=== PATIENT | female | born 1935 | race Caucasian/White ===

== ENCOUNTER 2019-07-20 22:31 | Inpatient (IN) | payer MEDICARE, OTHER, SELFPAY ==
--- NOTE | ~2019-07-20 | CT_ITS ---
EXAMINATION: CTA brain carotid EXAM DATE: 07/21/2019 06:12 INDICATION: Stroke. Unwitnessed fall. TECHNIQUE: Spiral CTA of the carotid arteries was performed with intravenous injection 100 cc of Om nipaque 350. Axial, coronal, sagittal reformatted images reviewed. Additional reformatted images cre ated on dedicated 3-D workstation. NASCET comparable standard used to assess the degree of arterial stenosis. Spiral CT angiogram cerebral arteries performed with the same intravenous injection of con trast. Source images of the brain CTA transferred to dedicated workstation for 3-D rotational image c reation. Coronal, sagittal maximum intensity pixel images also reviewed. The dose-length product (D LP) for this examination was 962.22 mGy-cm. The exposure was tailored according to patient size, an d iterative reconstruction (ASIR) was used as additional dose reduction technique. Correlation is mad e to noncontrast head CT earlier same date. FINDINGS: Imaged portion of the ascending aorta measures at least 4.3 cm in diameter, mildly aneurysm al. Mild scattered bilateral carotid bulb arterial sclerosis with 0% carotid bulb stenosis bilaterall y. The vertebral arteries are codominant. Moderate amount of relatively smooth bilateral carotid siph on arterial sclerosis with distal right carotid siphon stenosis of 40% and left carotid siphon stenos is of 25%. There is no carotid or vertebral basilar arterial dissection or fibromuscular dysplasia. There are no cerebral artery aneurysms. There is symmetric cerebral artery arborization. The sagittal , transverse and sigmoid sinuses enhance normally, no venous sinus thrombosis. Internal cerebral vein s also enhance normally. There are no areas of abnormal enhancement on the post contrast images. Gra y-white differentiation appears preserved. There is no brain mass. Cardiomegaly and sternotomy wires. IMPRESSION: 1. No cervical arterial dissection or cerebral artery aneurysm. 2. Right carotid siphon 40% stenosis. 3. Left carotid siphon 25% stenosis. 4. Ascending aortic aneurysm. Reviewed, dictated and finalized at location A.
--- NOTE | ~2019-07-20 | CT_ITS ---
EXAMINATION: CT brain wo con EXAM DATE: 07/21/2019 04:20 INDICATION: Unwitnessed fall. Stroke. TECHNIQUE: Spiral CT of the head was performed without contrast. Axial, coronal and sagittal images were reviewed. The dose-length product (DLP) for this examination was 605.33 mGy-cm. The exposure w as tailored according to patient size, and iterative reconstruction (ASIR) was used as additional dos e reduction technique. Comparison is made to prior examination from 06/18/2012. FINDINGS: There is no acute intraparenchymal hemorrhage. No evidence of intraparenchymal brain mass lesion. No evidence of acute infarction. Please note that initial head CT has limited sensitivity f or small or acute infarctions. There are punctate old bilateral internal capsular and right basal ga nglia lacunar infarctions, most new compared to prior study in 2012. There is moderate periventricul ar and subcortical hypodensity, nonspecific but probably related to small vessel ischemic disease. There is mild prominence of the sulci and ventricles related to cerebral atrophy. There is intracra nial carotid arteriosclerosis. There are no extra-axial collections. There is no mass effect or mid line shift. Patient has had ocular lens surgery. Soft tissue is unremarkable. The visualized sinus es and mastoid air cells are well aerated. Interval progression in the age-related findings compare d to prior study. IMPRESSION: 1. No acute intracranial findings. 2. Chronic age related findings. 3. Old lacunar infarctions. Reviewed, dictated and finalized at location A.
[2019-07-20 22:38] VITALS: BP 249/74; PULSE 72; RESP 18; TEMP 36.8; O2SAT 98
--- NOTE | 2019-07-20 22:38 | ED.GIBLEED ---
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 per daughter who she lives with is bed side and states that the pt fell tonight and was having rectal bleeding on Warfarin for mechanical aortic valve replacement daughter just noticed today no pain, SOB, N/V, ABD pain, weakness, roxana, DM, HTN, nonsmoker Related Data Home Medications Medication Instructions Recorded Confirmed ascorbic acid (vitamin C) 250 mg 250 mg PO DAILY 05/29/19 05/29/19 tablet aspirin 81 mg tablet,delayed 81 mg PO DAILY 05/29/19 05/29/19 release atorvastatin 40 mg tablet 40 mg PO DAILY 05/29/19 05/29/19 calcium carb 300 mg-D3 800 1 tablet PO DAILY 05/29/19 05/29/19 unit-mag ox 25 mg-photocopying equipment mechanic 0.5 mg-abel-Zn tablet cholecalciferol (vitamin D3) 125 125 mcg PO DAILY 05/29/19 05/29/19 mcg (5,000 unit) capsule cinnamon bark 500 mg capsule 500 mg PO DAILY 05/29/19 05/29/19 glucosamine-chondroitin 250 mg-200 2 tablet PO TID 05/29/19 05/29/19 mg tablet omega-3 fatty acids 500 mg capsule 500 mg PO DAILY 05/29/19 05/29/19 pyridoxine (vitamin B6) 100 mg 100 mg PO DAILY 05/29/19 05/29/19 tablet vitamin B complex 1 tablet PO DAILY 05/29/19 05/29/19 warfarin 2 mg tablet 2 mg PO QMWF 05/29/19 05/29/19 warfarin 4 mg tablet 4 mg PO QMWF 05/29/19 05/29/19 zinc 50 mg tablet 50 mg PO DAILY 05/29/19 05/29/19 Allergies Allergy/AdvReac Type Severity Reaction Status Date / Time milk Allergy Mild Unverified 07/29/16 13:14 lactose Allergy Unknown NASAL Verified 07/29/16 13:14 CONGESTION Penicillins Allergy Unknown Verified 03/01/17 15:29 pravastatin Allergy Unknown Verified 03/01/17 15:32 Sulfa (Sulfonamide Allergy Unknown Verified 03/25/17 13:14 Antibiotics) PMFSH Social History Social History Smoking status: Never smoker Second hand tobacco smoke exposure: No Alcohol intake: never Substance use: never Substance use type: does not use Gender identity (if verbalized by the patient): Female Discharge Plan Discharge Prescriptions: No Action atorvastatin 40 mg tablet 40 mg PO DAILY RF: 0 warfarin 4 mg tablet 4 mg PO QMWF RF: 0 warfarin 2 mg tablet 2 mg PO QMWF RF: 0 aspirin [Aspir-81] 81 mg tablet,delayed release (DR/EC) 81 mg PO DAILY RF: 0 glucosamine-chondroitin [Osteo Bi-Flex] 250-200 mg tablet 2 tablet PO TID RF: 0 pyridoxine (vitamin B6) 100 mg tablet 100 mg PO DAILY RF: 0 Caltrate + D3 Plus Minerals 300 mg-800 unit -25 mg-0.5 mg tablet 1 tablet PO DAILY RF: 0 cholecalciferol (vitamin D3) 125 mcg (5,000 unit) capsule 125 mcg PO DAILY RF: 0 zinc [Chelated Zinc] 50 mg tablet 50 mg PO DAILY RF: 0 ascorbic acid (vitamin C) 250 mg tablet 250 mg PO DAILY RF: 0 omega-3 fatty acids 500 mg capsule 500 mg PO DAILY RF: 0 vitamin B complex [B Complex-Vitamin B12] Tablet 1 tablet PO DAILY RF: 0 cinnamon bark 500 mg capsule 500 mg PO DAILY RF: 0 celecoxib 200 mg capsule 200 mg PO DAILY Qty: 90 RF: 1 digoxin 250 mcg (0.25 mg) tablet 250 mcg PO DAILY Qty: 90 RF: 1 galantamine 8 mg capsule,ext rel. pellets 24 hr 8 mg PO QAM Qty: 90 RF: 1 lisinopril 20 mg tablet 20 mg PO DAILY Qty: 90 RF: 1 metoprolol tartrate 50 mg tablet 25 mg PO BID Qty: 90 RF: 1 glyburide-metformin 2.5-500 mg tablet 1 tablet PO BID Qty: 180 RF: 1 memantine 28 mg capsule,sprinkle,ER 24hr 28 mg PO DAILY Qty: 90 RF: 1
--- NOTE | 2019-07-20 22:44 | ED.FALL ---
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 Per daughter states that the pt never falls but that tonight she heard the pt fall and when she went in the room to check on the pt the pt was on her side. She reports that the pt is chronically on Warfarin for a mechanical valve and tonight she also noticed bright red blood in toilet after the pt had a BM. The pt denies any CP, back pain, neck pain, SOB, N/V, ABD pain, weakness, or numbness. MD complaint: fall Onset (ago): minute(s) Fall witnessed: no Place fall occurred: home Prolonged down time: no Associated symptoms (after fall): other (rectal bleeding) Related Data Home Medications Medication Instructions Recorded Confirmed ascorbic acid (vitamin C) 250 mg 250 mg PO DAILY 05/29/19 05/29/19 tablet aspirin 81 mg tablet,delayed 81 mg PO DAILY 05/29/19 05/29/19 release atorvastatin 40 mg tablet 40 mg PO DAILY 05/29/19 05/29/19 calcium carb 300 mg-D3 800 1 tablet PO DAILY 05/29/19 05/29/19 unit-mag ox 25 mg-copy clerk 0.5 mg-abel-Zn tablet cholecalciferol (vitamin D3) 125 125 mcg PO DAILY 05/29/19 05/29/19 mcg (5,000 unit) capsule cinnamon bark 500 mg capsule 500 mg PO DAILY 05/29/19 05/29/19 glucosamine-chondroitin 250 mg-200 2 tablet PO TID 05/29/19 05/29/19 mg tablet omega-3 fatty acids 500 mg capsule 500 mg PO DAILY 05/29/19 05/29/19 pyridoxine (vitamin B6) 100 mg 100 mg PO DAILY 05/29/19 05/29/19 tablet vitamin B complex 1 tablet PO DAILY 05/29/19 05/29/19 warfarin 2 mg tablet 10 mg PO QMWF 05/29/19 05/29/19 warfarin 4 mg tablet 8 mg PO QTUTH 05/29/19 05/29/19 zinc 50 mg tablet 50 mg PO DAILY 05/29/19 05/29/19 Allergies Allergy/AdvReac Type Severity Reaction Status Date / Time milk Allergy Mild Unknown Verified 07/20/19 22:46 lactose Allergy Unknown NASAL Verified 07/20/19 22:46 CONGESTION Penicillins Allergy Unknown Unknown Verified 07/20/19 22:46 pravastatin Allergy Unknown Unknown Verified 07/20/19 22:46 Sulfa (Sulfonamide Allergy Unknown Unknown Verified 07/20/19 22:46 Antibiotics) Review of Systems Review of Systems: All systems reviewed & are unremarkable except as noted in HPI and below Cardiovascular: Cardiovascular: Denies chest pain Respiratory: Respiratory: Denies dyspnea Gastrointestinal: Gastrointestinal: Denies abdominal pain, Reports hematochezia, Denies nausea and Denies vomiting Musculoskeletal: Musculoskeletal: Denies back pain and Denies neck pain Neurologic: Denies numbness and Denies weakness PMFSH Past Medical History Medical History CKD (chronic kidney disease) stage 3, GFR 30-59 ml/min Dementia 02/12/2013 Dementia, unspecified, without behavioral disturbance Diarrhea in adult patient 06/25/2018 Dyslipidemia Edema of both lower legs due to peripheral venous insufficiency 07/21/2018 Elevated lipids Essential (primary) hypertension Low back pain without sciatica Tinea cruris Type 2 diabetes mellitus without complication, without long-term current use of insulin Vitamin D deficiency Surgical History Surgical History Aortic valve replaced 07/17/1995 History of cholecystectomy 06/17/2002 History of right coronary artery stent placement 02/16/2006 Family History Family History Father Acute myocardial infarction Social History Social History Smoking status: Never smoker Second hand tobacco smoke exposure: No Alcohol intake: never Substance use: never Substance use type: does not use Gender identity
[2019-07-20 23:00] VITALS: BP 205/64; PULSE 65; RESP 17; TEMP 36.6; O2SAT 97
[2019-07-20 23:06] LABS: Basophils Percent Auto 0.3 % (0.2-1.2); Eosinophils Absolute Auto 0.3 K/mm3 (0-0.3); Eosinophils Percent Auto 4.3 % (0-4.4); Hematocrit 30.5 % (37.0-47.0); Hemoglobin 9.8 g/dL (12.0-15.0); Immature Granulocyte Absolute 0.04 K/mm3 (0.00-0.031); Immature Granulocyte Percent A 0.6 % (0-0.5); Lymphocytes Absolute Auto 0.77 K/mm3 (0.9-3.2); Lymphocytes Percent Auto 11.3 % (18.3-44.2); Mean Corpuscular HGB Conc 32.1 g/dl (32-36); Mean Corpuscular Hemoglobin 30.1 pg (26-34); Mean Corpuscular Volume 93.6 fl (80-100); Mean Platelet Volume 11.3 fl (7.4-10.4); Monocytes Absolute Auto 0.7 K/mm3 (0.1-0.6); Monocytes Percent Auto 10.4 % (2.6-8.5); Neutrophils Percent Auto 73.1 % (45.5-73.1); Platelet Count Result 161 k/mm3 (150-375); Red Blood Count 3.26 M/mm3 (4.2-5.4); Red Cell Distribution Width 13.7 % (11.5-14.5); White Blood Count 6.8 K/mm3 (4.5-10.0)
--- NOTE | 2019-07-20 23:08 | ECG_ITS ---
Measurements Intervals [place] Rate: 66 P: 69 [place]: 201 QRS: -30 QRSD: 110 T: 49 QT: 378 QTc: 397 Interpretive Statements SINUS RHYTHM BORDERLINE AV CONDUCTION DELAY LEFT ATRIAL ENLARGEMENT INTRAVENTRICULAR CONDUCTION DELAY LEFT VENTRICULAR HYPERTROPHY AND ST-T CHANGE POOR R WAVE PROGRESSION, ANTERIOR LEADS BORDERLINE ST-T WAVE ABNORMALITY- INF/LAT LEADS BASELINE ARTIFACT- V4-V5 ABNORMAL ECG Electronically Signed On 07-21-2019 7:06:03 CDT by Delbert Nair D.O.
--- NOTE | 2019-07-20 23:09 | PC.NURSE ---
assumed care of pt at this time. report from TOR Torres
[2019-07-20 23:16] LABS: INR 2.3; Prothrombin Time 25.2 Seconds (11.1-14.7)
[2019-07-20 23:17] LABS: Partial Thromboplastin Time 36.3 SECONDS (22.3-36.8)
[2019-07-20 23:18] LABS: Alanine Aminotransferase 40 U/L (4-35); Albumin Level 3.8 g/dL (3.5-5.1); Alkaline Phosphatase 57 U/L (38-126); Aspartate Amino Transferase 42 U/L (14-36); Bilirubin,Total 0.9 mg/dL (0.2-1.3); Blood Urea Nitrogen 24 mg/dL (7-17); Calcium 9.2 mg/dL (8.4-10.2); Carbon Dioxide 31 mmol/L (22-30); Chloride 100 mmol/L (98-107); Estimated CRCL calculation 31 ml/min; Estimated Glomerular Filt Rate 53; Glucose 182 mg/dL (65-105); Potassium 4.6 mmol/L (3.4-5.0); Sodium 139 mmol/L (137-145)
[2019-07-20 23:48] VITALS: BP 253/71; PULSE 68
[2019-07-20 23:49] VITALS: BP 207/79; BP 248/84; PULSE 67; PULSE 74
[2019-07-20 23:58] VITALS: BP 207/79; PULSE 67; RESP 16; TEMP 36.3; O2SAT 97
[2019-07-21] VITALS (11 sets, daily range): BP systolic 156–253; BP diastolic 62–83; PULSE 67–99; RESP 16–18; TEMP 36.7–37.1; O2SAT 95–99; BMI 22.6
--- NOTE | 2019-07-21 00:54 | PC.NURSE ---
This patient, Sadie Winston, was admitted to 2 Medical Room 251-01. Patient/family oriented to hospital policies and general routines including ID bracelet, bed and alarms, visiting hours, pain management, procedures, bathroom and other care routines, personal items, smoking policy, room service/diet, and visiting hours. Valuables list has been completed. Information on how to activate the Rapid Response Team has been discussed. Patient/Family are encouraged to report perceived risks to care and to ask questions if they do not understand what they are told or what they should do.
[2019-07-21] MEDS: hydrALAZINE HCL 20 MG/ML VIAL 10 MG IV PUSH ×3 (01:51→14:37)
--- NOTE | 2019-07-21 03:31 | PM.IMHP ---
H&P: HPI History of Present Illness Chief complaint: GI Bleeding Narrative: This is an 83 year old Diabetic demented female who is known to chronically be anticoagulated on coumadin secondary to a mechanical heart valve who presented to the hospital tonight with her daughter secondary to suffering a fall at home. The patient's daughter had reported to nursing staff that the patient was in the bathroom and simply fell off of the toilet and was found on the ground. It's unknown whether or not the patient passed out. The patient's daughter noticed that there was blood in the toilet and brought her to the hospital for evaluation. Rectal exam in the ER was positive tonight. The patient does report feeling dizzy tonight but denies any chest pain, shortness of breath, cough, nausea, vomiting, abdominal pain, or focal neurological symptoms. On my encounter with the patient her daughter has already left and history is limited by the patient's severe dementia. Review of Systems Review of Systems: All systems reviewed & are unremarkable except as noted in HPI and below PMFSH Past Medical History Medical History CKD (chronic kidney disease) stage 3, GFR 30-59 ml/min Dementia 02/12/2013 Dementia, unspecified, without behavioral disturbance Diarrhea in adult patient 06/25/2018 Dyslipidemia Edema of both lower legs due to peripheral venous insufficiency 07/21/2018 Elevated lipids Essential (primary) hypertension Low back pain without sciatica Tinea cruris Type 2 diabetes mellitus without complication, without long-term current use of insulin Vitamin D deficiency Surgical History Surgical History Aortic valve replaced 07/17/1995 History of cholecystectomy 06/17/2002 History of right coronary artery stent placement 02/16/2006 Family History Family History Father Acute myocardial infarction Social History Social History Smoking status: Never smoker Second hand tobacco smoke exposure: No Alcohol intake: never Substance use: never Substance use type: does not use Gender identity (if verbalized by the patient): Female Agree to blood products: Yes Meds Home Medications and Allergies Home Medications Medication Instructions Recorded Confirmed Type celecoxib 200 mg capsule 200 mg PO DAILY #90 cap 03/24/19 07/21/19 Rx digoxin 250 mcg (0.25 mg) tablet 250 mcg PO DAILY #90 tablet 03/25/19 07/21/19 Rx galantamine 8 mg 24 hr 8 mg PO QAM #90 cap 04/01/19 07/21/19 Rx capsule,extended release ascorbic acid (vitamin C) 250 mg 250 mg PO DAILY 05/29/19 07/21/19 History tablet aspirin 81 mg tablet,delayed 81 mg PO QPM 05/29/19 07/21/19 History release atorvastatin 40 mg tablet 80 mg PO QPM 05/29/19 07/21/19 History calcium carb 300 mg-D3 800 1 tablet PO DAILY 05/29/19 07/21/19 History unit-mag ox 25 mg-multi mission helicopter aircrewman 0.5 mg-abel-Zn tablet cholecalciferol (vitamin D3) 125 125 mcg PO DAILY 05/29/19 07/21/19 History mcg (5,000 unit) capsule cinnamon bark 500 mg capsule 500 mg PO QPM 05/29/19 07/21/19 History glucosamine-chondroitin 250 mg-200 1 tablet PO DAILY 05/29/19 07/21/19 History mg tablet omega-3 fatty acids 500 mg capsule 500 mg PO DAILY 05/29/19 07/21/19 History pyridoxine (vitamin B6) 100 mg 100 mg PO QPM 05/29/19 07/21/19 History tablet vitamin B complex 1 tablet PO QPM 05/29/19 07/21/19 History warfarin 2 mg tablet 10 mg PO DIRECTED 05/29/19 07/21/19 History warfarin 4 mg tablet 8 mg PO DIRECTED 05/29/19 07/21/19 History zinc 50 mg tablet 50 mg PO DAILY 05/29/19 07/21/19 History metoprolol tartrate 50 mg tablet 25 mg PO BID #90 tablet 06/02/19 07/21/19 Rx glyburide 2.5 mg-metformin 500 mg 1 tablet PO BID #180 tablet 06/24/19 07/21/19 Rx tablet lisinopril 20 mg PO QPM 07/21/19 07/21/19
[2019-07-21] MEDS: LABETALOL HCL INJ 100 MG/20 ML VIAL 20 MG IV PUSH (03:43)
[2019-07-21 05:28] LABS: Basophils Percent Auto 0.2 % (0.2-1.2); Eosinophils Absolute Auto 0.1 K/mm3 (0-0.3); Eosinophils Percent Auto 1.5 % (0-4.4); Hemoglobin 10.5 g/dL (12.0-15.0); Immature Granulocyte Absolute 0.03 K/mm3 (0.00-0.031); Immature Granulocyte Percent A 0.3 % (0-0.5); Lymphocytes Absolute Auto 0.88 K/mm3 (0.9-3.2); Lymphocytes Percent Auto 9.5 % (18.3-44.2); Mean Corpuscular HGB Conc 32.8 g/dl (32-36); Mean Corpuscular Volume 91.4 fl (80-100); Mean Platelet Volume 11.6 fl (7.4-10.4); Monocytes Absolute Auto 0.8 K/mm3 (0.1-0.6); Monocytes Percent Auto 8.6 % (2.6-8.5); Neutrophils Absolute Auto 7.4 K/mm3 (1.3-6.7); Neutrophils Percent Auto 79.9 % (45.5-73.1); Platelet Count Result 173 k/mm3 (150-375); Red Cell Distribution Width 13.8 % (11.5-14.5); White Blood Count 9.3 K/mm3 (4.5-10.0)
[2019-07-21 05:34] LABS: Alanine Aminotransferase 40 U/L (4-35); Albumin Level 3.9 g/dL (3.5-5.1); Alkaline Phosphatase 59 U/L (38-126); Aspartate Amino Transferase 43 U/L (14-36); Blood Urea Nitrogen 20 mg/dL (7-17); Calcium 9.4 mg/dL (8.4-10.2); Carbon Dioxide 31 mmol/L (22-30); Chloride 101 mmol/L (98-107); Estimated CRCL calculation 36 ml/min; Estimated Glomerular Filt Rate 60; Glucose 193 mg/dL (65-105); Potassium 3.8 mmol/L (3.4-5.0); Sodium 137 mmol/L (137-145)
[2019-07-21 05:43] LABS: Troponin I < 0.012 ng/mL (0.000-0.034)
[2019-07-21 05:59] LABS: Erythrocyte Sedimentation Rate 98 mm/hr (0-20)
[2019-07-21 06:53] LABS: Glucose Point of Care 188 (65-105)
--- NOTE | 2019-07-21 07:56 | WPDGICN ---
Assessment and Plan Assessment and plan (1) GI bleeding: Qualifiers: GI bleed type/associated pathology: unspecified gastrointestinal hemorrhage type Qualified Code(s): K92.2 - Gastrointestinal hemorrhage, unspecified Code(s): K92.2 - Gastrointestinal hemorrhage, unspecified Status: Acute Assessment and Plan: Patient has been noted to have bright red blood per rectum. Identified in the toilet bowl. Undoubtedly aggravated by warfarin anticoagulated status. Hemoglobin is mildly anemic but not to the degree that it requires transfusion. Plan is to briefly hold anticoagulation. Colonoscopy and if necessary an EGD will be performed after preparation today. Continue to monitor hemoglobin closely. 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 (current) use of anticoagulants Status: Chronic (3) H/O aortic valve replacement: Code(s): Z95.2 - Presence of prosthetic heart valve Status: Chronic (4) Fall: Qualifiers: Encounter type: initial encounter Qualified Code(s): W19.XXXA - Unspecified fall, initial encounter Code(s): W19.XXXA - Unspecified fall, initial encounter Status: Acute (5) Dementia, unspecified, without behavioral disturbance: Qualifiers: Dementia type: unspecified type Qualified Code(s): F03.90 - Unspecified dementia without behavioral disturbance Code(s): F03.90 - Unspecified dementia without behavioral disturbance Status: Acute GI Consult Note Consult date/time: 07/21/19 07:56 HPI: Sadie Winston is a 83 year old female Seen in evaluation at the request of the hospitalist service. Patient has a history of dementia. Lives at home. Was found on the floor after a fall. It is uncertain whether she had syncopal episode. Blood was noted in the toilet. And for this reason she was taken to the emergency room. She is unable to give any additional history. Currently she denies abdominal pain. She is somewhat uncertain of the specifics of her illness. Past medical history is significant for aortic valve replacement. She has warfarin anticoagulation chronically. Review of Systems Review of Systems: ROS unobtainable: unobtainable due to mental status PMFSH Past Medical History Medical History CKD (chronic kidney disease) stage 3, GFR 30-59 ml/min Dementia 02/12/2013 Dementia, unspecified, without behavioral disturbance Diarrhea in adult patient 06/25/2018 Dyslipidemia Edema of both lower legs due to peripheral venous insufficiency 07/21/2018 Elevated lipids Essential (primary) hypertension Low back pain without sciatica Tinea cruris Type 2 diabetes mellitus without complication, without long-term current use of insulin Vitamin D deficiency Surgical History Surgical History Aortic valve replaced 07/17/1995 History of cholecystectomy 06/17/2002 History of right coronary artery stent placement 02/16/2006 Family History Family History Father Acute myocardial infarction Social History Social History Smoking status: Never smoker Second hand tobacco smoke exposure: No Alcohol intake: never Substance use: never Substance use type: does not use Gender identity (if verbalized by the patient): Female Agree to blood products: Yes Meds Home Medications and Allergies Home Medications Medication Instructions Recorded Confirmed Type celecoxib 200 mg capsule 200 mg PO DAILY #90 cap 03/24/19 07/21/19 Rx digoxin 250 mcg (0.25 mg) tablet 250 mcg PO DAILY #90 tablet 03/25/19 07/21/19 Rx galantamine 8 mg 24 hr 8 mg PO QAM #90 cap 04/01/19 07/21/19 Rx capsule,extended release ascorbic acid (vitamin C) 250 mg 250 mg PO DAILY 05/29/19 07/21/19 History tabl
[2019-07-21] MEDS: PEG (High)/E-LYTE SOLN 4,000 ML BTL 4000 ML PO (10:19)
--- NOTE | 2019-07-21 11:18 | ECG_ITS ---
Measurements Intervals [place] Rate: 88 P: 79 [place]: 242 QRS: -27 QRSD: 91 T: 135 QT: 355 QTc: 430 Interpretive Statements SINUS RHYTHM WITH FIRST DEGREE AV BLOCK LEFT ATRIAL ENLARGEMENT LEFT VENTRICULAR HYPERTROPHY AND ST-T CHANGE BORDERLINE R WAVE PROGRESSION, ANTERIOR LEADS ST-T WAVE ABNORMALITY IN LATERAL LEADS- CONSIDER ISCHEMIA ABNORMAL ECG Electronically Signed On 07-21-2019 11:32:12 CDT by Delbert Nair D.O.
[2019-07-21 11:35] LABS: Hematocrit 33.9 % (37.0-47.0); Hemoglobin 10.8 g/dL (12.0-15.0)
[2019-07-21 12:08] LABS: Glucose Point of Care 239 (65-105)
[2019-07-21] MEDS: INSULIN ASPART (*BKC) 100 UNITS/ML SUB-Q (12:24)
--- NOTE | 2019-07-21 12:53 | PM.IMPN ---
Progress Note: A&P Assessment and Plan (1) GI bleeding: Qualifiers: GI bleed type/associated pathology: unspecified gastrointestinal hemorrhage type Qualified Code(s): K92.2 - Gastrointestinal hemorrhage, unspecified Code(s): K92.2 - Gastrointestinal hemorrhage, unspecified Status: Acute Assessment and Plan: Likely secondary to coumadin thearpy. Admit to Med-surg, NPO, Monitor H/H, transfuse prn. GI Consult. 07/21/19 12:53 Patient is 83-year-old female with a history aortic mechanical valve on Coumadin patient was brought to the emergency department after patient had fell while on the toilet and struck her head, patient has severe dementia unable to provide any review of symptoms, unable to provide if she had any symptoms prior to fall such as chest pain dizziness or palpitation, was unwitnessed fall, patient had a CT scan of the head theree is no acute injury or bleeding, patient is INR is 2.3 today, there was a concern the patient had a rectal red bright blood and exam in the ER showed the patient is positive for bleeding, patient is seen by Dr. Higuera recommending colonoscopy to further evaluate, her INR today is 2.3, will hold her Coumadin and place the patient on heparin patient will stop 6 hrs prior to the colonoscopy, upon arrival to emergency depart patient blood pressure was also elevated patient was given hydralazine and labetalol, a blood pressure this morning is trending down, we have resumed patient's home medication and will monitor, patient is clinically stable will have a PT OT evaluate the patient (2) Fall: Qualifiers: Encounter type: initial encounter Qualified Code(s): W19.XXXA - Unspecified fall, initial encounter Code(s): W19.XXXA - Unspecified fall, initial encounter Status: Acute Assessment and Plan: Its unknown if the patient syncopized today when she fell. We also do not know if she suffered any head trauma. We will check a STAT CT brain as the patient is severely demented and suffered an unwitnessed fall. Will have a PT OT evaluate the patient (3) Hypertensive urgency: Code(s): I16.0 - Hypertensive urgency Status: Acute Assessment and Plan: We will treat with bolus IV antihypertensives. Goal of 25% reduction of SBP overnight. If the patient's blood pressure does not improve we will consider transfer to ICU and starting a Cardene IV drip for blood pressure control. Will monitor (4) Transaminitis: Code(s): R74.0 - Nonspecific elevation of levels of transaminase and lactic acid dehydrogenase [LDH] Status: Acute Assessment and Plan: acute vs. chronic? Monitor liver function. (5) H/O aortic valve replacement: Code(s): Z95.2 - Presence of prosthetic heart valve Status: Chronic Assessment and Plan: resume coumadin when appropriate. Plan is above (6) Dementia: Qualifiers: Dementia type: unspecified type Dementia behavioral disturbance: without behavioral disturbance Qualified Code(s): F03.90 - Unspecified dementia without behavioral disturbance Code(s): F03.90 - Unspecified dementia without behavioral disturbance Status: Chronic Assessment and Plan: Continue home memantine when possible. (7) CKD (chronic kidney disease) stage 3, GFR 30-59 ml/min: Code(s): N18.3 - Chronic kidney disease, stage 3 (moderate) Status: Chronic Assessment and Plan: stable. Monitor renal function. Avoid nephrotoxic agents. (8) Dyslipidemia: Code(s): E78.5 - Hyperlipidemia, unspecified Status: Chronic Assessment and Plan: resume atorvastatin when possible. (9) Type 2 diabetes mellitus without complication, without long-term current use of insulin: Code(s): E11.9 - Type 2 diabetes mellitus without complications Status: Chronic Assessment and Plan: Accuchecks, SSI coverage, Hypoglycemic protocol.l (10) Chronic anticoagulat
[2019-07-21 14:18] LABS: INR 2.2; Prothrombin Time 24.2 Seconds (11.1-14.7)
[2019-07-21 14:19] LABS: Partial Thromboplastin Time 34.3 SECONDS (22.3-36.8)
[2019-07-21] MEDS: HEPARIN SOD/D5W 100 UNITS/ML 25,000 UNITS/250 ML BAG 10 UNITS IV CONT (14:30)
[2019-07-21 16:43] LABS: Glucose Point of Care 152 (65-105)
[2019-07-21] MEDS: PYRIDOXINE HCL 50 MG TABLET 100 MG PO (17:02)
[2019-07-21] MEDS: MEMANTINE HCL XR 28 MG CAP PO (17:03)
[2019-07-21] MEDS: ASPIRIN 81 MG ENTERIC TABLET PO (17:03)
[2019-07-21] MEDS: lisinopriL 20 MG TABLET PO (17:03)
[2019-07-21] MEDS: ATORVASTATIN 40 MG TABLET 80 MG PO (17:03)
[2019-07-21] MEDS: glyBURIDE 2.5 MG TABLET PO (17:04)
[2019-07-21] MEDS: VITAMIN B COMPLEX CAPSULE 1 CAP PO (17:04)
[2019-07-21] MEDS: metFORMIN HCL 500 MG TABLET PO (17:04)
[2019-07-21 17:06] LABS: Hematocrit 30.1 % (37.0-47.0); Hemoglobin 9.8 g/dL (12.0-15.0)
[2019-07-21] MEDS: ONDANSETRON INJ 4 MG/2 ML VIAL IV PUSH (17:52)
[2019-07-21 20:38] LABS: Partial Thromboplastin Time 159.9 SECONDS (22.3-36.8)
[2019-07-21] MEDS: METOPROLOL TARTRATE 25 MG TABLET PO (21:13)
[2019-07-21 21:18] LABS: Glucose Point of Care 256 (65-105)
--- NOTE | 2019-07-21 22:38 | PC.NURSE ---
HEPARIN DRIP HELD FROM 2134 TO 2234 WITH RATE DECREASED FROM 10CC TO 8CC PER PROTOCOL
[2019-07-22] VITALS (11 sets, daily range): BP systolic 97–196; BP diastolic 31–73; PULSE 88–113; RESP 16–24; TEMP 36.2–37; O2SAT 90–96
[2019-07-22 00:14] LABS: Glucose Point of Care 135 (65-105)
[2019-07-22 05:38] LABS: Hematocrit 29.8 % (37.0-47.0); Hemoglobin 9.7 g/dL (12.0-15.0); Mean Corpuscular HGB Conc 32.6 g/dl (32-36); Mean Corpuscular Hemoglobin 29.5 pg (26-34); Mean Corpuscular Volume 90.6 fl (80-100); Mean Platelet Volume 11.3 fl (7.4-10.4); Platelet Count Result 157 k/mm3 (150-375); Red Blood Count 3.29 M/mm3 (4.2-5.4); White Blood Count 11.6 K/mm3 (4.5-10.0)
[2019-07-22 05:58] LABS: Blood Urea Nitrogen 14 mg/dL (7-17); Calcium 8.7 mg/dL (8.4-10.2); Carbon Dioxide 33 mmol/L (22-30); Chloride 102 mmol/L (98-107); Estimated CRCL calculation 36 ml/min; Estimated Glomerular Filt Rate 60; Glucose 161 mg/dL (65-105); Potassium 3.5 mmol/L (3.4-5.0); Sodium 138 mmol/L (137-145)
[2019-07-22 06:00] LABS: INR 1.7; Prothrombin Time 19.9 Seconds (11.1-14.7)
[2019-07-22 06:01] LABS: Partial Thromboplastin Time 33.7 SECONDS (22.3-36.8)
[2019-07-22 06:50] LABS: Glucose Point of Care 160 (65-105)
[2019-07-22] MEDS: hydrALAZINE HCL 20 MG/ML VIAL 10 MG IV PUSH (07:15)
[2019-07-22] MEDS: METOPROLOL TARTRATE 25 MG TABLET PO ×2 (07:59→20:35)
[2019-07-22] MEDS: DIGOXIN 250 MCG TABLET PO (08:00)
--- NOTE | 2019-07-22 08:20 | PC.NURSE ---
0849- to GI lab per cristy
[2019-07-22] MEDS: LACTATED RINGERS 1,000 ML 150 ML IV CONT (08:48)
--- NOTE | 2019-07-22 09:21 | WPDANESEPPF ---
Anes - Initial Pre Proc Eval Procedure: Operation Date: 07/22/19 09:30 Proposed Procedures p Colonoscopy - Carlos Manuel Ram MD Date/Time: 07/22/19 09:21 Surgeon: Darin Gregorio MD Pre Op Diagnosis: GI Bleeding Patient Data Age: 83 Gender: F Height: 5 ft 3 in Weight: 57.8 kg Last Vital Signs Temp 36.2 C L 07/22/19 08:45 Pulse 92 07/22/19 08:45 Resp 24 H 07/22/19 08:45 BP 165/73 H 07/22/19 08:45 Pulse Ox 92 07/22/19 08:45 Allergies Allergy/AdvReac Type Severity Reaction Status Date / Time milk Allergy Mild Unknown Verified 07/22/19 08:42 lactose Allergy Unknown NASAL Verified 07/22/19 08:42 CONGESTION Penicillins Allergy Unknown Unknown Verified 07/22/19 08:42 pravastatin Allergy Unknown Unknown Verified 07/22/19 08:42 Sulfa (Sulfonamide Allergy Unknown Unknown Verified 07/22/19 08:42 Antibiotics) Home Medications Medication Instructions Recorded Confirmed Type celecoxib 200 mg capsule 200 mg PO DAILY #90 cap 03/24/19 07/21/19 Rx digoxin 250 mcg (0.25 mg) tablet 250 mcg PO DAILY #90 tablet 03/25/19 07/21/19 Rx galantamine 8 mg 24 hr 8 mg PO QAM #90 cap 04/01/19 07/21/19 Rx capsule,extended release ascorbic acid (vitamin C) 250 mg 250 mg PO DAILY 05/29/19 07/21/19 History tablet aspirin 81 mg tablet,delayed 81 mg PO QPM 05/29/19 07/21/19 History release atorvastatin 40 mg tablet 80 mg PO QPM 05/29/19 07/21/19 History calcium carb 300 mg-D3 800 1 tablet PO DAILY 05/29/19 07/21/19 History unit-mag ox 25 mg-undercover cop 0.5 mg-abel-Zn tablet cholecalciferol (vitamin D3) 125 125 mcg PO DAILY 05/29/19 07/21/19 History mcg (5,000 unit) capsule cinnamon bark 500 mg capsule 500 mg PO QPM 05/29/19 07/21/19 History glucosamine-chondroitin 250 mg-200 1 tablet PO DAILY 05/29/19 07/21/19 History mg tablet omega-3 fatty acids 500 mg capsule 500 mg PO DAILY 05/29/19 07/21/19 History pyridoxine (vitamin B6) 100 mg 100 mg PO QPM 05/29/19 07/21/19 History tablet vitamin B complex 1 tablet PO QPM 05/29/19 07/21/19 History warfarin 2 mg tablet 10 mg PO DIRECTED 05/29/19 07/21/19 History warfarin 4 mg tablet 8 mg PO DIRECTED 05/29/19 07/21/19 History zinc 50 mg tablet 50 mg PO DAILY 05/29/19 07/21/19 History metoprolol tartrate 50 mg tablet 25 mg PO BID #90 tablet 06/02/19 07/21/19 Rx glyburide 2.5 mg-metformin 500 mg 1 tablet PO BID #180 tablet 06/24/19 07/21/19 Rx tablet lisinopril 20 mg PO QPM 07/21/19 07/21/19 History memantine 28 mg PO QPM 07/21/19 07/21/19 History Laboratory Tests 07/21/19 07/21/19 07/21/19 11:12 12:01 14:01 WBC RBC Hgb 10.8 g/dL L g/dL (12.0-15.0) Hct 33.9 % L % (37.0-47.0) MCV MCH MCHC RDW Plt Count MPV PT 24.2 Seconds H Seconds (11.1-14.7) INR 2.2 APTT 34.3 SECONDS SECONDS (22.3-36.8) Sodium Potassium Chloride Carbon Dioxide BUN Creatinine Estim Creat Clear Calc Estimated GFR Glucose POC Capillary Glucose 239 mg/dl H mg/dl (65-105) Calcium 07/21/19 07/21/19 07/21/19 16:20 16:57 20:00 WBC RBC Hgb 9.8 g/dL L g/dL (12.0-15.0) Hct 30.1 % L % (37.0-47.0) MCV MCH MCHC RDW Plt Count MPV PT INR APTT Sodium Potassium Chloride Carbon Dioxide BUN Creatinine Estim Creat Clear Calc Estimated GFR Glucose POC Capillary Glucose 152 mg/dl H mg/dl 256 mg/dl H mg/dl (65-105) (65-105) Calcium 07/21/19 07/22/19 07/22/19 20:20 00:05 05:16 WBC R
[2019-07-22] MEDS: SIMETHICONE ORAL SUSPENSION 20 MG/0.3 ML 30 ML BOTTLE PO (09:44)
--- NOTE | 2019-07-22 10:38 | PM.IMPN ---
Progress Note: A&P Assessment and Plan (1) GI bleeding: Qualifiers: GI bleed type/associated pathology: unspecified gastrointestinal hemorrhage type Qualified Code(s): K92.2 - Gastrointestinal hemorrhage, unspecified Code(s): K92.2 - Gastrointestinal hemorrhage, unspecified Status: Acute Assessment and Plan: GI bleed noted just prior to admission by family with BRBPR with blood in toilet. Patient on coumadin therapy. Hgb 9.8 on admission and has remained stable. EGD showing nonbleeding gastric ulcers and colo noting diverticulosis and IH. Gastric ulcer most likely source of GI blood loss. Okay to resume Coumadin. (2) Fall: Qualifiers: Encounter type: initial encounter Qualified Code(s): W19.XXXA - Unspecified fall, initial encounter Code(s): W19.XXXA - Unspecified fall, initial encounter Status: Acute Assessment and Plan: Patient severely demented and suffered an unwitnessed fall. Its unknown if the patient had a syncopal episode causing the fall. We also do not know if she suffered any head trauma. CT brain and Head/Neck CTA showing no acute findings. Continue PT/OT. (3) Hypertensive urgency: Code(s): I16.0 - Hypertensive urgency Status: Acute Assessment and Plan: BP 249/74 on admission on 07/19. Was treated appropriatel. BP slowly improved yesterday morning and now low at times with 97/31 this morning. Patient resumed on her Metoprolol and Lisinopril. Noncompliance with meds? Continue to monitor. (4) Transaminitis: Code(s): R74.0 - Nonspecific elevation of levels of transaminase and lactic acid dehydrogenase [LDH] Status: Acute Assessment and Plan: Mild elevation of AST/ALT. Levels not checked today. Lipitor has been continued. Contineu to monitor liver function. (5) H/O aortic valve replacement: Code(s): Z95.2 - Presence of prosthetic heart valve Status: Chronic Assessment and Plan: Currently on Heparin gtt covering until INR therapeutic again. Resume Coumadin today with bridging from Heparin. (6) Dementia: Qualifiers: Dementia behavioral disturbance: without behavioral disturbance Dementia type: unspecified type Qualified Code(s): F03.90 - Unspecified dementia without behavioral disturbance Code(s): F03.90 - Unspecified dementia without behavioral disturbance Status: Chronic Assessment and Plan: Stable. Continue home memantine and Razadyne. (7) CKD (chronic kidney disease) stage 3, GFR 30-59 ml/min: Code(s): N18.3 - Chronic kidney disease, stage 3 (moderate) Status: Chronic Assessment and Plan: Presumably patietn with CKD. eGFR 60. with normal Cr. Continue to monitor renal function. Avoid nephrotoxic agents. (8) Dyslipidemia: Code(s): E78.5 - Hyperlipidemia, unspecified Status: Chronic Assessment and Plan: Stable. LFTs noted. COntinue atorvastatin. (9) Type 2 diabetes mellitus without complication, without long-term current use of insulin: Code(s): E11.9 - Type 2 diabetes mellitus without complications Status: Chronic Assessment and Plan: Glucose reviewed on 07/22/19. Glucose elevated at times. Continue Accuchecks with SSI coverage. Continue Hypoglycemic protocol. (10) Chronic anticoagulation: Code(s): Z79.01 - shelter (current) use of anticoagulants Status: Chronic Assessment and Plan: The patient is chronically anticoagulated on coumadin for mechanical valve. Coumadin on has been on hold as the patient has an active GI bleed. INR 1.7 today. Continue to monitor PT/INR. Coumadin to be resumed tonight Subjective Date/time seen: 07/22/19 10:38 Interval history: 83yo female with dementia and mechanical heart valve here for GI bleed and fall. Assuming care. Chart reviewed. Patient back from procedure. No CP or abd pain. No n/v.
[2019-07-22] MEDS: glyBURIDE 2.5 MG TABLET PO ×2 (11:40→17:39)
[2019-07-22] MEDS: ZINC SULFATE 220 MG CAPSULE 50 MG PO (11:40)
[2019-07-22] MEDS: metFORMIN HCL 500 MG TABLET PO ×2 (11:40→17:39)
[2019-07-22] MEDS: CELECOXIB 200 MG CAPSULE PO (11:41)
[2019-07-22] MEDS: CHOLECALCIFEROL 1,000 UNIT TABLET 5000 UNITS PO (11:41)
[2019-07-22] MEDS: ASCORBIC ACID 250 MG TABLET PO (11:41)
[2019-07-22] MEDS: HEPARIN SOD/D5W 100 UNITS/ML 25,000 UNITS/250 ML BAG 8 UNITS IV CONT (12:26)
[2019-07-22 12:54] LABS: Glucose Point of Care 189 (65-105)
[2019-07-22] MEDS: ASPIRIN 81 MG ENTERIC TABLET PO (17:39)
[2019-07-22] MEDS: ATORVASTATIN 40 MG TABLET 80 MG PO (17:41)
[2019-07-22] MEDS: lisinopriL 20 MG TABLET PO (17:42)
[2019-07-22] MEDS: MEMANTINE HCL XR 28 MG CAP PO (17:42)
[2019-07-22] MEDS: PYRIDOXINE HCL 50 MG TABLET 100 MG PO (17:42)
[2019-07-22] MEDS: VITAMIN B COMPLEX CAPSULE 1 CAP PO (17:42)
[2019-07-22] MEDS: WARFARIN (*PBKC) 4 MG TABLET 8 MG PO (17:46)
[2019-07-22 18:24] LABS: Glucose Point of Care 70 (65-105)
[2019-07-22 18:31] LABS: Partial Thromboplastin Time 80.7 SECONDS (22.3-36.8)
[2019-07-22 20:08] LABS: Glucose Point of Care 107 (65-105)
[2019-07-23 01:13] LABS: Partial Thromboplastin Time 76.9 SECONDS (22.3-36.8)
[2019-07-23 05:16] LABS: Hematocrit 29.1 % (37.0-47.0); Hemoglobin 9.3 g/dL (12.0-15.0); Immature Platelet Fraction Pct 4.1 % (0.9-11.2); Mean Corpuscular Hemoglobin 29.5 pg (26-34); Mean Corpuscular Volume 92.4 fl (80-100); Mean Platelet Volume 11.4 fl (7.4-10.4); Platelet Count Result 128 k/mm3 (150-375); Red Blood Count 3.15 M/mm3 (4.2-5.4); Red Cell Distribution Width 14.2 % (11.5-14.5); White Blood Count 7.5 K/mm3 (4.5-10.0)
[2019-07-23 05:26] LABS: Alanine Aminotransferase 33 U/L (4-35); Albumin Level 3.2 g/dL (3.5-5.1); Alkaline Phosphatase 50 U/L (38-126); Aspartate Amino Transferase 37 U/L (14-36); Bilirubin,Total 1.9 mg/dL (0.2-1.3); Blood Urea Nitrogen 18 mg/dL (7-17); Calcium 8.8 mg/dL (8.4-10.2); Carbon Dioxide 35 mmol/L (22-30); Chloride 101 mmol/L (98-107); Estimated CRCL calculation 27 ml/min; Estimated Glomerular Filt Rate 43; Glucose 78 mg/dL (65-105); Potassium 3.4 mmol/L (3.4-5.0); Sodium 136 mmol/L (137-145)
[2019-07-23 05:29] LABS: INR 1.5; Prothrombin Time 17.3 Seconds (11.1-14.7)
[2019-07-23 05:34] LABS: Partial Thromboplastin Time 53.8 SECONDS (22.3-36.8)
[2019-07-23] MEDS: HEPARIN SODIUM 5,000 UNITS/ML VIAL 4500 UNITS IV PUSH (05:50)
[2019-07-23 06:00] VITALS: BP 153/66; PULSE 80; RESP 18; TEMP 36.6; O2SAT 96
--- NOTE | 2019-07-23 07:24 | WPDCDIQUERY2 ---
CDI Query Clarification Request - H&H 9.8/30.5 on admission - GI bleed documented - EGD finding gastric ulcers consistent with recent bleeding - H&H 9.3/29.1 on 07/22 Please clarify if there is a corresponding diagnosis for above findings. <Kalina Martinez RN - Last Filed: 07/23/19 07:28>
--- NOTE | 2019-07-23 08:03 | WPDANESPN ---
Anes - Prog Note Post-Op Date/Time: 07/23/19 08:03 Cardiovascular status: normal Respiratory status: normal Airway patency: baseline Mental status: baseline Post-Op hydration status: normal Vital Signs: Last Vital Signs Temp 36.6 C 07/23/19 06:00 Pulse 80 07/23/19 06:00 Resp 18 07/23/19 06:00 BP 153/66 H 07/23/19 06:00 Pulse Ox 96 07/23/19 06:00 I/O: Intake & Output 07/22/19 07/23/19 07/23/19 23:59 07:59 15:59 Intake Total 320 482 Output Total 400 600 Balance -80 -118 Laboratory Tests 07/23/19 04:54 07/23/19 04:54 07/22/19 07/22/19 07/22/19 11:51 17:49 18:14 WBC RBC Hgb Hct MCV MCH MCHC RDW Plt Count MPV % Immature Plt Fraction PT INR APTT 80.7 H Sodium Potassium Chloride Carbon Dioxide BUN Creatinine Estim Creat Clear Calc Estimated GFR Glucose POC Capillary Glucose 189 H 70 Calcium Total Bilirubin Direct Bilirubin AST ALT Alkaline Phosphatase Total Protein Albumin 07/22/19 07/23/19 07/23/19 19:52 00:34 04:54 WBC 7.5 RBC 3.15 L Hgb 9.3 L Hct 29.1 L MCV 92.4 MCH 29.5 MCHC 32.0 RDW 14.2 Plt Count 128 L MPV 11.4 H % Immature Plt Fraction 4.1 PT INR APTT 76.9 H Sodium Potassium Chloride Carbon Dioxide BUN Creatinine Estim Creat Clear Calc Estimated GFR Glucose POC Capillary Glucose 107 Calcium Total Bilirubin Direct Bilirubin AST ALT Alkaline Phosphatase Total Protein Albumin 07/23/19 07/23/19 04:54 04:54 WBC RBC Hgb Hct MCV MCH MCHC RDW Plt Count MPV % Immature Plt Fraction PT 17.3 H INR 1.5 APTT 53.8 H Sodium 136 L Potassium 3.4 Chloride 101 Carbon Dioxide 35 H BUN 18 H Creatinine 1.20 H Estim Creat Clear Calc 27 Estimated GFR 43 L Glucose 78 POC Capillary Glucose Calcium 8.8 Total Bilirubin 1.9 H Direct Bilirubin 0.0 AST 37 H ALT 33 Alkaline Phosphatase 50 Total Protein 6.0 L Albumin 3.2 L Post-procedural complaints: none Patient Feedback: Patient satisfied with anesthetic care.
[2019-07-23 09:06] VITALS: PULSE 98
[2019-07-23] MEDS: DIGOXIN 250 MCG TABLET PO (09:06)
[2019-07-23] MEDS: CHOLECALCIFEROL 1,000 UNIT TABLET 5000 UNITS PO (09:06)
[2019-07-23 09:07] VITALS: PULSE 98
[2019-07-23] MEDS: METOPROLOL TARTRATE 25 MG TABLET PO ×2 (09:07→20:02)
[2019-07-23] MEDS: CELECOXIB 200 MG CAPSULE PO (09:07)
[2019-07-23] MEDS: metFORMIN HCL 500 MG TABLET PO ×2 (09:07→17:15)
[2019-07-23] MEDS: ASCORBIC ACID 250 MG TABLET PO (09:07)
[2019-07-23] MEDS: glyBURIDE 2.5 MG TABLET PO ×2 (09:07→17:16)
[2019-07-23] MEDS: ZINC SULFATE 220 MG CAPSULE PO (09:18)
[2019-07-23 09:41] LABS: Glucose Point of Care 90 (65-105)
--- NOTE | 2019-07-23 10:12 | WPDGIPROGNO ---
Progress Note: A&P Additional Plan Patient alert this morning. Peers comfortable. Unable to give any useful history. No pain reported. Tolerating diet. Physical exam reveals her to be alert. Vital signs stable. Abdomen is soft and nontender with no organomegaly. Laboratory reveals hemoglobin 9.3, hematocrit 29.1, stable and improved after transfusion. Impression 1. Gastric ulcers. This appears to have been source of recent GI blood loss. No longer bleeding. Plan to advance diet. Continue proton pump inhibitor after discharge. Restart anticoagulation for her valvular heart disease. Continue to monitor hemoglobin intermittently after discharge. Patient should avoid nonsteroidal anti-inflammatory agents. No evidence of H pylori on biopsies to date. Subjective Date/time seen: 07/23/19 10:12 Objective Data Vital Signs Vital Signs: Vital Signs - 24 hr 07/22/19 10:18 07/22/19 10:28 07/22/19 10:57 Temperature 36.4 C Pulse Rate 88 90 96 Respiratory Rate 20 20 20 Blood Pressure 110/34 L 126/46 L 144/61 H Pulse Oximetry 96 93 93 07/22/19 13:40 07/22/19 20:35 07/22/19 22:00 Temperature 36.7 C 37.0 C Pulse Rate 96 88 91 Respiratory Rate 16 18 Blood Pressure 127/54 L 155/63 H Pulse Oximetry 95 96 07/23/19 06:00 07/23/19 09:06 07/23/19 09:07 Temperature 36.6 C Pulse Rate 80 98 98 Respiratory Rate 18 Blood Pressure 153/66 H Pulse Oximetry 96 Intake/Output Intake/Output: Intake & Output 07/20/19 07/21/19 07/22/19 07/23/19 23:59 23:59 23:59 23:59 Intake Total 1040 924 482 Output Total 1075 400 600 Balance -35 524 -118 Meds/Results Medications: Active Medications Generic Name Dose Route Start Last Admin Trade Name Freq PRN Reason Stop Dose Admin Ascorbic Acid 250 mg 07/22/19 09:00 07/23/19 09:07 Vitamin C PO 250 mg DAILY FREDIS Administration Aspirin 81 mg 07/21/19 18:00 07/22/19 17:39 Aspirin Ec PO 81 mg QPM FREDIS Administration Atorvastatin Calcium 80 mg 07/21/19 18:00 07/22/19 17:41 Lipitor PO 80 mg QPM FREDIS Administration Celecoxib 200 mg 07/22/19 09:00 07/23/19 09:07 Celebrex PO 200 mg DAILY FREDIS Administration Dextrose 12.5 gm 07/21/19 03:46 Dextrose 50% Syringe IV PUSH PRN PRN Hypoglycemia Protocol Digoxin 250 mcg 07/22/19 09:00 07/23/19 09:06 Lanoxin Tab PO 250 mcg DAILY FREDIS Administration Galantamine Hydrobromide 8 mg 07/22/19 08:00 07/23/19 09:05 Razadyne Er PO 8 mg DAILY@0800 FREDIS Administration Glyburide 2.5 mg 07/21/19 17:00 07/23/19 09:07 Micronase PO 2.5 mg BIDWM FREDIS Administration Heparin Sodium (Porcine) 4,500 units 07/21/19 12:54 07/23/19 05:50 Heparin Sodium IV PUSH 4,500 units PRN PRN Administration aPTT less than 55 seconds Heparin Sodium (Porcine) 2,500 units 07/21/19 12:54 Heparin Sodium IV PUSH PRN PRN aPTT 55 - 70 seconds Hydralazine HCl 10 mg 07/21/19 14:25 07/22/19 07:15 Apresoline Hcl Inj IV PUSH 10 mg Q6H PRN Administration Blood Pressure - High Dextrose 1,000 mls @ 100 mls/hr 07/21/19 03:46 Dextrose 5% 1,000 Ml IVPB PRN PRN Hypoglycemia Protocol Heparin Sodium/Dextrose 25,000 units in 250 mls @ 10 mls/hr 07/22/19 11:45 07/23/19 05:55 Heparin Sodium/D5w 100 Units/Ml IV CONT 1,000 units/hr .Q24H FREDIS 10 mls/hr Titration Protocol 1,000 UNITS/HR Insulin Aspart 2 - 5 units 07/23/19 08:00 07/23/19 09:04 Novolog SUB-Q Not Given TIDWM FREDIS Protocol Lisinopril 20 mg 07/21/19 18:00 07/22/19 17:42 Prinivil PO 20 mg QPM FREDIS Administration Memantine 28 mg 07/21/19 18:00 07/22/19 17:42 Namenda Xr PO 28 mg QPM FREDIS Administration Metformin HCl 500 mg 07/21/19 17:00 07/23/19 09:07 Glucophage PO 500 mg BIDWM FREDIS Administration Metoprolol Tartrate 25 mg 07/21/19 21:00 07/23/19 09:07 Lopressor PO 2
[2019-07-23 12:09] LABS: Partial Thromboplastin Time 144.5 SECONDS (22.3-36.8)
[2019-07-23] MEDS: INSULIN ASPART (*BKC) 100 UNITS/ML SUB-Q (12:15)
[2019-07-23 12:53] LABS: Glucose Point of Care 220 (65-105)
--- NOTE | 2019-07-23 13:00 | PM.IMPN ---
Progress Note: A&P Assessment and Plan (1) GI bleeding: Qualifiers: GI bleed type/associated pathology: unspecified gastrointestinal hemorrhage type Qualified Code(s): K92.2 - Gastrointestinal hemorrhage, unspecified Code(s): K92.2 - Gastrointestinal hemorrhage, unspecified Status: Acute Assessment and Plan: GI bleed noted just prior to admission by family with BRBPR with blood in toilet. Patient on Coumadin therapy. Hgb 9.8 on admission and has remained stable with Hgb 9.3 today. EGD showing nonbleeding gastric ulcers and colo noting diverticulosis and IH. The etiology of the GI bleed is probably the gastric ulcers. Coumadin resumed. Monitor HH closely. (2) Thrombocytopenia: Code(s): D69.6 - Thrombocytopenia, unspecified Status: Acute Assessment and Plan: Plt count down to 128K today. Could be transient but patient is on Heparin. Monitor closely. (3) Fall: Qualifiers: Encounter type: initial encounter Qualified Code(s): W19.XXXA - Unspecified fall, initial encounter Code(s): W19.XXXA - Unspecified fall, initial encounter Status: Acute Assessment and Plan: Patient demented and suffered an unwitnessed fall. Its unknown if the patient had a syncopal episode causing the fall. We also do not know if she suffered any head trauma. CT brain and Head/Neck CTA showing no acute findings. Continue PT/OT. (4) Hypertensive urgency: Code(s): I16.0 - Hypertensive urgency Status: Acute Assessment and Plan: BP 249/74 on admission on 07/19. Was treated appropriately. BP slowly improved on 07/20 and low at times on 07/21. BP mildly elevated at times but overall better. Continue the patient's home Metoprolol and Lisinopril. Continue to monitor. (5) Transaminitis: Code(s): R74.0 - Nonspecific elevation of levels of transaminase and lactic acid dehydrogenase [LDH] Status: Acute Assessment and Plan: Mild elevation of AST/ALT. Levels better today. Continue to monitor liver function periodically. (6) H/O aortic valve replacement: Code(s): Z95.2 - Presence of prosthetic heart valve Status: Chronic Assessment and Plan: Currently on Heparin gtt covering until INR therapeutic again. Coumadin resumed last night. Continue to monitor INR. (7) Dementia: Qualifiers: Dementia behavioral disturbance: without behavioral disturbance Dementia type: unspecified type Qualified Code(s): F03.90 - Unspecified dementia without behavioral disturbance Code(s): F03.90 - Unspecified dementia without behavioral disturbance Status: Chronic Assessment and Plan: Stable. Continue home memantine and Razadyne. (8) CKD (chronic kidney disease) stage 3, GFR 30-59 ml/min: Code(s): N18.3 - Chronic kidney disease, stage 3 (moderate) Status: Chronic Assessment and Plan: Patient with CKD with baseline Cr 1-1.2 in 2017. Cr 1.2 with eGFR 43 today - related to the lisinopril or from the brief HoTN yesterday possibly. Continue to monitor renal function. Avoid nephrotoxic agents. (9) Dyslipidemia: Code(s): E78.5 - Hyperlipidemia, unspecified Status: Chronic Assessment and Plan: Stable. LFTs noted. Continue atorvastatin. (10) Type 2 diabetes mellitus without complication, without long-term current use of insulin: Code(s): E11.9 - Type 2 diabetes mellitus without complications Status: Chronic Assessment and Plan: Glucose reviewed on 07/23/19. Glucose elevated at times but overall well controlled. Continue Accuchecks with SSI coverage. Continue Hypoglycemic protocol. (11) Chronic anticoagulation: Code(s): Z79.01 - intermediate (current) use of anticoagulants Status: Chronic Assessment and Plan: The patient is chronically anticoagulated on coumadin for mechanical valve. Coumadin was placed o
[2019-07-23] MEDS: HEPARIN SOD/D5W 100 UNITS/ML 25,000 UNITS/250 ML BAG 8 UNITS IV CONT (13:13)
[2019-07-23 14:00] VITALS: BP 171/57; PULSE 88; RESP 16; TEMP 36.7; O2SAT 96
[2019-07-23] MEDS: ASPIRIN 81 MG ENTERIC TABLET PO (17:15)
[2019-07-23] MEDS: VITAMIN B COMPLEX CAPSULE 1 CAP PO (17:15)
[2019-07-23] MEDS: PYRIDOXINE HCL 50 MG TABLET 100 MG PO (17:15)
[2019-07-23] MEDS: lisinopriL 20 MG TABLET PO (17:15)
[2019-07-23] MEDS: MEMANTINE HCL XR 28 MG CAP PO (17:15)
[2019-07-23] MEDS: ATORVASTATIN 40 MG TABLET 80 MG PO (17:16)
[2019-07-23] MEDS: WARFARIN (*PBKC) 4 MG TABLET 8 MG PO (17:21)
[2019-07-23 17:55] LABS: Glucose Point of Care 123 (65-105)
--- NOTE | 2019-07-23 18:54 | PC.NURSE ---
Received PTT value at 1850. PTT 98 at this time. Per protocol no rate change at this time. Charting and pump verified with Macy Valderrama RN.
[2019-07-23 20:02] VITALS: BP 220/90; PULSE 91; RESP 18; TEMP 36.2; O2SAT 95
[2019-07-23] MEDS: hydrALAZINE HCL 20 MG/ML VIAL 10 MG IV PUSH (20:03)
[2019-07-23 20:57] LABS: Glucose Point of Care 157 (65-105)
[2019-07-23 22:00] VITALS: BP 176/61; PULSE 91; RESP 18; TEMP 36.2; O2SAT 95
[2019-07-24 00:59] LABS: INR 1.4; Prothrombin Time 16.7 Seconds (11.1-14.7)
[2019-07-24] MEDS: hydrALAZINE HCL 20 MG/ML VIAL 10 MG IV PUSH ×2 (04:21→20:24)
[2019-07-24 05:54] VITALS: BP 211/73; PULSE 88; RESP 18; TEMP 36.6; O2SAT 92
[2019-07-24 05:59] LABS: Blood Urea Nitrogen 18 mg/dL (7-17); Calcium 8.6 mg/dL (8.4-10.2); Carbon Dioxide 32 mmol/L (22-30); Chloride 101 mmol/L (98-107); Estimated CRCL calculation 32 ml/min; Estimated Glomerular Filt Rate 53; Glucose 144 mg/dL (65-105); Hematocrit 28.8 % (37.0-47.0); Hemoglobin 9.3 g/dL (12.0-15.0); Mean Corpuscular HGB Conc 32.3 g/dl (32-36); Mean Corpuscular Hemoglobin 29.7 pg (26-34); Platelet Count Result 136 k/mm3 (150-375); Potassium 3.4 mmol/L (3.4-5.0); Red Blood Count 3.13 M/mm3 (4.2-5.4); Sodium 134 mmol/L (137-145); White Blood Count 8.3 K/mm3 (4.5-10.0)
[2019-07-24 06:07] LABS: INR 1.6; Prothrombin Time 18.4 Seconds (11.1-14.7)
[2019-07-24 06:09] LABS: Partial Thromboplastin Time 106.1 SECONDS (22.3-36.8)
[2019-07-24 06:37] VITALS: BP 168/60
--- NOTE | 2019-07-24 07:23 | WPDGIPROGNO ---
Progress Note: A&P Additional Plan Patient unable to give history. At her baseline dementia. No active bleeding identified. Physical exam abdomen is soft and nontender. No organomegaly. No tenderness. Labs reveal hemoglobin 9.3, hematocrit 28.8, this appears stable. Protime 18.4, INR 1.6. PTT 106. Impression 1. Gastric ulceration. Appears to been source of recent GI bleeding. Plan to avoid nonsteroidal anti-inflammatory agents. Continue proton pump inhibitor after discharge. 2. Aortic valve replacement. Patient now restarting warfarin anticoagulation. Would suggest monitoring hemoglobin relatively closely at intervals after discharge. 3. Dementia. This is chronic Plan to continue proton pump inhibitor after discharge. Anticoagulation to resume because of valvular heart disease. Suggest monitoring hemoglobin and coagulation profile closely after discharge. Subjective Date/time seen: 07/24/19 07:23 Objective Data Vital Signs Vital Signs: Vital Signs - 24 hr 07/23/19 09:06 07/23/19 09:07 07/23/19 14:00 Temperature 36.7 C Pulse Rate 98 98 88 Respiratory Rate 16 Blood Pressure 171/57 H Pulse Oximetry 96 07/23/19 20:02 07/23/19 22:00 07/24/19 05:54 Temperature 36.2 C L 36.2 C L 36.6 C Pulse Rate 91 91 88 Respiratory Rate 18 18 18 Blood Pressure 220/90 H 176/61 H 211/73 H Pulse Oximetry 95 95 92 07/24/19 06:37 Temperature Pulse Rate Respiratory Rate Blood Pressure 168/60 H Pulse Oximetry Intake/Output Intake/Output: Intake & Output 07/21/19 07/22/19 07/23/19 07/24/19 23:59 23:59 23:59 23:59 Intake Total 2954 338 4487.7 106 Output Total 1075 400 600 Balance -35 524 779.7 106 Meds/Results Medications: Active Medications Generic Name Dose Route Start Last Admin Trade Name Freq PRN Reason Stop Dose Admin Ascorbic Acid 250 mg 07/22/19 09:00 07/23/19 09:07 Vitamin C PO 250 mg DAILY FREDIS Administration Aspirin 81 mg 07/21/19 18:00 07/23/19 17:15 Aspirin Ec PO 81 mg QPM FREDIS Administration Atorvastatin Calcium 80 mg 07/21/19 18:00 07/23/19 17:16 Lipitor PO 80 mg QPM FREDIS Administration Celecoxib 200 mg 07/22/19 09:00 07/23/19 09:07 Celebrex PO 200 mg DAILY FREDIS Administration Dextrose 12.5 gm 07/21/19 03:46 Dextrose 50% Syringe IV PUSH PRN PRN Hypoglycemia Protocol Digoxin 250 mcg 07/22/19 09:00 07/23/19 09:06 Lanoxin Tab PO 250 mcg DAILY FREDIS Administration Galantamine Hydrobromide 8 mg 07/22/19 08:00 07/23/19 09:05 Razadyne Er PO 8 mg DAILY@0800 FREDIS Administration Glyburide 2.5 mg 07/21/19 17:00 07/23/19 17:16 Micronase PO 2.5 mg BIDWM FREDIS Administration Heparin Sodium (Porcine) 4,500 units 07/21/19 12:54 07/23/19 05:50 Heparin Sodium IV PUSH 4,500 units PRN PRN Administration aPTT less than 55 seconds Heparin Sodium (Porcine) 2,500 units 07/21/19 12:54 Heparin Sodium IV PUSH PRN PRN aPTT 55 - 70 seconds Hydralazine HCl 10 mg 07/21/19 14:25 07/24/19 04:21 Apresoline Hcl Inj IV PUSH 10 mg Q6H PRN Administration Blood Pressure - High Dextrose 1,000 mls @ 100 mls/hr 07/21/19 03:46 Dextrose 5% 1,000 Ml IVPB PRN PRN Hypoglycemia Protocol Heparin Sodium/Dextrose 25,000 units in 250 mls @ 8 mls/hr 07/22/19 11:45 07/24/19 00:45 Heparin Sodium/D5w 100 Units/Ml IV CONT 800 units/hr .Q24H FREDIS 8 mls/hr Titration Protocol 800 UNITS/HR Insulin Aspart 2 - 5 units 07/23/19 08:00 07/23/19 17:27 Novolog SUB-Q Not Given TIDWM FREDIS Protocol Lisinopril 20 mg 07/21/19 18:00 07/23/19 17:15 Prinivil PO 20 mg QPM FREDIS Administration Memantine 28 mg 07/21/19 18:00 07/23/19 17:15 Namenda Xr PO 28 mg QPM FREDIS Administration Metformin HCl 500 mg 07/21/19 17:00 07/23/19 17:15 Glucophage PO 500 mg BIDWM FREDIS Administration Metoprolol Tartrate 25 mg
[2019-07-24 09:00] VITALS: BP 174/62; PULSE 108
[2019-07-24] MEDS: ZINC SULFATE 220 MG CAPSULE PO (09:05)
[2019-07-24] MEDS: ASCORBIC ACID 250 MG TABLET PO (09:05)
[2019-07-24] MEDS: glyBURIDE 2.5 MG TABLET PO ×2 (09:05→17:56)
[2019-07-24] MEDS: DIGOXIN 250 MCG TABLET PO (09:05)
[2019-07-24] MEDS: metFORMIN HCL 500 MG TABLET PO ×2 (09:05→17:55)
[2019-07-24] MEDS: METOPROLOL TARTRATE 25 MG TABLET PO ×2 (09:05→20:24)
[2019-07-24] MEDS: CELECOXIB 200 MG CAPSULE PO (09:06)
[2019-07-24] MEDS: CHOLECALCIFEROL 1,000 UNIT TABLET 5000 UNITS PO (09:06)
--- NOTE | 2019-07-24 11:14 | PM.IMPN ---
Progress Note: A&P Assessment and Plan (1) GI bleeding: Qualifiers: GI bleed type/associated pathology: unspecified gastrointestinal hemorrhage type Qualified Code(s): K92.2 - Gastrointestinal hemorrhage, unspecified Code(s): K92.2 - Gastrointestinal hemorrhage, unspecified Status: Acute Assessment and Plan: GI bleed noted just prior to admission by family with BRBPR with blood in toilet. Patient on Coumadin therapy. Hgb 9.8 on admission and has remained stable with Hgb 9.3 again today. EGD showing nonbleeding gastric ulcers and colo noting diverticulosis and IH. The etiology of the GI bleed is probably the gastric ulcers. Coumadin resumed. Monitor HH closely. (2) Thrombocytopenia: Code(s): D69.6 - Thrombocytopenia, unspecified Status: Acute Assessment and Plan: Plt count better at 136K today. Could be transient but patient is on Heparin. Monitor closely. (3) Fall: Qualifiers: Encounter type: initial encounter Qualified Code(s): W19.XXXA - Unspecified fall, initial encounter Code(s): W19.XXXA - Unspecified fall, initial encounter Status: Acute Assessment and Plan: Patient demented and suffered an unwitnessed fall. Its unknown if the patient had a syncopal episode causing the fall. CT brain and Head/Neck CTA showing no acute findings. Continue PT/OT. (4) Hypertensive urgency: Code(s): I16.0 - Hypertensive urgency Status: Acute Assessment and Plan: BP 249/74 on admission on 07/19. Was treated appropriately. BP slowly improved on 07/20 and low at times on 07/21. BP much higher now. Will add Norvasc. Continue the patient's home Metoprolol and Lisinopril. Continue to monitor. (5) Transaminitis: Code(s): R74.0 - Nonspecific elevation of levels of transaminase and lactic acid dehydrogenase [LDH] Status: Acute Assessment and Plan: Mild elevation of AST/ALT. Levels better yesterday. Continue to monitor liver function periodically. (6) H/O aortic valve replacement: Code(s): Z95.2 - Presence of prosthetic heart valve Status: Chronic Assessment and Plan: Currently on Heparin gtt covering until INR therapeutic again. Coumadin resumed but INR still subtherapeutic. Continue to monitor INR. Also on Digoxin for unclear reasons. Check level. (7) Dementia: Qualifiers: Dementia behavioral disturbance: without behavioral disturbance Dementia type: unspecified type Qualified Code(s): F03.90 - Unspecified dementia without behavioral disturbance Code(s): F03.90 - Unspecified dementia without behavioral disturbance Status: Chronic Assessment and Plan: Stable. Continue home memantine and Razadyne. (8) CKD (chronic kidney disease) stage 3, GFR 30-59 ml/min: Code(s): N18.3 - Chronic kidney disease, stage 3 (moderate) Status: Chronic Assessment and Plan: Patient with CKD with baseline Cr 1-1.2 in 2017. Cr 1.0 with eGFR 53 today. Continue to monitor renal function. Avoid nephrotoxic agents. (9) Dyslipidemia: Code(s): E78.5 - Hyperlipidemia, unspecified Status: Chronic Assessment and Plan: Stable. LFTs noted. Continue atorvastatin. (10) Type 2 diabetes mellitus without complication, without long-term current use of insulin: Code(s): E11.9 - Type 2 diabetes mellitus without complications Status: Chronic Assessment and Plan: Glucose reviewed on 07/24/19. Glucose elevated at times but overall well controlled. Continue Accuchecks with SSI coverage. Continue Hypoglycemic protocol. (11) Chronic anticoagulation: Code(s): Z79.01 - group home (current) use of anticoagulants Status: Chronic Assessment and Plan: The patient is chronically anticoagulated on coumadin for mechanical valve. Coumadin was on hold as the patient has an active GI bleed but now resumed.
[2019-07-24] MEDS: AMLODIPINE BESYLATE 2.5 MG TABLET PO (12:35)
[2019-07-24 12:40] LABS: Glucose Point of Care 187 (65-105)
[2019-07-24 14:00] VITALS: BP 158/62; PULSE 80; RESP 16; TEMP 36.5; O2SAT 99
[2019-07-24 14:17] LABS: Partial Thromboplastin Time 62.1 SECONDS (22.3-36.8)
[2019-07-24] MEDS: HEPARIN SODIUM 5,000 UNITS/ML VIAL 2500 UNITS IV PUSH (14:53)
[2019-07-24 17:19] LABS: Glucose Point of Care 152 (65-105)
[2019-07-24] MEDS: WARFARIN (*PBKC) 4 MG TABLET 8 MG PO (17:55)
[2019-07-24] MEDS: lisinopriL 20 MG TABLET PO (17:56)
[2019-07-24] MEDS: ATORVASTATIN 40 MG TABLET 80 MG PO (17:56)
[2019-07-24] MEDS: ASPIRIN 81 MG ENTERIC TABLET PO (17:56)
[2019-07-24] MEDS: PYRIDOXINE HCL 50 MG TABLET 100 MG PO (17:57)
[2019-07-24] MEDS: VITAMIN B COMPLEX CAPSULE 1 CAP PO (17:57)
[2019-07-24] MEDS: MEMANTINE HCL XR 28 MG CAP PO (17:57)
[2019-07-24] MEDS: WARFARIN (*PBKC) 2 MG TABLET PO (18:53)
[2019-07-24 20:00] VITALS: BP 198/71; PULSE 80; PULSE 88; RESP 16; RESP 18; TEMP 33.7; O2SAT 99
[2019-07-24 21:03] LABS: Glucose Point of Care 155 (65-105)
[2019-07-24 21:26] LABS: Partial Thromboplastin Time 109.6 SECONDS (22.3-36.8)
[2019-07-24 21:34] VITALS: BP 168/59
[2019-07-24] MEDS: HEPARIN SOD/D5W 100 UNITS/ML 25,000 UNITS/250 ML BAG 7 UNITS IV CONT (23:22)
[2019-07-25 02:00] VITALS: BP 163/63
[2019-07-25 03:27] LABS: Hematocrit 28.6 % (37.0-47.0); Hemoglobin 9.4 g/dL (12.0-15.0); Mean Corpuscular HGB Conc 32.9 g/dl (32-36); Mean Corpuscular Hemoglobin 30.2 pg (26-34); Platelet Count Result 149 k/mm3 (150-375); Red Blood Count 3.11 M/mm3 (4.2-5.4); Red Cell Distribution Width 13.9 % (11.5-14.5)
[2019-07-25 03:35] LABS: INR 1.4; Prothrombin Time 16.4 Seconds (11.1-14.7)
[2019-07-25 03:38] LABS: Partial Thromboplastin Time 109.7 SECONDS (22.3-36.8)
[2019-07-25 03:42] LABS: Chloride 100 mmol/L (98-107)
[2019-07-25 03:57] LABS: Blood Urea Nitrogen 21 mg/dL (7-17); Calcium 8.6 mg/dL (8.4-10.2); Carbon Dioxide 32 mmol/L (22-30); Estimated CRCL calculation 29 ml/min; Estimated Glomerular Filt Rate 48; Glucose 132 mg/dL (65-105); Potassium 3.7 mmol/L (3.4-5.0); Sodium 135 mmol/L (137-145)
[2019-07-25 04:15] VITALS: BP 200/69; PULSE 85; RESP 20; TEMP 36.2; O2SAT 94
[2019-07-25] MEDS: hydrALAZINE HCL 20 MG/ML VIAL 10 MG IV PUSH ×2 (04:26→20:51)
[2019-07-25 04:32] LABS: Digoxin 1.6 ng/mL (0.8-2.0)
[2019-07-25] MEDS: ZINC SULFATE 220 MG CAPSULE PO (08:37)
[2019-07-25] MEDS: CHOLECALCIFEROL 1,000 UNIT TABLET 5000 UNITS PO (08:37)
[2019-07-25] MEDS: AMLODIPINE BESYLATE 2.5 MG TABLET PO (08:37)
[2019-07-25] MEDS: DIGOXIN 250 MCG TABLET PO (08:38)
[2019-07-25] MEDS: ASCORBIC ACID 250 MG TABLET PO (08:38)
[2019-07-25] MEDS: METOPROLOL TARTRATE 25 MG TABLET PO ×2 (08:38→20:51)
[2019-07-25] MEDS: CELECOXIB 200 MG CAPSULE PO (08:38)
[2019-07-25 09:00] VITALS: BP 175/68; PULSE 95
[2019-07-25 09:37] LABS: Partial Thromboplastin Time 83.4 SECONDS (22.3-36.8)
--- NOTE | 2019-07-25 09:38 | WPDGIPROGNO ---
Progress Note: A&P Additional Plan Patient remains at baseline confusion. No additional GI bleeding evident. Physical exam lungs are clear. Heart with prosthetic heart sounds. Abdomen is soft and nontender. Labs reveal hemoglobin 9.4, hematocrit 28.6, MCV 92. This appears stable. Impression 1. Gastric ulcer. Appears to been source of recent GI bleeding. Patient now on proton pump inhibitor. Suggest avoiding nonsteroidal anti-inflammatory agents. 2. Dementia. 3. Aortic valve replacement. At present appears safe to resume Coumadin. Hemoglobin will need to be monitored closely after discharge. Plan for discharge when considered adequate by primary care service. Subjective Date/time seen: 07/25/19 09:38 Objective Data Vital Signs Vital Signs: Vital Signs - 24 hr 07/24/19 14:00 07/24/19 20:00 07/24/19 21:34 Temperature 36.5 C 33.7 C L Pulse Rate 80 88 Respiratory Rate 16 18 Blood Pressure 158/62 H 198/71 H 168/59 H Pulse Oximetry 99 99 07/25/19 02:00 07/25/19 04:15 Temperature 36.2 C L Pulse Rate 85 Respiratory Rate 20 Blood Pressure 163/63 H 200/69 H Pulse Oximetry 94 Intake/Output Intake/Output: Intake & Output 07/22/19 07/23/19 07/24/19 07/25/19 23:59 23:59 23:59 23:59 Intake Total 924 1379.7 1225.3 90 Output Total 400 600 Balance 524 779.7 1225.3 90 Meds/Results Medications: Active Medications Generic Name Dose Route Start Last Admin Trade Name Freq PRN Reason Stop Dose Admin Amlodipine Besylate 2.5 mg 07/24/19 11:30 07/25/19 08:37 Norvasc PO 2.5 mg QAM FREDIS Administration Ascorbic Acid 250 mg 07/22/19 09:00 07/25/19 08:38 Vitamin C PO 250 mg DAILY FREDIS Administration Aspirin 81 mg 07/21/19 18:00 07/24/19 17:56 Aspirin Ec PO 81 mg QPM FREDIS Administration Atorvastatin Calcium 80 mg 07/21/19 18:00 07/24/19 17:56 Lipitor PO 80 mg QPM FREDIS Administration Celecoxib 200 mg 07/22/19 09:00 07/25/19 08:38 Celebrex PO 200 mg DAILY FREDIS Administration Dextrose 12.5 gm 07/21/19 03:46 Dextrose 50% Syringe IV PUSH PRN PRN Hypoglycemia Protocol Digoxin 250 mcg 07/22/19 09:00 07/25/19 08:38 Lanoxin Tab PO 250 mcg DAILY FREDIS Administration Galantamine Hydrobromide 8 mg 07/22/19 08:00 07/25/19 08:38 Razadyne Er PO 8 mg DAILY@0800 FREDIS Administration Glyburide 2.5 mg 07/21/19 17:00 07/24/19 17:56 Micronase PO 2.5 mg BIDWM FREDIS Administration Heparin Sodium (Porcine) 4,500 units 07/21/19 12:54 07/23/19 05:50 Heparin Sodium IV PUSH 4,500 units PRN PRN Administration aPTT less than 55 seconds Heparin Sodium (Porcine) 2,500 units 07/21/19 12:54 07/24/19 14:53 Heparin Sodium IV PUSH 2,500 units PRN PRN Administration aPTT 55 - 70 seconds Hydralazine HCl 10 mg 07/21/19 14:25 07/25/19 04:26 Apresoline Hcl Inj IV PUSH 10 mg Q6H PRN Administration Blood Pressure - High Dextrose 1,000 mls @ 100 mls/hr 07/21/19 03:46 Dextrose 5% 1,000 Ml IVPB PRN PRN Hypoglycemia Protocol Heparin Sodium/Dextrose 25,000 units in 250 mls @ 6 mls/hr 07/22/19 11:45 07/25/19 04:05 Heparin Sodium/D5w 100 Units/Ml IV CONT 600 units/hr .Q24H FREDIS 6 mls/hr Titration Protocol 600 UNITS/HR Insulin Aspart 2 - 5 units 07/23/19 08:00 07/24/19 17:56 Novolog SUB-Q Not Given TIDWM FREDIS Protocol Lisinopril 20 mg 07/21/19 18:00 07/24/19 17:56 Prinivil PO 20 mg QPM FREDIS Administration Memantine 28 mg 07/21/19 18:00 07/24/19 17:57 Namenda Xr PO 28 mg QPM FREDIS Administration Metformin HCl 500 mg 07/21/19 17:00 07/24/19 17:55 Glucophage PO 500 mg BIDWM FREDIS Administration Metoprolol Tartrate 25 mg 07/21/19 21:00 07/25/19 08:38 Lopressor PO 25 mg Q12HR FREDIS Administration Non-Formulary Medication 500 mg 07/21/19 18:00 Cinnamon Bark PO 08/20/19 18:01
[2019-07-25] MEDS: glyBURIDE 2.5 MG TABLET PO ×2 (09:43→17:46)
[2019-07-25] MEDS: metFORMIN HCL 500 MG TABLET PO ×2 (09:43→17:45)
[2019-07-25 11:30] VITALS: BP 123/60; PULSE 70; RESP 20; TEMP 36.2; O2SAT 96
[2019-07-25 11:40] LABS: Glucose Point of Care 137 (65-105)
[2019-07-25 13:29] LABS: Partial Thromboplastin Time 74.5 SECONDS (22.3-36.8)
[2019-07-25 14:00] VITALS: BP 160/51; PULSE 82; RESP 16; TEMP 36.6; O2SAT 99
[2019-07-25 14:26] LABS: Glucose Point of Care 149 (65-105)
--- NOTE | 2019-07-25 17:16 | PM.IMPN ---
Progress Note: A&P Assessment and Plan (1) GI bleeding: Qualifiers: GI bleed type/associated pathology: unspecified gastrointestinal hemorrhage type Qualified Code(s): K92.2 - Gastrointestinal hemorrhage, unspecified Code(s): K92.2 - Gastrointestinal hemorrhage, unspecified Status: Acute Assessment and Plan: GI bleed noted just prior to admission by family with BRBPR with blood in toilet. Patient on Coumadin therapy. Hgb 9.8 on admission and has remained stable with Hgb 9.3 again today. EGD showing nonbleeding gastric ulcers and colo noting diverticulosis and IH. The etiology of the GI bleed is probably the gastric ulcers. Coumadin resumed. Monitor HH closely. (2) Thrombocytopenia: Code(s): D69.6 - Thrombocytopenia, unspecified Status: Acute Assessment and Plan: Plt count better at 136K yesterday. Could be transient but patient is on Heparin. Monitor periodically. (3) Fall: Qualifiers: Encounter type: initial encounter Qualified Code(s): W19.XXXA - Unspecified fall, initial encounter Code(s): W19.XXXA - Unspecified fall, initial encounter Status: Acute Assessment and Plan: Patient demented and suffered an unwitnessed fall. Its unknown if the patient had a syncopal episode causing the fall. CT brain and Head/Neck CTA showing no acute findings. Continue PT/OT. (4) Hypertensive urgency: Code(s): I16.0 - Hypertensive urgency Status: Acute Assessment and Plan: BP 249/74 on admission on 07/19. Was treated appropriately. BP slowly improved but still elevated so Norvasc added. We have continued the patient's home Metoprolol and Lisinopril. Will advance Norvasc. Continue to monitor. (5) Transaminitis: Code(s): R74.0 - Nonspecific elevation of levels of transaminase and lactic acid dehydrogenase [LDH] Status: Acute Assessment and Plan: Mild elevation of AST/ALT. Levels improved. Continue to monitor liver function periodically. (6) H/O aortic valve replacement: Code(s): Z95.2 - Presence of prosthetic heart valve Status: Chronic Assessment and Plan: Currently on Heparin gtt covering until INR therapeutic again. Coumadin resumed but INR still subtherapeutic. Continue to monitor INR. Digoxin level okay. (7) Dementia: Qualifiers: Dementia type: unspecified type Dementia behavioral disturbance: without behavioral disturbance Qualified Code(s): F03.90 - Unspecified dementia without behavioral disturbance Code(s): F03.90 - Unspecified dementia without behavioral disturbance Status: Chronic Assessment and Plan: Stable. Continue home memantine and Razadyne. (8) CKD (chronic kidney disease) stage 3, GFR 30-59 ml/min: Code(s): N18.3 - Chronic kidney disease, stage 3 (moderate) Status: Chronic Assessment and Plan: Patient with CKD with baseline Cr 1-1.2 in 2017. Cr 1.1 today. Continue to monitor renal function. Avoid nephrotoxic agents. (9) Dyslipidemia: Code(s): E78.5 - Hyperlipidemia, unspecified Status: Chronic Assessment and Plan: Stable. LFTs noted. Continue atorvastatin. (10) Type 2 diabetes mellitus without complication, without long-term current use of insulin: Code(s): E11.9 - Type 2 diabetes mellitus without complications Status: Chronic Assessment and Plan: Glucose reviewed on 07/25/19. Glucose elevated at times but overall well controlled. Continue Accuchecks with SSI coverage. Continue Hypoglycemic protocol. (11) Chronic anticoagulation: Code(s): Z79.01 - [facility] (current) use of anticoagulants Status: Chronic Assessment and Plan: The patient is chronically anticoagulated on coumadin for mechanical valve. Coumadin was on hold as the patient has an active GI bleed but now resumed. INR 1.4 today. Continue to monitor PT/INR.
[2019-07-25] MEDS: VITAMIN B COMPLEX CAPSULE 1 CAP PO (17:45)
[2019-07-25] MEDS: ATORVASTATIN 40 MG TABLET 80 MG PO (17:45)
[2019-07-25] MEDS: ASPIRIN 81 MG ENTERIC TABLET PO (17:46)
[2019-07-25] MEDS: WARFARIN (*PBKC) 10 MG TABLET PO (17:46)
[2019-07-25] MEDS: PYRIDOXINE HCL 50 MG TABLET 100 MG PO (17:46)
[2019-07-25] MEDS: lisinopriL 20 MG TABLET PO (17:47)
[2019-07-25] MEDS: MEMANTINE HCL XR 28 MG CAP PO (17:47)
[2019-07-25] MEDS: WARFARIN (*PBKC) 4 MG TABLET PO (17:54)
[2019-07-25 18:40] LABS: Glucose Point of Care 99 (65-105)
[2019-07-25 20:00] VITALS: BP 185/58; PULSE 98; RESP 18; TEMP 36.7; O2SAT 91
[2019-07-26 02:00] VITALS: BP 163/61; PULSE 88; RESP 17; TEMP 36.8; O2SAT 96
[2019-07-26 05:15] VITALS: BP 206/71; PULSE 93; RESP 17; TEMP 36.6; O2SAT 97
[2019-07-26] MEDS: hydrALAZINE HCL 20 MG/ML VIAL 10 MG IV PUSH (05:16)
[2019-07-26 05:52] LABS: Hematocrit 28.5 % (37.0-47.0); Hemoglobin 9.2 g/dL (12.0-15.0); Mean Corpuscular HGB Conc 32.3 g/dl (32-36); Mean Corpuscular Volume 92.8 fl (80-100); Mean Platelet Volume 11.8 fl (7.4-10.4); Platelet Count Result 167 k/mm3 (150-375); Red Blood Count 3.07 M/mm3 (4.2-5.4); Red Cell Distribution Width 14.1 % (11.5-14.5)
[2019-07-26 06:09] LABS: Prothrombin Time 21.8 Seconds (11.1-14.7)
[2019-07-26 06:12] LABS: Blood Urea Nitrogen 20 mg/dL (7-17); Calcium 8.5 mg/dL (8.4-10.2); Carbon Dioxide 32 mmol/L (22-30); Chloride 100 mmol/L (98-107); Estimated CRCL calculation 29 ml/min; Estimated Glomerular Filt Rate 48; Glucose 111 mg/dL (65-105); Potassium 3.8 mmol/L (3.4-5.0); Sodium 136 mmol/L (137-145)
[2019-07-26 06:59] LABS: Glucose Point of Care 261 (65-105)
[2019-07-26 07:45] VITALS: BP 151/60; PULSE 97
[2019-07-26 08:36] VITALS: PULSE 93
[2019-07-26] MEDS: DIGOXIN 250 MCG TABLET PO (08:36)
[2019-07-26] MEDS: metFORMIN HCL 500 MG TABLET PO (08:36)
[2019-07-26] MEDS: CHOLECALCIFEROL 1,000 UNIT TABLET 5000 UNITS PO (08:36)
[2019-07-26] MEDS: ZINC SULFATE 220 MG CAPSULE PO (08:37)
[2019-07-26] MEDS: AMLODIPINE BESYLATE 5 MG TABLET PO (08:37)
[2019-07-26] MEDS: CELECOXIB 200 MG CAPSULE PO (08:38)
[2019-07-26] MEDS: ASCORBIC ACID 250 MG TABLET PO (08:38)
[2019-07-26] MEDS: glyBURIDE 2.5 MG TABLET PO (08:38)
[2019-07-26 08:49] VITALS: PULSE 93
[2019-07-26] MEDS: METOPROLOL TARTRATE 50 MG TAB PO (08:49)
[2019-07-26 10:24] LABS: Glucose Point of Care 143 (65-105)
[2019-07-26] MEDS: HEPARIN SOD/D5W 100 UNITS/ML 25,000 UNITS/250 ML BAG 6 UNITS IV CONT (13:00)
[2019-07-26 13:28] LABS: Glucose Point of Care 149 (65-105)
[2019-07-26 14:00] VITALS: BP 164/58; PULSE 72; RESP 18; TEMP 37.3; O2SAT 96
[2019-07-26 14:23] LABS: Glucose Point of Care 134 (65-105)
--- NOTE | 2019-07-26 14:52 | PM.DS ---
DS: Diagnosis Admitting Diagnosis Admitting Diagnosis: Gastrointestinal hemorrhage, unspecified Discharge Diagnosis (1) GI bleeding: Qualifiers: GI bleed type/associated pathology: unspecified gastrointestinal hemorrhage type Qualified Code(s): K92.2 - Gastrointestinal hemorrhage, unspecified Code(s): K92.2 - Gastrointestinal hemorrhage, unspecified Status: Acute Assessment and Plan: GI bleed noted just prior to admission by family with BRBPR with blood in toilet. Patient on Coumadin therapy. Hgb 9.8 on admission and has remained stable with Hgb 9.2 today. EGD showing nonbleeding gastric ulcers and colonoscopy noting diverticulosis and IH. The etiology of the GI bleed is probably the gastric ulcers. Coumadin resumed and INR therapeutic. (2) Thrombocytopenia: Code(s): D69.6 - Thrombocytopenia, unspecified Status: Acute Assessment and Plan: Plt count dropped to 128K but then normalized. Could be transient from the blood loss. (3) Fall: Qualifiers: Encounter type: initial encounter Qualified Code(s): W19.XXXA - Unspecified fall, initial encounter Code(s): W19.XXXA - Unspecified fall, initial encounter Status: Acute Assessment and Plan: Patient demented and suffered an unwitnessed fall. It is unknown if the patient had a syncopal episode causing the fall. CT brain and Head/Neck CTA showing no acute findings. Patient worked with PT/OT. (4) Hypertensive urgency: Code(s): I16.0 - Hypertensive urgency Status: Acute Assessment and Plan: BP 249/74 on admission on 07/19. Was treated appropriately. BP slowly improved but still elevated so Norvasc added. We have continued the patient's home Metoprolol and Lisinopril. We did advance the Metoprolol as well. BP was low at one point so had to proceed slowly. (5) Transaminitis: Code(s): R74.0 - Nonspecific elevation of levels of transaminase and lactic acid dehydrogenase [LDH] Status: Acute Assessment and Plan: Mild elevation of AST 42 and ALT 40. ALT normalized and AST trended down. (6) H/O aortic valve replacement: Code(s): Z95.2 - Presence of prosthetic heart valve Status: Chronic Assessment and Plan: Review of old cardiology note showing patient has a [employer] AVR in 2001 requiring an INR of 2.0-3.0. Patient placed on Heparin drip covering until INR therapeutic again. Coumadin resumed. Digoxin level okay. INR therapeutic now so okay to stop Heparin drip. Discussed with daughter who states she checks the INR at home and INR has remained stable for many years at the patient's current Coumadin dose. (7) Dementia: Qualifiers: Dementia behavioral disturbance: without behavioral disturbance Dementia type: unspecified type Qualified Code(s): F03.90 - Unspecified dementia without behavioral disturbance Code(s): F03.90 - Unspecified dementia without behavioral disturbance Status: Chronic Assessment and Plan: Stable. Continue home memantine and Razadyne. (8) CKD (chronic kidney disease) stage 3, GFR 30-59 ml/min: Code(s): N18.3 - Chronic kidney disease, stage 3 (moderate) Status: Chronic Assessment and Plan: Patient with CKD with baseline Cr 1-1.2 in 2017. Cr 1.1 today. Continue to monitor renal function. Avoid nephrotoxic agents. (9) Dyslipidemia: Code(s): E78.5 - Hyperlipidemia, unspecified Status: Chronic Assessment and Plan: Stable. LFTs noted. She was continued on atorvastatin. (10) Type 2 diabetes mellitus without complication, without long-term current use of insulin: Code(s): E11.9 - Type 2 diabetes mellitus without complications Status: Chronic Assessment and Plan: Glucose monitored closely. Glucose elevated at times but overall well controlled. She was continued on Accuchecks with SSI coverage. We con
--- NOTE | 2019-07-26 15:05 | PC.NURSE ---
1450-Per Dr. Gregorio, stop heparin drip, patient to be discharged.
== END 2019-07-26 16:15 | disposition home or self-care (01) | DRG 379 ==
LOC: ANHED 07-21 00:15 → ANH2MED 07-21 00:16
PROVIDERS: Family Medicine; Internal Medicine Gastroenterology; Admitting Provider Family Medicine; Emergency Provider Emergency Medicine; PCP Family Medicine; Visit Provider Internal Medicine
PROC: 0DJ08ZZ Inspection of Upper Intestinal Tract, Via Natural or Artificial Opening Endoscopic (ICD-10-PCS; CPT 43235; principal; 2019-07-22 09:30)
DX: K25.0 Acute gastric ulcer with hemorrhage (principal); F03.90 Unspecified dementia, unspecified severity, without behavioral disturbance, psychotic disturbance, mood disturbance, and anxiety; Z79.01 Long term (current) use of anticoagulants; Z95.2 Presence of prosthetic heart valve; W18.11XA Fall from or off toilet without subsequent striking against object, initial encounter; N18.3 Chronic kidney disease, stage 3 (moderate); E78.5 Hyperlipidemia, unspecified; I87.2 Venous insufficiency (chronic) (peripheral); I12.9 Hypertensive chronic kidney disease with stage 1 through stage 4 chronic kidney disease, or unspecified chronic kidney disease; T45.515A Adverse effect of anticoagulants, initial encounter; I16.0 Hypertensive urgency; Z90.49 Acquired absence of other specified parts of digestive tract; E11.22 Type 2 diabetes mellitus with diabetic chronic kidney disease; E55.9 Vitamin D deficiency, unspecified; Z95.5 Presence of coronary angioplasty implant and graft; K57.30 Diverticulosis of large intestine without perforation or abscess without bleeding; K64.8 Other hemorrhoids
CPT/HCPCS: 36415; 70450; 70496; 70498; 80048; 80053; 80076; 80162; 84484; 85014; 85018; 85025; 85027; 85055; 85610; 85652; 85730; 86850; 86900; 86901; 88305; 93005; 96365; 96375; 96376; 97116; 97161; 97165; 97530; 97535; 99285; A9270; G0378; J0360; J1644; J1815; J2405; J2704; J3370; J7120; Q9967

== ENCOUNTER 2019-07-28 12:52 | Emergency (ER) | payer MEDICARE, OTHER, SELFPAY ==
[2019-07-28] VITALS (26 sets, daily range): BP systolic 151–205; BP diastolic 64–88; PULSE 60–83; RESP 8–19; TEMP 36.9; O2SAT 97–100
--- NOTE | ~2019-07-28 | XR_ITS ---
XR chest 2V 07/28/2019 13:58 Indication: Chest pain Procedure: 2 view chest Comparison: 05/17/2016 Findings: Status post median sternotomy for CABG. Cardiomegaly. There is a prosthetic heart valve. Th ere are linear opacities in the lung bases. No edema or pneumothorax. Small effusions. Impression: 1: Linear bibasilar opacities most likely represent atelectasis or scarring. Developing pneumonia les s favored. 2: Small pleural effusions. 3: Cardiomegaly. Reviewed, dictated and finalized at location A. Impression: 1: Linear bibasilar opacities most likely represent atelectasis or scarring. De veloping pneumonia less favored. 2: Small pleural effusions. 3: Cardiomegaly.
--- NOTE | 2019-07-28 13:00 | ECG_ITS ---
Measurements Intervals [place] Rate: 68 P: 73 [place]: 220 QRS: -27 QRSD: 95 T: 190 QT: 338 QTc: 362 Interpretive Statements SINUS RHYTHM WITH FIRST DEGREE AV BLOCK LEFT ATRIAL ENLARGEMENT DELAYED PRECORDIAL R/S TRANSITION LEFT VENTRICULAR HYPERTROPHY AND ST-T CHANGE ST-T WAVE ABNORMALITY IN LATERAL LEADS- CONSIDER ISCHEMIA BASELINE ARTIFACT Electronically Signed On 07-28-2019 13:25:52 CDT by Delbert Nair D.O.
[2019-07-28 13:17] LABS: Basophils Percent Auto 0.3 % (0.2-1.2); Eosinophils Absolute Auto 0.2 K/mm3 (0-0.3); Eosinophils Percent Auto 2.8 % (0-4.4); Hematocrit 28.6 % (37.0-47.0); Immature Granulocyte Absolute 0.03 K/mm3 (0.00-0.031); Immature Granulocyte Percent A 0.4 % (0-0.5); Lymphocytes Absolute Auto 0.78 K/mm3 (0.9-3.2); Mean Corpuscular HGB Conc 31.5 g/dl (32-36); Mean Corpuscular Hemoglobin 29.2 pg (26-34); Mean Corpuscular Volume 92.9 fl (80-100); Monocytes Absolute Auto 0.8 K/mm3 (0.1-0.6); Monocytes Percent Auto 10.5 % (2.6-8.5); Neutrophils Absolute Auto 5.9 K/mm3 (1.3-6.7); Platelet Count Result 207 k/mm3 (150-375); Red Blood Count 3.08 M/mm3 (4.2-5.4); Red Cell Distribution Width 13.7 % (11.5-14.5); White Blood Count 7.8 K/mm3 (4.5-10.0)
--- NOTE | 2019-07-28 13:21 | ED.CHESTPAIN ---
HPI - Chest Pain General Chief Complaint: Chest Pain Stated Complaint: CP Time Seen by Provider: 07/28/19 13:10 Source: patient and family Mode of arrival: EMS Limitations: dementia History of Present Illness HPI narrative: Pt is an 83 y/o female who presents to the ED, via EMS, with c/o lt stabbing chest pain that started this morning. Per family at bedside, pt was c/o lt sided CP and pain while breathing. Pt is not complaining of any pain in the ED bed. Per family, pt was in the ED for a fall and was admitted to the hospital. She was D/C from the hospital 2 days ago. Pt has a H/o an aortic valve replacement. A complete HPI is limited d/t pt's H/O dementia. MD complaint: chest pain Pertinent past history: other (aortic valve replacement) Onset (ago): hour(s) (this morning) Pain location: left chest Quality: other (stabbing) Context: other (fall a week ago) Associated symptoms: dyspnea Related Data Home Medications Medication Instructions Recorded Confirmed ascorbic acid (vitamin C) 250 mg 250 mg PO DAILY 05/29/19 07/21/19 tablet aspirin 81 mg tablet,delayed 81 mg PO QPM 05/29/19 07/21/19 release atorvastatin 40 mg tablet 80 mg PO QPM 05/29/19 07/21/19 calcium carb 300 mg-D3 800 1 tablet PO DAILY 05/29/19 07/21/19 unit-mag ox 25 mg-epic kaleidoscope analyst 0.5 mg-abel-Zn tablet cholecalciferol (vitamin D3) 125 125 mcg PO DAILY 05/29/19 07/21/19 mcg (5,000 unit) capsule cinnamon bark 500 mg capsule 500 mg PO QPM 05/29/19 07/21/19 glucosamine-chondroitin 250 mg-200 1 tablet PO DAILY 05/29/19 07/21/19 mg tablet omega-3 fatty acids 500 mg capsule 500 mg PO DAILY 05/29/19 07/21/19 pyridoxine (vitamin B6) 100 mg 100 mg PO QPM 05/29/19 07/21/19 tablet vitamin B complex 1 tablet PO QPM 05/29/19 07/21/19 warfarin 2 mg tablet 10 mg PO DIRECTED 05/29/19 07/21/19 zinc 50 mg tablet 50 mg PO DAILY 05/29/19 07/21/19 lisinopril 20 mg PO QPM 07/21/19 07/21/19 memantine 28 mg PO QPM 07/21/19 07/21/19 Allergies Allergy/AdvReac Type Severity Reaction Status Date / Time milk Allergy Mild Unknown Verified 07/28/19 13:02 lactose Allergy Unknown NASAL Verified 07/28/19 13:02 CONGESTION Penicillins Allergy Unknown Unknown Verified 07/28/19 13:02 pravastatin Allergy Unknown Unknown Verified 07/28/19 13:02 Sulfa (Sulfonamide Allergy Unknown Unknown Verified 07/28/19 13:02 Antibiotics) Review of Systems Review of Systems: Narrative: A complete ROS is limited d/t pt's H/O dementia. Cardiovascular: Cardiovascular: Reports chest pain Respiratory: Respiratory: Reports dyspnea PMFSH Past Medical History Medical History CKD (chronic kidney disease) stage 3, GFR 30-59 ml/min Dementia 02/12/2013 Dementia, unspecified, without behavioral disturbance Diarrhea in adult patient 06/25/2018 Dyslipidemia Edema of both lower legs due to peripheral venous insufficiency 07/21/2018 Elevated lipids Essential (primary) hypertension Low back pain without sciatica Tinea cruris Type 2 diabetes mellitus without complication, without long-term current use of insulin Vitamin D deficiency Surgical History Surgical History Aortic valve replaced 07/17/1995 History of cholecystectomy 06/17/2002 History of right coronary artery stent placement 02/16/2006 Family History Family History Father Acute myocardial infarction Social History Social History Smoking status: Never smoker Second hand tobacco smoke exposure: No Alcohol intake: never Substance use: never Substance use type: does not use Gender identity (if verbalized by the patient): Female Agree to blood products: Yes Exam Const: General: no acute distress, well developed and other (elderly, frail) Orientation/consciousness: Other orientation findings (Alert and or
[2019-07-28 13:30] LABS: INR 2.8
[2019-07-28 13:31] LABS: Partial Thromboplastin Time 52.6 SECONDS (22.3-36.8)
[2019-07-28 13:33] LABS: Blood Urea Nitrogen 26 mg/dL (7-17); Calcium 9.1 mg/dL (8.4-10.2); Carbon Dioxide 31 mmol/L (22-30); Chloride 101 mmol/L (98-107); Estimated CRCL calculation 27 ml/min; Estimated Glomerular Filt Rate 43; Glucose 142 mg/dL (65-105); Potassium 4.3 mmol/L (3.4-5.0); Sodium 138 mmol/L (137-145)
[2019-07-28 13:47] LABS: Troponin I 0.012 ng/mL (0.000-0.034)
--- NOTE | 2019-07-28 16:22 | PC.NURSE ---
Resting in stretcher with call light in reach. daughter at bedside. Troponin collected and sent down. No needs at this time
[2019-07-28 16:48] LABS: Troponin I 0.016 ng/mL (0.000-0.034)
[2019-07-28] MEDS: METOPROLOL TARTRATE INJ 5 MG/5 ML VIAL IV PUSH (18:12)
== END 2019-07-28 19:21 | disposition home or self-care (01) ==
PROVIDERS: Emergency Provider Emergency Medicine; PCP Family Medicine
DX: R07.89 Other chest pain (principal); F03.90 Unspecified dementia, unspecified severity, without behavioral disturbance, psychotic disturbance, mood disturbance, and anxiety; E11.22 Type 2 diabetes mellitus with diabetic chronic kidney disease; I12.9 Hypertensive chronic kidney disease with stage 1 through stage 4 chronic kidney disease, or unspecified chronic kidney disease; N18.3 Chronic kidney disease, stage 3 (moderate); Z95.2 Presence of prosthetic heart valve; E78.5 Hyperlipidemia, unspecified; Z95.5 Presence of coronary angioplasty implant and graft; Z79.82 Long term (current) use of aspirin; Z79.01 Long term (current) use of anticoagulants; I44.0 Atrioventricular block, first degree; R94.31 Abnormal electrocardiogram [ECG] [EKG]; I51.7 Cardiomegaly
CPT/HCPCS: 36415; 71046; 80048; 84484; 85025; 85610; 85730; 93005; 96374; 99284

== ENCOUNTER 2019-10-25 07:32 | Inpatient (IN) | payer MEDICARE, OTHER, SELFPAY ==
[2019-10-25] VITALS (50 sets, daily range): BP systolic 120–246; BP diastolic 15–118; PULSE 53–82; RESP 9–22; TEMP 35.9–36.4; O2SAT 97–100; BMI 19.6
--- NOTE | ~2019-10-25 | US_ITS ---
EXAMINATION: US carotid duplex BI DATE: 10/26/2019 10:27 INDICATION: Neurological disorder. Encephalopathy. Status post fall. TECHNIQUE: Grayscale, color Doppler, and pulsed Doppler images of the cervical carotid arteries were obtained. The degree of vessel stenosis is placed in one of the following categories: normal, <50%, 5 0-69%, >=70% but less than near-occlusion, near-occlusion, or total occlusion. Note that percent sten osis relative to normal distal artery lumen diameter is indirectly measured from velocity measurement s as described by [place], et al. Radiology 2003; 229:340-346. Notes: Normal: Peak systolic velocity <125 centimeters/sec and no plaque <50%. Peak systolic velocity <125 ( EDV <40; ICA/CCA PSV ratio <2.0; used these factors only a tandem lesions or low cardiac output or co ntralateral disease) 50-69 %: PSV 125-230 (EDV 40-100; ratio 2-4) >= 70% but less than near occlusion: PSV greater than 230 (EDV > 100; ratio> 4.0) Near Occlusion: PSV that is variable; markedly narrowed lumen Occlusion: Absent flow on color/spectral Doppler and no lumen on galaviz scale. COMPARISON: None. FINDINGS: RIGHT: The right common carotid artery (CCA) peak systolic velocity (PSV) is 109 cm/s. The right internal ca rotid artery (ICA) PSV is 84 cm/s. The right ICA end-diastolic velocity (EDV) is 12 cm/s. The right I CA/CCA PSV ratio is 0.8. The external carotid artery (ECA) PSV is 145 cm/s. There is antegrade flow i n the right vertebral artery. LEFT: The left CCA PSV is 130 cm/s. The left ICA PSV is 146 cm/s. The left ICA EDV is 8 cm/s. The left ICA/ CCA PSV ratio is 1.1. The ECA PSV is 172 cm/s. There is antegrade flow in the left vertebral artery. IMPRESSION: 1. Less than 50% stenosis in the right internal carotid artery by sonographic criteria. 2. 50-69% stenosis in the left internal carotid artery by sonographic criteria. Reviewed, dictated and finalized at location A. IMPRESSION: 1. Less than 50% stenosis in the right internal carotid artery by sonographic c riteria. 2. 50-69% stenosis in the left internal carotid artery by sonographic criteria.
--- NOTE | ~2019-10-25 | MR_ITS ---
EXAMINATION: MR brain/brain stem wo/w con DATE: 10/26/2019 10:57 INDICATION: Dizziness. Increased confusion. TECHNIQUE: Magnetic resonance imaging (MRI) of the brain and brainstem was performed without and with 10 mL Multihance intravenous contrast. Sequences included sagittal and axial T1-weighted SE, axial d iffusion-weighted FS SE, axial T2*-weighted GRE, axial T2-weighted FLAIR, and axial T2-weighted FSE. Postcontrast axial and coronal T1-weighted SE was obtained. Apparent diffusion coefficient (ADC) maps were created. COMPARISON: Head CT dated 10/25/2019 FINDINGS: Small region of increased signal in the paramedian posterior right jonathan on both diffusion and T2-weig hted images but also with increased signal on ADC map which could be seen with subacute infarct. Smal l old lacunar infarcts at the head of the right caudate nucleus and in the white matter of the left f rontal lobe and right frontoparietal hebert radiata. There are no areas of restricted diffusion to fuchs ggest acute infarction. No intracranial hemorrhage or abnormal intracranial mass lesion. There are sc attered areas of nonspecific increased T2-weighted signal intensity in the cerebral white matter, pre dominantly involving the deep and periventricular white matter. There are no intraparenchymal signal abnormalities seen on the other pulse sequences. Symmetric prominence of the sulci consistent with mi ld age-appropriate diffuse cerebral volume loss. The ventricles are symmetric and normal in size. The re are no abnormal extra-axial fluid collections. Flow voids are seen in the cerebral arteries on the T2-weighted sequences consistent with their expected patency. Mild mucosal thickening the bilateral ethmoid sinuses. Changes of bilateral intraocular lens replacement. Visualized orbits and soft tissu es are otherwise unremarkable. There are no areas of abnormal enhancement on the post contrast images . IMPRESSION: 1. Small likely subacute infarct in the posterior right jonathan. Correlate for neurologic symptoms occur ring 1-3 weeks prior. 2. Additional small chronic lacunar infarcts right caudate nucleus and left frontal and right frontop arietal hebert radiata. 3. Age-related changes including mild diffuse volume loss and moderate scattered periventricular pred ominant nonspecific white matter T2 hyperintensity consistent with chronic small vessel ischemic dise ase. Reviewed, dictated and finalized at location A. IMPRESSION: 1. Small likely subacute infarct in the posterior right jonathan. Correlate for gamal rologic symptoms occurring 1-3 weeks prior. 2. Additional small chronic lacunar infarcts right caudate nucleus and left fro ntal and right frontoparietal hebert radiata. 3. Age-related changes including mild diffuse volume loss and moderate scattere d periventricular predominant nonspecific white matter T2 hyperintensity consis tent with chronic small vessel ischemic disease.
--- NOTE | ~2019-10-25 | CT_ITS ---
EXAMINATION: CT brain wo con DATE: 10/25/2019 10:37 INDICATION: Dizziness. TECHNIQUE: Computed tomography (CT) of the head was performed without intravenous contrast. The dose- length product was 605.33 mGy-cm. The mA was adjusted according to patient size. Iterative reconstruc tion technique was employed. COMPARISON: CT dated 07/21/2015 FINDINGS: Generalized atrophy. There are scattered moderate periventricular and subcortical white mat ter changes, most likely related to small vessel ischemic disease (microangiopathy). There are chroni c bilateral lacunar infarctions. No acute infarction, mass or mass effect. No ventriculomegaly or mid line shift. There is intracranial atherosclerosis. Paranasal sinuses and mastoids are pneumatized. No depressed skull fractures. IMPRESSION: 1. No acute intracranial abnormality. 2: Chronic age-related findings. 3: Chronic lacunar infarctions. Reviewed, dictated and finalized at location A.
--- NOTE | 2019-10-25 08:18 | ED.GENADULT ---
HPI - General Adult General Chief complaint: Dizziness Stated complaint: not feeling right Time Seen by Provider: 10/25/19 07:36 History of Present Illness HPI narrative: Patient is an 84-year-old female who presents the ER with not feeling right. She has history of dementia and is oriented to self and place. Daughter present and helping to give a history. Feels like her mother was a little unsteady today with walking but had no focal weakness/slurred speech/facial droop. Patient has history of aortic valve replacement and is on Coumadin. Her INR was 1.8 earlier in the week and they increased her Coumadin. She has not had any falls. Patient has had no known fevers or chills or sweats, no change in urinary frequency or odor of the urine, patient is had no reports of chest pain or shortness of breath. Patient's blood pressure is elevated upon arrival here but she has not had her hypertension medication. Chart review shows patient does have history of significantly elevated blood pressures. Related Data Home Medications Medication Instructions Recorded Confirmed ascorbic acid (vitamin C) 250 mg 250 mg PO DAILY 05/29/19 10/25/19 tablet aspirin 81 mg tablet,delayed 81 mg PO QPM 05/29/19 10/25/19 release atorvastatin 40 mg tablet 80 mg PO QPM 05/29/19 10/25/19 calcium carb 300 mg-D3 800 1 tablet PO DAILY 05/29/19 10/25/19 unit-mag ox 25 mg-copy reader 0.5 mg-abel-Zn tablet cholecalciferol (vitamin D3) 125 125 mcg PO DAILY 05/29/19 10/25/19 mcg (5,000 unit) capsule cinnamon bark 500 mg capsule 500 mg PO QPM 05/29/19 10/25/19 glucosamine-chondroitin 250 mg-200 1 tablet PO DAILY 05/29/19 10/25/19 mg tablet omega-3 fatty acids 500 mg capsule 500 mg PO DAILY 05/29/19 10/25/19 pyridoxine (vitamin B6) 100 mg 100 mg PO QPM 05/29/19 10/25/19 tablet vitamin B complex 1 tablet PO QPM 05/29/19 10/25/19 warfarin 2 mg tablet 8 mg PO DIRECTED 05/29/19 10/25/19 zinc 50 mg tablet 50 mg PO DAILY 05/29/19 10/25/19 lisinopril 20 mg PO QPM 07/21/19 10/25/19 memantine 28 mg PO QPM 07/21/19 10/25/19 celecoxib 200 mg PO DAILY 10/25/19 10/25/19 warfarin 6 mg PO DIRECTED 10/25/19 10/25/19 Allergies Allergy/AdvReac Type Severity Reaction Status Date / Time milk Allergy Mild Unknown Verified 10/25/19 07:45 lactose Allergy Unknown NASAL Verified 10/25/19 07:45 CONGESTION Penicillins Allergy Unknown Unknown Verified 10/25/19 07:45 pravastatin Allergy Unknown Unknown Verified 10/25/19 07:45 Sulfa (Sulfonamide Allergy Unknown Unknown Verified 10/25/19 07:45 Antibiotics) Review of Systems Review of Systems: All systems reviewed & are unremarkable except as noted in HPI and below Constitutional: Constitutional: Denies chills, Denies fever(s) and Denies weakness ENT: Denies nasal congestion and Denies sore throat Cardiovascular: Cardiovascular: Denies chest pain and Denies radiating jaw, neck or arm pain Respiratory: Respiratory: Denies cough, Denies dyspnea and Denies wheezing Gastrointestinal: Gastrointestinal: Denies abdominal pain, Denies nausea and Denies vomiting Genitourinary: Genitourinary: Denies nocturia and Denies dysuria Neurologic: Denies syncope, Denies focal weakness and Denies numbness Comments: Unsteady gait PMFSH Past Medical History Medical History (Updated 10/25/19 @ 18:42 by Jon Laughlin MD) CKD (chronic kidney disease) stage 3, GFR 30-59 ml/min Dementia 02/12/2013 Dementia, unspecified, without behavioral disturbance Diarrhea in adult patient 06/25/2018 Dyslipidemia Edema of both lower legs due to peripheral venous insufficiency 07/21/2018 Elevated lipids Essential (primary) hypertension History of gastric ulcer Low back pain without sciatica Tinea cruris Type 2 diabetes mellitus without complication, without long-term current use of insulin Vitamin D deficiency Surgical History Surgical History Aortic valve replaced 07/16
[2019-10-25] MEDS: METOPROLOL TARTRATE 50 MG TAB PO ×2 (08:24→20:29)
[2019-10-25] MEDS: AMLODIPINE BESYLATE 5 MG TABLET PO (08:26)
[2019-10-25 09:03] LABS: Basophils Percent Auto 0.3 % (0.2-1.2); Eosinophils Absolute Auto 0.1 K/mm3 (0-0.3); Hematocrit 31.5 % (37.0-47.0); Hemoglobin 10.4 g/dL (12.0-15.0); Immature Granulocyte Absolute 0.03 K/mm3 (0.00-0.031); Immature Granulocyte Percent A 0.5 % (0-0.5); Lymphocytes Absolute Auto 0.57 K/mm3 (0.9-3.2); Lymphocytes Percent Auto 9.6 % (18.3-44.2); Mean Corpuscular Hemoglobin 29.8 pg (26-34); Mean Corpuscular Volume 90.3 fl (80-100); Mean Platelet Volume 11.3 fl (7.4-10.4); Monocytes Absolute Auto 0.5 K/mm3 (0.1-0.6); Monocytes Percent Auto 8.9 % (2.6-8.5); Neutrophils Absolute Auto 4.7 K/mm3 (1.3-6.7); Neutrophils Percent Auto 78.7 % (45.5-73.1); Platelet Count Result 141 k/mm3 (150-375); Red Blood Count 3.49 M/mm3 (4.2-5.4); Red Cell Distribution Width 13.5 % (11.5-14.5)
[2019-10-25 09:08] LABS: Add Urine Microscopic? YES; Appearance Urine Clear (Clear); Bilirubin Urine Negative (Negative); Blood Urine Negative (Negative); Color Urine Straw (Yellow); Glucose Urine UA 1+ mg/dL (Negative); Ketones Urine Negative (Negative); Leukocyte Esterase Ur Negative LEU/UL (Negative); Nitrate Urine Negative (Negative); Protein Urine 2+ mg/dL (Negative); RBC Urine 0-2 /hpf (0-2); Specific Grav Ur 1.013 (1.001-1.035); Squamous Epithelial Cell Urine Rare /hpf (Few); Urobilinogen Urine Negative mg/dL (<2.0); WBC Urine 0-3 /hpf
[2019-10-25 09:13] LABS: INR 1.8; Prothrombin Time 20.8 Seconds (11.1-14.7)
[2019-10-25 09:17] LABS: Blood Urea Nitrogen 27 mg/dL (7-17); Calcium 9.3 mg/dL (8.4-10.2); Carbon Dioxide 30 mmol/L (22-30); Chloride 99 mmol/L (98-107); Estimated CRCL calculation 34 ml/min; Estimated Glomerular Filt Rate 53; Glucose 171 mg/dL (65-105); Potassium 4.5 mmol/L (3.4-5.0); Sodium 135 mmol/L (137-145)
[2019-10-25] MEDS: PROMETHAZINE HCL 25 MG/ML AMPUL 12.5 MG IV PUSH (11:05)
[2019-10-25] MEDS: HEPARIN SOD/D5W 100 UNITS/ML 25,000 UNITS/250 ML BAG 10 UNITS IV CONT (11:08)
--- NOTE | 2019-10-25 13:12 | ADMGEN ---
This patient, Sadie Winston, was admitted to IMU Room 203-01 AT 1215 ON 10/25/19. Patient/family oriented to hospital policies and general routines including ID bracelet, bed and alarms, visiting hours, pain management, procedures, bathroom and other care routines, personal items, smoking policy, room service/diet, and visiting hours. Valuables list has been completed. Information on how to activate the Rapid Response Team has been discussed. Patient/Family are encouraged to report perceived risks to care and to ask questions if they do not understand what they are told or what they should do.
--- NOTE | 2019-10-25 13:46 | ECG_ITS ---
Measurements Intervals [place] Rate: 66 P: 74 [place]: 191 QRS: -31 QRSD: 96 T: 170 QT: 362 QTc: 381 Interpretive Statements SINUS RHYTHM LEFT ATRIAL ENLARGEMENT LEFT AXIS DEVIATION DELAYED PRECORDIAL R/S TRANSITION LEFT VENTRICULAR HYPERTROPHY AND ST-T CHANGE ST-T WAVE ABNORMALITY IN LATERAL LEADS- CONSIDER ISCHEMIA ABNORMAL ECG Electronically Signed On 10-25-2019 17:29:54 CDT by Delbert Nair D.O.
--- NOTE | 2019-10-25 14:49 | PM.IMHP ---
H&P: HPI History of Present Illness Chief complaint: subtherapeutic inr,uncontrolled htn,ambultory dysf Narrative: Sadie Winston is a 84 year old female who lives with her daughter. The patient is on long-term anticoagulation Coumadin for a history of aortic valve replacement. The patient had been here in July was found to have peptic ulcer disease with a GI bleed. However since then the patient has been placed back on Coumadin. She does have a history of dementia and is orientated to herself and place her daughter was here earlier and was giving history. She noticed that her mother was feeling unsteady today while walking but had no focal weakness or slurred speech or any facial droop. The patient's INR was 1.8 earlier this week and they increased her Coumadin. The patient has been unsteady but has not had any falls. No fever no chills no diarrhea no difficulty urinating no shortness of breath no chest pain. Blood pressure was elevated when she came to the emergency room and her INR again was 1.8. Patient was started on a heparin drip. She was answering some questions for me but was slightly unsteady when I got her up to the bedside commode. She is not dizzy while laying in bed. 10.4 and 31.5 which is up from her previous H&H back in July of 9.0 in 28.6. Her glucose is 171. Urine was negative for UTI. And Norvasc most likely for her blood pressure. She was also given Phenergan in the emergency room. Date of service 10/25/2019 Review of Systems Review of Systems: All systems reviewed & are unremarkable except as noted in HPI and below Constitutional: Constitutional: Reports as per HPI and Reports no additional constitutional complaints Eyes: Eyes: Reports as per HPI and Reports no additional eye complaints ENT: Reports system reviewed and no additional complaints, except as documented and Reports Normal hearing present Cardiovascular: Cardiovascular: Reports no additional cardiovascular complaints Respiratory: Respiratory: Reports no additional respiratory complaints and Reports no additional respiratory complaints Gastrointestinal: Gastrointestinal: Reports as per HPI and Reports no additional gastrointestinal complaints Musculoskeletal: Musculoskeletal: Reports no additional musculoskeletal complaints Integumentary/Breasts: Skin/Breast: Reports system reviewed and no additional complaints, except as docu and Reports as per HPI Neurologic: Reports system reviewed and no additional complaints, except as documented, Reports as per HPI and Reports Normal hearing present Psychiatric: Psychiatric: Reports no additional psychiatric complaints and Reports as per HPI Endocrine: Endocrine: Reports no additional endocrine complaints Hematologic/Lymphatic: Hematologic/Lymphatic: Reports no additional hematologic/lymphatic complaints Allergic/Immunologic: Allergic/Immunologic: Reports no additional allergic/immunologic complaints [facility] Past Medical History Medical History (Updated 10/25/19 @ 15:04 by Dasha Estrada NP) CKD (chronic kidney disease) stage 3, GFR 30-59 ml/min Dementia 02/12/2013 Dementia, unspecified, without behavioral disturbance Diarrhea in adult patient 06/25/2018 Dyslipidemia Edema of both lower legs due to peripheral venous insufficiency 07/21/2018 Elevated lipids Essential (primary) hypertension History of gastric ulcer Low back pain without sciatica Tinea cruris Type 2 diabetes mellitus without complication, without long-term current use of insulin Vitamin D deficiency Surgical History Surgical History Aortic valve replaced 07/17/1995 History of cholecystectomy 06/17/2002 History of right coronary artery stent placement 02/16/2006 Family History Family History Father Acute myocardial infarction Mother Diabetes mellitus Social History Social History (Updated 10/25/19
[2019-10-25 17:00] LABS: Glucose Point of Care 158 (65-105)
[2019-10-25 17:20] LABS: INR 1.7; Prothrombin Time 19.8 Seconds (11.1-14.7)
[2019-10-25 18:54] LABS: Partial Thromboplastin Time > 200.0 SECONDS (22.3-36.8)
[2019-10-25 20:24] LABS: Glucose Point of Care 117 (65-105)
[2019-10-25] MEDS: MEMANTINE HCL XR 28 MG CAP PO (20:29)
[2019-10-25] MEDS: ATORVASTATIN 40 MG TABLET 80 MG PO (20:29)
[2019-10-25] MEDS: lisinopriL 20 MG TABLET PO (20:29)
[2019-10-25] MEDS: PYRIDOXINE HCL 50 MG TABLET 100 MG PO (20:30)
[2019-10-25] MEDS: VITAMIN B COMPLEX CAPSULE 1 CAP PO (20:30)
[2019-10-26] VITALS (15 sets, daily range): BP systolic 146–189; BP diastolic 58–67; PULSE 57–80; RESP 12–20; TEMP 36.1–37; O2SAT 96–100
[2019-10-26 02:27] LABS: Basophils Percent Auto 0.6 % (0.2-1.2); Eosinophils Absolute Auto 0.2 K/mm3 (0-0.3); Eosinophils Percent Auto 3.4 % (0-4.4); Hematocrit 29.9 % (37.0-47.0); Hemoglobin 9.8 g/dL (12.0-15.0); Immature Granulocyte Absolute 0.02 K/mm3 (0.00-0.031); Immature Granulocyte Percent A 0.3 % (0-0.5); Lymphocytes Absolute Auto 1.21 K/mm3 (0.9-3.2); Lymphocytes Percent Auto 19.3 % (18.3-44.2); Mean Corpuscular HGB Conc 32.8 g/dl (32-36); Mean Corpuscular Hemoglobin 29.6 pg (26-34); Mean Corpuscular Volume 90.3 fl (80-100); Mean Platelet Volume 11.7 fl (7.4-10.4); Monocytes Absolute Auto 0.7 K/mm3 (0.1-0.6); Monocytes Percent Auto 11.5 % (2.6-8.5); Neutrophils Absolute Auto 4.1 K/mm3 (1.3-6.7); Neutrophils Percent Auto 64.9 % (45.5-73.1); Platelet Count Result 154 k/mm3 (150-375); Red Blood Count 3.31 M/mm3 (4.2-5.4); Red Cell Distribution Width 13.9 % (11.5-14.5); White Blood Count 6.3 K/mm3 (4.5-10.0)
[2019-10-26 02:41] LABS: Alanine Aminotransferase 39 U/L (4-35); Albumin Level 3.5 g/dL (3.5-5.1); Alkaline Phosphatase 58 U/L (38-126); Aspartate Amino Transferase 42 U/L (14-36); Bilirubin,Total 1.2 mg/dL (0.2-1.3); Blood Urea Nitrogen 28 mg/dL (7-17); Calcium 8.9 mg/dL (8.4-10.2); Carbon Dioxide 33 mmol/L (22-30); Chloride 102 mmol/L (98-107); Estimated CRCL calculation 31 ml/min; Estimated Glomerular Filt Rate 48; Glucose 102 mg/dL (65-105); Magnesium 1.7 mg/dL (1.6-2.3); Potassium 4.2 mmol/L (3.4-5.0); Sodium 136 mmol/L (137-145)
[2019-10-26 02:56] LABS: Partial Thromboplastin Time 180.1 SECONDS (22.3-36.8)
[2019-10-26 03:04] LABS: Hemoglobin A1C 7.1 % (<5.7)
[2019-10-26 08:15] LABS: Glucose Point of Care 115 (65-105)
[2019-10-26] MEDS: CHOLECALCIFEROL 1,000 UNIT TABLET 5000 UNITS PO (08:47)
[2019-10-26] MEDS: DIGOXIN 250 MCG TABLET PO (08:48)
[2019-10-26] MEDS: METOPROLOL TARTRATE 50 MG TAB PO ×2 (08:48→20:50)
[2019-10-26] MEDS: AMLODIPINE BESYLATE 5 MG TABLET PO (08:48)
[2019-10-26] MEDS: ASCORBIC ACID 250 MG TABLET PO (08:49)
[2019-10-26 10:17] LABS: INR 1.6; Prothrombin Time 18.8 Seconds (11.1-14.7)
[2019-10-26 10:19] LABS: Partial Thromboplastin Time 86.7 SECONDS (22.3-36.8)
[2019-10-26] MEDS: HEPARIN SOD/D5W 100 UNITS/ML 25,000 UNITS/250 ML BAG 6 UNITS IV CONT (10:36)
[2019-10-26 11:58] LABS: Glucose Point of Care 201 (65-105)
[2019-10-26] MEDS: INSULIN ASPART (*BKC) 100 UNITS/ML SUB-Q (12:40)
[2019-10-26 16:41] LABS: Partial Thromboplastin Time 84.9 SECONDS (22.3-36.8)
--- NOTE | 2019-10-26 16:43 | PM.IMPN ---
Progress Note: A&P Assessment and Plan (1) Subtherapeutic international normalized ratio (INR): Code(s): R79.1 - Abnormal coagulation profile Status: Acute Assessment and Plan: Patient's INR is 1.6 now. Daughter relates that she has been taking 8 mg daily with 6 on Sunday so will increase to 10 mg and follow closely while on heparin. (2) Hypertensive urgency: Code(s): I16.0 - Hypertensive urgency Status: Acute Assessment and Plan: Continue the amlodipine and ROSIO-inhibitor and somewhat permissive hypertension given her acute CVA (3) H/O aortic valve replacement: Code(s): Z95.2 - Presence of prosthetic heart valve Status: Chronic Assessment and Plan: Patient is being bridged from heparin drip to her Coumadin. She is subtherapeutic at 1.6. Daily PT INR. (4) Dementia: Qualifiers: Dementia type: unspecified type Dementia behavioral disturbance: without behavioral disturbance Qualified Code(s): F03.90 - Unspecified dementia without behavioral disturbance Code(s): F03.90 - Unspecified dementia without behavioral disturbance Status: Chronic Assessment and Plan: Patient is slightly forgetful and she is cooperative. continue galantamine and memantine (5) CKD (chronic kidney disease) stage 3, GFR 30-59 ml/min: Code(s): N18.3 - Chronic kidney disease, stage 3 (moderate) Status: Chronic Assessment and Plan: Estimated glomerular all filtration rate is 53. secondary to age related decrease in GFR with creatinine 1,1 (6) Dyslipidemia: Code(s): E78.5 - Hyperlipidemia, unspecified Status: Chronic Assessment and Plan: Continue with home medications. (7) Type 2 diabetes mellitus without complication, without long-term current use of insulin: Code(s): E11.9 - Type 2 diabetes mellitus without complications Status: Chronic Assessment and Plan: Sliding scale insulin. hold oral hypoglycemics. A1c 7.1 (8) CVA (cerebral vascular accident): Code(s): I63.9 - Cerebral infarction, unspecified Status: Acute Assessment and Plan: subacute R jonathan infarc which corelates with her symptoms. some carotid disease on Left. echo pending. EKG SR and important to get inr therapuetic. continue asa 81 mg too. PT/OT Subjective Date/time seen: 10/26/19 16:43 Interval history: Date of visit 10-25. 84-year-old hypertensive type 2 diabetic with mechanical aortic valve replacement on chronic warfarin therapy presented to the hospital's problems with balance. She was subtherapeutic on her warfarin therapy, placed on heparin and admitted. Today she has no specific complaints shortness of breath or otherwise. Exam Narrative: Exam Narrative: Blood pressure 180/82 pulse is 76 regular afebrile Pupils equal reactive to light sclera anicteric Neck is supple air no carotid bruits Lungs clear CV regular faint systolic murmur Abdomen soft nontender Extremities without edema good distal pulses Neuro alert pleasant cooperative no focal deficit but gait not tested Objective Data Vital Signs Vital Signs: Vital Signs - 24 hr 10/25/19 18:00 10/25/19 19:37 10/25/19 19:38 Temperature 36.4 C Pulse Rate 55 L 60 Respiratory Rate 20 Blood Pressure 158/52 H 152/52 H Pulse Oximetry 97 10/25/19 19:39 10/25/19 19:44 10/25/19 20:00 Temperature Pulse Rate 60 Respiratory Rate 20 Blood Pressure 147/52 H 120/57 L Pulse Oximetry 97 10/25/19 20:29 10/25/19 21:34 10/25/19 23:25 Temperature 36.4 C L Pulse Rate 60 60 57 L Respiratory Rate 20 Blood Pressure 144/59 H Pulse Oximetry 98 10/26/19 00:00 10/26/19 02:00 10/26/19 04:00 Temperature Pulse Rate 58 L 57 L 57 L Respiratory Rate 20 20 Blood Pressure Pulse Oximetry 98 97 10/26/19 04:05 10/26/19 08:00 10/26/19 08:48 Temperature 36.4 C L 36.9 C Pulse Rate 60 60 62 Respiratory Rate 20 16 Blood Pressure 177/67 H
[2019-10-26] MEDS: hydrALAZINE HCL 20 MG/ML VIAL 10 MG IV PUSH (16:50)
[2019-10-26] MEDS: WARFARIN (*PBKC) 10 MG TABLET PO (16:59)
[2019-10-26 17:17] LABS: Glucose Point of Care 102 (65-105)
--- NOTE | 2019-10-26 19:26 | PC.NURSE ---
This patient, Sadie Winston, was transferred to [facility] on 10/26[facility]19 at 1926 via bed. Personal belongings sent with patient. Belongings list checked and signed with receiving RN. Report given to TOR Brantley. Appropriate documentation sent with patient.
--- NOTE | 2019-10-26 20:34 | PC.NURSE ---
This patient, Sadie Winston, was admitted to Medical Room 245-. Patient/family oriented to hospital policies and general routines including ID bracelet, bed and alarms, visiting hours, pain management, procedures, bathroom and other care routines, personal items, smoking policy, room service/diet, and visiting hours. Valuables list has been completed. Information on how to activate the Rapid Response Team has been discussed. Patient/Family are encouraged to report perceived risks to care and to ask questions if they do not understand what they are told or what they should do.
--- NOTE | 2019-10-26 20:46 | PC.NURSE ---
pt. unable to complete admission assessment questions, history recalled from previous admission.
[2019-10-26] MEDS: lisinopriL 20 MG TABLET PO (20:49)
[2019-10-26] MEDS: ATORVASTATIN 40 MG TABLET 80 MG PO (20:49)
[2019-10-26] MEDS: MEMANTINE HCL XR 28 MG CAP PO (20:50)
[2019-10-26] MEDS: VITAMIN B COMPLEX CAPSULE 1 CAP PO (20:51)
[2019-10-26] MEDS: PYRIDOXINE HCL 50 MG TABLET 100 MG PO (20:51)
[2019-10-26 23:10] LABS: Partial Thromboplastin Time 88.1 SECONDS (22.3-36.8)
[2019-10-27] VITALS (18 sets, daily range): BP systolic 115–179; BP diastolic 51–69; PULSE 62–87; RESP 12–20; TEMP 36.5–37.9; O2SAT 97–99
--- NOTE | 2019-10-27 | ECHO_ITS ---
Patient Info Name: Sadie Winston Age: 84 years : 1935 Gender: Female Ht: 66 in Wt: 121 lbs BSA: 1.59 m2 BP: 163 / 64 mmHg Technical Quality: Good Exam Date: 10/27/2019 9:58 AM Exam Location: [facility] Patient Status: Inpatient Admit Date: 10/26/2019 Staff Ordering Physician: Dasha Estrada NP Elevated Work Platform Operator: Demetri Roa RDCS, RT Attending Provider: Young Perez MD Referring Physician: Sean SPANGLER; Exam Type: CA echo doppler color flow Study Info Indications R42 - Dizziness and giddiness Complete two-dimensional, color flow and Doppler transthoracic echocardiogram is performed. Summary 1. Left ventricular systolic function is normal, estimated at 65-70%. 2. There is moderately increased left ventricular wall thickness. 3. The left ventricular diastolic function is grade I diastolic dysfunction. 4. Right ventricular chamber dimension is mildly enlarged. 5. Right ventricular systolic function is reduced. 6. There is moderate aortic valve calcification. 7. There is mild to moderate aortic valve stenosis with a peak velocity of 233 cm/s, mean gradient of 12 mmHg, and aortic valve area of 1.3 cm2. 8. There is moderate mitral valve stenosis. Mean gradient 8 mmHg. 9. There is moderate mitral valve calcification. 10. There is moderate tricuspid valve regurgitation. 11. No pulmonary hypertension, estimated pulmonary arterial systolic pressure is 34 mmHg. Recommendations * There is evidence for intracavitary obstruction with peak gradient 9 mmHg. Left Ventricle Left ventricular chamber dimension is normal. Left ventricular systolic function is normal, estimated at 65-70%. There is moderately increased left ventricular wall thickness. Left ventricular septal wall motion is normal. The left ventricular diastolic function is grade I diastolic dysfunction. Right Ventricle Right ventricular chamber dimension is mildly enlarged. Right ventricular systolic function is reduced. Left Atria Left atrial chamber dimension is normal. Right Atria Right atrial chamber dimension is normal. Aortic Valve The aortic valve is not well visualized. There is no aortic valve sclerosis. There is mild to moderate aortic valve stenosis with a peak velocity of 233 cm/s, mean gradient of 12 mmHg, and aortic valve area of 1.3 cm2. There is no aortic valve regurgitation. There is moderate aortic valve calcification. Pulmonic Valve The pulmonic valve is normal. There is no pulmonic valve stenosis. There is no pulmonic regurgitation. Mitral Valve The mitral valve has normal leaflets. There is moderate mitral valve stenosis. Mean gradient 8 mmHg. There is no mitral valve regurgitation. There is moderate mitral valve calcification. Tricuspid Valve The tricuspid valve leaflets are normal. There is no significant tricuspid valve stenosis. There is moderate tricuspid valve regurgitation. No pulmonary hypertension, estimated pulmonary arterial systolic pressure is 34 mmHg. Pericardium/Pleural The pericardium appears normal. There is no pericardial effusion. Inferior Vena Cava Normal inferior vena cava with >50% collapse upon inspiration consistent with normal right atrial pressure, 5 mmHg. Aorta The aortic root size at the sinus of Valsalva is normal. The prox ascending aorta size is normal. Left Ventricular Outflow Tract Name Value
[2019-10-27 01:43] LABS: Glucose Point of Care 186 (65-105)
[2019-10-27 05:20] LABS: Basophils Percent Auto 0.5 % (0.2-1.2); Eosinophils Absolute Auto 0.2 K/mm3 (0-0.3); Eosinophils Percent Auto 3.1 % (0-4.4); Hematocrit 31.9 % (37.0-47.0); Hemoglobin 10.4 g/dL (12.0-15.0); Immature Granulocyte Absolute 0.02 K/mm3 (0.00-0.031); Immature Granulocyte Percent A 0.3 % (0-0.5); Immature Reticulocyte Fraction 5.4 % (3.0-15.9); Lymphocytes Absolute Auto 0.96 K/mm3 (0.9-3.2); Lymphocytes Percent Auto 13.1 % (18.3-44.2); Mean Corpuscular HGB Conc 32.6 g/dl (32-36); Mean Corpuscular Hemoglobin 29.4 pg (26-34); Mean Corpuscular Volume 90.1 fl (80-100); Mean Platelet Volume 11.8 fl (7.4-10.4); Monocytes Percent Auto 13.5 % (2.6-8.5); Neutrophils Absolute Auto 5.1 K/mm3 (1.3-6.7); Neutrophils Percent Auto 69.5 % (45.5-73.1); Platelet Count Result 154 k/mm3 (150-375); Red Blood Count 3.54 M/mm3 (4.2-5.4); Red Cell Distribution Width 13.8 % (11.5-14.5); Reticulocyte Hemoglobin Conten 34.8 pg (28.2-35.7); Reticulocyte Percent 1.44 % (0.7-4.3); Reticulocytes Absolute 0.05 B/L (32.2-175.7); White Blood Count 7.3 K/mm3 (4.5-10.0)
[2019-10-27 05:29] LABS: INR 1.7; Prothrombin Time 19.6 Seconds (11.1-14.7)
[2019-10-27 06:22] LABS: Vitamin B12 > 1000.0 pg/mL (239-931)
[2019-10-27 08:23] LABS: Glucose Point of Care 151 (65-105)
[2019-10-27 08:33] LABS: Iron 60 ug/dL (37-170)
[2019-10-27 08:43] LABS: Percent Iron Saturation 16 % (20-50)
[2019-10-27] MEDS: AMLODIPINE BESYLATE 5 MG TABLET PO (08:58)
[2019-10-27] MEDS: DIGOXIN 250 MCG TABLET PO (08:59)
[2019-10-27] MEDS: CHOLECALCIFEROL 1,000 UNIT TABLET 5000 UNITS PO (08:59)
[2019-10-27] MEDS: ASCORBIC ACID 250 MG TABLET PO (08:59)
[2019-10-27] MEDS: METOPROLOL TARTRATE 50 MG TAB PO ×2 (09:00→20:44)
[2019-10-27 09:10] LABS: Partial Thromboplastin Time 93.9 SECONDS (22.3-36.8)
[2019-10-27 11:16] LABS: Glucose Point of Care 272 (65-105)
[2019-10-27] MEDS: INSULIN ASPART (*BKC) 100 UNITS/ML SUB-Q (11:18)
--- NOTE | 2019-10-27 13:23 | PM.IMPN ---
Progress Note: A&P Assessment and Plan (1) Subtherapeutic international normalized ratio (INR): Code(s): R79.1 - Abnormal coagulation profile Status: Acute Assessment and Plan: Patient's INR is 1.8 now. Daughter relates that she has been taking 8 mg daily with 6 on Sunday so increased to 10 mg and follow closely while on heparin. (2) Hypertensive urgency: Code(s): I16.0 - Hypertensive urgency Status: Acute Assessment and Plan: Continue the amlodipine and ROSIO-inhibitor and somewhat permissive hypertension given her acute CVA slightl orthostatic changes noted today (3) H/O aortic valve replacement: Code(s): Z95.2 - Presence of prosthetic heart valve Status: Chronic Assessment and Plan: Patient is being bridged from heparin drip to her Coumadin. She is subtherapeutic at 1.8. Daily PT INR. (4) Dementia: Qualifiers: Dementia behavioral disturbance: without behavioral disturbance Dementia type: unspecified type Qualified Code(s): F03.90 - Unspecified dementia without behavioral disturbance Code(s): F03.90 - Unspecified dementia without behavioral disturbance Status: Chronic Assessment and Plan: Patient is slightly forgetful and she is cooperative. continue galantamine and memantine (5) CKD (chronic kidney disease) stage 3, GFR 30-59 ml/min: Code(s): N18.3 - Chronic kidney disease, stage 3 (moderate) Status: Chronic Assessment and Plan: Estimated glomerular all filtration rate is 53. secondary to age related decrease in GFR with creatinine 1,1 (6) Dyslipidemia: Code(s): E78.5 - Hyperlipidemia, unspecified Status: Chronic Assessment and Plan: Continue with home medications. (7) Type 2 diabetes mellitus without complication, without long-term current use of insulin: Code(s): E11.9 - Type 2 diabetes mellitus without complications Status: Chronic Assessment and Plan: Sliding scale insulin. hold oral hypoglycemics. A1c 7.1 (8) CVA (cerebral vascular accident): Code(s): I63.9 - Cerebral infarction, unspecified Status: Acute Assessment and Plan: subacute R jonathan infarc which corelates with her symptoms. some carotid disease on Left. echo moderate and MS with normal EF . EKG SR and important to get inr therapuetic. continue asa 81 mg too. PT/OT discussed with daughter 10/25 and she wishes to have patient return home and not rehab facility (9) Anemia: Code(s): D64.9 - Anemia, unspecified Status: Acute Assessment and Plan: probable Fe def by lab work, with iron, 60 TIBC 364 ferritin 24. Hemoglobin has not changed significantly though over the last 3 years checking her records. With chronic warfarin therapy she probably has some chronic GI blood loss and will check stool for occult blood Could angiodysplasia often associated with aortic stenosis Subjective Date/time seen: 10/27/19 13:23 Interval history: Date of visit -. 84-year-old hypertensive type 2 diabetic with mechanical aortic valve replacement on chronic warfarin therapy presented to the hospital's problems with balance. She was subtherapeutic on her warfarin therapy, placed on heparin and admitted. Today she has no specific complaints shortness of breath or otherwise. MRI 10/25 R jonathan infarc Exam Narrative: Exam Narrative: Blood pressure 132/52 pulse is 64 regular afebrile Pupils equal reactive to light sclera anicteric Neck is supple , carotid bruits vs radiation of cardiac murmer Lungs clear CV regular systolic murmur LLSB and toward carotids Abdomen soft nontender Extremities without edema good distal pulses Neuro alert pleasant cooperative no focal deficit but gait not tested F to N and heal to egan intact Objective Data Vital Signs Vital Signs: Vital Signs - 24 hr 10/26/19 16:00 10/26/19 20:00 10/26/19 20:50 Temperature 36.1 C L Pulse Rate 67 74 80 Respirat
[2019-10-27 16:18] LABS: Glucose Point of Care 140 (65-105)
[2019-10-27] MEDS: WARFARIN (*PBKC) 10 MG TABLET PO (16:20)
[2019-10-27] MEDS: HEPARIN SOD/D5W 100 UNITS/ML 25,000 UNITS/250 ML BAG 6 UNITS IV CONT (16:22)
[2019-10-27 17:31] LABS: Blood Urea Nitrogen 23 mg/dL (7-17); Calcium 8.8 mg/dL (8.4-10.2); Carbon Dioxide 30 mmol/L (22-30); Chloride 98 mmol/L (98-107); Estimated CRCL calculation 28 ml/min; Estimated Glomerular Filt Rate 43; Glucose 252 mg/dL (65-105); Potassium 3.7 mmol/L (3.4-5.0); Sodium 137 mmol/L (137-145)
[2019-10-27] MEDS: VITAMIN B COMPLEX CAPSULE 1 CAP PO (20:43)
[2019-10-27] MEDS: PYRIDOXINE HCL 50 MG TABLET 100 MG PO (20:44)
[2019-10-27] MEDS: lisinopriL 20 MG TABLET PO (20:44)
[2019-10-27] MEDS: ATORVASTATIN 40 MG TABLET 80 MG PO (20:45)
[2019-10-27] MEDS: MEMANTINE HCL XR 28 MG CAP PO (20:46)
[2019-10-27] MEDS: hydrALAZINE HCL 20 MG/ML VIAL 10 MG IV PUSH (22:35)
[2019-10-27 22:40] LABS: Glucose Point of Care 214 (65-105)
[2019-10-28] VITALS (12 sets, daily range): BP systolic 112–183; BP diastolic 42–66; PULSE 69–105; RESP 17–20; TEMP 36.5–37.1; O2SAT 97–99
[2019-10-28 07:34] LABS: Blood Urea Nitrogen 20 mg/dL (7-17); Calcium 8.7 mg/dL (8.4-10.2); Carbon Dioxide 32 mmol/L (22-30); Chloride 101 mmol/L (98-107); Estimated CRCL calculation 31 ml/min; Estimated Glomerular Filt Rate 48; Glucose 175 mg/dL (65-105); Potassium 3.6 mmol/L (3.4-5.0); Sodium 135 mmol/L (137-145)
[2019-10-28 07:40] LABS: INR 2.3; Prothrombin Time 24.5 Seconds (11.1-14.7)
[2019-10-28 08:10] LABS: Glucose Point of Care 213 (65-105)
[2019-10-28] MEDS: INSULIN ASPART (*BKC) 100 UNITS/ML SUB-Q ×2 (08:43→11:49)
[2019-10-28] MEDS: DIGOXIN 250 MCG TABLET PO (08:45)
[2019-10-28] MEDS: CHOLECALCIFEROL 1,000 UNIT TABLET 5000 UNITS PO (08:46)
[2019-10-28] MEDS: ASCORBIC ACID 250 MG TABLET PO (08:46)
[2019-10-28] MEDS: AMLODIPINE BESYLATE 5 MG TABLET PO (08:47)
[2019-10-28] MEDS: METOPROLOL TARTRATE 50 MG TAB PO (08:47)
[2019-10-28] MEDS: ACETAMINOPHEN 325 MG TABLET 650 MG PO (08:53)
[2019-10-28 11:29] LABS: Glucose Point of Care 279 (65-105)
--- NOTE | 2019-10-28 12:56 | PM.DS ---
DS: Admitting Diagnosis Admitting Diagnosis Admitting Diagnosis: Abnormal coagulation profile DS: Discharge Diagnosis Discharge Diagnosis (1) CVA (cerebral vascular accident): Code(s): I63.9 - Cerebral infarction, unspecified Status: Acute Assessment and Plan: Patient presented with unsteady gait. Brain CT showing no acute findings but brain MRI showed a subacute R jonathan infarct which correlates with her symptoms. Carotid ultrasound showing 50-69% stenosis in the left internal carotid artery. Echo showing EF 65% and grade 1 diastolic dysfunction with moderate and MS. EKG NSR. Aspirin was continued. She was started on heparin drip and bridged until her INR became therapeutic. PT and OT work with patient. Skilled therapy discussed with daughter but she wishes to have patient return home and not rehab facility. Home health was arranged. (2) Subtherapeutic international normalized ratio (INR): Code(s): R79.1 - Abnormal coagulation profile Status: Acute Assessment and Plan: Patient with aortic valve replacement. Family contest INR at home and adjust Coumadin at home. INR 1.8 on admission so heparin drip started. Daughter relates that she has been taking 8 mg daily with 6 on Sunday so increased to 10 mg daily. INR 2.3 today. Family to continue monitoring INR making appropriate adjustments to ensure an INR 2.0-3.0. (3) Hypertensive urgency: Code(s): I16.0 - Hypertensive urgency Status: Acute Assessment and Plan: Blood pressure markedly elevated at times to as high as 246/112. Home medications were resumed. Blood pressure improved with episodes of 'normal' blood pressure. Patient was resumed on home medications without adjustment. We will out for permissive hypertension given her acute CVA. Continue to monitor blood pressure at home periodically. (4) H/O aortic valve replacement: Code(s): Z95.2 - Presence of prosthetic heart valve Status: Chronic Assessment and Plan: INR was subtherapeutic on admission. Heparin was started and patient was bridged to therapeutic INR. (5) Dementia: Qualifiers: Dementia behavioral disturbance: without behavioral disturbance Dementia type: unspecified type Qualified Code(s): F03.90 - Unspecified dementia without behavioral disturbance Code(s): F03.90 - Unspecified dementia without behavioral disturbance Status: Chronic Assessment and Plan: Stable. We continued her galantamine and memantine. (6) CKD (chronic kidney disease) stage 3, GFR 30-59 ml/min: Code(s): N18.3 - Chronic kidney disease, stage 3 (moderate) Status: Chronic Assessment and Plan: Estimated GFR is in 40-50 range. Cr remained stable during her hospital course. (7) Dyslipidemia: Code(s): E78.5 - Hyperlipidemia, unspecified Status: Chronic Assessment and Plan: Stable. AST and ALT was slightly elevated but appear to be at baseline. Her Lipitor was continued. (8) Type 2 diabetes mellitus without complication, without long-term current use of insulin: Code(s): E11.9 - Type 2 diabetes mellitus without complications Status: Chronic Assessment and Plan: A1c 7.1. Glucose checked serially and a remained well controlled. (9) Anemia: Code(s): D64.9 - Anemia, unspecified Status: Acute Assessment and Plan: Chronic and stable in the 9-10 range. Probable Fe deficiency by lab work, with iron 60, TIBC 364 ferritin 24 with low saturation. With chronic warfarin therapy she probably has some chronic GI blood loss. She had a recent by EGD in July. Add iron DS: Summary Hospital Course Reason for hospitalization: 84yo female with aortic valve replacement here for ataxia and found to have small CVA. Please see H&P for details. Hospital Course: As above. Time Spent with Patient Time attestation: Total time spent provangelo
[2019-10-28 13:45] LABS: Partial Thromboplastin Time 108.5 SECONDS (22.3-36.8)
[2019-10-28] MEDS: WARFARIN (*PBKC) 10 MG TABLET PO (17:43)
== END 2019-10-28 17:58 | disposition home health service (06) | DRG 66 ==
LOC: ANHED 09:01 → ANHIMU 11:06 → ANH2MED 10-26 19:26
PROVIDERS: Family Medicine; Internal Medicine; Nurse Practitioner; Admitting Provider Family Medicine; Emergency Provider Emergency Medicine; PCP Family Medicine; Visit Provider Internal Medicine
DX: I63.89 Other cerebral infarction (principal); I16.0 Hypertensive urgency; F03.90 Unspecified dementia, unspecified severity, without behavioral disturbance, psychotic disturbance, mood disturbance, and anxiety; I12.9 Hypertensive chronic kidney disease with stage 1 through stage 4 chronic kidney disease, or unspecified chronic kidney disease; N18.3 Chronic kidney disease, stage 3 (moderate); E78.5 Hyperlipidemia, unspecified; E11.21 Type 2 diabetes mellitus with diabetic nephropathy; D64.9 Anemia, unspecified; Z95.2 Presence of prosthetic heart valve; R79.1 Abnormal coagulation profile
CPT/HCPCS: 36415; 70450; 70553; 80048; 80053; 81001; 82607; 82728; 83036; 83540; 83550; 83735; 84443; 85025; 85046; 85610; 85730; 93005; 93306; 93880; 96365; 96366; 96375; 97110; 97116; 97161; 97165; 97530; 97535; 99285; A9270; A9577; G0378; J0360; J1644; J1815; J2550

== ENCOUNTER 2019-11-03 08:25 | Emergency (ER) | payer MEDICARE, OTHER, SELFPAY ==
[2019-11-03 08:28] VITALS: BP 193/69; PULSE 72; RESP 18; TEMP 37.1; O2SAT 100
[2019-11-03 09:14] VITALS: PULSE 69
[2019-11-03] MEDS: AMLODIPINE BESYLATE 5 MG TABLET PO (09:14)
[2019-11-03] MEDS: METOPROLOL TARTRATE 50 MG TAB PO (09:14)
[2019-11-03] MEDS: OXYMETAZOLINE HCL 0.05% NAS 15 ML BTL (*BKC) 1 SPRAY NASAL (09:14)
--- NOTE | 2019-11-03 09:17 | ED.EPISTAXIS ---
HPI - Epistaxis General Chief complaint: Epistaxis Stated complaint: bloody nose Time Seen by Provider: 11/03/19 08:45 Source: family Mode of arrival: ambulatory Limitations: dementia History of Present Illness HPI Narrative: This patient is an 84 year old female with history of mechanical valve, TIA on coumadin and Aspirin who presents for evaluation of epistaxis. Her family is at bedside providing history. She states this morning patient developed bleeding from her left nostril. She has been applying pressure to her nose but she states the bleeding has not completely stopped. Patient has spit out some clots per family. Patient does not appear to have bleeding now. Her family checked her INR at home and it was 4.8. She states Dr. Landeros manages her coumadin. She denies any other bleeding. MD complaint: epistaxis Location: left nostril Onset (ago): hour(s) Duration: intermittent Context: aspirin use and warfarin use Treatment prior to arrival: nasal clamp Related Data Home Medications Medication Instructions Recorded Confirmed ascorbic acid (vitamin C) 250 mg 250 mg PO DAILY 05/29/19 10/25/19 tablet aspirin 81 mg tablet,delayed 81 mg PO QPM 05/29/19 10/25/19 release atorvastatin 40 mg tablet 80 mg PO QPM 05/29/19 10/25/19 calcium carb 300 mg-D3 800 1 tablet PO DAILY 05/29/19 10/25/19 unit-mag ox 25 mg-copyright manager 0.5 mg-abel-Zn tablet cholecalciferol (vitamin D3) 125 125 mcg PO DAILY 05/29/19 10/25/19 mcg (5,000 unit) capsule cinnamon bark 500 mg capsule 500 mg PO QPM 05/29/19 10/25/19 glucosamine-chondroitin 250 mg-200 1 tablet PO DAILY 05/29/19 10/25/19 mg tablet omega-3 fatty acids 500 mg capsule 500 mg PO DAILY 05/29/19 10/25/19 pyridoxine (vitamin B6) 100 mg 100 mg PO QPM 05/29/19 10/25/19 tablet vitamin B complex 1 tablet PO QPM 05/29/19 10/25/19 warfarin 2 mg tablet 8 mg PO DIRECTED 05/29/19 10/25/19 zinc 50 mg tablet 50 mg PO DAILY 05/29/19 10/25/19 lisinopril 20 mg PO QPM 07/21/19 10/25/19 memantine 28 mg PO QPM 07/21/19 10/25/19 celecoxib 200 mg PO DAILY 10/25/19 10/25/19 Allergies Allergy/AdvReac Type Severity Reaction Status Date / Time milk Allergy Mild Unknown Verified 11/03/19 08:32 lactose Allergy Unknown NASAL Verified 11/03/19 08:32 CONGESTION Penicillins Allergy Unknown Unknown Verified 11/03/19 08:32 pravastatin Allergy Unknown Unknown Verified 11/03/19 08:32 Sulfa (Sulfonamide Allergy Unknown Unknown Verified 11/03/19 08:32 Antibiotics) Review of Systems Review of Systems: All systems reviewed & are unremarkable except as noted in HPI and below PMFSH Past Medical History Medical History (Updated 11/03/19 @ 11:16 by Jessica Elizalde MD) CKD (chronic kidney disease) stage 3, GFR 30-59 ml/min Dementia 02/12/2013 Dementia, unspecified, without behavioral disturbance Diarrhea in adult patient 06/25/2018 Dyslipidemia Edema of both lower legs due to peripheral venous insufficiency 07/21/2018 Elevated lipids Essential (primary) hypertension History of gastric ulcer Low back pain without sciatica Tinea cruris Type 2 diabetes mellitus without complication, without long-term current use of insulin Vitamin D deficiency Social History Social History (Updated 10/25/19 @ 15:00 by Dasha Estrada NP) Social History: The patient tells me that she lives with her daughter and that she is . 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 She tells me she has 2 children she tells me that the daughter that is the power title attorney is a when she lives with. She tells me she is a DNR. She tells me that she did smoke in the past was long time ago. No alcohol marijuana or illicit drugs Smoking status: Unknown if ever smoked Second hand tobacco smoke exposure: No Alcohol intake: unknown Substance use: unknown Substance use type: unknown Gender identity (if verbalized by the patient): Female Spiritual c
[2019-11-03 09:34] LABS: Basophils Percent Auto 0.3 % (0.2-1.2); Eosinophils Absolute Auto 0.2 K/mm3 (0-0.3); Eosinophils Percent Auto 2.8 % (0-4.4); Hematocrit 32.3 % (37.0-47.0); Hemoglobin 10.4 g/dL (12.0-15.0); Immature Granulocyte Absolute 0.02 K/mm3 (0.00-0.031); Immature Granulocyte Percent A 0.3 % (0-0.5); Lymphocytes Absolute Auto 0.71 K/mm3 (0.9-3.2); Lymphocytes Percent Auto 11.7 % (18.3-44.2); Mean Corpuscular HGB Conc 32.2 g/dl (32-36); Mean Corpuscular Hemoglobin 29.2 pg (26-34); Mean Corpuscular Volume 90.7 fl (80-100); Mean Platelet Volume 9.9 fl (7.4-10.4); Monocytes Absolute Auto 0.6 K/mm3 (0.1-0.6); Neutrophils Absolute Auto 4.6 K/mm3 (1.3-6.7); Neutrophils Percent Auto 75.9 % (45.5-73.1); Platelet Count Result 218 k/mm3 (150-375); Red Blood Count 3.56 M/mm3 (4.2-5.4); Red Cell Distribution Width 13.6 % (11.5-14.5); White Blood Count 6.1 K/mm3 (4.5-10.0)
[2019-11-03 09:50] LABS: INR 4.3; Prothrombin Time 40.3 Seconds (11.1-14.7)
[2019-11-03 10:44] VITALS: BP 199/76; PULSE 67; RESP 16; O2SAT 97
[2019-11-03 11:07] VITALS: BP 166/61; PULSE 65; RESP 18; O2SAT 97
== END 2019-11-03 11:43 | disposition home or self-care (01) ==
PROVIDERS: Emergency Provider General Practice; PCP Family Medicine
DX: R04.0 Epistaxis (principal); T45.515A Adverse effect of anticoagulants, initial encounter; Z86.73 Personal history of transient ischemic attack (TIA), and cerebral infarction without residual deficits; N18.3 Chronic kidney disease, stage 3 (moderate); F03.90 Unspecified dementia, unspecified severity, without behavioral disturbance, psychotic disturbance, mood disturbance, and anxiety; E78.5 Hyperlipidemia, unspecified; I87.2 Venous insufficiency (chronic) (peripheral); I12.9 Hypertensive chronic kidney disease with stage 1 through stage 4 chronic kidney disease, or unspecified chronic kidney disease; E11.22 Type 2 diabetes mellitus with diabetic chronic kidney disease; Z79.82 Long term (current) use of aspirin; Z66 Do not resuscitate
CPT/HCPCS: 36415; 85025; 85610; 85730; 99284; A9270

== ENCOUNTER 2019-12-03 15:49 | Outpatient (CLI) | payer MEDICARE, OTHER, SELFPAY ==
[2019-12-03 16:53] LABS: Basophils Percent Auto 0.3 % (0.2-1.2); Eosinophils Absolute Auto 0.2 K/mm3 (0-0.3); Eosinophils Percent Auto 2.5 % (0-4.4); Hemoglobin 9.8 g/dL (12.0-15.0); Immature Granulocyte Absolute 0.02 K/mm3 (0.00-0.031); Immature Granulocyte Percent A 0.3 % (0-0.5); Lymphocytes Absolute Auto 0.76 K/mm3 (0.9-3.2); Mean Corpuscular HGB Conc 32.7 g/dl (32-36); Mean Corpuscular Hemoglobin 30.1 pg (26-34); Mean Platelet Volume 11.9 fl (7.4-10.4); Monocytes Absolute Auto 0.7 K/mm3 (0.1-0.6); Monocytes Percent Auto 9.4 % (2.6-8.5); Neutrophils Absolute Auto 5.3 K/mm3 (1.3-6.7); Neutrophils Percent Auto 76.5 % (45.5-73.1); Platelet Count Result 155 k/mm3 (150-375); Red Blood Count 3.26 M/mm3 (4.2-5.4); Red Cell Distribution Width 15.1 % (11.5-14.5); White Blood Count 6.9 K/mm3 (4.5-10.0)
[2019-12-03 17:07] LABS: Alanine Aminotransferase 41 U/L (4-35); Albumin Level 3.8 g/dL (3.5-5.1); Alkaline Phosphatase 67 U/L (38-126); Anion Gap 10.7 mmol/L (7-16); Aspartate Amino Transferase 51 U/L (14-36); Bilirubin,Total 0.9 mg/dL (0.2-1.3); Blood Urea Nitrogen 29 mg/dL (7-17); Calcium 10.2 mg/dL (8.4-10.2); Carbon Dioxide 31 mmol/L (22-30); Chloride 99 mmol/L (98-107); Estimated Glomerular Filt Rate 43; Glucose 105 mg/dL (65-105); Potassium 4.7 mmol/L (3.4-5.0); Sodium 136 mmol/L (137-145)
[2019-12-03 17:22] LABS: Digoxin 3.6 ng/mL (0.8-2.0)
== END 2019-12-03 15:50 | disposition home or self-care (01) ==
PROVIDERS: PCP Family Medicine; Visit Provider Internal Medicine Cardiovascular Disease
DX: R00.1 Bradycardia, unspecified (principal); Z79.01 Long term (current) use of anticoagulants; I44.1 Atrioventricular block, second degree
CPT/HCPCS: 36415; 80053; 80162; 85025

== ENCOUNTER 2019-12-03 18:04 | Inpatient (IN) | payer MEDICARE, OTHER, SELFPAY ==
[2019-12-03] VITALS (7 sets, daily range): BP systolic 157–180; BP diastolic 35–76; PULSE 50–85; RESP 15–20; TEMP 36.6–36.8; O2SAT 97–99; BMI 20.3
[2019-12-03 18:18] LABS: Basophils Percent Auto 0.4 % (0.2-1.2); Eosinophils Absolute Auto 0.2 K/mm3 (0-0.3); Eosinophils Percent Auto 2.5 % (0-4.4); Hemoglobin 10.3 g/dL (12.0-15.0); Immature Granulocyte Absolute 0.03 K/mm3 (0.00-0.031); Immature Granulocyte Percent A 0.4 % (0-0.5); Lymphocytes Absolute Auto 0.75 K/mm3 (0.9-3.2); Lymphocytes Percent Auto 10.3 % (18.3-44.2); Mean Corpuscular HGB Conc 32.2 g/dl (32-36); Mean Corpuscular Hemoglobin 29.6 pg (26-34); Mean Platelet Volume 11.7 fl (7.4-10.4); Monocytes Absolute Auto 0.7 K/mm3 (0.1-0.6); Monocytes Percent Auto 10.2 % (2.6-8.5); Neutrophils Absolute Auto 5.6 K/mm3 (1.3-6.7); Neutrophils Percent Auto 76.2 % (45.5-73.1); Platelet Count Result 168 k/mm3 (150-375); Red Blood Count 3.48 M/mm3 (4.2-5.4); Red Cell Distribution Width 15.3 % (11.5-14.5); White Blood Count 7.3 K/mm3 (4.5-10.0)
[2019-12-03 18:30] LABS: Alanine Aminotransferase 41 U/L (4-35); Albumin Level 3.8 g/dL (3.5-5.1); Alkaline Phosphatase 68 U/L (38-126); Anion Gap 10.8 mmol/L (7-16); Aspartate Amino Transferase 49 U/L (14-36); Blood Urea Nitrogen 29 mg/dL (7-17); Calcium 10.2 mg/dL (8.4-10.2); Carbon Dioxide 32 mmol/L (22-30); Chloride 100 mmol/L (98-107); Estimated CRCL calculation 30 ml/min; Estimated Glomerular Filt Rate 43; Glucose 133 mg/dL (65-105); Potassium 4.8 mmol/L (3.4-5.0); Sodium 138 mmol/L (137-145)
[2019-12-03 19:04] LABS: Digoxin 3.4 ng/mL (0.8-2.0)
[2019-12-03 19:26] LABS: INR 2.2
--- NOTE | 2019-12-03 19:26 | ECG_ITS ---
Measurements Intervals [place] Rate: 50 P: ID: 0 QRS: -33 QRSD: 102 T: 222 QT: 373 QTc: 341 Interpretive Statements SINUS RHYTHM WITH 2ND DEGREE AV BLOCK, MOBITZ TYPE I LEFT AXIS DEVIATION POSSIBLE LEFT ATRIAL ENLARGEMENT LEFT VENTRICULAR HYPERTROPHY AND ST-T CHANGE POOR R WAVE PROGRESSION, ANTERIOR LEADS BASELINE WANDER- I, II, AVR ABNORMAL ECG Electronically Signed On 12-04-2019 7:19:51 CDT by Delbert Nair D.O.
[2019-12-03 19:27] LABS: Partial Thromboplastin Time 35.4 SECONDS (22.3-36.8)
--- NOTE | 2019-12-03 19:41 | ED.RECABL ---
HPI - Recheck/Abnormal Lab/Rx General Chief Complaint: Recheck/Abnormal Lab/Rx Stated Complaint: dig toxicity Time Seen by Provider: 12/03/19 19:02 Source: patient and family Mode of arrival: ambulatory Limitations: dementia History of Present Illness HPI narrative: This patient is an 84 year old female who presents for evaluation of elevated digoxin. Patient's daughter states her home health nurse found that patient's heart rate was 38 today so she was referred to her middle school music teacher, DR. Landeros. Patient was evaluated by her middle school music teacher and they flor labs. She was found to have an elevated digoxin level so she was sent to ER. Patient last took her digoxin 8 am this morning. Patient's daughter reports patient has had daily nausea and vomiting for the past few days. PAtient denies any complaints. Her daughter states she eats breakfast and dinner without issues. MD complaint: abnormal lab Related Data Home Medications Medication Instructions Recorded Confirmed ascorbic acid (vitamin C) 250 mg 250 mg PO DAILY 05/29/19 12/03/19 tablet aspirin 81 mg tablet,delayed 81 mg PO QPM 05/29/19 12/03/19 release atorvastatin 40 mg tablet 80 mg PO QPM 05/29/19 12/03/19 calcium carb 300 mg-D3 800 1 tablet PO DAILY 05/29/19 12/03/19 unit-mag ox 25 mg-copier operator 0.5 mg-abel-Zn tablet cholecalciferol (vitamin D3) 125 125 mcg PO DAILY 05/29/19 12/03/19 mcg (5,000 unit) capsule cinnamon bark 500 mg capsule 500 mg PO DAILY 05/29/19 12/03/19 glucosamine-chondroitin 250 mg-200 1 tablet PO DAILY 05/29/19 12/03/19 mg tablet omega-3 fatty acids 500 mg capsule 500 mg PO DAILY 05/29/19 12/03/19 pyridoxine (vitamin B6) 100 mg 100 mg PO QPM 05/29/19 12/03/19 tablet vitamin B complex 1 tablet PO QPM 05/29/19 12/03/19 warfarin 2 mg tablet 8 mg PO DIRECTED 05/29/19 12/03/19 zinc 50 mg tablet 50 mg PO DAILY 05/29/19 12/03/19 memantine 28 mg PO QPM 07/21/19 12/03/19 celecoxib [Celebrex] 200 mg PO DAILY 12/03/19 12/03/19 galantamine 8 mg PO DAILY 12/03/19 12/03/19 lisinopril 20 mg PO DAILY 12/03/19 12/03/19 zinc oxide-cod liver oil [Desitin] 1 applic TOPICAL QAM AND QHS 12/03/19 12/03/19 Allergies Allergy/AdvReac Type Severity Reaction Status Date / Time milk Allergy Mild Unknown Verified 12/03/19 19:37 lactose Allergy Unknown NASAL Verified 12/03/19 19:37 CONGESTION Penicillins Allergy Unknown Unknown Verified 12/03/19 19:37 pravastatin Allergy Unknown Unknown Verified 12/03/19 19:37 Sulfa (Sulfonamide Allergy Unknown Unknown Verified 12/03/19 19:37 Antibiotics) Review of Systems Review of Systems: All systems reviewed & are unremarkable except as noted in HPI and below Constitutional: Constitutional: Denies chills and Denies fever(s) Cardiovascular: Cardiovascular: Denies chest pain and Denies radiating jaw, neck or arm pain Respiratory: Respiratory: Denies cough and Denies dyspnea Gastrointestinal: Gastrointestinal: Denies abdominal pain, Reports nausea and Reports vomiting [facility] Past Medical History Medical History (Updated 12/04/19 @ 04:56 by Jessica Elizalde MD) CKD (chronic kidney disease) stage 3, GFR 30-59 ml/min Dementia 02/12/2013 Dementia, unspecified, without behavioral disturbance Diarrhea in adult patient 06/25/2018 Dyslipidemia Edema of both lower legs due to peripheral venous insufficiency 07/21/2018 Elevated lipids Essential (primary) hypertension Gastric ulcer History of gastric ulcer Low back pain without sciatica Tinea cruris Type 2 diabetes mellitus without complication, without long-term current use of insulin Vitamin D deficiency Surgical History Surgical History Aortic valve replaced 07/17/1995 History of cholecystectomy 06/17/2002 History of right coronary artery stent placement 02/16/2006 Social History Social History Social History: The patient tells m
--- NOTE | 2019-12-03 22:36 | ADMGEN ---
This patient, Sadie Winston, was admitted to IMU Room 200-01. Patient/family oriented to hospital policies and general routines including ID bracelet, bed and alarms, visiting hours, pain management, procedures, bathroom and other care routines, personal items, smoking policy, room service/diet, and visiting hours. Valuables list has been completed. Information on how to activate the Rapid Response Team has been discussed. Patient/Family are encouraged to report perceived risks to care and to ask questions if they do not understand what they are told or what they should do.
[2019-12-04] VITALS (14 sets, daily range): BP systolic 122–191; BP diastolic 57–85; PULSE 53–88; RESP 16–20; TEMP 36.3–37.3; O2SAT 97–99
[2019-12-04 05:13] LABS: Anion Gap 7.9 mmol/L (7-16); Blood Urea Nitrogen 26 mg/dL (7-17); Calcium 9.3 mg/dL (8.4-10.2); Carbon Dioxide 32 mmol/L (22-30); Chloride 100 mmol/L (98-107); Estimated CRCL calculation 34 ml/min; Estimated Glomerular Filt Rate 53; Glucose 89 mg/dL (65-105); Potassium 3.9 mmol/L (3.4-5.0); Sodium 136 mmol/L (137-145)
[2019-12-04 08:09] LABS: Glucose Point of Care 85 (65-105)
--- NOTE | 2019-12-04 08:48 | PM.CNCAR ---
Assessment and Plan Assessment and plan (1) Digoxin toxicity: Code(s): T46.0X1A - Poisoning by cardiac-stimulant glycosides and drugs of similar action, accidental (unintentional), initial encounter Status: Acute Assessment and Plan: Discontinue Digoxin indefinitely as risk outweighs benefit. Furthermore, the indication for Digoxin is not readily apparent per available records or by patient history. She did not require Digibind reversal at presentation. She is hemodynamically and neurologically stable without evidence of high-grade AV block or pathologic pauses. She remains in NSR with intermittent second-degree AV block Mobitz type 1. I expect this to improve/resolve as her Digoxin level declines. Hold metoprolol for now, but may consider resuming prior to discharge depending upon her rhythm and digoxin level. Check Digoxin level tomorrow morning and routinely while in house. closely monitor electrolytes particularly magnesium and potassium as significant electrolyte disturbances will potentiate toxicity risks. (2) CAD (coronary artery disease): Code(s): I25.10 - Atherosclerotic heart disease of [place] coronary artery without angina pectoris Status: Acute Assessment and Plan: Stable, asymptomatic. Continue home cardiovascular medical therapy. (3) Bradycardia: Code(s): R00.1 - Bradycardia, unspecified Status: Acute Assessment and Plan: As above. Resolved at this time. (4) Second degree AV block, Mobitz type I: Code(s): I44.1 - Atrioventricular block, second degree Status: Acute Assessment and Plan: Intermittent, asymptomatic. No evidence of high-grade AV block thus far. (5) History of CVA (cerebrovascular accident): Code(s): Z86.73 - Personal history of transient ischemic attack (TIA), and cerebral infarction without residual deficits Status: Acute Assessment and Plan: Recent stroke with subtherapeutic with INR 1.7 at presentation end of October. Monitor INR daily to keep between 2-3. INR 2.2 at presentation. As always, monitor for bleeding. PT OT. (6) H/O mechanical aortic valve replacement: Code(s): Z95.2 - Presence of prosthetic heart valve Status: Acute Assessment and Plan: Goal INR 2-3. Patient had a recent CVA with subtherapeutic INR 1.7. (7) Chronic anticoagulation: Code(s): Z79.01 - retirement (current) use of anticoagulants Status: Chronic Assessment and Plan: As above. (8) Hypertension, uncontrolled: Code(s): I10 - Essential (primary) hypertension Status: Acute Assessment and Plan: Resume home antihypertensives. History of Present Illness History of Present Illness Consult date/time: Date of service: 12/04/19 08:48 This is a cardiology consultation at the request of Dr. Elizalde of the [facility] for our opinion regarding Digoxin toxicity and bradycardia. Requesting physician: Jessica Elizalde MD Consult reason: Other (Digoxin toxicity, bradycardia) Reason For Visit: digoxin toxicity Narrative: patient is a very pleasant 84-year-old female well known to our service followed by Dr. Landeros as an outpatient with a past medical history significant for coronary artery disease status post Taxus stent to RCA in 2005, hypertension, diabetes mellitus, dyslipidemia, [employer] mechanical aortic valve replacement 2001, and history of dementia who presented to the office after home health nurse discovered her heart rate was 38. She presented for an EKG which revealed sinus rhythm with Mobitz second-degree AV block type 1. Labs were obtained revealing digoxin level toxicity and given patient's nausea complains was referred to the emergency department for further evaluation. Her digoxin level in the emergency department was 3.4 heart rate in the 50s in second-degree AV block Mobitz type 1. Patient was asymptomatic. Patient ilsa
[2019-12-04 09:17] LABS: Digoxin 2.7 ng/mL (0.8-2.0)
[2019-12-04] MEDS: amLODIPine BESYLATE 5 MG TABLET PO (10:44)
[2019-12-04] MEDS: glyBURIDE 2.5 MG TABLET PO ×2 (10:44→17:23)
[2019-12-04] MEDS: metFORMIN HCL 500 MG TABLET PO ×2 (10:44→17:23)
[2019-12-04] MEDS: FERROUS SULFATE 324 MG TABLET PO (10:44)
[2019-12-04] MEDS: ASCORBIC ACID 250 MG TABLET PO (10:45)
[2019-12-04] MEDS: FAMOTIDINE 20 MG TABLET PO ×2 (10:45→20:51)
[2019-12-04 13:05] LABS: Glucose Point of Care 230 (65-105)
[2019-12-04] MEDS: INSULIN ASPART (*BKC) 100 UNITS/ML SUB-Q (13:23)
[2019-12-04 13:31] LABS: Magnesium 1.5 mg/dL (1.6-2.3)
[2019-12-04 13:32] LABS: Anion Gap 10.2 mmol/L (7-16); Blood Urea Nitrogen 23 mg/dL (7-17); Calcium 9.4 mg/dL (8.4-10.2); Carbon Dioxide 30 mmol/L (22-30); Chloride 100 mmol/L (98-107); Estimated CRCL calculation 37 ml/min; Estimated Glomerular Filt Rate 60; Glucose 213 mg/dL (65-105); Potassium 4.2 mmol/L (3.4-5.0); Sodium 136 mmol/L (137-145)
--- NOTE | 2019-12-04 13:44 | PM.IMHP ---
H&P: HPI History of Present Illness Chief complaint: digoxin toxicity Narrative: Sadie Winston is a 84 year old female pts heart rate was running low at home seen by HH who sent her to cardiology. Pt was seen by Dr Landeros, EKG and digoxin level was ordered. Pts digoxin level is high. Pt had been having nausea and some loose stools in the office so was sent to ed. Pt denies any abdominal pains or dizziness, denies any chest pain or sob. appears comfortable today. Pt has a extensive history for which she is following cardiology here. history of hypertension, dyslipidemia, diabetes, stroke, CKD 3, aortic valve replacement, dementia, chronic back pain, vitamin-D deficiency. Pt currently takes coumadin INR today is 2.2. Pt is a poor historian has dementia, will discuss further with her daughter who she lives with. Protonix put INR up and caused her alot of diarrhea. Daughter isthe main carer. Daughter gives her the medication as prescribed at home does not miss doses and tests her INR at home. INR was been 2.3 yesterday. Review of Systems Review of Systems: All systems reviewed & are unremarkable except as noted in HPI and below Constitutional: Comments: more tired Cardiovascular: Cardiovascular: Denies chest pain and Denies dyspnea (no dizzines or rash ) Gastrointestinal: Gastrointestinal: Reports nausea PMFSH Past Medical History Medical History CKD (chronic kidney disease) stage 3, GFR 30-59 ml/min Dementia 02/12/2013 Dementia, unspecified, without behavioral disturbance Diarrhea in adult patient 06/25/2018 Dyslipidemia Edema of both lower legs due to peripheral venous insufficiency 07/21/2018 Elevated lipids Essential (primary) hypertension Gastric ulcer History of gastric ulcer Low back pain without sciatica Tinea cruris Type 2 diabetes mellitus without complication, without long-term current use of insulin Vitamin D deficiency Surgical History Surgical History Aortic valve replaced 07/17/1995 History of cholecystectomy 06/17/2002 History of right coronary artery stent placement 02/16/2006 Family History Family History Father Acute myocardial infarction Mother Diabetes mellitus Social History Social History Social History: The patient tells me that she lives with her daughter and that she is . 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 She tells me she has 2 children she tells me that the daughter that is the power commercial real estate attorney is a when she lives with. She tells me she is a DNR. She tells me that she did smoke in the past was long time ago. No alcohol marijuana or illicit drugs Smoking status: Never smoker Second hand tobacco smoke exposure: No Alcohol intake: never Substance use: never Substance use type: does not use Gender identity (if verbalized by the patient): Female Spiritual care concerns: No Agree to blood products: Yes Meds Home Medications and Allergies Home Medications Medication Instructions Recorded Confirmed Type digoxin 250 mcg (0.25 mg) tablet 250 mcg PO DAILY #90 tablet 03/25/19 12/03/19 Rx ascorbic acid (vitamin C) 250 mg 250 mg PO DAILY 05/29/19 12/03/19 History tablet aspirin 81 mg tablet,delayed 81 mg PO QPM 05/29/19 12/03/19 History release atorvastatin 40 mg tablet 80 mg PO QPM 05/29/19 12/03/19 History calcium carb 300 mg-D3 800 1 tablet PO DAILY 05/29/19 12/03/19 History unit-mag ox 25 mg-copyholder 0.5 mg-abel-Zn tablet cholecalciferol (vitamin D3) 125 125 mcg PO DAILY 05/29/19 12/03/19 History mcg (5,000 unit) capsule cinnamon bark 500 mg capsule 500 mg PO DAILY 05/29/19 12/03/19 History glucosamine-chondroitin 250 mg-200 1 tablet PO DAILY 05/29/1911/05
[2019-12-04 15:09] LABS: INR 1.5; Prothrombin Time 17.3 Seconds (11.1-14.7)
[2019-12-04 15:12] LABS: Anion Gap 10.9 mmol/L (7-16); Blood Urea Nitrogen 22 mg/dL (7-17); Calcium 9.4 mg/dL (8.4-10.2); Carbon Dioxide 30 mmol/L (22-30); Chloride 98 mmol/L (98-107); Estimated CRCL calculation 34 ml/min; Estimated Glomerular Filt Rate 53; Glucose 190 mg/dL (65-105); Potassium 3.9 mmol/L (3.4-5.0); Sodium 135 mmol/L (137-145)
[2019-12-04] MEDS: WARFARIN (*PBKC) 4 MG TABLET 8 MG PO (17:22)
[2019-12-04] MEDS: ASPIRIN 81 MG ENTERIC TABLET PO (17:23)
[2019-12-04 18:37] LABS: Glucose Point of Care 102 (65-105)
[2019-12-04 20:49] LABS: Glucose Point of Care 122 (65-105)
[2019-12-05] VITALS (11 sets, daily range): BP systolic 156–200; BP diastolic 57–68; PULSE 67–105; RESP 16–20; TEMP 36.6–37; O2SAT 97–99
[2019-12-05 08:07] LABS: Blood Urea Nitrogen 21 mg/dL (7-17); Calcium 9.2 mg/dL (8.4-10.2); Carbon Dioxide 31 mmol/L (22-30); Chloride 101 mmol/L (98-107); Estimated CRCL calculation 33 ml/min; Estimated Glomerular Filt Rate 53; Glucose 107 mg/dL (65-105); Sodium 135 mmol/L (137-145)
[2019-12-05 08:24] LABS: Glucose Point of Care 104 (65-105)
[2019-12-05] MEDS: FAMOTIDINE 20 MG TABLET PO (08:43)
[2019-12-05] MEDS: FERROUS SULFATE 324 MG TABLET PO (08:43)
[2019-12-05] MEDS: glyBURIDE 2.5 MG TABLET PO ×2 (08:43→18:02)
[2019-12-05] MEDS: ASCORBIC ACID 250 MG TABLET PO (08:43)
[2019-12-05] MEDS: amLODIPine BESYLATE 5 MG TABLET PO (08:43)
[2019-12-05] MEDS: metFORMIN HCL 500 MG TABLET PO ×2 (08:43→18:02)
[2019-12-05] MEDS: lisinopriL 20 MG TABLET PO (10:21)
[2019-12-05 10:50] LABS: Magnesium 1.4 mg/dL (1.6-2.3)
[2019-12-05 11:42] LABS: Digoxin 1.7 ng/mL (0.8-2.0)
--- NOTE | 2019-12-05 12:06 | ECG_ITS ---
Measurements Intervals [place] Rate: 72 P: LA: 0 QRS: -34 QRSD: 93 T: 168 QT: 354 QTc: 389 Interpretive Statements SINUS RHYTHM WITH 2ND DEGREE AV BLOCK, MOBITZ I AND II LEFT AXIS DEVIATION POSSIBLE LEFT VENTRICULAR HYPERTROPHY DELAYED PRECORDIAL R/S TRANSITION ST-T WAVE ABNORMALITY IN ANTEROLAT/HIGH LAT LEADS- CONSIDER ISCHEMIA BASELINE ARTIFACT- I, II, AVR, V3 ABNORMAL ECG Electronically Signed On 12-05-2019 16:31:26 CDT by Delbert Nair D.O.
[2019-12-05 12:40] LABS: INR 1.3; Prothrombin Time 16.1 Seconds (11.1-14.7)
[2019-12-05 12:53] LABS: Glucose Point of Care 174 (65-105)
[2019-12-05] MEDS: MAGNESIUM SULFATE 3GM/D5W100ML 3 GM/100 ML BAG IVPB (12:55)
--- NOTE | 2019-12-05 16:04 | PM.PNCARD ---
Progress Note: A&P Additional Plan Digoxin toxicity clinically resolved. Level will continue to decline I do not see any ongoing reason she needs to be hospitalized for this issue. Patient has the need for ongoing Coumadin treatment since she has a mechanical aortic valve. I would resume the dosage she was on admission which I believe was 8 mg daily as her INR was 2.2 on that dosage. The NOACS are not indicated for mechanical aortic valve patient okay with me for her to be discharged today as she is living with family at home. She seems to be safe for discharge under those circumstances. Follow-up with me in the office will be arranged. Her rhythm is stable at this time I would not resume her metoprolol Sergio Landeros MD [facility] Subjective Date/time seen: Date of service:12/05/19 16:04 Interval history: Follow-up visit in elderly lady with ischemic heart disease previous PCI as well as aortic valve disease remote history of mechanical aortic valve replacement in 1995. Patient was admitted with digoxin toxicity. Drug has been stopped patient was sleeping flat in bed when I entered the room to see her she is asymptomatic and states she feels well. Exam Narrative: Exam Narrative: General: Elderly female lying upright in bed, well developed, alert and oriented x3. No apparent distress, comfortable, pleasant, and cooperative. Head: atraumatic, normocephalic Eyes: EOM intact, sclerae anicteric, conjunctivae unremarkable Ears/Nose: external inspection of ears and nose were grossly normal Mouth/Throat: oral mucosa pink and moist Neck: supple, normal range of motion, no jugular venous distention or carotid bruits, thyroid nonpalpable, trachea midline. Cardiac: Regular rate and rhythm, normal S1-S2, grade 3/6 systolic murmur LUSB, loudest RUSB, no clicks or rubs. No S3/S4. Lungs: Clear to auscultation bilaterally, no rales, wheezes, or rhonchi. Abdomen: Soft, nontender, nondistended, positive bowel sounds throughout. No appreciable hepatosplenomegaly, no rebound guarding or rigidity noted. Abdominal aorta nonpalpable, no appreciable bruits. Extremities: No edema, clubbing, and or cyanosis. Extremities warm and well perfused. Skin: Warm and dry without ecchymoses, rashes, and/or petechiae. Musculoskeletal: Muscle strength and tone intact throughout without obvious deformities. healed median sternotomy scar Vascular: Carotid upstrokes 2+ bilaterally, radial pulses 2+ bilaterally, dorsalis pedis pulses 2+ bilaterally, posterior tibialis pulses palpable bilaterally. Neurologic: Cranial nerves 2-12 grossly intact, examination grossly nonfocal Pscyhiatric: Mood calm and appropriate. Const: General: confusion Orientation/consciousness: confusion Neuro: General: confusion Objective Data Vital Signs Vital Signs: Vital Signs - 24 hr 12/04/19 18:00 12/04/19 20:00 12/04/19 22:00 Temperature 37.3 C Pulse Rate 75 87 80 Respiratory Rate 18 Blood Pressure 122/85 Pulse Oximetry 99 12/05/19 00:00 12/05/19 02:00 12/05/19 04:00 Temperature 36.6 C 36.7 C Pulse Rate 79 73 74 Respiratory Rate 18 18 Blood Pressure 164/58 H 181/62 H Pulse Oximetry 98 98 12/05/19 06:00 12/05/19 08:00 12/05/19 08:30 Temperature 37.0 C Pulse Rate 68 72 Respiratory Rate 16 Blood Pressure 200/65 H 200/68 H Pulse Oximetry 97 12/05/19 10:00 12/05/19 12:00 12/05/19 14:00 Temperature 36.7 C Pulse Rate 78 78 67 Respiratory Rate 20 Blood Pressure 176/65 H Pulse Oximetry 99 Intake/Output Intake/Output: Intake & Output 12/02/19 12/03/19 12/04/19 12/05/19 23:59 23:59 23:59 23:59 Intake Total 1080 320 Output Total 200 Balance 1080 120 Meds/Results Medications: Active Medications Generic Name Dose Route Start Last Admin Trade Name Freq PRN Reason Stop Dose Admin Amlodipine Besylate 5 mg 12/04/19 09:00 12/05/19 08:43
--- NOTE | 2019-12-05 16:24 | PM.DS ---
DS: Admitting Diagnosis Admitting Diagnosis Admitting Diagnosis: Poisoning by cardiac-stimulant glycosides and drugs of similar action, accidental (unintentional), initial encounter DS: Discharge Diagnosis Discharge Diagnosis (1) H/O mechanical aortic valve replacement: Code(s): Z95.2 - Presence of prosthetic heart valve Status: Chronic Assessment and Plan: in 1995 (2) History of CVA (cerebrovascular accident): Code(s): Z86.73 - Personal history of transient ischemic attack (TIA), and cerebral infarction without residual deficits Status: Chronic Assessment and Plan: Continue coumadin with INR monitoring at home as before (3) Bradycardia: Code(s): R00.1 - Bradycardia, unspecified Status: Acute Assessment and Plan: Found on EKG (4) CAD (coronary artery disease): Code(s): I25.10 - Atherosclerotic heart disease of [place] coronary artery without angina pectoris Status: Chronic Assessment and Plan: Continue ASA hold statin for now REstart metoprolol (5) Digoxin toxicity: Code(s): T46.0X1A - Poisoning by cardiac-stimulant glycosides and drugs of similar action, accidental (unintentional), initial encounter Status: Resolved Assessment and Plan: REsolved (6) Gastric ulcer: Qualifiers: Gastric ulcer chronicity: unspecified ulcer chronicity Gastric ulcer complication status: without hemorrhage or perforation Qualified Code(s): K25.9 - Gastric ulcer, unspecified as acute or chronic, without hemorrhage or perforation Code(s): K25.9 - Gastric ulcer, unspecified as acute or chronic, without hemorrhage or perforation Status: Acute Assessment and Plan: Continue famotidine did not like protonix caused loose stools (7) CVA (cerebral vascular accident): Code(s): I63.9 - Cerebral infarction, unspecified Status: Chronic Assessment and Plan: Continue coumadin for aortic value replacement (8) Mobitz (type) I (Wenckebach's) atrioventricular block: Code(s): I44.1 - Atrioventricular block, second degree Status: Acute Assessment and Plan: On telemetry now DS: Summary Time Spent with Patient Time attestation: Total time spent providing and/or coordinating discharge services:40 minutes on day of dischrage Exam Const: General: other (elderly frail lady thin built ) Resp: Effort & Inspection: normal respiratory effort Auscultation: clear to auscultation bilaterally Cardio: Jugular venous distension: no JVD Rhythm: regular rhythm (slow rate 50-60s ) Heart sounds: S1 normal heart sound present and S2 normal heart sound present GI: Inspection: normal to inspection Auscultation: normal bowel sounds Back/Spine/Pelvis: Back: no CVA tenderness Skin: General skin exam: normal color and dry skin Neuro: Cranial nerves: Yes CN's II-XII intact bilaterally and Yes Equal, round and reactive pupils present Cognition (Neuro): normal cognition Speech: normal speech Motor exam (neuro): 5/5 motor strength present throughout Extrem: General: normal to inspection Psych: Appearance: grossly normal Mental Status: mental status grossly normal DS: Data Data Completed and Pending Labs on day of discharge: Labs from last 24 hours 12/05/19 12/05/19 12/05/19 12:23 12:19 10:31 PT 16.1 H INR 1.3 Sodium Potassium Chloride Carbon Dioxide Anion Gap BUN Creatinine Estim Creat Clear Calc Estimated GFR Glucose POC Capillary Glucose 174 H Calcium Magnesium 1.4 L Digoxin 12/05/19 12/05/19 12/05/19 10:30 08:09 07:44 PT INR Sodium 135 L Potassium 4.0 Chloride 101 Carbon Dioxide 31 H Anion Gap 7.0 BUN 21 H Creatinine 1.00 Estim Creat Clear Calc 33 Estimated GFR 53 L Glucose 107 H POC Capillary Glucose 104 Calcium 9.2 Magnesium Digoxin 1.7 12/04/19 12/04/19 2
[2019-12-05 17:17] LABS: Glucose Point of Care 180 (65-105)
[2019-12-05] MEDS: WARFARIN (*PBKC) 4 MG TABLET 8 MG PO (18:01)
[2019-12-05] MEDS: ASPIRIN 81 MG ENTERIC TABLET PO (18:02)
--- NOTE | 2019-12-05 21:28 | PC.NURSE ---
PT discharged to home via WC accompanied per SonNoah to personal vehicle. VSS and Pt denied pain upon discharge. All personal belongings and discharge instructions explained and given to Pt's sonNoah due to Pt's confusion/dementia Hx. No further questions per family/Pt at this time.
== END 2019-12-05 19:55 | disposition home health service (06) | DRG 918 ==
LOC: ANHED 21:09 → ANHIMU 21:29
PROVIDERS: Emergency Medicine; Nurse Practitioner Adult Health; Admitting Provider Internal Medicine; Emergency Provider General Practice; PCP Family Medicine; Visit Provider Family Medicine
DX: T46.0X1A Poisoning by cardiac-stimulant glycosides and drugs of similar action, accidental (unintentional), initial encounter (principal); I44.1 Atrioventricular block, second degree; R00.1 Bradycardia, unspecified; I25.10 Atherosclerotic heart disease of native coronary artery without angina pectoris; E11.22 Type 2 diabetes mellitus with diabetic chronic kidney disease; I12.9 Hypertensive chronic kidney disease with stage 1 through stage 4 chronic kidney disease, or unspecified chronic kidney disease; N18.3 Chronic kidney disease, stage 3 (moderate); F03.90 Unspecified dementia, unspecified severity, without behavioral disturbance, psychotic disturbance, mood disturbance, and anxiety; E78.5 Hyperlipidemia, unspecified; I87.2 Venous insufficiency (chronic) (peripheral); K25.9 Gastric ulcer, unspecified as acute or chronic, without hemorrhage or perforation; M54.5 Low back pain; E55.9 Vitamin D deficiency, unspecified; Z66 Do not resuscitate; Z79.01 Long term (current) use of anticoagulants; Z79.899 Other long term (current) drug therapy; Z86.73 Personal history of transient ischemic attack (TIA), and cerebral infarction without residual deficits; Z95.2 Presence of prosthetic heart valve; Z95.5 Presence of coronary angioplasty implant and graft
CPT/HCPCS: 36415; 80048; 80053; 80162; 83735; 84443; 85025; 85610; 85730; 93005; 97161; 97165; 99285; A9270; G0378; J1815; J3475

== ENCOUNTER 2019-12-17 11:22 | Emergency (ER) | payer MEDICARE, OTHER, SELFPAY ==
[2019-12-17] VITALS (42 sets, daily range): BP systolic 135–165; BP diastolic 66–81; PULSE 86–103; RESP 14–22; TEMP 36.8; O2SAT 97–100
--- NOTE | ~2019-12-17 | CT_ITS ---
EXAMINATION: CT brain wo con DATE: 12/17/2019 12:10 INDICATION: Altered mental status. TECHNIQUE: Computed tomography (CT) of the head was performed without intravenous contrast. The mA wa s adjusted according to patient size. Iterative reconstruction technique was employed. The dose-lengt h product was 605.33 mGy-cm. COMPARISON: Head CT 10/25/2019, brain MRI 10/26/2019 FINDINGS: There is an old infarct in right cerebellum. There are old infarcts in the right basal gang zeferino. There are scattered areas of low attenuation in the cerebral white matter. There is no intracran ial hemorrhage, acute infarction, or abnormal intracranial mass lesion. The ventricles are normal in size. There is mild mucosal thickening in the ethmoid sinuses. The mastoid air cells are normal. Ther e are likely changes of ocular lens replacement surgeries. IMPRESSION: 1. Old infarcts in the right cerebellum and right basal ganglia. 2. Extensive nonspecific cerebral white matter disease, which likely represents chronic small vessel ischemic disease. Reviewed, dictated and finalized at location B.
--- NOTE | ~2019-12-17 | XR_ITS ---
EXAMINATION: XR chest 1V DATE: 12/17/2019 12:13 INDICATION: Altered mental status. TECHNIQUE: A single frontal view of the chest was obtained. COMPARISON: Chest 2 views 07/28/2019, CT abdomen 10/24/2007 FINDINGS: There is mild atelectasis at left lung base. Calcified bilateral lung nodules are consisten t with old granulomatous disease. There is mild scarring at left lung apex. No pleural effusion or pn eumothorax. Cardiomegaly is noted. There are changes of heart valve replacement. IMPRESSION: 1. Mild atelectasis at left lung base and mild scarring at left lung apex. 2. Cardiomegaly. Reviewed, dictated and finalized at location B.
--- NOTE | 2019-12-17 11:38 | ED.AMS ---
HPI - Altered Mental Status General Chief Complaint: Altered Mental Status Stated Complaint: AMS - UTI? Source: RN notes reviewed History of Present Illness HPI narrative: Patient presents emergency department from home via EMS for altered mental status. The patient currently lives at home with her daughter and recently just finished antibiotics for urinary tract infection. Per the daughter the patient continues to remain confused. The patient kept attempting to get up and get back down today is more confused than normal. Patient currently denies any complaints but is unable to give any further history. Per daughter no history of fevers or chills at home patient denies any chest pain shortness of breath or abdominal pain Related Data Home Medications Medication Instructions Recorded Confirmed ascorbic acid (vitamin C) 250 mg 250 mg PO DAILY 05/29/19 12/03/19 tablet aspirin 81 mg tablet,delayed 81 mg PO QPM 05/29/19 12/03/19 release atorvastatin 40 mg tablet 80 mg PO QPM 05/29/19 12/03/19 calcium carb 300 mg-D3 800 1 tablet PO DAILY 05/29/19 12/03/19 unit-mag ox 25 mg-senior copywriter 0.5 mg-abel-Zn tablet cholecalciferol (vitamin D3) 125 125 mcg PO DAILY 05/29/19 12/03/19 mcg (5,000 unit) capsule cinnamon bark 500 mg capsule 500 mg PO DAILY 05/29/19 12/03/19 glucosamine-chondroitin 250 mg-200 1 tablet PO DAILY 05/29/19 12/03/19 mg tablet omega-3 fatty acids 500 mg capsule 500 mg PO DAILY 05/29/19 12/03/19 pyridoxine (vitamin B6) 100 mg 100 mg PO QPM 05/29/19 12/03/19 tablet vitamin B complex 1 tablet PO QPM 05/29/19 12/03/19 warfarin 2 mg tablet 8 mg PO DIRECTED 05/29/19 12/03/19 zinc 50 mg tablet 50 mg PO DAILY 05/29/19 12/03/19 memantine 28 mg PO QPM 07/21/19 12/03/19 Desitin 1 applic TOPICAL QAM AND QHS 12/03/19 12/03/19 celecoxib [Celebrex] 200 mg PO DAILY 12/03/19 12/03/19 galantamine 8 mg PO DAILY 12/03/19 12/03/19 lisinopril 20 mg PO DAILY 12/03/19 12/03/19 nystatin-triamcinolone 1 applic TOPICAL BID 12/17/19 Allergies Allergy/AdvReac Type Severity Reaction Status Date / Time milk Allergy Mild Unknown Verified 12/17/19 11:49 lactose Allergy Unknown NASAL Verified 12/17/19 11:49 CONGESTION Penicillins Allergy Unknown Unknown Verified 12/17/19 11:49 pravastatin Allergy Unknown Unknown Verified 12/17/19 11:49 Sulfa (Sulfonamide Allergy Unknown Unknown Verified 12/17/19 11:49 Antibiotics) pantoprazole [From Protonix] AdvReac Vomiting Verified 12/17/19 11:49 Review of Systems Review of Systems: Narrative: Gen.: Denies fevers or chills ENT: Denies congestion Respiratory: Denies shortness of breath CV: Denies chest pain GI: Denies abdominal pain nausea, emesis or diarrhea d see HPI Musculoskeletal: Denies back pain or muscle pain Neuro: See HPI Skin: Denies rash Except as documented, all other systems reviewed and negative PMFSH Past Medical History Medical History CKD (chronic kidney disease) stage 3, GFR 30-59 ml/min Dementia 02/12/2013 Dementia, unspecified, without behavioral disturbance Diarrhea in adult patient 06/25/2018 Dyslipidemia Edema of both lower legs due to peripheral venous insufficiency 07/21/2018 Elevated lipids Essential (primary) hypertension Gastric ulcer History of gastric ulcer Low back pain without sciatica Tinea cruris Type 2 diabetes mellitus without complication, without long-term current use of insulin Vitamin D deficiency Social History Social History Social History: The patient tells me that she lives with her daughter and that she is . 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 She tells me she has 2 children she tells me that the daughter that is the power research attorney is a when she lives with. She tells me she is a DNR. She tells me that she did smoke in the past was long time ago. No alc
[2019-12-17 11:57] LABS: Add Urine Microscopic? YES; Appearance Urine Clear (Clear); Bilirubin Urine Negative (Negative); Blood Urine Negative (Negative); Color Urine Yellow (Yellow); Glucose Urine UA Negative (Negative); Ketones Urine Negative (Negative); Leukocyte Esterase Ur Negative LEU/UL (Negative); Mucus Urine Rare /lpf; Nitrate Urine Negative (Negative); Protein Urine 1+ mg/dL (Negative); RBC Urine 0-2 /hpf (0-2); Specific Grav Ur 1.013 (1.001-1.035); Squamous Epithelial Cell Urine Rare /hpf (Few); Urobilinogen Urine Negative mg/dL (<2.0); WBC Urine 0-3 /hpf
--- NOTE | 2019-12-17 12:15 | PC.NURSE ---
pt returned from imaging via stretcher at this time.
[2019-12-17 12:48] LABS: Basophils Percent Auto 0.5 % (0.2-1.2); Eosinophils Absolute Auto 0.1 K/mm3 (0-0.3); Hematocrit 32.1 % (37.0-47.0); Hemoglobin 10.4 g/dL (12.0-15.0); Immature Granulocyte Absolute 0.02 K/mm3 (0.00-0.031); Immature Granulocyte Percent A 0.3 % (0-0.5); Lymphocytes Absolute Auto 0.68 K/mm3 (0.9-3.2); Lymphocytes Percent Auto 10.6 % (18.3-44.2); Mean Corpuscular HGB Conc 32.4 g/dl (32-36); Mean Corpuscular Hemoglobin 29.2 pg (26-34); Mean Corpuscular Volume 90.2 fl (80-100); Mean Platelet Volume 10.4 fl (7.4-10.4); Monocytes Absolute Auto 0.6 K/mm3 (0.1-0.6); Monocytes Percent Auto 9.3 % (2.6-8.5); Neutrophils Percent Auto 77.3 % (45.5-73.1); Platelet Count Result 264 k/mm3 (150-375); Red Blood Count 3.56 M/mm3 (4.2-5.4); Red Cell Distribution Width 14.6 % (11.5-14.5); White Blood Count 6.4 K/mm3 (4.5-10.0)
[2019-12-17] MEDS: SODIUM CHLORIDE 0.9% IV 1,000 ML 999 ML IV CONT (12:49)
[2019-12-17 12:57] LABS: Alanine Aminotransferase 41 U/L (4-35); Albumin Level 4.2 g/dL (3.5-5.1); Alkaline Phosphatase 70 U/L (38-126); Anion Gap 10 mmol/L (8-16); Aspartate Amino Transferase 51 U/L (14-36); Blood Urea Nitrogen 26 mg/dL (7-17); Calcium 10.6 mg/dL (8.4-10.2); Carbon Dioxide 30 mmol/L (22-30); Chloride 95 mmol/L (98-107); Estimated CRCL calculation 27 ml/min; Estimated Glomerular Filt Rate 43; Glucose 138 mg/dL (65-105); INR 2.1; Potassium 4.9 mmol/L (3.4-5.0); Prothrombin Time 23.2 Seconds (11.1-14.7); Sodium 135 mmol/L (137-145)
== END 2019-12-17 16:25 | disposition home or self-care (01) ==
PROVIDERS: Emergency Provider Emergency Medicine; PCP Family Medicine
DX: R33.9 Retention of urine, unspecified (principal); F03.90 Unspecified dementia, unspecified severity, without behavioral disturbance, psychotic disturbance, mood disturbance, and anxiety; I12.9 Hypertensive chronic kidney disease with stage 1 through stage 4 chronic kidney disease, or unspecified chronic kidney disease; E11.22 Type 2 diabetes mellitus with diabetic chronic kidney disease; N18.3 Chronic kidney disease, stage 3 (moderate); Z79.4 Long term (current) use of insulin; E78.5 Hyperlipidemia, unspecified
CPT/HCPCS: 36415; 51702; 70450; 71045; 80053; 81001; 83605; 85025; 85610; 85730; 87040; 96360; 96361; 99284; J7030

== ENCOUNTER 2019-12-27 10:04 | Emergency (ER) | payer MEDICARE, OTHER, SELFPAY ==
[2019-12-27 10:02] VITALS: BP 161/75; PULSE 102; RESP 16; TEMP 36.9; O2SAT 100
--- NOTE | 2019-12-27 10:23 | ECG_ITS ---
Measurements Intervals [place] Rate: 104 P: 77 SD: 182 QRS: -25 QRSD: 90 T: 80 QT: 324 QTc: 426 Interpretive Statements SINUS TACHYCARDIA LEFT ATRIAL ENLARGEMENT DELAYED PRECORDIAL R/S TRANSITION POSSIBLE LEFT VENTRICULAR HYPERTROPHY BORDERLINE ST-T WAVE ABNORMALITY- LAT/HIGH LAT LEADS BASELINE ARTIFACT- I, II, III, AVL, AVF, V1 BORDERLINE ECG Electronically Signed On 12-27-2019 12:39:54 CDT by Delbert Nair D.O.
[2019-12-27] MEDS: SODIUM CHLORIDE 0.9% IV 500 ML 999 ML IV CONT (10:35)
[2019-12-27 10:46] LABS: Basophils Percent Auto 0.3 % (0.2-1.2); Eosinophils Absolute Auto 0.1 K/mm3 (0-0.3); Eosinophils Percent Auto 0.5 % (0-4.4); Hematocrit 29.8 % (37.0-47.0); Hemoglobin 9.8 g/dL (12.0-15.0); Immature Granulocyte Absolute 0.06 K/mm3 (0.00-0.031); Immature Granulocyte Percent A 0.5 % (0-0.5); Lymphocytes Absolute Auto 0.38 K/mm3 (0.9-3.2); Lymphocytes Percent Auto 3.4 % (18.3-44.2); Mean Corpuscular HGB Conc 32.9 g/dl (32-36); Mean Corpuscular Hemoglobin 29.8 pg (26-34); Mean Corpuscular Volume 90.6 fl (80-100); Mean Platelet Volume 11.8 fl (7.4-10.4); Monocytes Absolute Auto 0.8 K/mm3 (0.1-0.6); Neutrophils Absolute Auto 9.8 K/mm3 (1.3-6.7); Neutrophils Percent Auto 88.3 % (45.5-73.1); Platelet Count Result 209 k/mm3 (150-375); Red Blood Count 3.29 M/mm3 (4.2-5.4); Red Cell Distribution Width 14.9 % (11.5-14.5); White Blood Count 11.1 K/mm3 (4.5-10.0)
[2019-12-27 10:50] LABS: Add Urine Microscopic? YES; Appearance Urine Clear (Clear); Bacteria Urine Trace /hpf; Bilirubin Urine Negative (Negative); Blood Urine 1+ (Negative); Color Urine Yellow (Yellow); Glucose Urine UA Negative (Negative); Ketones Urine Negative (Negative); Leukocyte Esterase Ur 1+ LEU/UL (Negative); Mucus Urine Rare /lpf; Nitrate Urine Negative (Negative); Protein Urine 2+ mg/dL (Negative); Squamous Epithelial Cell Urine Occasional /hpf (Few); Urobilinogen Urine Negative mg/dL (<2.0)
[2019-12-27 10:54] LABS: Platelet Estimate Adequate (Adequate)
[2019-12-27 10:56] LABS: Acanthocytes 1+ (NORMAL); Ovalocytes 1+ (NORMAL); Poikilocytosis 1+ (NORMAL)
[2019-12-27 10:57] LABS: Alanine Aminotransferase 35 U/L (4-35); Albumin Level 3.7 g/dL (3.5-5.1); Alkaline Phosphatase 62 U/L (38-126); Anion Gap 7 mmol/L (8-16); Aspartate Amino Transferase 44 U/L (14-36); Bilirubin,Total 0.7 mg/dL (0.2-1.3); Blood Urea Nitrogen 31 mg/dL (7-17); Calcium 10.7 mg/dL (8.4-10.2); Carbon Dioxide 29 mmol/L (22-30); Chloride 99 mmol/L (98-107); Estimated CRCL calculation 24 ml/min; Estimated Glomerular Filt Rate 39; Glucose 146 mg/dL (65-105); INR 3.8; Potassium 4.5 mmol/L (3.4-5.0); Prothrombin Time 36.6 Seconds (11.1-14.7); Sodium 135 mmol/L (137-145)
[2019-12-27 10:58] LABS: Partial Thromboplastin Time 50.3 SECONDS (22.3-36.8)
[2019-12-27 11:17] LABS: CRP 0.7 mg/dL (<1.0)
--- NOTE | 2019-12-27 11:46 | ED.GENADULT ---
HPI - General Adult General Chief complaint: Unspecified Stated complaint: low core temp Time Seen by Provider: 12/27/19 10:09 Source: patient Mode of arrival: ambulatory Limitations: no limitations History of Present Illness HPI narrative: Patient is an 84-year-old female who presents per EMS for evaluation of low blood sugar followed by low temperature today patient had glucose of 50 this morning family gave glucose the sugars came up this is been normal for the patient is not uncommon patient is currently on antibiotics for urinary tract infection and has indwelling catheter has been on the antibiotics since Sunday patient on arrival has no complaints is cold and shaking. Patient denies any pain injury or trauma or other complaints. Patient lives with family has been compliant with medication Related Data Home Medications Medication Instructions Recorded Confirmed ascorbic acid (vitamin C) 250 mg 250 mg PO DAILY 05/29/19 12/03/19 tablet aspirin 81 mg tablet,delayed 81 mg PO QPM 05/29/19 12/03/19 release atorvastatin 40 mg tablet 80 mg PO QPM 05/29/19 12/03/19 calcium carb 300 mg-D3 800 1 tablet PO DAILY 05/29/19 12/03/19 unit-mag ox 25 mg-copier and printer field technician 0.5 mg-abel-Zn tablet cholecalciferol (vitamin D3) 125 125 mcg PO DAILY 05/29/19 12/03/19 mcg (5,000 unit) capsule cinnamon bark 500 mg capsule 500 mg PO DAILY 05/29/19 12/03/19 glucosamine-chondroitin 250 mg-200 1 tablet PO DAILY 05/29/19 12/03/19 mg tablet omega-3 fatty acids 500 mg capsule 500 mg PO DAILY 05/29/19 12/03/19 pyridoxine (vitamin B6) 100 mg 100 mg PO QPM 05/29/19 12/03/19 tablet vitamin B complex 1 tablet PO QPM 05/29/19 12/03/19 warfarin 2 mg tablet 8 mg PO DIRECTED 05/29/19 12/03/19 zinc 50 mg tablet 50 mg PO DAILY 05/29/19 12/03/19 memantine 28 mg PO QPM 07/21/19 12/03/19 Desitin 1 applic TOPICAL QAM AND QHS 12/03/19 12/03/19 celecoxib [Celebrex] 200 mg PO DAILY 12/03/19 12/03/19 galantamine 8 mg PO DAILY 12/03/19 12/03/19 lisinopril 20 mg PO DAILY 12/03/19 12/03/19 cefdinir 300 mg PO Q12H 12/27/19 Allergies Allergy/AdvReac Type Severity Reaction Status Date / Time milk Allergy Mild Unknown Verified 12/27/19 10:07 lactose Allergy Unknown NASAL Verified 12/27/19 10:07 CONGESTION Penicillins Allergy Unknown Unknown Verified 12/27/19 10:07 pravastatin Allergy Unknown Unknown Verified 12/27/19 10:07 Sulfa (Sulfonamide Allergy Unknown Unknown Verified 12/27/19 10:07 Antibiotics) pantoprazole [From Protonix] AdvReac Vomiting Verified 12/27/19 10:07 Review of Systems Review of Systems: All systems reviewed & are unremarkable except as noted in HPI and below PMFSH Past Medical History Medical History CKD (chronic kidney disease) stage 3, GFR 30-59 ml/min Dementia 02/12/2013 Dementia, unspecified, without behavioral disturbance Diarrhea in adult patient 06/25/2018 Dyslipidemia Edema of both lower legs due to peripheral venous insufficiency 07/21/2018 Elevated lipids Essential (primary) hypertension Gastric ulcer History of gastric ulcer Low back pain without sciatica Tinea cruris Type 2 diabetes mellitus without complication, without long-term current use of insulin Vitamin D deficiency Surgical History Surgical History Aortic valve replaced 07/17/1995 History of cholecystectomy 06/17/2002 History of right coronary artery stent placement 02/16/2006 Social History Social History Social History: The patient tells me that she lives with her daughter and that she is . 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 She tells me she is a DNR. She tells me that she did smoke in the past was david
[2019-12-27 12:08] VITALS: TEMP 37
== END 2019-12-27 12:39 | disposition home or self-care (01) ==
PROVIDERS: Emergency Medicine Emergency Medical Services; Emergency Provider Emergency Medicine; PCP Family Medicine
DX: N39.0 Urinary tract infection, site not specified (principal); E11.649 Type 2 diabetes mellitus with hypoglycemia without coma; Z79.84 Long term (current) use of oral hypoglycemic drugs; Z79.82 Long term (current) use of aspirin; E11.22 Type 2 diabetes mellitus with diabetic chronic kidney disease; I12.9 Hypertensive chronic kidney disease with stage 1 through stage 4 chronic kidney disease, or unspecified chronic kidney disease; N18.3 Chronic kidney disease, stage 3 (moderate); E78.5 Hyperlipidemia, unspecified; F03.90 Unspecified dementia, unspecified severity, without behavioral disturbance, psychotic disturbance, mood disturbance, and anxiety; E55.9 Vitamin D deficiency, unspecified; Z95.2 Presence of prosthetic heart valve; Z95.5 Presence of coronary angioplasty implant and graft; Z66 Do not resuscitate
CPT/HCPCS: 36415; 80053; 81001; 83605; 85025; 85610; 85730; 86140; 87086; 93005; 96360; 99283; J7040

== ENCOUNTER 2020-01-04 19:05 | Emergency (ER) | payer MEDICARE, OTHER, SELFPAY ==
[2020-01-04] VITALS (9 sets, daily range): BP systolic 126–152; BP diastolic 63–70; PULSE 88–94; RESP 13–23; TEMP 36.8; O2SAT 97–100
--- NOTE | ~2020-01-04 | CT_ITS ---
EXAMINATION: CT brain wo con DATE: 01/04/2020 19:56 INDICATION: Status post fall. Trauma to the left hip. Headache. TECHNIQUE: Computed tomography (CT) of the head was performed without intravenous contrast. The dose- length product was 605.33 mGy-cm. COMPARISON: CT dated 12/17/2019 FINDINGS: Generalized atrophy. There is a left frontal scalp hematoma. There are scattered moderate-s evere periventricular and subcortical white matter changes, most likely related to small vessel ische stephanie disease (microangiopathy). Chronic right cerebellar infarction. No acute intracranial hemorrhage, infarction, mass or mass effect. There is intracranial atherosclerosis. Paranasal sinuses and mastoi ds are pneumatized. IMPRESSION: 1. No acute intracranial abnormality. 2: Chronic right cerebellar infarction. 3: Chronic age-related findings. Reviewed, dictated and finalized at location A.
--- NOTE | 2020-01-04 19:29 | PC.NURSE ---
ERP DR STOKES AT BEDSIDE FOR ASSESSMENT.
--- NOTE | 2020-01-04 19:48 | ED.FEMALEGU ---
HPI - Female Genitourinary General Chief complaint: Urogenital-Female Stated complaint: BLOOD IN SERRATO Time Seen by Provider: 01/04/20 19:22 Source: family Mode of arrival: wheelchair Limitations: dementia History of Present Illness HPI Narrative: This patient is an 84 year old female with history of afib on coumdin who presents for evaluation of blood in her urine. She has a serrato catheter in place for urinary retention, and she has been taking antibiotics for a UTI. Her daughter states earlier today her urine appeared dark , and then after dinner today her urine started getting red. She checked her INR this morning and it was 3.4, and she was given her daily coumadin tonight at dinner. Patient has left forehead bruising and her daughter states patient fell and hit her head. She did not have bruising until today. She reports patient has been at baseline. Patient denies abdominal pain, nausea, vomiting or back pain. Related Data Home Medications Medication Instructions Recorded Confirmed ascorbic acid (vitamin C) 250 mg 250 mg PO DAILY 05/29/19 12/03/19 tablet aspirin 81 mg tablet,delayed 81 mg PO QPM 05/29/19 12/29/19 release atorvastatin 40 mg tablet 80 mg PO QPM 05/29/19 12/29/19 calcium carb 300 mg-D3 800 1 tablet PO DAILY 05/29/19 12/03/19 unit-mag ox 25 mg-copper plate lithographer 0.5 mg-aebl-Zn tablet cholecalciferol (vitamin D3) 125 125 mcg PO DAILY 05/29/19 12/03/19 mcg (5,000 unit) capsule cinnamon bark 500 mg capsule 500 mg PO DAILY 05/29/19 12/03/19 glucosamine-chondroitin 250 mg-200 1 tablet PO DAILY 05/29/19 12/29/19 mg tablet omega-3 fatty acids 500 mg capsule 500 mg PO DAILY 05/29/19 12/29/19 pyridoxine (vitamin B6) 100 mg 100 mg PO QPM 05/29/19 12/29/19 tablet vitamin B complex 1 tablet PO QPM 05/29/19 12/29/19 warfarin 2 mg tablet 8 mg PO DIRECTED 05/29/19 12/29/19 zinc 50 mg tablet 50 mg PO DAILY 05/29/19 12/29/19 celecoxib [Celebrex] 200 mg PO DAILY 12/03/19 12/29/19 galantamine 8 mg PO DAILY 12/03/19 12/29/19 lisinopril 20 mg PO DAILY 12/03/19 12/29/19 cefdinir 300 mg PO Q12H 12/27/19 nystatin 100,000 unit/gram topical 1 applic TOPICAL DAILY 12/29/19 12/29/19 cream Allergies Allergy/AdvReac Type Severity Reaction Status Date / Time milk Allergy Mild Unknown Verified 01/04/20 19:19 lactose Allergy Unknown NASAL Verified 01/04/20 19:19 CONGESTION Penicillins Allergy Unknown Unknown Verified 01/04/20 19:19 pravastatin Allergy Unknown Unknown Verified 01/04/20 19:19 Sulfa (Sulfonamide Allergy Unknown Unknown Verified 01/04/20 19:19 Antibiotics) pantoprazole [From Protonix] AdvReac Vomiting Verified 01/04/20 19:19 Review of Systems Review of Systems: ROS unobtainable: Yes other (dementia) [facility] Social History Social History Social History: The patient tells me that she lives with her daughter and that she is . 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 She tells me she has 2 children she tells me that the daughter that is the power document review attorney is a when she lives with. She tells me she is a DNR. She tells me that she did smoke in the past was long time ago. No alcohol marijuana or illicit drugs Smoking status: Never smoker Second hand tobacco smoke exposure: No Alcohol intake: never Substance use: never Substance use type: does not use Gender identity (if verbalized by the patient): Female Spiritual care concerns: No Agree to blood products: Yes Exam Const: General: no acute distress and alert Nutritional Appearance: thin HENMT: Head: normocephalic and other (left forehead ecchymosis) Face and sinus: face symmetric Throat: posterior oropharynx normal and uvula midline Eyes: Pupils: Equal, round and reactive pupils present EOM: EOMs intact bilaterally Chest: Chest palpation & inspection: normal inspection of the chest Resp: Effort &
[2020-01-04 19:53] LABS: Basophils Percent Auto 0.3 % (0.2-1.2); Eosinophils Absolute Auto 0.2 K/mm3 (0-0.3); Eosinophils Percent Auto 3.5 % (0-4.4); Hematocrit 25.8 % (37.0-47.0); Hemoglobin 8.4 g/dL (12.0-15.0); Immature Granulocyte Absolute 0.05 K/mm3 (0.00-0.031); Immature Granulocyte Percent A 0.7 % (0-0.5); Lymphocytes Absolute Auto 0.65 K/mm3 (0.9-3.2); Lymphocytes Percent Auto 9.6 % (18.3-44.2); Mean Corpuscular HGB Conc 32.6 g/dl (32-36); Mean Corpuscular Hemoglobin 29.9 pg (26-34); Mean Corpuscular Volume 91.8 fl (80-100); Monocytes Absolute Auto 0.6 K/mm3 (0.1-0.6); Monocytes Percent Auto 9.3 % (2.6-8.5); Neutrophils Absolute Auto 5.2 K/mm3 (1.3-6.7); Neutrophils Percent Auto 76.6 % (45.5-73.1); Platelet Count Result 207 k/mm3 (150-375); Red Blood Count 2.81 M/mm3 (4.2-5.4); Red Cell Distribution Width 15.5 % (11.5-14.5); White Blood Count 6.8 K/mm3 (4.5-10.0)
[2020-01-04 20:04] LABS: INR 3.5; Partial Thromboplastin Time 47.3 SECONDS (22.3-36.8); Prothrombin Time 34.3 Seconds (11.1-14.7)
[2020-01-04 20:05] LABS: Alanine Aminotransferase 46 U/L (4-35); Albumin Level 3.4 g/dL (3.5-5.1); Alkaline Phosphatase 60 U/L (38-126); Anion Gap 6 mmol/L (8-16); Aspartate Amino Transferase 58 U/L (14-36); Bilirubin,Total 0.6 mg/dL (0.2-1.3); Blood Urea Nitrogen 27 mg/dL (7-17); Calcium 10.4 mg/dL (8.4-10.2); Carbon Dioxide 27 mmol/L (22-30); Chloride 103 mmol/L (98-107); Estimated Glomerular Filt Rate 43; Glucose 116 mg/dL (65-105); Potassium 4.5 mmol/L (3.4-5.0); Sodium 136 mmol/L (137-145)
--- NOTE | 2020-01-04 20:59 | PC.NURSE ---
rn at bedside to irrigate serrato . after 300ml it was cleared. obtained 2-3 small string like clots.
== END 2020-01-04 22:15 | disposition home or self-care (01) ==
PROVIDERS: Emergency Provider General Practice; PCP Family Medicine
DX: R31.9 Hematuria, unspecified (principal); S00.83XA Contusion of other part of head, initial encounter; Z79.01 Long term (current) use of anticoagulants; I48.91 Unspecified atrial fibrillation; E11.22 Type 2 diabetes mellitus with diabetic chronic kidney disease; I12.9 Hypertensive chronic kidney disease with stage 1 through stage 4 chronic kidney disease, or unspecified chronic kidney disease; N18.3 Chronic kidney disease, stage 3 (moderate); E55.9 Vitamin D deficiency, unspecified; E78.5 Hyperlipidemia, unspecified; Z95.2 Presence of prosthetic heart valve; Z95.5 Presence of coronary angioplasty implant and graft; Z66 Do not resuscitate; Z79.84 Long term (current) use of oral hypoglycemic drugs; Z79.82 Long term (current) use of aspirin; W19.XXXA Unspecified fall, initial encounter
CPT/HCPCS: 36415; 70450; 80053; 85025; 85610; 85730; 99284

== ENCOUNTER 2020-02-03 09:36 | Emergency (ER) | payer MEDICARE, OTHER, SELFPAY ==
[2020-02-03] VITALS (18 sets, daily range): BP systolic 118–175; BP diastolic 66–90; PULSE 80–95; RESP 14–21; TEMP 35.7; O2SAT 96–100
[2020-02-03 10:46] LABS: Basophils Percent Auto 0.3 % (0.2-1.2); Eosinophils Absolute Auto 0.2 K/mm3 (0-0.3); Eosinophils Percent Auto 2.1 % (0-4.4); Hematocrit 31.5 % (37.0-47.0); Hemoglobin 10.2 g/dL (12.0-15.0); Immature Granulocyte Absolute 0.04 K/mm3 (0.00-0.031); Immature Granulocyte Percent A 0.4 % (0-0.5); Lymphocytes Absolute Auto 0.86 K/mm3 (0.9-3.2); Lymphocytes Percent Auto 9.2 % (18.3-44.2); Mean Corpuscular HGB Conc 32.4 g/dl (32-36); Mean Corpuscular Hemoglobin 30.6 pg (26-34); Mean Corpuscular Volume 94.6 fl (80-100); Mean Platelet Volume 11.5 fl (7.4-10.4); Monocytes Absolute Auto 0.7 K/mm3 (0.1-0.6); Monocytes Percent Auto 7.2 % (2.6-8.5); Neutrophils Absolute Auto 7.6 K/mm3 (1.3-6.7); Neutrophils Percent Auto 80.8 % (45.5-73.1); Platelet Count Result 216 k/mm3 (150-375); Red Blood Count 3.33 M/mm3 (4.2-5.4); Red Cell Distribution Width 15.8 % (11.5-14.5); White Blood Count 9.4 K/mm3 (4.5-10.0)
[2020-02-03 10:53] LABS: Add Urine Microscopic? YES; Appearance Urine Cloudy (Clear); Bilirubin Urine Negative (Negative); Blood Urine 3+ (Negative); Color Urine Red (Yellow); Glucose Urine UA 2+ mg/dL (Negative); Ketones Urine Negative (Negative); Leukocyte Esterase Ur 3+ LEU/UL (Negative); Nitrate Urine Negative (Negative); Protein Urine 2+ mg/dL (Negative); RBC Urine >75 /hpf (0-2); Specific Grav Ur 1.017 (1.001-1.035); Transitional Epi Cells Urine Rare /hpf (None Seen); Urobilinogen Urine Negative mg/dL (<2.0); WBC Urine >75 /hpf
[2020-02-03 10:57] LABS: Alanine Aminotransferase 35 U/L (4-35); Albumin Level 4.2 g/dL (3.5-5.1); Alkaline Phosphatase 68 U/L (38-126); Anion Gap 6 mmol/L (8-16); Aspartate Amino Transferase 49 U/L (14-36); Bilirubin,Total 0.9 mg/dL (0.2-1.3); Blood Urea Nitrogen 24 mg/dL (7-17); Calcium 10.9 mg/dL (8.4-10.2); Carbon Dioxide 32 mmol/L (22-30); Chloride 100 mmol/L (98-107); Estimated CRCL calculation 27 ml/min; Estimated Glomerular Filt Rate 48; Glucose 189 mg/dL (65-105); Lipase 213 U/L (23-300); Potassium 4.8 mmol/L (3.4-5.0); Sodium 138 mmol/L (137-145)
[2020-02-03] MEDS: SODIUM CHLORIDE 0.9% IV 500 ML 999 ML IV CONT (11:02)
[2020-02-03 11:23] LABS: INR 3.5; Prothrombin Time 34.3 Seconds (11.1-14.7)
--- NOTE | 2020-02-03 11:49 | ED.ABDPAIN ---
HPI - Abdominal Pain General Chief Complaint: Urogenital-Female Stated Complaint: hematuria, abd pain Time Seen by Provider: 02/03/20 10:26 Source: patient, family and old records reviewed Mode of arrival: ambulatory Limitations: no limitations and clinical condition History of Present Illness HPI narrative: Patient is a 84-year-old female who presents to emergency department for evaluation of hematuria noticed by daughter yesterday patient is on warfarin for mechanical valve patient has been had normal mentation and baseline patient is followed by urology and was instructed by urology to come to the emergency department for evaluation daughter noted pink-tinged urine last night and today patient on arrival in the room in no distress Related Data Home Medications Medication Instructions Recorded Confirmed ascorbic acid (vitamin C) 250 mg 250 mg PO DAILY 05/29/19 12/03/19 tablet aspirin 81 mg tablet,delayed 81 mg PO QPM 05/29/19 12/29/19 release atorvastatin 40 mg tablet 80 mg PO QPM 05/29/19 12/29/19 calcium carb 300 mg-D3 800 1 tablet PO DAILY 05/29/19 12/03/19 unit-mag ox 25 mg-senior copywriter 0.5 mg-abel-Zn tablet cholecalciferol (vitamin D3) 125 125 mcg PO DAILY 05/29/19 12/03/19 mcg (5,000 unit) capsule cinnamon bark 500 mg capsule 500 mg PO DAILY 05/29/19 12/03/19 glucosamine-chondroitin 250 mg-200 1 tablet PO DAILY 05/29/19 12/29/19 mg tablet omega-3 fatty acids 500 mg capsule 500 mg PO DAILY 05/29/19 12/29/19 pyridoxine (vitamin B6) 100 mg 100 mg PO QPM 05/29/19 12/29/19 tablet vitamin B complex 1 tablet PO QPM 05/29/19 12/29/19 warfarin 2 mg tablet 8 mg PO DIRECTED 05/29/19 12/29/19 zinc 50 mg tablet 50 mg PO DAILY 05/29/19 12/29/19 celecoxib [Celebrex] 200 mg PO DAILY 12/03/19 12/29/19 galantamine 8 mg PO DAILY 12/03/19 12/29/19 lisinopril 20 mg PO DAILY 12/03/19 12/29/19 cefdinir 300 mg PO Q12H 12/27/19 nystatin 100,000 unit/gram topical 1 applic TOPICAL DAILY 12/29/19 12/29/19 cream Allergies Allergy/AdvReac Type Severity Reaction Status Date / Time milk Allergy Mild Unknown Verified 02/03/20 09:51 lactose Allergy Unknown NASAL Verified 02/03/20 09:51 CONGESTION Penicillins Allergy Unknown Unknown Verified 02/03/20 09:51 pravastatin Allergy Unknown Unknown Verified 02/03/20 09:51 Sulfa (Sulfonamide Allergy Unknown Unknown Verified 02/03/20 09:51 Antibiotics) pantoprazole [From Protonix] AdvReac Vomiting Verified 02/03/20 09:51 Review of Systems Review of Systems: ROS unobtainable: Yes unobtainable due to medical condition [facility] Past Medical History Medical History CKD (chronic kidney disease) stage 3, GFR 30-59 ml/min Dementia 02/12/2013 Dementia, unspecified, without behavioral disturbance Diarrhea in adult patient 06/25/2018 Dyslipidemia Edema of both lower legs due to peripheral venous insufficiency 07/21/2018 Elevated lipids Essential (primary) hypertension Gastric ulcer History of gastric ulcer Low back pain without sciatica Tinea cruris Type 2 diabetes mellitus without complication, without long-term current use of insulin Vitamin D deficiency Surgical History Surgical History Aortic valve replaced 07/17/1995 History of cholecystectomy 06/17/2002 History of right coronary artery stent placement 02/16/2006 Social History Social History Social History: The patient tells me that she lives with her daughter and that she is . 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 She tells me she has 2 children she tells me that the daughter that is the power ip technology transactions attorney is a when she lives with. She tells me she is a DNR. She tells me that she did smoke in the past was long time ago. No alcohol marijuana or illicit drugs Smoking status: Never smoker [place]
[2020-02-03] MEDS: PHENAZOPYRIDINE HCL 100 MG TABLET PO (11:58)
== END 2020-02-03 13:20 | disposition home or self-care (01) ==
PROVIDERS: Emergency Medicine Emergency Medical Services; Emergency Provider Emergency Medicine; PCP Family Medicine
DX: N39.0 Urinary tract infection, site not specified (principal); E11.22 Type 2 diabetes mellitus with diabetic chronic kidney disease; I12.9 Hypertensive chronic kidney disease with stage 1 through stage 4 chronic kidney disease, or unspecified chronic kidney disease; N18.3 Chronic kidney disease, stage 3 (moderate); Z79.82 Long term (current) use of aspirin; Z79.84 Long term (current) use of oral hypoglycemic drugs; F03.90 Unspecified dementia, unspecified severity, without behavioral disturbance, psychotic disturbance, mood disturbance, and anxiety; E78.5 Hyperlipidemia, unspecified; E11.51 Type 2 diabetes mellitus with diabetic peripheral angiopathy without gangrene; E55.9 Vitamin D deficiency, unspecified; Z95.2 Presence of prosthetic heart valve; Z95.5 Presence of coronary angioplasty implant and graft; Z66 Do not resuscitate; Z87.891 Personal history of nicotine dependence
CPT/HCPCS: 36415; 80053; 81001; 83690; 85025; 85610; 87086; 87088; 96365; 96367; 99284; A9270; J0131; J0696; J7040

== ENCOUNTER 2020-02-25 10:21 | Outpatient (CLI) | payer MEDICARE, OTHER, SELFPAY ==
[2020-02-25 11:17] LABS: Prothrombin Time 22.6 Seconds (11.1-14.7)
[2020-02-25 11:18] LABS: Partial Thromboplastin Time 33.1 SECONDS (22.3-36.8)
== END 2020-02-25 10:22 | disposition home or self-care (01) ==
LOC: ANHSURGERY 10:24
PROVIDERS: Anesthesiology; PCP Family Medicine; Visit Provider Urology
DX: R33.9 Retention of urine, unspecified (principal); Z79.01 Long term (current) use of anticoagulants; Z01.818 Encounter for other preprocedural examination
CPT/HCPCS: 36415; 85610; 85730; 87086

== ENCOUNTER 2020-02-26 09:01 | Emergency (ER) | payer MEDICARE, OTHER, SELFPAY ==
[2020-02-26] VITALS (18 sets, daily range): BP systolic 110–138; BP diastolic 52–76; PULSE 76–107; RESP 16–23; TEMP 36.8; O2SAT 96–99
--- NOTE | ~2020-02-26 | XR_ITS ---
XR shoulder LT min 2V 02/26/2020 10:19 INDICATION: Left shoulder pain PROCEDURE: 4 views left shoulder COMPARISON: No prior studies for comparison. FINDINGS: Fracture, dislocation or subluxation is not identified. Osteopenia. The soft tissues appear within normal limits. No foreign bodies are identified. IMPRESSION: 1: NO ACUTE BONE OR JOINT ABNORMALITY IDENTIFIED. Reviewed, dictated and finalized at location B.
--- NOTE | ~2020-02-26 | XR_ITS ---
EXAMINATION: XR chest 2V 02/26/2020 10:18 INDICATION: Chest pain PROCEDURE: 2 view chest COMPARISON: Comparison to multiple prior studies sequentially, with oldest reviewed study dated 12/16. FINDINGS: The lungs are clear. The lungs are hyperinflated which is consistent with, but not diagnost ic of chronic obstructive pulmonary disease. The cardiomediastinal silhouette is enlarged. Status pos t median sternotomy for CABG. There is a prosthetic heart valve. There are no pleural effusions. The re is no pneumothorax suspected. IMPRESSION: 1: NO ACUTE CARDIOPULMONARY DISEASE. Reviewed, dictated and finalized at location B.
--- NOTE | 2020-02-26 09:00 | PC.NURSE ---
BANKS CATH IN PLACE ON ARRIVAL TO THE ED.
--- NOTE | 2020-02-26 09:10 | ECG_ITS ---
Measurements Intervals [place] Rate: 103 P: 76 MN: 157 QRS: -28 QRSD: 93 T: 82 QT: 342 QTc: 448 Interpretive Statements SINUS TACHYCARDIA LEFT ATRIAL ENLARGEMENT DELAYED PRECORDIAL R/S TRANSITION BORDERLINE ST-T WAVE ABNORMALITY- HIGH LATERAL LEADS BORDERLINE ECG Electronically Signed On 02-26-2020 11:14:50 CDT by Delbert Nair D.O.
--- NOTE | 2020-02-26 09:38 | ED.CHESTPAIN ---
HPI - Chest Pain General Chief Complaint: Chest Pain Stated Complaint: CP Time Seen by Provider: 02/26/20 09:15 Source: patient Mode of arrival: EMS Limitations: dementia History of Present Illness HPI narrative: This is an 84 year old female that presents to the ER for left sided chest/left arm pain this morning. Reports she was eating breakfast and she started to feel nauseous and vomited. Reports she then developed left arm pain. Denies any current chest pain. Pain is worse with movement and relieved with rest. Also reports pain in her crotch . Denies fever, cough, shortness of breath, or hemturia. Related Data Home Medications Medication Instructions Recorded Confirmed ascorbic acid (vitamin C) 250 mg 250 mg PO DAILY 05/29/19 02/20/20 tablet aspirin 81 mg tablet,delayed 81 mg PO QPM 05/29/19 02/20/20 release atorvastatin 40 mg tablet 80 mg PO QPM 05/29/19 02/20/20 calcium carb 300 mg-D3 800 1 tablet PO DAILY 05/29/19 02/20/20 unit-mag ox 25 mg-copier field service technician 0.5 mg-abel-Zn tablet cholecalciferol (vitamin D3) 125 125 mcg PO DAILY 05/29/19 02/20/20 mcg (5,000 unit) capsule glucosamine-chondroitin 250 mg-200 1 tablet PO DAILY 05/29/19 02/20/20 mg tablet omega-3 fatty acids 500 mg capsule 500 mg PO DAILY 05/29/19 02/20/20 pyridoxine (vitamin B6) 100 mg 100 mg PO QPM 05/29/19 02/20/20 tablet warfarin 2 mg tablet 4 mg PO DIRECTED 05/29/19 02/20/20 zinc 50 mg tablet 50 mg PO DAILY 05/29/19 02/20/20 celecoxib [Celebrex] 200 mg PO DAILY 12/03/19 02/20/20 galantamine 8 mg PO DAILY 12/03/19 02/20/20 lisinopril 20 mg PO HS 12/03/19 02/20/20 nystatin 100,000 unit/gram topical 1 applic TOPICAL DAILY 12/29/19 02/20/20 cream cyanocobalamin (vitamin B-12) 2,000 mcg PO DAILY 02/20/20 02/20/20 nitrofurantoin monohyd/m-cryst 100 mg PO Q12H 02/20/20 02/20/20 [Macrobid] Allergies Allergy/AdvReac Type Severity Reaction Status Date / Time milk Allergy Mild NASAL Verified 02/26/20 12:00 CONGESTION lactose Allergy Unknown NASAL Verified 02/26/20 12:00 CONGESTION Penicillins Allergy Unknown Rash Verified 02/26/20 12:00 pravastatin Allergy Unknown Vomiting Verified 02/26/20 12:00 Sulfa (Sulfonamide Allergy Unknown Vomiting Verified 02/26/20 12:00 Antibiotics) pantoprazole [From Protonix] AdvReac Vomiting Verified 02/26/20 12:00 Review of Systems Review of Systems: Narrative: CONSTITUTIONAL: Denies fever CARDIOVASCULAR: Denies chest pain, or edema. RESPIRATORY: Denies cough or dyspnea. GASTROINTESTINAL: Reports abdominal pain, nausea, vomiting GENITOURINARY: Reports dysuria. Denies hematuria. All systems reviewed & are unremarkable except as noted in HPI and below PMFSH Past Medical History Medical History (Updated 02/26/20 @ 14:19 by Dalila Sinha PA-C) CKD (chronic kidney disease) stage 3, GFR 30-59 ml/min Dementia 02/12/2013 Dementia, unspecified, without behavioral disturbance Diarrhea in adult patient 06/25/2018 Dyslipidemia Edema of both lower legs due to peripheral venous insufficiency 07/21/2018 Elevated lipids Essential (primary) hypertension Gastric ulcer History of gastric ulcer Low back pain without sciatica Tinea cruris Type 2 diabetes mellitus without complication, without long-term current use of insulin Vitamin D deficiency Surgical History Surgical History Aortic valve replaced 07/17/1995 History of cholecystectomy 06/17/2002 History of right coronary artery stent placement 02/16/2006 Family History Family History Father Acute myocardial infarction Mother Diabetes mellitus Social History Social History Social History: The patient tells me that she lives with her daughter and that she is . 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 She tells me
[2020-02-26] MEDS: ONDANSETRON INJ 4 MG/2 ML VIAL IV PUSH (09:52)
[2020-02-26] MEDS: SODIUM CHLORIDE 0.9% IV 1,000 ML 999 ML IV CONT (09:52)
[2020-02-26] MEDS: FAMOTIDINE 20 MG/2 ML VIAL IV PUSH (09:52)
[2020-02-26 09:55] LABS: Basophils Percent Auto 0.3 % (0.2-1.2); Eosinophils Absolute Auto 0.2 K/mm3 (0-0.3); Eosinophils Percent Auto 2.3 % (0-4.4); Hematocrit 27.2 % (37.0-47.0); Hemoglobin 9.1 g/dL (12.0-15.0); Immature Granulocyte Absolute 0.04 K/mm3 (0.00-0.031); Immature Granulocyte Percent A 0.6 % (0-0.5); Lymphocytes Absolute Auto 0.54 K/mm3 (0.9-3.2); Lymphocytes Percent Auto 7.7 % (18.3-44.2); Mean Corpuscular HGB Conc 33.5 g/dl (32-36); Mean Corpuscular Hemoglobin 30.8 pg (26-34); Mean Corpuscular Volume 92.2 fl (80-100); Mean Platelet Volume 11.3 fl (7.4-10.4); Monocytes Absolute Auto 0.5 K/mm3 (0.1-0.6); Monocytes Percent Auto 7.6 % (2.6-8.5); Neutrophils Absolute Auto 5.7 K/mm3 (1.3-6.7); Neutrophils Percent Auto 81.5 % (45.5-73.1); Platelet Count Result 182 k/mm3 (150-375); Red Blood Count 2.95 M/mm3 (4.2-5.4); Red Cell Distribution Width 14.5 % (11.5-14.5)
[2020-02-26 10:06] LABS: INR 2.2; Prothrombin Time 23.8 Seconds (11.1-14.7)
[2020-02-26 10:07] LABS: Partial Thromboplastin Time 30.8 SECONDS (22.3-36.8)
[2020-02-26 10:09] LABS: Alanine Aminotransferase 26 U/L (4-35); Albumin Level 3.4 g/dL (3.5-5.1); Alkaline Phosphatase 50 U/L (38-126); Anion Gap 7 mmol/L (8-16); Aspartate Amino Transferase 43 U/L (14-36); Bilirubin,Total 0.8 mg/dL (0.2-1.3); Blood Urea Nitrogen 29 mg/dL (7-17); Calcium 9.7 mg/dL (8.4-10.2); Carbon Dioxide 28 mmol/L (22-30); Chloride 104 mmol/L (98-107); Estimated Glomerular Filt Rate 43; Glucose 134 mg/dL (65-105); Lipase 67 U/L (23-300); Potassium 4.4 mmol/L (3.4-5.0); Sodium 139 mmol/L (137-145)
[2020-02-26 12:00] LABS: Add Urine Microscopic? YES; Appearance Urine Clear (Clear); Bilirubin Urine Negative (Negative); Blood Urine 2+ (Negative); Color Urine Yellow (Yellow); Glucose Urine UA Negative (Negative); Ketones Urine Negative (Negative); Leukocyte Esterase Ur 1+ LEU/UL (Negative); Nitrate Urine Negative (Negative); Protein Urine 1+ mg/dL (Negative); RBC Urine 51-75 /hpf (0-2); Specific Grav Ur 1.017 (1.001-1.035); Urobilinogen Urine Negative mg/dL (<2.0)
== END 2020-02-26 14:50 | disposition home or self-care (01) ==
PROVIDERS: Physician Assistant; Emergency Provider Emergency Medicine; PCP Family Medicine
DX: R07.89 Other chest pain (principal); E11.22 Type 2 diabetes mellitus with diabetic chronic kidney disease; I12.9 Hypertensive chronic kidney disease with stage 1 through stage 4 chronic kidney disease, or unspecified chronic kidney disease; N18.30 Chronic kidney disease, stage 3 unspecified; F03.90 Unspecified dementia, unspecified severity, without behavioral disturbance, psychotic disturbance, mood disturbance, and anxiety; E78.5 Hyperlipidemia, unspecified; E55.9 Vitamin D deficiency, unspecified; Z95.2 Presence of prosthetic heart valve; Z95.5 Presence of coronary angioplasty implant and graft; Z87.891 Personal history of nicotine dependence; Z66 Do not resuscitate; R00.0 Tachycardia, unspecified; R94.31 Abnormal electrocardiogram [ECG] [EKG]; Z79.82 Long term (current) use of aspirin; Z79.01 Long term (current) use of anticoagulants
CPT/HCPCS: 36415; 71046; 73030; 80053; 81001; 83690; 84484; 85025; 85610; 85730; 87086; 93005; 96361; 96365; 96375; 99284; J0131; J2405; J7030

== ENCOUNTER 2020-02-27 03:29 | Outpatient (CLI) | payer MEDICARE, OTHER, SELFPAY ==
[2020-02-27 17:45] LABS: SARS-CoV-2 RNA PCR Negative
== END 2020-02-27 03:30 | disposition home or self-care (01) ==
LOC: ANHCOVIDDT 03:29
PROVIDERS: PCP Family Medicine; Visit Provider Urology
DX: Z01.812 Encounter for preprocedural laboratory examination (principal); Z20.828 Contact with and (suspected) exposure to other viral communicable diseases
CPT/HCPCS: 87635; C9803; U0003

== ENCOUNTER 2020-03-01 01:34 | Day surgery (SDC) | payer MEDICARE, OTHER, SELFPAY ==
[2020-02-20 08:53] VITALS: BMI 20.7
--- NOTE | 2020-02-29 16:22 | PM.IMHP ---
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 Review of Systems Review of Systems: All systems reviewed & are unremarkable except as noted in HPI and below PMFSH Past Medical History Medical History (Updated 02/27/20 @ 00:00 by Santana Rivers) CKD (chronic kidney disease) stage 3, GFR 30-59 ml/min Dementia 02/12/2013 Dementia, unspecified, without behavioral disturbance Diarrhea in adult patient 06/25/2018 Dyslipidemia Edema of both lower legs due to peripheral venous insufficiency 07/21/2018 Elevated lipids Essential (primary) hypertension Gastric ulcer History of gastric ulcer Low back pain without sciatica Tinea cruris Type 2 diabetes mellitus without complication, without long-term current use of insulin Vitamin D deficiency Surgical History Surgical History Aortic valve replaced 07/17/1995 History of cholecystectomy 06/17/2002 History of right coronary artery stent placement 02/16/2006 Family History Family History Father Acute myocardial infarction Mother Diabetes mellitus Social History Social History Social History: The patient tells me that she lives with her daughter and that she is . 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 She tells me she has 2 children she tells me that the daughter that is the power corporate associate attorney is a when she lives with. She tells me she is a DNR. She tells me that she did smoke in the past was long time ago. No alcohol marijuana or illicit drugs Smoking status: Never smoker Second hand tobacco smoke exposure: No Alcohol intake: never Substance use: never Substance use type: does not use Gender identity (if verbalized by the patient): Female Spiritual care concerns: No Agree to blood products: Yes Meds Home Medications and Allergies Home Medications Medication Instructions Recorded Confirmed Type ascorbic acid (vitamin C) 250 mg 250 mg PO DAILY 05/29/19 02/20/20 History tablet aspirin 81 mg tablet,delayed 81 mg PO QPM 05/29/19 02/20/20 History release atorvastatin 40 mg tablet 80 mg PO QPM 05/29/19 02/20/20 History calcium carb 300 mg-D3 800 1 tablet PO DAILY 05/29/19 02/20/20 History unit-mag ox 25 mg-photocopier technician 0.5 mg-abel-Zn tablet cholecalciferol (vitamin D3) 125 125 mcg PO DAILY 05/29/19 02/20/20 History mcg (5,000 unit) capsule glucosamine-chondroitin 250 mg-200 1 tablet PO DAILY 05/29/19 02/20/20 History mg tablet omega-3 fatty acids 500 mg capsule 500 mg PO DAILY 05/29/19 02/20/20 History pyridoxine (vitamin B6) 100 mg 100 mg PO QPM 05/29/19 02/20/20 History tablet warfarin 2 mg tablet 4 mg PO DIRECTED 05/29/19 02/20/20 History zinc 50 mg tablet 50 mg PO DAILY 05/29/19 02/20/20 History celecoxib [Celebrex] 200 mg PO DAILY 12/03/19 02/20/20 History galantamine 8 mg PO DAILY 12/03/19 02/20/20 History lisinopril 20 mg PO HS 12/03/19 02/20/20 History amlodipine 10 mg tablet 10 mg PO DAILY #90 tablet 12/29/19 02/20/20 Rx famotidine 20 mg tablet 20 mg PO BID #180 tablet 12/29/19 02/20/20 Rx nystatin 100,000 unit/gram topical 1 applic TOPICAL DAILY 12/29/19 02/20/20 History cream memantine 28 mg capsule 28 mg PO QPM #90 each 01/02/20 02/20/20 Rx sprinkle,extended release 24hr metformin 500 mg tablet,extended 1,000 mg PO QPM #180 tablet 01/07/20 02/20/20 Rx release 24 hr cyanocobalamin (vitamin B-12) 2,000 mcg PO DAILY 02/20/20 02/20/20 History nitrofurantoin monohyd/m-cryst 100 mg PO Q12H 02/20/20 02/20/20 History [Macrobid] ondansetron 4 mg PO Q8H PRN #10 tablet 02/26/20 Rx Allergies Allergy/AdvReac Type Severity Reaction Status Date
--- NOTE | 2020-03-01 07:30 | WPDHPUPDATE1 ---
History and Physical Update Update Date/Time: 03/01/20 07:30 History and Physical has been reviewed, including an updated exam of the patient. There are NO changes in the patient's condition. Risks, benefits, and alternatives have been discussed and questions answered. Patient agrees to proceed with procedure.
--- NOTE | 2020-03-01 08:34 | WPDANESEPPF ---
Anes - Initial Pre Proc Eval Procedure: Operation Date: 03/01/20 11:00 Proposed Procedures p Cystoscopy, Insertion Suprapubic Catheter - Александр Carrillo MD Date/Time: 03/01/20 08:34 Surgeon: Александр Carrillo MD Pre Op Diagnosis: atomic bladder Patient Data Age: 84 Gender: F Height: 1.57 m Weight: 51.3 kg Allergies Allergy/AdvReac Type Severity Reaction Status Date / Time milk Allergy Mild NASAL Verified 03/01/20 09:31 CONGESTION lactose Allergy Unknown NASAL Verified 03/01/20 09:31 CONGESTION Penicillins Allergy Unknown Rash Verified 03/01/20 09:31 pravastatin Allergy Unknown Vomiting Verified 03/01/20 09:31 Sulfa (Sulfonamide Allergy Unknown Vomiting Verified 03/01/20 09:31 Antibiotics) pantoprazole [From Protonix] AdvReac Vomiting Verified 03/01/20 09:31 Home Medications Medication Instructions Recorded Confirmed Type ascorbic acid (vitamin C) 250 mg 250 mg PO DAILY 05/29/19 03/01/20 History tablet aspirin 81 mg tablet,delayed 81 mg PO QPM 05/29/19 03/01/20 History release atorvastatin 40 mg tablet 80 mg PO QPM 05/29/19 03/01/20 History calcium carb 300 mg-D3 800 1 tablet PO DAILY 05/29/19 03/01/20 History unit-mag ox 25 mg-ad copy writer 0.5 mg-abel-Zn tablet cholecalciferol (vitamin D3) 125 125 mcg PO DAILY 05/29/19 03/01/20 History mcg (5,000 unit) capsule glucosamine-chondroitin 250 mg-200 1 tablet PO DAILY 05/29/19 03/01/20 History mg tablet omega-3 fatty acids 500 mg capsule 500 mg PO DAILY 05/29/19 03/01/20 History pyridoxine (vitamin B6) 100 mg 100 mg PO QPM 05/29/19 03/01/20 History tablet warfarin 2 mg tablet 4 mg PO DIRECTED 05/29/19 03/01/20 History zinc 50 mg tablet 50 mg PO DAILY 05/29/19 03/01/20 History celecoxib [Celebrex] 200 mg PO DAILY 12/03/19 03/01/20 History galantamine 8 mg PO DAILY 12/03/19 03/01/20 History lisinopril 20 mg PO HS 12/03/19 03/01/20 History amlodipine 10 mg tablet 10 mg PO DAILY #90 tablet 12/29/19 03/01/20 Rx famotidine 20 mg tablet 20 mg PO BID #180 tablet 12/29/19 03/01/20 Rx nystatin 100,000 unit/gram topical 1 applic TOPICAL DAILY 12/29/19 03/01/20 History cream memantine 28 mg capsule 28 mg PO QPM #90 each 01/02/20 03/01/20 Rx sprinkle,extended release 24hr metformin 500 mg tablet,extended 1,000 mg PO QPM #180 tablet 01/07/20 03/01/20 Rx release 24 hr cyanocobalamin (vitamin B-12) 2,000 mcg PO DAILY 02/20/20 03/01/20 History nitrofurantoin monohyd/m-cryst 100 mg PO Q12H 02/20/20 03/01/20 History [Macrobid] ondansetron 4 mg PO Q8H PRN #10 tablet 02/26/20 03/01/20 Rx tramadol 50 mg PO Q6H PRN #20 tablet 03/01/20 Rx ECG: Date of Service: 02/26/20 Procedure(s): CA 12 lead EKG Accession Number(s): [id number] cc: ~ Measurements Intervals [place] Rate: 103 P: 76 ME: 157 QRS: -28 QRSD: 93 T: 82 QT: 342 QTc: 448 Interpretive Statements SINUS TACHYCARDIA LEFT ATRIAL ENLARGEMENT DELAYED PRECORDIAL R/S TRANSITION BORDERLINE ST-T WAVE ABNORMALITY- HIGH LATERAL LEADS BORDERLINE ECG Electronically Signed On 02-26-2020 11:14:50 CDT by Delbert Nair D.O. Dictated By: Delbert Nair DO 02/26/20 0905 Patient hx anesthesia problems: none Family hx anesthesia problems: none [facility] Past Medical History Medical History (Updated 03/01/20 @ 08:37 by Alex Narayan MD) Atrial fibrillation CKD (chronic kidney disease) stage 3, GFR 30-59 ml/min CVA (cerebral vascular accident) 10/2019 - l sided weakness Dementia 02/12/2013 Dementia, unspecified, without behavioral disturbance Diabetes Diarrhea in adult patient 06/25/2018 Dyslipidemia Edema of both lower legs due to peripheral venous insufficiency 07/21/2018
[2020-03-01 09:58] LABS: Glucose Point of Care 117 (65-105)
[2020-03-01] MEDS: LACTATED RINGERS 1,000 ML 30 ML IV CONT (10:02)
[2020-03-01 10:03] VITALS: BP 118/55; PULSE 94; RESP 16; TEMP 36.9; O2SAT 100
[2020-03-01 10:11] LABS: INR 1.5; Prothrombin Time 18.1 Seconds (11.1-14.7)
[2020-03-01 10:12] LABS: Partial Thromboplastin Time 28.6 SECONDS (22.3-36.8)
[2020-03-01] MEDS: levoFLOXacin 500 MG/D5W 100 ML 500 MG/100 ML BAG 100 MG IVPB (10:55)
[2020-03-01] MEDS: LIDO 1%/EPINEPHRINE 1:100,000 20 ML VIAL 10 ML INFILTRATE (11:11)
--- NOTE | 2020-03-01 11:27 | PM.PROC ---
Procedure Note - Detailed Date of procedure: 03/01/20 Pre-op diagnosis: atomic bladder Procedure performed: Placement of suprapubic catheter, cystoscopy. Description of procedure: The patient understands the risks of bleeding, infection, damage to the urinary tract, damage to surrounding organs, urinary tract infection, leakage around the catheter, leakage per urethra, malignancy, and need for ancillary procedures. They agreed to proceed. The patient was correctly identified and informed consent was obtained. They are brought to the operating room. They are given anesthesia. They replaced the dorsal thigh position. Lower back and genitalia were prepped and draped in a sterile fashion. Cystoscopy was performed. There was no tumors. The bladder was filled. The patient was placed in Trendelenburg. I anesthetized the skin 2 fingerbreadths above the pubic bone. I used a finer needle to enter the bladder. I placed a guidewire through the needle. I made a skin arnie. I dilated the tract with the 8/10 dilator. I then placed the introducer sheath. The catheter was placed over the wire into the bladder through the introducer sheath. The introducer sheath was peeled away. The catheter balloon was blown up and seen to be within the bladder. There is no sign of any injury to surrounding organs. The suprapubic tube was secured to the skin. The patient was awakened and transferred to the PACU in stable condition. Surgeon: Александр Carrillo MD Drains: Yes (Suprapubic Catheter) Packing: No Pathology: none sent Complications: No immediate complications Condition: stable Disposition: PACU
[2020-03-01 11:31] VITALS: BP 80/47; PULSE 117; RESP 16; O2SAT 96
[2020-03-01 12:01] VITALS: BP 103/55; PULSE 100; RESP 16; O2SAT 97
[2020-03-01] MEDS: fentaNYL CITRATE INJ (*CRX) 100 MCG/2 ML VIAL 25 MCG IV PUSH ×2 (12:14→12:34)
[2020-03-01 12:31] VITALS: BP 124/57; PULSE 106; RESP 16
[2020-03-01 12:35] LABS: Glucose Point of Care 133 (65-105)
[2020-03-01 13:00] VITALS: BP 97/45; PULSE 86; RESP 16
[2020-03-01 13:25] VITALS: BP 103/51; PULSE 93; RESP 16
== END 2020-03-01 13:38 | disposition home or self-care (01) ==
PROVIDERS: Anesthesiology; PCP Family Medicine; Visit Provider Urology
PROC: 0T9B30Z Drainage of Bladder with Drainage Device, Percutaneous Approach (ICD-10-PCS; CPT 51102; principal; 2020-03-01 11:00)
DX: N31.2 Flaccid neuropathic bladder, not elsewhere classified (principal); R33.9 Retention of urine, unspecified; I12.9 Hypertensive chronic kidney disease with stage 1 through stage 4 chronic kidney disease, or unspecified chronic kidney disease; N18.30 Chronic kidney disease, stage 3 unspecified; I48.91 Unspecified atrial fibrillation; F03.90 Unspecified dementia, unspecified severity, without behavioral disturbance, psychotic disturbance, mood disturbance, and anxiety; E78.5 Hyperlipidemia, unspecified; E55.9 Vitamin D deficiency, unspecified; K27.9 Peptic ulcer, site unspecified, unspecified as acute or chronic, without hemorrhage or perforation; Z66 Do not resuscitate; Z79.82 Long term (current) use of aspirin; Z79.84 Long term (current) use of oral hypoglycemic drugs; Z79.01 Long term (current) use of anticoagulants; Z95.5 Presence of coronary angioplasty implant and graft; Z95.4 Presence of other heart-valve replacement
CPT/HCPCS: 51040; 36415; 85610; 85730; A9270; C2627; J1100; J1956; J2250; J2405; J2704; J3010; J7030; J7120

== ENCOUNTER 2020-07-16 08:37 | Inpatient (IN) | payer MEDICARE, OTHER, SELFPAY ==
--- NOTE | ~2020-07-16 | XR_ITS ---
EXAMINATION: XR hip RT 2V w AP pelvis EXAM DATE: 07/16/2020 09:43 INDICATION: Initial encounter following injury, with pain of the pelvis, right hip. TECHNIQUE: Right hip frontal, crosstable lateral projections for interpretation. Frontal projection p cristhian. There is no prior study for comparison. FINDINGS: Bones are osteopenic. Please note that osteopenia limits sensitivity for detecting fractur es by radiographs. There is acute closed posttraumatic right hip subcapital femoral neck fracture wit h some superior displacement, probably some impaction. The pelvic rim appears intact. There are arter ial calcifications, arteriosclerosis. IMPRESSION: Acute right subcapital femoral neck fracture. Reviewed, dictated and finalized at location D. ATE ADVISOR
--- NOTE | ~2020-07-16 | XR_ITS ---
EXAMINATION: XR chest 1V INDICATION: Chest pain after fall TECHNIQUE: AP view of the chest is obtained. COMPARISON: 02/26/2020 FINDINGS: The lungs are hyperinflated. Cardiomegaly is noted. There are changes of aortic valve surge ry. A small right pleural effusion is present. There are right basilar airspace opacities. Surgical c lips in the right upper quadrant are likely from prior cholecystectomy. No pneumothorax is identified . IMPRESSION: 1. Small right pleural effusion with associated right basilar airspace opacities, likely atelectasis. 2. Cardiomegaly. Reviewed, dictated and finalized at location A. PRODUCTS MACHINE OPERATOR IMPRESSION: 1. Small right pleural effusion with associated right basilar airspace opacitie s, likely atelectasis. 2. Cardiomegaly.
--- NOTE | ~2020-07-16 | XR_ITS ---
EXAMINATION: XR hip RT 1V w AP pelvis DATE: 07/18/2020 14:18 INDICATION: Right hip hemiarthroplasty. Postop. TECHNIQUE: An anteroposterior view of the pelvis and single view of right hip were obtained. COMPARISON: Pelvis and right hip radiographs 07/16/2020 FINDINGS: There is a bipolar right hip hemiarthroplasty in near-anatomic alignment. No fracture. Ther e is mild osteoarthritis of the hips. A surgical drain overlies the soft tissues lateral to right hip . There is lumbar levoscoliosis and severe spondylosis. IMPRESSION: 1. Bipolar right hip hemiarthroplasty in near-anatomic alignment. Reviewed, dictated and finalized at location A.
--- NOTE | ~2020-07-16 | XR_ITS ---
EXAMINATION: XR surgery orthopedic DATE: 07/18/2020 14:19 INDICATION: Right femoral neck fracture. TECHNIQUE: An intraoperative anteroposterior view of the pelvis on 2 radiographs was obtained. COMPARISON: Pelvis radiograph 07/16/2020 FINDINGS: The right femoral head and neck have been resected. There is a broach in proximal right fem ur. There are osteophytes of the right acetabulum. There is mild left hip osteoarthritis. IMPRESSION: 1. Right hip hemiarthroplasty in progress. Reviewed, dictated and finalized at location A.
--- NOTE | ~2020-07-16 | CT_ITS ---
EXAMINATION: CT brain wo [facility] EXAM DATE: 07/16/2020 09:33 INDICATION: Fall, on anticoagulation. Head injury. TECHNIQUE: Spiral CT of the head was performed without contrast. Axial, coronal and sagittal images were reviewed. The dose-length product (DLP) for this examination was 681.00 mGy-cm. The exposure w as tailored according to patient size, and iterative reconstruction (ASIR) was used as additional dos e reduction technique. Comparison is made to prior examination from 01/04/2020. FINDINGS: There is no acute intraparenchymal hemorrhage. No evidence of intraparenchymal brain mass lesion. No evidence of acute infarction. Please note that initial head CT has limited sensitivity f or small or acute infarctions. Old punctate right caudate head lacunar infarction. Small old right c erebellar infarction. There is periventricular and subcortical hypodensity, nonspecific but probably related to small vessel ischemic disease. There is prominence of the sulci and ventricles related to cerebral atrophy. There is intracranial carotid arteriosclerosis. There are no extra-axial prashant ections. There is no mass effect or midline shift. Patient has had bilateral ocular lens surgery. Soft tissue is unremarkable. The visualized sinuses and mastoid air cells are well aerated. IMPRESSION: 1. No acute intracranial findings. 2. Chronic age related findings. 3. Old punctate right caudate, right cerebellar infarctions. Reviewed, dictated and finalized at location D. RSE LOGISTICS ANALYST
[2020-07-16 08:40] VITALS: BP 199/83; PULSE 85; RESP 14; TEMP 36.8; O2SAT 98
[2020-07-16 08:52] VITALS: BP 199/83; PULSE 83; RESP 16; TEMP 36.8; O2SAT 97
--- NOTE | 2020-07-16 09:09 | ECG_ITS ---
Measurements Intervals [place] Rate: 80 P: 80 FL: 173 QRS: -34 QRSD: 90 T: 68 QT: 386 QTc: 448 Interpretive Statements SINUS RHYTHM LEFT ATRIAL ENLARGEMENT LEFT AXIS DEVIATION NONSPECIFIC T-WAVE ABNORMALITY- HIGH LATERAL LEADS BORDERLINE ECG Electronically Signed On 07-16-2020 12:56:12 CLINICAL RN LIAISON by Delbert Nair D.O.
--- NOTE | 2020-07-16 09:11 | ED.LOWEXIN ---
HPI - Extremity Injury (Lower) General Chief Complaint: Extremity Injury, Lower Stated Complaint: fall - right hip pain Time Seen by Provider: 07/16/20 08:52 Source: patient and family Mode of arrival: EMS Limitations: dementia History of Present Illness HPI Narrative: This is an 84 year old female with history of afib, aortic valve replacement, chronic anticoagulation who presents for evaluation right hip pain s/p fall. Patient states she was trying to get up and she fell. She unsure of why she fell. Her daughter states she found patient by her walker so she believes she fell trying to use her water. Patient is unsure if she hit head but she denies headache or dizziness. Her only complaint is right hip pain. She does not want to move her right hip due to severe pain. She takes coumadin and her INR today was 2.5 . Related Data Home Medications Medication Instructions Recorded Confirmed ascorbic acid (vitamin C) 250 mg 250 mg PO DAILY 05/29/19 07/16/20 tablet aspirin 81 mg tablet,delayed 81 mg PO QPM 05/29/19 07/16/20 release atorvastatin 40 mg tablet 80 mg PO QPM 05/29/19 07/16/20 calcium carb 300 mg-D3 800 1 tablet PO DAILY 05/29/19 07/16/20 unit-mag ox 25 mg-copper flotation operator 0.5 mg-abel-Zn tablet cholecalciferol (vitamin D3) 125 125 mcg PO DAILY 05/29/19 07/16/20 mcg (5,000 unit) capsule omega-3 fatty acids 500 mg capsule 500 mg PO DAILY 05/29/19 07/16/20 pyridoxine (vitamin B6) 100 mg 100 mg PO QPM 05/29/19 07/16/20 tablet zinc 50 mg tablet 50 mg PO DAILY 05/29/19 07/16/20 lisinopril 20 mg PO HS 12/03/19 07/16/20 cyanocobalamin (vitamin B-12) 2,000 mcg PO DAILY 02/20/20 07/16/20 gabapentin 100 mg PO HS 07/16/20 07/16/20 warfarin [Coumadin] 5 mg PO DAILY 07/16/20 07/16/20 warfarin [Coumadin] 7 mg PO 2XW 07/16/20 07/16/20 Allergies Allergy/AdvReac Type Severity Reaction Status Date / Time milk Allergy Mild NASAL Verified 07/16/20 13:16 CONGESTION lactose Allergy Unknown NASAL Verified 07/16/20 13:16 CONGESTION Penicillins Allergy Unknown Rash Verified 07/16/20 13:16 pravastatin Allergy Unknown Vomiting Verified 07/16/20 13:16 Sulfa (Sulfonamide Allergy Unknown Vomiting Verified 07/16/20 13:16 Antibiotics) pantoprazole [From Protonix] AdvReac Vomiting Verified 07/16/20 13:16 Review of Systems Review of Systems: All systems reviewed & are unremarkable except as noted in HPI and below Eyes: Eyes: Denies change in vision ENT: Denies dizziness Cardiovascular: Cardiovascular: Denies chest pain Respiratory: Respiratory: Denies dyspnea Gastrointestinal: Gastrointestinal: Denies abdominal pain, Denies nausea and Denies vomiting Musculoskeletal: Musculoskeletal: Denies back pain Neurologic: Denies headache(s) [facility] Past Medical History Medical History Atrial fibrillation CKD (chronic kidney disease) stage 3, GFR 30-59 ml/min CVA (cerebral vascular accident) 10/2019 - l sided weakness Dementia 02/12/2013 Dementia, unspecified, without behavioral disturbance Diarrhea in adult patient 06/25/2018 Dyslipidemia Edema of both lower legs due to peripheral venous insufficiency 07/21/2018 Elevated lipids Essential (primary) hypertension Gastric ulcer History of gastric ulcer Hypercholesterolemia Low back pain without sciatica Second degree AV block, Mobitz type I Suprapubic catheter Tinea cruris Type 2 diabetes mellitus without complication, without long-term current use of insulin Vitamin D deficiency Surgical History Surgical History Aortic valve replaced (~07/17/95) 07/17/1995 History of cholecystectomy (~06/17/02) 06/17/2002 History of coronary artery stent placement History of right coronary artery stent placement (~02/16/06) 02/16/2006 History of suprapubic catheter 02/2020 Family History Family History (Reviewed 04/07/20 @ 17:16 by Jm Gonzalez
[2020-07-16] MEDS: ONDANSETRON INJ 4 MG/2 ML VIAL IV PUSH (09:17)
[2020-07-16] MEDS: MORPHINE SULFATE (*CRX) 4 MG/ML INJ IV PUSH ×2 (09:18→21:04)
[2020-07-16 09:31] LABS: Basophils Percent Auto 0.3 % (0.2-1.2); Eosinophils Absolute Auto 0.1 K/mm3 (0-0.3); Eosinophils Percent Auto 2.4 % (0-4.4); Hematocrit 29.4 % (37.0-47.0); Hemoglobin 9.7 g/dL (12.0-15.0); Immature Granulocyte Absolute 0.03 K/mm3 (0.00-0.031); Immature Granulocyte Percent A 0.5 % (0-0.5); Lymphocytes Absolute Auto 0.47 K/mm3 (0.9-3.2); Lymphocytes Percent Auto 7.9 % (18.3-44.2); Mean Corpuscular Hemoglobin 31.1 pg (26-34); Mean Corpuscular Volume 94.2 fl (80-100); Mean Platelet Volume 11.2 fl (7.4-10.4); Monocytes Absolute Auto 0.3 K/mm3 (0.1-0.6); Monocytes Percent Auto 5.2 % (2.6-8.5); Neutrophils Percent Auto 83.7 % (45.5-73.1); Platelet Count Result 142 k/mm3 (150-375); Red Blood Count 3.12 M/mm3 (4.2-5.4); Red Cell Distribution Width 13.5 % (11.5-14.5); White Blood Count 5.9 K/mm3 (4.5-10.0)
[2020-07-16 09:42] LABS: Alanine Aminotransferase 31 U/L (4-35); Albumin Level 3.7 g/dL (3.5-5.1); Alkaline Phosphatase 71 U/L (38-126); Anion Gap 5 mmol/L (8-16); Aspartate Amino Transferase 48 U/L (14-36); Bilirubin,Total 0.7 mg/dL (0.2-1.3); Blood Urea Nitrogen 24 mg/dL (7-17); Calcium 9.3 mg/dL (8.4-10.2); Carbon Dioxide 30 mmol/L (22-30); Chloride 105 mmol/L (98-107); Estimated CRCL calculation 30 ml/min; Estimated Glomerular Filt Rate 53; Glucose 179 mg/dL (65-105); Potassium 4.1 mmol/L (3.4-5.0); Sodium 140 mmol/L (137-145)
[2020-07-16 09:43] LABS: INR 2.3; Prothrombin Time 26.2 Seconds (11.1-14.7)
[2020-07-16 09:44] LABS: Partial Thromboplastin Time 33.4 SECONDS (22.3-36.8)
[2020-07-16 12:26] VITALS: BP 182/80; PULSE 74; RESP 17; TEMP 36.6; O2SAT 96
[2020-07-16 13:05] VITALS: BMI 19.3
--- NOTE | 2020-07-16 13:05 | ADMGEN ---
This patient, Sadie Winston, was admitted to Medical Room 247-. Patient/family oriented to hospital policies and general routines including ID bracelet, bed and alarms, visiting hours, pain management, procedures, bathroom and other care routines, personal items, smoking policy, room service/diet, and visiting hours. Information on how to activate the Rapid Response Team has been discussed. Patient/Family are encouraged to report perceived risks to care and to ask questions if they do not understand what they are told or what they should do.
[2020-07-16 13:29] VITALS: BP 153/61; PULSE 75; RESP 16; TEMP 37.2; O2SAT 95
[2020-07-16 14:38] LABS: Add Urine Microscopic? YES; Appearance Urine Cloudy (Clear); Bacteria Urine Trace /hpf; Bilirubin Urine Negative (Negative); Blood Urine Negative (Negative); Color Urine Yellow (Yellow); Glucose Urine UA 1+ mg/dL (Negative); Ketones Urine Negative (Negative); Leukocyte Esterase Ur Trace LEU/UL (Negative); Mucus Urine Rare /lpf; Nitrate Urine Negative (Negative); Protein Urine 1+ mg/dL (Negative); Specific Grav Ur 1.013 (1.001-1.035); Squamous Epithelial Cell Urine Rare /hpf (Few); Urobilinogen Urine Negative mg/dL (<2.0)
--- NOTE | 2020-07-16 14:52 | PM.CNCAR ---
Assessment and Plan Additional Plan This is an 84-year-old woman who sustained a fall and a right hip fracture is brought to the hospital for surgical treatment. Orthopedic consultation is not yet been placed on the chart. In any event her cardiac status is stable she has a aortic valve mechanical prosthesis that was placed about 25 years ago for treating critical aortic stenosis. She also received a right coronary stent about 15 years ago. She has not had any recent cardiac problems other than as I said being noted to have second-degree AV block Mobitz type 1 for which she was taken off of anything that disrupts AV node dysfunction. She is relatively clear she did not sustain a syncopal episode and so I do not see at this point any reason for for concern regarding her rhythm in less telemetry shows problems during this hospitalization. Her Coumadin of course needs to be discontinued and when her INR decreases her hip surgery can occur with relatively favorable cardiac risk in my opinion her principal risk includes extreme frailty. Since the aortic valve prosthesis has been in place for a long time I do not feel strongly that this patient has to be bridged with heparin. She does not require heparin at this time because her INR is still therapeutic. Sergio Landeros MD [facility] History of Present Illness History of Present Illness Consult date/time: 07/16/20 14:52 Reason For Visit: fall - right hip pain Narrative: This is an 84-year-old woman who is well known to me for many years who has aortic valve and coronary artery disease. Unfortunately she sustained a fall in her home and has a inter trochanteric fracture of her right femur and is admitted for surgical treatment of this. The patient is comfortable lying in room 247 otherwise only reporting pain at site of her fracture if it is moved at all. She is not reporting any cardiac symptoms such as chest pain shortness of breath palpitations orthopnea PND or edema. She has a history of aortic valve disease that I was asked to see her for in 1995. She had critical aortic stenosis at that time and underwent mechanical aortic valve replacement and has done very well since then with respect to that. She has therefore of course been chronically anticoagulated with warfarin. The patient did present here about 10 years after her valve surgery with ischemic chest pain and underwent an angiogram and we found that she had developed a high-grade stenosis in right coronary artery. This was successfully treated with angioplasty and stenting in after that she once again did very well. She has been seen in the office regularly for follow-up. She had previously been taking when she was younger digoxin and a beta-tanvi for a prior history of some atrial fibrillation as well. These drugs were stopped because I notice that she had developed second-degree AV block Mobitz type 1. I last saw Mrs. cantor in the office in January of last year which time she had no cardiovascular complaints her principal health concern was as she is getting older who she is losing weight and has developed a very frail almost cachectic appearance. She states that she has no recollection of falling in her home but she does not believe that she had a syncopal episode. Her INR on arrival to the hospital is 2.3. ECG shows sinus rhythm with normal conduction and left ventricular hypertrophy. Review of Systems Constitutional: Constitutional: Reports lethargy and Reports weakness Eyes: Eyes: Reports no additional eye complaints ENT: Reports system reviewed and no additional complaints, except as documented Cardiovascular: Cardiovascular: Reports no additional cardiovascular complaints Respiratory: Respiratory: Reports no additional respiratory complaints Gastrointestinal: Gastrointestinal: Reports no additional gastrointestinal complaints Musculoskeletal: Musculoskeletal: Reports stiffness Integumentary/Breasts: Skin/Breast: Reports
[2020-07-16 17:12] LABS: Glucose Point of Care 220 (65-105)
[2020-07-16] MEDS: PHYTONADIONE 5 MG TABLET PO (17:40)
--- NOTE | 2020-07-16 19:25 | PM.IMHP ---
H&P: HPI History of Present Illness Date/Time: 07/16/20 19:25 this is a 84-year-old female who has a history of AFib, aortic valve replacement, chronic anticoagulation. The patient tells me that she fell last night. And has been falling often. Her daughter stated that she found the patient by her walker that she fell. The patient is unsure if she hit her head put she is not able to move her right hip due to severe pain. The patient's right leg is externally rotated and shortened. The patient has been on warfarin with an INR of 2.3. Cardiology has been consulted due to anticoagulation with the mechanical aortic valve replacement and atrial fibrillation. Is recommended that the Coumadin be discontinued and when her INR decreases then her hip can be repaired. It was recommended that the patient be placed on heparin drip postoperatively to be bridge back to the Coumadin. At this time the patient INR is therapeutic and does not require heparin drip. With associated right basilar airspace opacities likely atelectasis. Cardiomegaly. Hip and pelvis x-ray was read as acute right subcapital fracture neck fracture. Head CT was read as no acute intracranial findings. Chronic age-related findings. Old punctuate right caudate, right cerebellar infarctions. Morphine, Zofran, Tylenol, and vitamin K the patient is being admitted to inpatient status on 07/17/2019 Chief Complaint: Fall Review of Systems Review of Systems: All systems reviewed & are unremarkable except as noted in HPI and below Constitutional: Constitutional: Reports as per HPI and Reports no additional constitutional complaints Eyes: Eyes: Reports as per HPI and Reports no additional eye complaints ENT: Reports system reviewed and no additional complaints, except as documented and Reports Normal hearing present Cardiovascular: Cardiovascular: Reports no additional cardiovascular complaints Respiratory: Respiratory: Reports no additional respiratory complaints and Reports no additional respiratory complaints Gastrointestinal: Gastrointestinal: Reports as per HPI and Reports no additional gastrointestinal complaints Musculoskeletal: Musculoskeletal: Reports no additional musculoskeletal complaints Integumentary/Breasts: Skin/Breast: Reports system reviewed and no additional complaints, except as docu and Reports as per HPI Neurologic: Reports system reviewed and no additional complaints, except as documented, Reports as per HPI and Reports Normal hearing present Psychiatric: Psychiatric: Reports no additional psychiatric complaints and Reports as per HPI Endocrine: Endocrine: Reports no additional endocrine complaints Hematologic/Lymphatic: Hematologic/Lymphatic: Reports no additional hematologic/lymphatic complaints Allergic/Immunologic: Allergic/Immunologic: Reports no additional allergic/immunologic complaints PMFSH Past Medical History Medical History Atrial fibrillation CKD (chronic kidney disease) stage 3, GFR 30-59 ml/min CVA (cerebral vascular accident) 10/2019 - l sided weakness Dementia 02/12/2013 Dementia, unspecified, without behavioral disturbance Diarrhea in adult patient 06/25/2018 Dyslipidemia Edema of both lower legs due to peripheral venous insufficiency 07/21/2018 Elevated lipids Essential (primary) hypertension Gastric ulcer History of gastric ulcer Hypercholesterolemia Low back pain without sciatica Second degree AV block, Mobitz type I Suprapubic catheter Tinea cruris Type 2 diabetes mellitus without complication, without long-term current use of insulin Vitamin D deficiency Surgical History Surgical History Aortic valve replaced (~07/17/95) 07/17/1995 History of cholecystectomy (~06/17/02) 06/17/2002 History of coronary artery stent placement History of right coronary artery stent placement (~02/16/06) 02/16/2006 History of sup
[2020-07-16 20:00] VITALS: BP 186/92; PULSE 96; RESP 18; TEMP 37.3; O2SAT 96
[2020-07-16 20:31] LABS: INR 2.2; Prothrombin Time 25.4 Seconds (11.1-14.7)
[2020-07-16 20:32] LABS: Glucose Point of Care 158 (65-105)
--- NOTE | 2020-07-16 21:06 | PM.CNOR ---
Assessment and Plan Additional Plan Patient is an 84-year-old female was admitted this morning with a displaced right subcapital femoral neck fracture. She fell today in her home with her hands on her walker. She has been using a walker since January. She has a standard walker and she has a Rollator walker. She lives with her daughter Martha wears her power of attorney recruiter. Sometime she walks in the house without the walker. Her past medical history is significant for dementia aortic valve replacement coronary artery stent right coronary artery stage 3 kidney disease cerebrovascular accident history of ulcer diabetes atrial fibrillation for which she is on Coumadin chronically. She also has a suprapubic catheter. The urinalysis showed 10-15 white cells from the urine from the suprapubic catheter any urine culture is pending. Her laboratory studies show hemoglobin of 9.7 platelets [id number]. Her INR is 2.2. Her creatinine was 1 with creatinine clearance of 30. She has low body weight 51 kg for a BMI of 19.3. Her albumin is normal though at 3.7 protein 7.0. Liver functions showed mild elevation of AST to 48. On examination today she was alert and conversed very appropriately. She is very pleasant. She complained of pain in the anterior right groin and no where else. She had where he is aware that she has a fractured hip and I have discussed with her the operation of replacing the broken ball with a metal ball which is a partial hip replacement. She had a 2+ dorsalis pedis pulse wiggle her toes on command and denied any numbness or tingling in the foot she had no lower extremity edema on the right skin looked fine. I spoke with her daughter Martha was also power of attorney recruiter [phone]. I have discussed risks of surgery with her in detail which include surgical complications such as infection blood clots dislocation fracture loosening and medical complications such as heart attack stroke congestive heart failure. There is some increased in risk of mortality with her medical comorbidities. I have recommended cemented bipolar hemiarthroplasty. She may be confused postoperatively and a cemented stem will allow her to be weight-bearing as tolerated with lower risk of periprosthetic fracture subsidence and loosening. She received 5 mg of vitamin K earlier today we will check another INR at 5:30 a.m. this morning and if her INR is 1.5 or less we will plan to proceed tomorrow. If it is still too elevated we will have to wait until Sunday. Dr. Landeros saw this patient and feels that it is reasonable to not utilize bridging heparin in her case since her mechanical valve was placed 25 years ago. We will continue the baby aspirin to protect her coronary artery stent and give her some protection against cerebrovascular accident. History of Present Illness HPI Consult date: 07/16/20 Chief complaint: fall - right hip pain PMFSH Past Medical History Medical History Atrial fibrillation CKD (chronic kidney disease) stage 3, GFR 30-59 ml/min CVA (cerebral vascular accident) 10/2019 - l sided weakness Dementia 02/12/2013 Dementia, unspecified, without behavioral disturbance Diarrhea in adult patient 06/25/2018 Dyslipidemia Edema of both lower legs due to peripheral venous insufficiency 07/21/2018 Elevated lipids Essential (primary) hypertension Gastric ulcer History of gastric ulcer Hypercholesterolemia Low back pain without sciatica Second degree AV block, Mobitz type I Suprapubic catheter Tinea cruris Type 2 diabetes mellitus without complication, without long-term current use of insulin Vitamin D deficiency Surgical History Surgical History Aortic valve replaced (~07/17/95) 07/17/1995 History of cholecystectomy (~06/17/02) 06/17/2002 History of coronary artery stent placement History of right coronary artery stent placement (~02/16/06) 02/04
[2020-07-16] MEDS: ATORVASTATIN 40 MG TABLET 80 MG PO (21:07)
[2020-07-16] MEDS: FAMOTIDINE 20 MG TABLET PO (21:07)
[2020-07-16] MEDS: MEMANTINE HCL XR 28 MG CAP PO (21:07)
[2020-07-16] MEDS: GABAPENTIN 100 MG CAPSULE PO (21:08)
[2020-07-16] MEDS: lisinopriL 20 MG TABLET PO (21:08)
[2020-07-16 21:45] VITALS: O2SAT 97
[2020-07-17] MEDS: oxyCODONE HCL (*CRX) 2.5 MG TAB IR PO ×6 (00:14→20:56)
[2020-07-17 00:29] VITALS: BP 168/80
[2020-07-17 05:05] VITALS: BP 163/73; PULSE 80; RESP 16; TEMP 36.6; O2SAT 98
[2020-07-17 05:48] LABS: Basophils Percent Auto 0.5 % (0.2-1.2); Eosinophils Absolute Auto 0.1 K/mm3 (0-0.3); Eosinophils Percent Auto 2.2 % (0-4.4); Hematocrit 28.8 % (37.0-47.0); Hemoglobin 9.5 g/dL (12.0-15.0); Immature Granulocyte Absolute 0.02 K/mm3 (0.00-0.031); Immature Granulocyte Percent A 0.3 % (0-0.5); Lymphocytes Absolute Auto 0.62 K/mm3 (0.9-3.2); Lymphocytes Percent Auto 9.8 % (18.3-44.2); Mean Corpuscular Hemoglobin 30.5 pg (26-34); Mean Corpuscular Volume 92.6 fl (80-100); Mean Platelet Volume 11.4 fl (7.4-10.4); Monocytes Absolute Auto 0.5 K/mm3 (0.1-0.6); Monocytes Percent Auto 7.9 % (2.6-8.5); Neutrophils Percent Auto 79.3 % (45.5-73.1); Platelet Count Result 157 k/mm3 (150-375); Red Blood Count 3.11 M/mm3 (4.2-5.4); Red Cell Distribution Width 13.5 % (11.5-14.5); White Blood Count 6.3 K/mm3 (4.5-10.0)
[2020-07-17 05:57] LABS: Hemoglobin A1C 5.9 % (<5.7)
[2020-07-17 06:02] LABS: INR 2.1; Prothrombin Time 24.2 Seconds (11.1-14.7)
[2020-07-17 06:09] LABS: Alanine Aminotransferase 31 U/L (4-35); Albumin Level 3.5 g/dL (3.5-5.1); Alkaline Phosphatase 67 U/L (38-126); Anion Gap 3 mmol/L (8-16); Aspartate Amino Transferase 47 U/L (14-36); Bilirubin,Total 1.1 mg/dL (0.2-1.3); Blood Urea Nitrogen 20 mg/dL (7-17); Carbon Dioxide 32 mmol/L (22-30); Chloride 101 mmol/L (98-107); Estimated CRCL calculation 28 ml/min; Estimated Glomerular Filt Rate 48; Glucose 128 mg/dL (65-105); Potassium 4.9 mmol/L (3.4-5.0); Sodium 136 mmol/L (137-145)
[2020-07-17] MEDS: PHYTONADIONE 5 MG TABLET PO (09:09)
[2020-07-17] MEDS: CHOLECALCIFEROL 1,000 UNITS TABLET 5000 UNITS PO (09:10)
[2020-07-17] MEDS: amLODIPine BESYLATE 5 MG TABLET 10 MG BY MOUTH (09:10)
[2020-07-17] MEDS: FAMOTIDINE 20 MG TABLET PO ×2 (09:11→17:02)
[2020-07-17] MEDS: ASCORBIC ACID 250 MG TABLET PO (09:11)
[2020-07-17] MEDS: CYANOCOBALAMIN 1,000 MCG TABLET 2000 MCG PO (09:12)
[2020-07-17 09:41] VITALS: O2SAT 92
[2020-07-17 10:03] LABS: Glucose Point of Care 118 (65-105)
[2020-07-17] MEDS: ASPIRIN 81 MG ENTERIC TABLET PO (13:09)
[2020-07-17 13:17] LABS: Glucose Point of Care 174 (65-105)
--- NOTE | 2020-07-17 13:30 | PM.IMPN ---
Progress Note: A&P Assessment and Plan (1) Closed subcapital fracture of neck of right femur: Code(s): S72.011A - Unspecified intracapsular fracture of right femur, initial encounter for closed fracture Status: Acute Assessment and Plan: S/p fall at home. Dr. Fields has been consulted and appreciate recommendations. Patient was given vitamin K x 2 as her INR is still therapeutic Daily INR Further recommendations per Ortho. Plans for surgery once INR is more reasonable Pain control as needed (2) H/O mechanical aortic valve replacement: Code(s): Z95.2 - Presence of prosthetic heart valve Status: Chronic Assessment and Plan: Cardiology has been consulted and appreciate recommendations. On Warfarin. Still therapeutic INR today; was given another dose of PO vitamin K per Dr. Fields Daily INR as above Monitor (3) Abnormal urinalysis: Code(s): R82.90 - Unspecified abnormal findings in urine Status: Acute Assessment and Plan: UA suggestive of possible UTI. Son notes that his sister has noticed foul smelling urine. He also notes she has been unsteady on her feet lately as well, similar to previous UTIs. UCx pending. She is not septic appearing. Leukocytosis WNL Given foul smelling urine, will treat empirically with IV rocephin Await UCx; tailor antibiotics to culture Monitor (4) Type 2 diabetes mellitus without complication, without long-term current use of insulin: Code(s): E11.9 - Type 2 diabetes mellitus without complications Status: Chronic Assessment and Plan: A1c 5.9. Accuchecks ACHS, hypoglycemia protocol, correctional insulin, diabetic diet Metformin held Monitor (5) Essential (primary) hypertension: Code(s): I10 - Essential (primary) hypertension Status: Acute Assessment and Plan: BP 160s sys most recently Continue with lisinopril and amlodipine Monitor (6) Hypercholesterolemia: Code(s): E78.00 - Pure hypercholesterolemia, unspecified Status: Acute Assessment and Plan: Hold atorvastatin (7) Dementia: Code(s): F03.90 - Unspecified dementia without behavioral disturbance Status: Chronic Assessment and Plan: Appears to be at baseline Continue with Namenda Subjective Date/time seen: 07/17/20 13:30 Interval history: Patient is a 84 yo F with history of second degree AV block Mobitz type I, aortic valve replacement (on warfarin), CKD, history of suprapubic catheter, dementia, HTN among other comorbid conditions who is seen in follow up for right hip fracture s/p fall at home, and possible UTI. Patient feels okay today. No complaints for me at the moment. Son at bedside at time of visit. Notes patient has some baseline dementia. He also comments that he thinks his sister has noticed foul smelling urine at home the previous couple of days. Today she seems alert and oriented to at least herself and answering questions appropriately. Denies f/c/s, headaches, dizziness, lightheadedness, cp/palpitations, sob/cough, n/v/d/c, abd pain, issues with suprapubic catheter, calf pain/swelling. Review of Systems Review of Systems: All systems reviewed & are unremarkable except as noted in HPI and below Exam Narrative: Exam Narrative: General: Patient sitting up in bed in no acute distress. Son at bedside at time of visit. A&O to at least self, and answers questions appropriately HEENT: Normocephalic, EOMI, oral mucosa moist. Cardiovascular: Rate and rhythm are regular. Click/normal mechanical aortic valve closure sound noted Respiratory: Lungs clear to auscultation anterolateral lung jenkins. Non-labored breathing. Abdomen: Soft,
[2020-07-17 15:21] VITALS: BP 158/64; PULSE 92; RESP 14; TEMP 37.6; O2SAT 97
[2020-07-17 16:37] LABS: INR 1.4
[2020-07-17] MEDS: ATORVASTATIN 40 MG TABLET 80 MG PO (17:03)
[2020-07-17] MEDS: MEMANTINE HCL XR 28 MG CAP PO (17:03)
[2020-07-17 19:04] LABS: Glucose Point of Care 187 (65-105)
[2020-07-17] MEDS: lisinopriL 20 MG TABLET PO (20:56)
[2020-07-17] MEDS: GABAPENTIN 100 MG CAPSULE PO (20:56)
[2020-07-17 21:18] LABS: Glucose Point of Care 230 (65-105)
[2020-07-17 22:00] VITALS: BP 144/60; PULSE 94; RESP 18; TEMP 36.4; O2SAT 97
[2020-07-18] VITALS (13 sets, daily range): BP systolic 109–195; BP diastolic 57–89; PULSE 89–99; RESP 12–22; TEMP 36.6–37.2; O2SAT 93–100
[2020-07-18] MEDS: oxyCODONE HCL (*CRX) 2.5 MG TAB IR PO ×2 (01:33→05:56)
--- NOTE | 2020-07-18 03:37 | PC.NURSE ---
Daylight Savings Time For Daylight Savings Time Ending in the Fall - Clocks are moved back. For Daylight Savings Time Beginning in the Spring - Clocks are moved ahead. For [facility], the time of change occurs at 0200 hrs. Time is taken from the time study observer. This entry on the patient's chart recognizes the change in time reflected during documentation. Example: 2 entries for vital signs may be charted for 0200 hrs.
[2020-07-18 05:27] LABS: Basophils Percent Auto 0.2 % (0.2-1.2); Eosinophils Percent Auto 0.3 % (0-4.4); Hematocrit 30.3 % (37.0-47.0); Immature Granulocyte Absolute 0.06 K/mm3 (0.00-0.031); Immature Granulocyte Percent A 0.6 % (0-0.5); Lymphocytes Absolute Auto 0.51 K/mm3 (0.9-3.2); Lymphocytes Percent Auto 5.2 % (18.3-44.2); Mean Corpuscular Hemoglobin 30.4 pg (26-34); Mean Corpuscular Volume 92.1 fl (80-100); Mean Platelet Volume 11.2 fl (7.4-10.4); Monocytes Absolute Auto 0.9 K/mm3 (0.1-0.6); Neutrophils Absolute Auto 8.4 K/mm3 (1.3-6.7); Neutrophils Percent Auto 84.7 % (45.5-73.1); Platelet Count Result 153 k/mm3 (150-375); Red Blood Count 3.29 M/mm3 (4.2-5.4); Red Cell Distribution Width 13.6 % (11.5-14.5); White Blood Count 9.9 K/mm3 (4.5-10.0)
[2020-07-18 05:34] LABS: INR 1.2; Prothrombin Time 15.5 Seconds (11.1-14.7)
[2020-07-18 05:36] LABS: Anion Gap 4 mmol/L (8-16); Blood Urea Nitrogen 29 mg/dL (7-17); Calcium 9.1 mg/dL (8.4-10.2); Carbon Dioxide 30 mmol/L (22-30); Chloride 102 mmol/L (98-107); Estimated CRCL calculation 26 ml/min; Estimated Glomerular Filt Rate 43; Glucose 179 mg/dL (65-105); Magnesium 1.7 mg/dL (1.6-2.3); Potassium 4.5 mmol/L (3.4-5.0); Sodium 136 mmol/L (137-145)
[2020-07-18 08:05] LABS: Glucose Point of Care 168 (65-105)
--- NOTE | 2020-07-18 09:43 | PC.NURSE ---
To OR per bed, IV intact. Report given to TOR Cortes.
--- NOTE | 2020-07-18 10:10 | WPDANESEPPF ---
Anes - Initial Pre Proc Eval Procedure: Operation Date: 07/18/20 09:30 Proposed Procedures p RIGHT HIP CEMENTED BIPOLAR ARTHROPLASTY(Right) - Crow Fields MD Date/Time: 07/18/20 10:10 Surgeon: Sukh Land PA-C Pre Op Diagnosis: fall - right hip pain Patient Data Age: 84 Gender: F Height: 5 ft 4 in Weight: 51 kg Last Vital Signs Temp 36.6 C 07/18/20 06:00 Pulse 93 07/18/20 06:00 Resp 18 07/18/20 06:00 BP 152/57 H 07/18/20 06:00 Pulse Ox 96 07/18/20 06:00 Allergies Allergy/AdvReac Type Severity Reaction Status Date / Time milk Allergy Mild NASAL Verified 07/16/20 13:16 CONGESTION lactose Allergy Unknown NASAL Verified 07/16/20 13:16 CONGESTION Penicillins Allergy Unknown Rash Verified 07/16/20 13:16 pravastatin Allergy Unknown Vomiting Verified 07/16/20 13:16 Sulfa (Sulfonamide Allergy Unknown Vomiting Verified 07/16/20 13:16 Antibiotics) pantoprazole [From Protonix] AdvReac Vomiting Verified 07/16/20 13:16 Home Medications Medication Instructions Recorded Confirmed Type ascorbic acid (vitamin C) 250 mg 250 mg PO DAILY 05/29/19 07/16/20 History tablet aspirin 81 mg tablet,delayed 81 mg PO QPM 05/29/19 07/16/20 History release atorvastatin 40 mg tablet 80 mg PO QPM 05/29/19 07/16/20 History calcium carb 300 mg-D3 800 1 tablet PO DAILY 05/29/19 07/16/20 History unit-mag ox 25 mg-copy center associate 0.5 mg-abel-Zn tablet cholecalciferol (vitamin D3) 125 125 mcg PO DAILY 05/29/19 07/16/20 History mcg (5,000 unit) capsule omega-3 fatty acids 500 mg capsule 500 mg PO DAILY 05/29/19 07/16/20 History pyridoxine (vitamin B6) 100 mg 100 mg PO QPM 05/29/19 07/16/20 History tablet zinc 50 mg tablet 50 mg PO DAILY 05/29/19 07/16/20 History lisinopril 20 mg PO HS 12/03/19 07/16/20 History famotidine 20 mg tablet 20 mg PO BID #180 tablet 12/29/19 07/16/20 Rx cyanocobalamin (vitamin B-12) 2,000 mcg PO DAILY 02/20/20 07/16/20 History galantamine 8 mg 24 hr See Rx Instructions .ROUTE 04/05/20 07/16/20 Rx capsule,extended release .COMPLEX #90 capsule memantine 28 mg capsule 28 mg PO QPM #90 each 04/07/20 07/16/20 Rx sprinkle,extended release 24hr amlodipine 10 mg tablet See Rx Instructions .ROUTE 06/08/20 07/16/20 Rx .COMPLEX #90 tablet metformin 500 mg tablet,extended See Rx Instructions .ROUTE 06/10/20 07/16/20 Rx release 24 hr .COMPLEX #180 tablet celecoxib 200 mg capsule 200 mg PO DAILY #90 cap 07/14/20 07/16/20 Rx gabapentin 100 mg PO HS 07/16/20 07/16/20 History warfarin [Coumadin] 5 mg PO DAILY 07/16/20 07/16/20 History warfarin [Coumadin] 7 mg PO 2XW 07/16/20 07/16/20 History Laboratory Tests 07/17/20 07/17/20 07/17/20 09:07 12:44 16:21 WBC RBC Hgb Hct MCV MCH MCHC RDW Plt Count MPV Immature Gran % (Auto) Neut % (Auto) Lymph % (Auto) Haines % (Auto) Eos % (Auto) Baso % (Auto) Lymph # (Auto) Haines # (Auto) Eos # (Auto) Baso # (Auto) Abs Immat Gran (auto) Absolute Neuts (auto) Absolute Nucleated RBC Nucleated RBC % PT 18.0 Seconds H D Seconds (11.1-14.7) INR 1.4 Sodium Potassium Chloride Carbon Dioxide Anion Gap BUN Creatinine Estim Creat Clear Calc Estimated GFR Glucose POC Capillary Glucose 118 mg/dl H mg/dl 174 mg/dl H mg/dl (65-105) (65-105) Calcium Magnesium 07/17/20 07/17/20 07/18/20 19:01 20:59 05:09 WBC 9.9 K/mm3 K/mm3 (4.5-10.0) RBC 3.29 M/mm3 L M/mm3 (4.2-5.4) Hgb 10.0 g/dL L g/dL (12.0-15.0) Hct 30.3 % L % (37.0-47
--- NOTE | 2020-07-18 11:04 | WPDHPUPDATE1 ---
History and Physical Update Update Date/Time: 07/18/20 11:04 History and Physical has been reviewed, including an updated exam of the patient. There are NO changes in the patient's condition. Risks, benefits, and alternatives have been discussed and questions answered. Patient agrees to proceed with procedure. INR 1.2
[2020-07-18] MEDS: ceFAZolin 2 GM/D5W 50 ML 2 GM/50 ML BAG IVPB (11:23)
[2020-07-18] MEDS: ceFAZolin SODIUM 1 GM VIAL 3 GM IRRIGATION (12:21)
[2020-07-18] MEDS: EPINEPHrine INJ 1 MG/10 ML SYRINGE XX (12:25)
--- NOTE | 2020-07-18 13:57 | P.OP_ITS ---
Procedure Note - Detailed Date of procedure: 07/18/20 Pre-op diagnosis: fall - right hip pain Displaced right subcapital femoral neck fracture Post-op diagnosis: same Procedure performed: Cemented bipolar hemiarthroplasty right hip Description of procedure: Patient was brought to the operating room and general anesthesia was administered. She was placed in lateral decubitus position and the right hip prepped draped usual fashion. She received 2 g of Ancef weight based vancomycin preoperatively. A 6 in lateral incision was used and fascia orin incised in line with the incision and the anterior 50% of the gluteus medius and gluteus minimus were all elevated off the greater trochanter. Capsule was ends of sized superiorly and elevated off the anterior femoral neck. Provisional femoral neck osteotomy was made. Her bone was very thin around the femoral neck and calcar. The femoral head was removed without difficulty. It measured 44 Reva corner mm diameter in the 45 bipolar head fit nicely in the acetabulum. The femur was broached to a Lizette cement for. The neck cut was shortened a bit until the -4 head had the appropriate soft tissue tension. We obtained an intraoperative x-ray and it showed we were just a couple of mm longer than the other side. We countersunk the broach and calcar planed another couple of mm and found that the soft tissue tension was appropriate with excellent range of motion and stability in all positions. An 18.5 mm cement restrictor was inserted down the canal. We chose the 10 mm centralizer tip which was placed on the size 4 Lizette cemented femoral component with the 132 degree neck angle. This was the Acolade C stem. We matched a batch of cement consisting of 2 batches 1 containing gentamicin powder Biomet and the cement came out partially cured and doughy and this had to be discarded. We had not put any in the femur at this point. We mixed another batch of cement and this time the cement was of perfect. We had prepared the canal with epinephrine- soaked sponges pulsatile lavage and drying and cement was injected into the canal lightly pressurized and the size 4, 132 degree neck angle cemented stem was fully seated at the proper anteversion. After cement curing excess cement was sought for removed the wound thoroughly irrigated again with antibiotic solution and we trialed and the -4 head again was appropriate. We assembled a - 4 head to the trunnion after cleaning and drying the trunnion and it was securely lb on and the 8th 45 mm bipolar head snapped onto the smaller femoral head. The wound irrigated again with antibiotic solution hip reduced stability range of motion reconfirmed. Leg lengths appeared equal. The local anesthetic solution minus the Toradol was injected in the soft tissues. Estimated blood loss 100 cc. Third g of Ancef given at time of wound closure. Capsule was repaired with 2. Ethibond abductors with 5. Ethibond and 2. Ethibond . fascia orin with 2. Vicryl and 1. Unidirectional barbed strata fix suture drain in the subcutaneous layer subcutaneous 2 0 Vicryl in glue. She tolerated the procedure well as transferred postop recovery room in stable condition. Implants: Lizette cemented femoral component and bipolar head Anesthesia: JUN Surgeon: Crow Fields MD [employer] Worker: Casie Estimated blood loss (mL): 100 Drains: Yes Pathology: yes (Femoral head right hip) Condition: stable Disposition: PACU
[2020-07-18] MEDS: LACTATED RINGERS 1,000 ML 30 ML IV CONT ×2 (14:15)
--- NOTE | 2020-07-18 15:15 | PC.NURSE ---
Returned from OR per bed. Report received from TOR Cortes.
[2020-07-18] MEDS: amLODIPine BESYLATE 5 MG TABLET 10 MG BY MOUTH (15:46)
[2020-07-18] MEDS: CYANOCOBALAMIN 1,000 MCG TABLET 2000 MCG PO (15:47)
[2020-07-18] MEDS: CHOLECALCIFEROL 1,000 UNITS TABLET 5000 UNITS PO (15:47)
--- NOTE | 2020-07-18 15:49 | PM.IMPN ---
Progress Note: A&P Assessment and Plan (1) Closed subcapital fracture of neck of right femur: Code(s): S72.011A - Unspecified intracapsular fracture of right femur, initial encounter for closed fracture Status: Acute Assessment and Plan: S/p fall at home. Dr. Fields has been consulted and appreciate recommendations. Patient had right hip repair today; no immediate complications. Seemingly doing well thus far. Daily INR Post op care, pain management, PT/OT, DVT ppx per orthopedic surgery Monitor Likely SNF/Rehab at discharge. CC following (2) H/O mechanical aortic valve replacement: Code(s): Z95.2 - Presence of prosthetic heart valve Status: Chronic Assessment and Plan: Cardiology has been consulted and appreciate recommendations. INR 1.2 today. She received 2 doses vitamin K per Dr. Fields. Warfarin to be resumed tonight with decreased dose Lovenox per Ortho rec. S Daily INR as above Continue home warfarin Lovenox per ortho Monitor (3) Abnormal urinalysis: Code(s): R82.90 - Unspecified abnormal findings in urine Status: Acute Assessment and Plan: UA suggestive of possible UTI. UCx negative. Patient asymptomatic, although foul smelling urine noted by family. normal WBC count d/c Rocephin Monitor (4) Type 2 diabetes mellitus without complication, without long-term current use of insulin: Code(s): E11.9 - Type 2 diabetes mellitus without complications Status: Chronic Assessment and Plan: A1c 5.9. Accuchecks ACHS, hypoglycemia protocol, correctional insulin, diabetic diet Metformin held Monitor (5) Essential (primary) hypertension: Code(s): I10 - Essential (primary) hypertension Status: Acute Assessment and Plan: BP 160s sys most recently Continue with lisinopril and amlodipine Monitor (6) Hypercholesterolemia: Code(s): E78.00 - Pure hypercholesterolemia, unspecified Status: Acute Assessment and Plan: Hold atorvastatin (7) Dementia: Code(s): F03.90 - Unspecified dementia without behavioral disturbance Status: Chronic Assessment and Plan: Appears to be at baseline Continue with Namenda Subjective Date/time seen: 07/18/20 15:49 Interval history: Patient is a 84 yo F with history of second degree AV block Mobitz type I, aortic valve replacement (on warfarin), CKD, history of suprapubic catheter, dementia, HTN among other comorbid conditions who is seen in follow up for right hip fracture s/p fall at home, and possible UTI. Patient recently returned from her right hip repair. She has no complaints this afternoon; pain reasonably controlled although still has some sedation. Denies f/c/s, cp/palpitations, sob, n/v, abd pain, issues with suprapubic catheter Review of Systems Review of Systems: All systems reviewed & are unremarkable except as noted in HPI and below Exam Narrative: Exam Narrative: General: Patient lying supine in bed in no acute distress. Slightly sedated but answers questions appropriately HEENT: Normocephalic, EOMI, oral mucosa moist. Cardiovascular: Rate and rhythm are regular. Click/normal mechanical aortic valve closure sound noted Respiratory: Lungs clear to auscultation anterolateral lung jenkins. Non-labored breathing. On 2L O2 via NC Abdomen: Soft, non-tender, non-distended, bowel sounds present. Suprapubic catheter noted, yellow/clear urine appreciated in catheter bag Extremities: Peripheral pulses intact. No edema. NTTP left calf. NVI right LE distal to surgical site Neuro: No focal neurological deficits. Speech is clear. Objective Data Vital Signs Vital Signs: Last Vital Signs T
[2020-07-18] MEDS: ASCORBIC ACID 250 MG TABLET PO (15:50)
[2020-07-18] MEDS: KCL 20 MEQ/D5/0.45% SOD CHL 1,000 ML 80 ML IV CONT (15:52)
[2020-07-18 16:52] LABS: Glucose Point of Care 235 (65-105)
[2020-07-18] MEDS: ACETAMINOPHEN 500 MG TABLET 1000 MG PO ×2 (17:31→23:03)
[2020-07-18] MEDS: ASPIRIN 81 MG ENTERIC TABLET PO (17:31)
[2020-07-18] MEDS: WARFARIN (*PBKC) 4 MG TABLET PO (17:31)
[2020-07-18] MEDS: MEMANTINE HCL XR 28 MG CAP PO (17:31)
[2020-07-18] MEDS: ATORVASTATIN 40 MG TABLET 80 MG PO (17:31)
[2020-07-18] MEDS: WARFARIN (*PBKC) 3 MG TABLET PO (17:31)
[2020-07-18] MEDS: FAMOTIDINE 20 MG TABLET PO (20:16)
[2020-07-18 21:35] LABS: Glucose Point of Care 219 (65-105)
[2020-07-18] MEDS: ceFAZolin 500 MG in DEXTROSE 5% IN WATER 50 ML 100 MG IVPB (23:03)
[2020-07-19] VITALS (11 sets, daily range): BP systolic 114–138; BP diastolic 48–60; PULSE 71–100; RESP 12–24; TEMP 36.2–36.8; O2SAT 92–97
[2020-07-19] MEDS: MORPHINE SULFATE (*CRX) 2 MG/ML INJ IV PUSH (04:27)
[2020-07-19 04:54] LABS: Basophils Percent Auto 0.1 % (0.2-1.2); Eosinophils Percent Auto 0.3 % (0-4.4); Hematocrit 26.9 % (37.0-47.0); Hemoglobin 8.8 g/dL (12.0-15.0); Immature Granulocyte Absolute 0.06 K/mm3 (0.00-0.031); Immature Granulocyte Percent A 0.7 % (0-0.5); Immature Platelet Fraction Pct 4.9 % (0.9-11.2); Lymphocytes Absolute Auto 0.51 K/mm3 (0.9-3.2); Lymphocytes Percent Auto 5.8 % (18.3-44.2); Mean Corpuscular HGB Conc 32.7 g/dl (32-36); Mean Corpuscular Volume 91.8 fl (80-100); Mean Platelet Volume 11.7 fl (7.4-10.4); Monocytes Absolute Auto 0.8 K/mm3 (0.1-0.6); Monocytes Percent Auto 9.4 % (2.6-8.5); Neutrophils Absolute Auto 7.3 K/mm3 (1.3-6.7); Neutrophils Percent Auto 83.7 % (45.5-73.1); Platelet Count Result 128 k/mm3 (150-375); Red Blood Count 2.93 M/mm3 (4.2-5.4); Red Cell Distribution Width 13.6 % (11.5-14.5); White Blood Count 8.7 K/mm3 (4.5-10.0)
[2020-07-19 05:01] LABS: INR 1.1; Prothrombin Time 14.4 Seconds (11.1-14.7)
[2020-07-19 05:07] LABS: Anion Gap 3 mmol/L (8-16); Blood Urea Nitrogen 28 mg/dL (7-17); Calcium 8.7 mg/dL (8.4-10.2); Carbon Dioxide 30 mmol/L (22-30); Chloride 100 mmol/L (98-107); Estimated CRCL calculation 24 ml/min; Estimated Glomerular Filt Rate 39; Glucose 144 mg/dL (65-105); Magnesium 1.8 mg/dL (1.6-2.3); Potassium 4.6 mmol/L (3.4-5.0); Sodium 133 mmol/L (137-145)
[2020-07-19] MEDS: ACETAMINOPHEN 500 MG TABLET 1000 MG PO ×3 (06:41→18:25)
--- NOTE | 2020-07-19 07:25 | WPDANESPN ---
Anes - Prog Note Post-Op Date/Time: 07/19/20 07:25 Cardiovascular status: normal Respiratory status: normal Airway patency: baseline Mental status: baseline Post-Op hydration status: normal Vital Signs: Last Vital Signs Temp 36.8 C 07/19/20 05:14 Pulse 83 07/19/20 05:14 Resp 12 07/19/20 05:14 BP 138/57 L 07/19/20 05:14 Pulse Ox 97 07/19/20 05:14 Pain Score (VAS): 0 I/O: Intake & Output 07/18/20 07/18/20 07/19/20 15:59 23:59 07:59 Intake Total 300 390 100 Output Total 175 300 Balance 300 215 -200 Laboratory Tests 07/19/20 04:37 07/19/20 04:37 07/18/20 07/18/20 07/18/20 07:55 16:48 20:15 WBC RBC Hgb Hct MCV MCH MCHC RDW Plt Count MPV Immature Gran % (Auto) Neut % (Auto) Lymph % (Auto) [place] % (Auto) Eos % (Auto) Baso % (Auto) Lymph # (Auto) [place] # (Auto) Eos # (Auto) Baso # (Auto) Abs Immat Gran (auto) Absolute Neuts (auto) Absolute Nucleated RBC Nucleated RBC % % Immature Plt Fraction PT INR Sodium Potassium Chloride Carbon Dioxide Anion Gap BUN Creatinine Estim Creat Clear Calc Estimated GFR Glucose POC Capillary Glucose 168 H 235 H 219 H Calcium Magnesium SARS-CoV-2 RNA (RT-PCR) 07/19/20 07/19/20 07/19/20 04:23 04:37 04:37 WBC 8.7 RBC 2.93 L Hgb 8.8 L Hct 26.9 L MCV 91.8 MCH 30.0 MCHC 32.7 RDW 13.6 Plt Count 128 L MPV 11.7 H Immature Gran % (Auto) 0.7 H Neut % (Auto) 83.7 H Lymph % (Auto) 5.8 L [place] % (Auto) 9.4 H Eos % (Auto) 0.3 Baso % (Auto) 0.1 L Lymph # (Auto) 0.51 L [place] # (Auto) 0.8 H Eos # (Auto) 0.0 Baso # (Auto) 0.0 Abs Immat Gran (auto) 0.06 H Absolute Neuts (auto) 7.3 H Absolute Nucleated RBC 0.0 Nucleated RBC % 0.0 % Immature Plt Fraction 4.9 PT 14.4 INR 1.1 Sodium Potassium Chloride Carbon Dioxide Anion Gap BUN Creatinine Estim Creat Clear Calc Estimated GFR Glucose POC Capillary Glucose Calcium Magnesium SARS-CoV-2 RNA (RT-PCR) Pending 07/19/20 04:37 WBC RBC Hgb Hct MCV MCH MCHC RDW Plt Count MPV Immature Gran % (Auto) Neut % (Auto) Lymph % (Auto) [place] % (Auto) Eos % (Auto) Baso % (Auto) Lymph # (Auto) [place] # (Auto) Eos # (Auto) Baso # (Auto) Abs Immat Gran (auto) Absolute Neuts (auto) Absolute Nucleated RBC Nucleated RBC % % Immature Plt Fraction PT INR Sodium 133 L Potassium 4.6 Chloride 100 Carbon Dioxide 30 Anion Gap 3 L BUN 28 H Creatinine 1.30 H Estim Creat Clear Calc 24 Estimated GFR 39 L Glucose 144 H POC Capillary Glucose Calcium 8.7 Magnesium 1.8 SARS-CoV-2 RNA (RT-PCR) Post-procedural complaints: none Patient Feedback: Patient satisfied with anesthetic care.
[2020-07-19] MEDS: CHOLECALCIFEROL 1,000 UNITS TABLET 5000 UNITS PO (09:55)
[2020-07-19] MEDS: ASCORBIC ACID 250 MG TABLET PO (09:55)
[2020-07-19] MEDS: ENOXAPARIN 30 MG/0.3 ML SYRINGE SUB-Q (09:56)
[2020-07-19] MEDS: amLODIPine BESYLATE 5 MG TABLET 10 MG BY MOUTH (09:56)
[2020-07-19] MEDS: CYANOCOBALAMIN 1,000 MCG TABLET 2000 MCG PO (09:56)
[2020-07-19] MEDS: FAMOTIDINE 20 MG TABLET PO ×2 (09:58→21:42)
[2020-07-19] MEDS: ceFAZolin 500 MG in DEXTROSE 5% IN WATER 50 ML 100 MG IVPB (11:51)
[2020-07-19 12:43] LABS: Glucose Point of Care 336 (65-105)
[2020-07-19 12:43] LABS: Glucose Point of Care 148 (65-105)
--- NOTE | 2020-07-19 14:00 | PM.PNORT ---
Progress Note: A&P Additional Plan POD 1 avss wd-dry drain is out INR is 1.1 today, will cont with 7.5mg coumadin nightly, will cont lovenox till INR is therapeutic. Dr Fields would pt to remain here for couple of days to be monitored due to signif. cardiac hx, PT to cont working with pt Subjective Subjective Date/Time Seen: 07/19/20 14:00 Objective Data Vital Signs Vital Signs: Vital Signs - 24 hr 07/18/20 14:15 07/18/20 14:30 07/18/20 14:45 Temperature 36.7 C Pulse Rate 97 94 94 Respiratory Rate 20 21 H 22 H Blood Pressure 192/88 H 195/89 H 176/75 H Pulse Oximetry 100 100 99 07/18/20 15:00 07/18/20 15:20 07/18/20 15:35 Temperature 36.8 C 36.6 C Pulse Rate 99 92 91 Respiratory Rate 22 H 17 16 Blood Pressure 169/76 H 149/61 H 160/69 H Pulse Oximetry 99 99 100 07/18/20 16:00 07/18/20 16:05 07/18/20 17:05 Temperature 37.0 C 37.1 C Pulse Rate 89 97 95 Respiratory Rate 17 17 Blood Pressure 158/73 H 126/58 L Pulse Oximetry 99 94 07/18/20 19:50 07/18/20 20:00 07/18/20 20:43 Temperature 37.2 C Pulse Rate 91 91 97 Respiratory Rate 18 12 Blood Pressure 109/60 Pulse Oximetry 93 96 07/19/20 00:00 07/19/20 04:00 07/19/20 05:14 Temperature 36.8 C Pulse Rate 76 79 83 Respiratory Rate 12 Blood Pressure 138/57 L Pulse Oximetry 97 07/19/20 08:00 07/19/20 09:12 07/19/20 10:58 Temperature 36.2 C L Pulse Rate 71 79 78 Respiratory Rate 16 16 Blood Pressure 114/60 Pulse Oximetry 92 94 Intake/Output Intake/Output: Intake & Output 07/16/20 07/17/20 07/18/20 07/19/20 22:59 22:59 23:59 23:59 Intake Total 600 Output Total 300 Balance 300 Meds/Results Medications: Active Medications Generic Name Dose Route Start Last Admin Trade Name Freq PRN Reason Stop Dose Admin Acetaminophen 1,000 mg 07/18/20 18:00 07/19/20 11:51 Acetaminophen 500 Mg Tablet PO 1,000 mg Q6HR FREDIS Administration Al Hydrox/Mg Hydrox/Simethicone 30 ml 07/18/20 15:09 Mag Hydrox/Al Hydrox/Simeth 30 Ml Udc PO Q6H PRN Indigestion Amlodipine Besylate 10 mg 07/17/20 09:00 07/19/20 09:56 Amlodipine Besylate 5 Mg Tablet BY MOUTH 10 mg DAILY FREDIS Administration Ascorbic Acid 250 mg 07/17/20 09:00 07/19/20 09:55 Ascorbic Acid 250 Mg Tablet PO 250 mg DAILY FREDIS Administration Aspirin 81 mg 07/18/20 18:00 07/18/20 17:31 Aspirin 81 Mg Enteric Tablet PO 81 mg QPM FREDIS Administration Atorvastatin Calcium 80 mg 07/16/20 20:00 07/18/20 17:31 Atorvastatin 40 Mg Tablet PO 80 mg QPM FREDIS Administration Cephalexin HCl 250 mg 07/19/20 22:00 Cephalexin 250 Mg Capsule PO Q8HR [facility] Cyanocobalamin 2,000 mcg 07/17/20 09:00 07/19/20 09:56 Cyanocobalamin 1,000 Mcg Tablet PO 2,000 mcg DAILY FREDIS Administration Dextrose 12.5 gm 07/19/20 12:50 Dextrose 50% 25 Gm/50 Ml Syringe IV PUSH PRN PRN Hypoglycemia Protocol Enoxaparin Sodium 30 mg 07/19/20 09:00 07/19/20 09:56 Enoxaparin 30 Mg/0.3 Ml Syringe SUB-Q 30 mg DAILY FREDIS Administration Famotidine 20 mg 07/18/20 21:00 07/19/20 09:58 Famotidine 20 Mg Tablet PO 20 mg Q12HR FREDIS Administration Galantamine Hydrobromide 8 mg 07/17/20 09:00 07/19/20 09:58 Galantamine Er 8 Mg Cap BY MOUTH 8 mg DAILY FREDIS Administration Glucagon 1 mg 07/19/20 12:50 Glucagon For Inj 1 Mg Vial IM PRN PRN Hypoglycemia Protocol Glucose 15 gm 07/19/20 12:50 Glucose Oral Gel 15 Gm Of Glucse In 37.5 Gm Tube PO PRN PRN Hypoglycemia Protocol Hydroxyzine Pamoate 50 mg 07/18/20 15:09 Hydroxyzine Pamoate 25 Mg Capsule PO Q4H PRN Itching Dextrose 1,000 mls @ 100 mls/hr 07/19/20 12:50 Dextrose 5% 1,000 Ml IVPB PRN PRN Hypoglycemia Protocol Insulin Aspart 2 - 5 units 07/19/20 17:00 Insulin Aspart (*Bkc) 100 Units/Ml SUB-Q TIDWM FREDIS Protocol Magnesium Hydroxide
--- NOTE | 2020-07-19 14:05 | PC.NURSE ---
call to pharmacy to ask for dose of insulin to be ordered for lunch time correction
[2020-07-19] MEDS: INSULIN ASPART (*BKC) 100 UNITS/ML SUB-Q ×2 (14:19→18:26)
--- NOTE | 2020-07-19 16:13 | PM.IMPN ---
Progress Note: A&P Assessment and Plan (1) Closed subcapital fracture of neck of right femur: Code(s): S72.011A - Unspecified intracapsular fracture of right femur, initial encounter for closed fracture Status: Acute Assessment and Plan: S/p fall at home. Dr. Fields has been consulted and appreciate recommendations. POD1 right hip repair. Doing well thus far. CC working on placement. Post op care, pain management, PT/OT, DVT ppx per orthopedic surgery Home Warfarin management per Ortho Monitor Likely SNF/Rehab at discharge. CC following (2) H/O mechanical aortic valve replacement: Code(s): Z95.2 - Presence of prosthetic heart valve Status: Chronic Assessment and Plan: Cardiology has been consulted and appreciate recommendations. INR 1.1 today. Warfarin resumed with decreased dose Lovenox per Ortho rec. Daily INR Warfarin and Lovenox per Ortho rec Monitor (3) Abnormal urinalysis: Code(s): R82.90 - Unspecified abnormal findings in urine Status: Acute Assessment and Plan: UA suggestive of possible UTI, although UCx negative. Patient asymptomatic, although foul smelling urine noted by family. normal WBC count. Received one dose rocephin on 07/17; this has since been d/c given culture results Monitor (4) Type 2 diabetes mellitus without complication, without long-term current use of insulin: Code(s): E11.9 - Type 2 diabetes mellitus without complications Status: Chronic Assessment and Plan: A1c 5.9. Accuchecks ACHS, hypoglycemia protocol, correctional insulin, diabetic diet Metformin held Monitor (5) Essential (primary) hypertension: Code(s): I10 - Essential (primary) hypertension Status: Acute Assessment and Plan: BP 130s sys most recently Continue with lisinopril and amlodipine Monitor (6) Hypercholesterolemia: Code(s): E78.00 - Pure hypercholesterolemia, unspecified Status: Acute Assessment and Plan: Continue atorvastatin (7) Dementia: Code(s): F03.90 - Unspecified dementia without behavioral disturbance Status: Chronic Assessment and Plan: Appears to be at baseline Continue with Namenda Subjective Date/time seen: 07/19/20 16:13 Interval history: Patient is a 84 yo F with history of second degree AV block Mobitz type I, aortic valve replacement (on warfarin), CKD, history of suprapubic catheter, dementia, HTN among other comorbid conditions who is seen in follow up for right hip fracture s/p fall at home; POD 1 right hip repair per Dr. Fields. Patient just finishing with PT session. Right hip pain is there but she states is manageable. Made worse with activity, improves with rest. She has sensation in her right LE distal to surgical site. No other complaints. Denies f/c/s, cp/palpitations, sob, n/v, abd pain, issues with suprapubic catheter Review of Systems Review of Systems: All systems reviewed & are unremarkable except as noted in HPI and below Exam Narrative: Exam Narrative: General: Patient lying supine in bed in no acute distress. HEENT: Normocephalic, EOMI, oral mucosa moist. Cardiovascular: Rate and rhythm are regular. Click/normal mechanical aortic valve closure sound noted. Tele shows sinus rhythm without any alarms overnight. Respiratory: Lungs clear to auscultation anterolateral lung jenkins. Non-labored breathing. On RA at time of visit Abdomen: Soft, non-tender, non-distended, bowel sounds present. Suprapubic catheter noted, yellow/clear urine appreciated in catheter bag Extremities: Peripheral pulses intact. No edema. NTTP left calf. NVI right LE distal to surgical site Neuro: No focal neurolo
--- NOTE | 2020-07-19 16:18 | PM.PNCARD ---
Progress Note: A&P Additional Plan Cardiovascular status stable follow-up repair of hip fracture. Patient is back on her previous dose of warfarin with INR that is subtherapeutic but will certainly rise gradually to the therapeutic range. There are no additional cardiac issues, recommendations to make at this time. It appears that she has selected DNR status following her surgery. Monitoring telemetry is probably not necessary in this setting Sergio Landeros MD [facility] Subjective Date/time seen: Date of service: 07/19/20 16:18 Interval history: Follow-up visit in this 84-year-old woman with: Fall with right hip fracture status post hip replacement yesterday after her INR normalized with withholding Coumadin. Patient has a previous history of mechanical aortic replacement approximately 25 years ago and history of coronary stenting approximately 15 years ago. Exam Const: General: comfortable and no acute distress HENMT: Mouth: Yes dry mucous membranes Eyes: Sclera: sclerae normal Pupils: Equal, round and reactive pupils present Neck: Neck: supple and no JVD Resp: Effort & Inspection: normal respiratory effort Auscultation: clear to auscultation bilaterally Cardio: Other: Normal crisp aortic valve closure sound noted GI: GI Palp: Yes Soft to palpation Auscultation: normal bowel sounds Extrem: General: normal to inspection Objective Data Vital Signs Vital Signs: Vital Signs - 24 hr 07/18/20 17:05 07/18/20 19:50 07/18/20 20:00 Temperature 37.1 C Pulse Rate 95 91 91 Respiratory Rate 17 18 Blood Pressure 126/58 L Pulse Oximetry 94 93 07/18/20 20:43 07/19/20 00:00 07/19/20 04:00 Temperature 37.2 C Pulse Rate 97 76 79 Respiratory Rate 12 Blood Pressure 109/60 Pulse Oximetry 96 07/19/20 05:14 07/19/20 08:00 07/19/20 09:12 Temperature 36.8 C Pulse Rate 83 71 79 Respiratory Rate 12 16 Blood Pressure 138/57 L Pulse Oximetry 97 92 07/19/20 10:58 07/19/20 12:00 07/19/20 14:15 Temperature 36.2 C L 36.6 C Pulse Rate 78 94 80 Respiratory Rate 16 20 Blood Pressure 114/60 135/48 L Pulse Oximetry 94 96 Intake/Output Intake/Output: Intake & Output 03/04/2607/17/20 07/18/20 07/19/20 22:59 22:59 23:59 23:59 Intake Total 600 Output Total 300 Balance 300 Meds/Results Medications: Active Medications Generic Name Dose Route Start Last Admin Trade Name Freq PRN Reason Stop Dose Admin Acetaminophen 1,000 mg 07/18/20 18:00 07/19/20 11:51 Acetaminophen 500 Mg Tablet PO 1,000 mg Q6HR FREDIS Administration Al Hydrox/Mg Hydrox/Simethicone 30 ml 07/18/20 15:09 Mag Hydrox/Al Hydrox/Simeth 30 Ml Udc PO Q6H PRN Indigestion Amlodipine Besylate 10 mg 07/17/20 09:00 07/19/20 09:56 Amlodipine Besylate 5 Mg Tablet BY MOUTH 10 mg DAILY FREDIS Administration Ascorbic Acid 250 mg 07/17/20 09:00 07/19/20 09:55 Ascorbic Acid 250 Mg Tablet PO 250 mg DAILY FREDIS Administration Aspirin 81 mg 07/18/20 18:00 07/18/20 17:31 Aspirin 81 Mg Enteric Tablet PO 81 mg QPM FREDIS Administration Atorvastatin Calcium 80 mg 07/16/20 20:00 07/18/20 17:31 Atorvastatin 40 Mg Tablet PO 80 mg QPM FREDIS Administration Cephalexin HCl 250 mg 07/19/20 22:00 Cephalexin 250 Mg Capsule PO Q8HR [facility] Cyanocobalamin 2,000 mcg 07/17/20 09:00 07/19/20 09:56 Cyanocobalamin 1,000 Mcg Tablet PO 2,000 mcg DAILY FREDIS Administration Dextrose 12.5 gm 07/19/20 12:50 Dextrose 50% 25 Gm/50 Ml Syringe IV PUSH PRN PRN Hypoglycemia Protocol Enoxaparin Sodium 30 mg 07/19/20 09:00 07/19/20 09:56 Enoxaparin 30 Mg/0.3 Ml Syringe SUB-Q 30 mg DAILY FREDIS Administration Famotidine 20 mg 07/18/20 21:00 07/19/20 09:58 Famotidine 20 Mg Tablet PO 20 mg Q12HR FREDIS Administration Galantamine Hydrobromide 8 mg 07/17/20 09:00 07/19/20 09:58 Galantamine Er 8 Mg Cap BY MOUTH 8 mg DAILY [facility] A
[2020-07-19 17:27] LABS: Glucose Point of Care 206 (65-105)
[2020-07-19] MEDS: ASPIRIN 81 MG ENTERIC TABLET PO (18:25)
[2020-07-19] MEDS: ATORVASTATIN 40 MG TABLET 80 MG PO (18:25)
[2020-07-19] MEDS: MEMANTINE HCL XR 28 MG CAP PO (18:26)
[2020-07-19] MEDS: WARFARIN (*PBKC) 7.5 MG TABLET PO (18:29)
[2020-07-19 21:05] LABS: SARS-CoV-2 RNA PCR Negative
[2020-07-19] MEDS: CEPHALEXIN 250 MG CAPSULE PO (21:42)
[2020-07-19 23:08] LABS: Glucose Point of Care 163 (65-105)
[2020-07-20] VITALS (11 sets, daily range): BP systolic 122–163; BP diastolic 51–67; PULSE 70–96; RESP 16–20; TEMP 36–36.6; O2SAT 96–99
[2020-07-20] MEDS: ACETAMINOPHEN 500 MG TABLET 1000 MG PO ×5 (00:24→23:48)
[2020-07-20] MEDS: CEPHALEXIN 250 MG CAPSULE PO ×3 (05:31→21:01)
[2020-07-20 05:40] LABS: Basophils Percent Auto 0.3 % (0.2-1.2); Eosinophils Absolute Auto 0.2 K/mm3 (0-0.3); Eosinophils Percent Auto 2.5 % (0-4.4); Hematocrit 26.5 % (37.0-47.0); Hemoglobin 8.6 g/dL (12.0-15.0); Immature Granulocyte Absolute 0.02 K/mm3 (0.00-0.031); Immature Granulocyte Percent A 0.3 % (0-0.5); Lymphocytes Absolute Auto 0.53 K/mm3 (0.9-3.2); Lymphocytes Percent Auto 7.5 % (18.3-44.2); Mean Corpuscular HGB Conc 32.5 g/dl (32-36); Mean Corpuscular Hemoglobin 30.8 pg (26-34); Mean Platelet Volume 11.2 fl (7.4-10.4); Monocytes Absolute Auto 0.9 K/mm3 (0.1-0.6); Monocytes Percent Auto 12.3 % (2.6-8.5); Neutrophils Absolute Auto 5.5 K/mm3 (1.3-6.7); Neutrophils Percent Auto 77.1 % (45.5-73.1); Platelet Count Result 149 k/mm3 (150-375); Red Blood Count 2.79 M/mm3 (4.2-5.4); Red Cell Distribution Width 13.7 % (11.5-14.5); White Blood Count 7.1 K/mm3 (4.5-10.0)
[2020-07-20 05:45] LABS: INR 1.1; Prothrombin Time 14.7 Seconds (11.1-14.7)
[2020-07-20 05:47] LABS: Anion Gap 2 mmol/L (8-16); Blood Urea Nitrogen 34 mg/dL (7-17); Calcium 8.9 mg/dL (8.4-10.2); Carbon Dioxide 31 mmol/L (22-30); Chloride 100 mmol/L (98-107); Estimated CRCL calculation 26 ml/min; Estimated Glomerular Filt Rate 43; Glucose 152 mg/dL (65-105); Magnesium 1.8 mg/dL (1.6-2.3); Potassium 4.2 mmol/L (3.4-5.0); Sodium 133 mmol/L (137-145)
--- NOTE | 2020-07-20 06:42 | PM.PNORT ---
Progress Note: A&P Additional Plan POD 2 avss INR-1.1 wd-dry hgb-stable from yesterday-will check again in am, pain seems controlled, pt will need rehab facility , will cont with coumadin 7.5mg nightly till bump in INR, lovenox -will maintain till INR is 2.0 Subjective Subjective Date/Time Seen: 07/20/20 06:42 Objective Data Vital Signs Vital Signs: Vital Signs - 24 hr 07/19/20 08:00 07/19/20 09:12 07/19/20 10:58 Temperature 36.2 C L Pulse Rate 71 79 78 Respiratory Rate 16 16 Blood Pressure 114/60 Pulse Oximetry 92 94 07/19/20 12:00 07/19/20 14:15 07/19/20 16:00 Temperature 36.6 C Pulse Rate 94 80 78 Respiratory Rate 20 Blood Pressure 135/48 L Pulse Oximetry 96 07/19/20 17:05 07/19/20 20:00 07/20/20 00:00 Temperature 36.6 C 36.2 C L Pulse Rate 94 100 84 Respiratory Rate 24 H 16 Blood Pressure 130/59 L 126/55 L Pulse Oximetry 97 95 07/20/20 02:00 07/20/20 04:00 07/20/20 05:47 Temperature 36.1 C L 36.0 C L Pulse Rate 82 70 75 Respiratory Rate 16 16 Blood Pressure 131/54 L 153/62 H Pulse Oximetry 97 98 Intake/Output Intake/Output: Intake & Output 07/17/20 07/18/20 07/19/20 07/20/20 22:59 23:59 23:59 23:59 Intake Total 1050 200 Output Total 600 550 Balance 450 -350 Meds/Results Medications: Active Medications Generic Name Dose Route Start Last Admin Trade Name Freq PRN Reason Stop Dose Admin Acetaminophen 1,000 mg 07/18/20 18:00 07/20/20 05:30 Acetaminophen 500 Mg Tablet PO 1,000 mg Q6HR FREDIS Administration Al Hydrox/Mg Hydrox/Simethicone 30 ml 07/18/20 15:09 Mag Hydrox/Al Hydrox/Simeth 30 Ml Udc PO Q6H PRN Indigestion Amlodipine Besylate 10 mg 07/17/20 09:00 07/19/20 09:56 Amlodipine Besylate 5 Mg Tablet BY MOUTH 10 mg DAILY FREDIS Administration Ascorbic Acid 250 mg 07/17/20 09:00 07/19/20 09:55 Ascorbic Acid 250 Mg Tablet PO 250 mg DAILY FREDIS Administration Aspirin 81 mg 07/18/20 18:00 07/19/20 18:25 Aspirin 81 Mg Enteric Tablet PO 81 mg QPM FREDIS Administration Atorvastatin Calcium 80 mg 07/16/20 20:00 07/19/20 18:25 Atorvastatin 40 Mg Tablet PO 80 mg QPM FREDIS Administration Cephalexin HCl 250 mg 07/19/20 22:00 07/20/20 05:31 Cephalexin 250 Mg Capsule PO 250 mg Q8HR FREDIS Administration Cyanocobalamin 2,000 mcg 07/17/20 09:00 07/19/20 09:56 Cyanocobalamin 1,000 Mcg Tablet PO 2,000 mcg DAILY FREDIS Administration Dextrose 12.5 gm 07/19/20 12:50 Dextrose 50% 25 Gm/50 Ml Syringe IV PUSH PRN PRN Hypoglycemia Protocol Enoxaparin Sodium 30 mg 07/19/20 09:00 07/19/20 09:56 Enoxaparin 30 Mg/0.3 Ml Syringe SUB-Q 30 mg DAILY FREDIS Administration Famotidine 20 mg 07/18/20 21:00 07/19/20 21:42 Famotidine 20 Mg Tablet PO 20 mg Q12HR FREDIS Administration Galantamine Hydrobromide 8 mg 07/17/20 09:00 07/19/20 09:58 Galantamine Er 8 Mg Cap BY MOUTH 8 mg DAILY FREDIS Administration Glucagon 1 mg 07/19/20 12:50 Glucagon For Inj 1 Mg Vial IM PRN PRN Hypoglycemia Protocol Glucose 15 gm 07/19/20 12:50 Glucose Oral Gel 15 Gm Of Glucse In 37.5 Gm Tube PO PRN PRN Hypoglycemia Protocol Hydroxyzine Pamoate 50 mg 07/18/20 15:09 Hydroxyzine Pamoate 25 Mg Capsule PO Q4H PRN Itching Dextrose 1,000 mls @ 100 mls/hr 07/19/20 12:50 Dextrose 5% 1,000 Ml IVPB PRN PRN Hypoglycemia Protocol Insulin Aspart 2 - 5 units 07/19/20 17:00 07/19/20 18:26 Insulin Aspart (*Bkc) 100 Units/Ml SUB-Q 2 units TIDWM FREDIS Administration Protocol Magnesium Hydroxide 30 ml 07/18/20 15:09 Magnesium Hydroxide Susp 30 Ml Udc PO BID PRN Constipation Memantine 28 mg 07/16/20 20:05 07/19/20 18:26 Memantine Hcl Xr 28 Mg Cap PO 28 mg QPM FREDIS Administration Morphine Sulfate 2 mg 07/18/20 15:09 07/19/20 04:27 Morphine Sulfate (*Crx) 2 Mg/Ml Inj I
[2020-07-20 09:17] LABS: Glucose Point of Care 145 (65-105)
[2020-07-20] MEDS: FAMOTIDINE 20 MG TABLET PO ×2 (09:50→21:01)
[2020-07-20] MEDS: ASCORBIC ACID 250 MG TABLET PO (09:52)
[2020-07-20] MEDS: CHOLECALCIFEROL 1,000 UNITS TABLET 5000 UNITS PO (09:52)
[2020-07-20] MEDS: CYANOCOBALAMIN 1,000 MCG TABLET 2000 MCG PO (09:52)
[2020-07-20] MEDS: amLODIPine BESYLATE 5 MG TABLET 10 MG BY MOUTH (09:52)
[2020-07-20] MEDS: ENOXAPARIN 30 MG/0.3 ML SYRINGE SUB-Q (09:53)
--- NOTE | 2020-07-20 10:43 | P.CDI_ITS ---
CDI Query Clarification Request -3 H&H 9.7/29.4 3/16 H&H 8.6/26.5 -Fracture femur documented and EBL 100cc in OR Please clarify if there is a possible corresponding diagnosis for above findings. * Chronic Anemia * Acute blood loss anemia on chronic anemia * Not clinically significant * Other * Unable to determine
--- NOTE | 2020-07-20 10:43 | WPDCDIQUERY2 ---
CDI Query Clarification Request -3 H&H 9.7/29.4 3/16 H&H 8.6/26.5 -Fracture femur documented and EBL 100cc in OR Please clarify if there is a possible corresponding diagnosis for above findings. Chronic Anemia Acute blood loss anemia on chronic anemia Not clinically significant Other Unable to determine
[2020-07-20 12:13] LABS: Glucose Point of Care 188 (65-105)
--- NOTE | 2020-07-20 14:59 | PM.IMPN ---
Progress Note: A&P Assessment and Plan (1) Closed subcapital fracture of neck of right femur: Code(s): S72.011A - Unspecified intracapsular fracture of right femur, initial encounter for closed fracture Status: Acute Assessment and Plan: S/p fall at home. Dr. Fields has been consulted and appreciate recommendations. POD 2 right hip repair. CC working on placement. Post op care, pain management, PT/OT, DVT ppx per orthopedic surgery Home Warfarin management per Ortho Monitor Likely SNF/Rehab at discharge. CC following (2) H/O mechanical aortic valve replacement: Code(s): Z95.2 - Presence of prosthetic heart valve Status: Chronic Assessment and Plan: Cardiology has been consulted and appreciate recommendations. INR 1.1 today. Warfarin resumed with decreased dose Lovenox per Ortho rec. Daily INR Warfarin and Lovenox per Ortho rec Monitor (3) Abnormal urinalysis: Code(s): R82.90 - Unspecified abnormal findings in urine Status: Acute Assessment and Plan: UA suggestive of possible UTI, although UCx negative. Patient asymptomatic, although foul smelling urine noted by family. normal WBC count. Received one dose rocephin on 07/17; this has since been d/c given culture results Monitor (4) Type 2 diabetes mellitus without complication, without long-term current use of insulin: Code(s): E11.9 - Type 2 diabetes mellitus without complications Status: Chronic Assessment and Plan: A1c 5.9. Accuchecks ACHS, hypoglycemia protocol, correctional insulin, diabetic diet Metformin held Monitor (5) Essential (primary) hypertension: Code(s): I10 - Essential (primary) hypertension Status: Acute Assessment and Plan: BP 153/62 sys most recently, elevated Continue with lisinopril and amlodipine Monitor (6) Hypercholesterolemia: Code(s): E78.00 - Pure hypercholesterolemia, unspecified Status: Acute Assessment and Plan: Continue atorvastatin (7) Dementia: Code(s): F03.90 - Unspecified dementia without behavioral disturbance Status: Chronic Assessment and Plan: Appears to be at baseline Continue with Namenda (8) Anemia: Code(s): D64.9 - Anemia, unspecified Status: Acute Assessment and Plan: Stable, chronic anemia most likely due to underlying CKD. Hemoglobin ranges between 9 and 10 as per prior labs. Hemoglobin today 8.6, hematocrit 26%. Stable since after surgery No signs of acute bleeding at this time. Starting anticoagulation due to her history of mechanical valve and needs to be on Coumadin. We are bridging warfarin with Lovenox. Continue monitoring. No acute signs of bleeding at this time. 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 Fields. Date of service 07/20/2020: Patient reports being in 7/10 pain at this time. She just recently got back from walking to the bathroom with the nurse and her right hip is very painful. she is feeling constipated and has not had a bowel movement since arrival. She denies any chest pain, shortness of breath, cough, fever, chills, nausea, vomiting, abdominal pain, leg swelling, calf pain, or any other symptoms at this time. Review of Systems Review of Systems: All
--- NOTE | 2020-07-20 16:14 | WPDCN ---
Assessment and Plan Assessment and plan (1) Closed subcapital fracture of neck of right femur: Code(s): S72.011A - Unspecified intracapsular fracture of right femur, initial encounter for closed fracture Status: Acute Assessment and Plan: I spoke with son Noah and daughter Martha regarding ongoing therapy and discharge planning. Patient was able to follow directions and did participate with me during my exam. Unfortunately overall endurance is quite low. My recommendations are for patient to go to correction facility focusing on transfers limited gait ADLs. Daughter Martha overall goal is to eventually take her home if possible. However Martha we would be unable to perform any significant lifting. (2) Atrial fibrillation: Code(s): I48.91 - Unspecified atrial fibrillation Status: Acute (3) H/O aortic valve replacement: Code(s): Z95.2 - Presence of prosthetic heart valve Status: Chronic (4) Second degree AV block, Mobitz type I: Code(s): I44.1 - Atrioventricular block, second degree Status: Acute (5) Pressure ulcer of sacral region, stage 1: Code(s): L89.151 - Pressure ulcer of sacral region, stage 1 Status: Acute (6) Ambulatory dysfunction: Code(s): R26.2 - Difficulty in walking, not elsewhere classified Status: Acute (7) CKD (chronic kidney disease) stage 3, GFR 30-59 ml/min: Code(s): N18.3 - Chronic kidney disease, stage 3 (moderate) Status: Chronic (8) Essential (primary) hypertension: Code(s): I10 - Essential (primary) hypertension Status: Acute (9) Vitamin D deficiency: Code(s): E55.9 - Vitamin D deficiency, unspecified Status: Acute Additional Plan Overall recommendations are for correction facility with ongoing PT and OT. Family's 1st choice is [facility] and 2nd choice [facility]. Thank you for allowing me to participate in the care your patient HPI Data of Consult Date/Time: 07/20/20 16:14 Rehab consult Requesting Physician: Deborah Norton PA-C Primary Care Provider: Devaughn Witt MD Consult Narrative Narrative: Sadie Winston is a 84 year old female with aortic valve replacement, second-degree AV block Mobitz type. Chronic kidney disease, history of suprapubic catheter, dementia, hypertension who fell at home sustaining a right subcapital femoral neck fracture. Patient underwent cemented bipolar hip arthroplasty on 07/[address] Fields Hospital course is noted for dementia and decline in prior level of functioning. Review of Systems Review of Systems: ROS unobtainable: Yes unobtainable due to mental status PMFSH Past Medical History Medical History Atrial fibrillation CKD (chronic kidney disease) stage 3, GFR 30-59 ml/min CVA (cerebral vascular accident) 10/2019 - l sided weakness Dementia 02/12/2013 Dementia, unspecified, without behavioral disturbance Diarrhea in adult patient 06/25/2018 Dyslipidemia Edema of both lower legs due to peripheral venous insufficiency 07/21/2018 Elevated lipids Essential (primary) hypertension Gastric ulcer History of gastric ulcer Hypercholesterolemia Low back pain without sciatica Second degree AV block, Mobitz type I Suprapubic catheter Tinea cruris Type 2 diabetes mellitus without complication, without long-term current use of insulin Vitamin D deficiency Surgical History Surgical History Aortic valve replaced (~07/17/95) 07/17/1995 History of cholecystectomy (~06/17/02) 06/17/2002 History of coronary artery stent placement History of right coronary artery stent placement (~02/16/06) 02/16/2006 History of suprapubic catheter 02/2020 Family History Family History Father Acute myocardial infarction Diabetes mellitus Sibl
[2020-07-20] MEDS: oxyCODONE HCL (*CRX) 5 MG TAB IR PO (17:09)
[2020-07-20] MEDS: WARFARIN (*PBKC) 7.5 MG TABLET PO (17:10)
[2020-07-20] MEDS: MEMANTINE HCL XR 28 MG CAP PO (17:11)
[2020-07-20] MEDS: ATORVASTATIN 40 MG TABLET 80 MG PO (17:11)
[2020-07-20] MEDS: ASPIRIN 81 MG ENTERIC TABLET PO (17:12)
[2020-07-20] MEDS: INSULIN ASPART (*BKC) 100 UNITS/ML SUB-Q (17:21)
[2020-07-20 17:51] LABS: Glucose Point of Care 246 (65-105)
[2020-07-20] MEDS: DOCUSATE SODIUM 100 MG CAPSULE PO (21:01)
[2020-07-20 21:39] LABS: Glucose Point of Care 213 (65-105)
[2020-07-20] MEDS: oxyCODONE HCL (*CRX) 2.5 MG TAB IR PO (23:44)
[2020-07-21] VITALS: PULSE 90
[2020-07-21 04:00] VITALS: PULSE 75
[2020-07-21] MEDS: ACETAMINOPHEN 500 MG TABLET 1000 MG PO ×3 (05:12→17:20)
[2020-07-21] MEDS: CEPHALEXIN 250 MG CAPSULE PO ×2 (05:12→13:09)
[2020-07-21] MEDS: oxyCODONE HCL (*CRX) 2.5 MG TAB IR PO ×2 (05:17→08:57)
[2020-07-21 05:37] LABS: Basophils Percent Auto 0.3 % (0.2-1.2); Eosinophils Absolute Auto 0.2 K/mm3 (0-0.3); Eosinophils Percent Auto 2.6 % (0-4.4); Hematocrit 25.6 % (37.0-47.0); Hemoglobin 8.3 g/dL (12.0-15.0); Immature Granulocyte Absolute 0.02 K/mm3 (0.00-0.031); Immature Granulocyte Percent A 0.3 % (0-0.5); Lymphocytes Absolute Auto 0.52 K/mm3 (0.9-3.2); Lymphocytes Percent Auto 8.5 % (18.3-44.2); Mean Corpuscular HGB Conc 32.4 g/dl (32-36); Mean Corpuscular Hemoglobin 30.1 pg (26-34); Mean Corpuscular Volume 92.8 fl (80-100); Mean Platelet Volume 10.9 fl (7.4-10.4); Monocytes Absolute Auto 0.8 K/mm3 (0.1-0.6); Monocytes Percent Auto 12.2 % (2.6-8.5); Neutrophils Absolute Auto 4.7 K/mm3 (1.3-6.7); Neutrophils Percent Auto 76.1 % (45.5-73.1); Platelet Count Result 189 k/mm3 (150-375); Red Blood Count 2.76 M/mm3 (4.2-5.4); Red Cell Distribution Width 13.7 % (11.5-14.5); White Blood Count 6.1 K/mm3 (4.5-10.0)
[2020-07-21 05:40] LABS: INR 1.2; Prothrombin Time 16.2 Seconds (11.1-14.7)
[2020-07-21 05:49] LABS: Anion Gap 1 mmol/L (8-16); Blood Urea Nitrogen 38 mg/dL (7-17); Calcium 8.9 mg/dL (8.4-10.2); Carbon Dioxide 33 mmol/L (22-30); Chloride 103 mmol/L (98-107); Estimated CRCL calculation 26 ml/min; Estimated Glomerular Filt Rate 43; Glucose 150 mg/dL (65-105); Potassium 4.5 mmol/L (3.4-5.0); Sodium 137 mmol/L (137-145)
[2020-07-21 06:00] VITALS: BP 167/65; PULSE 81; RESP 16; TEMP 36.1; O2SAT 96
[2020-07-21 07:52] LABS: Glucose Point of Care 150 (65-105)
[2020-07-21 08:00] VITALS: PULSE 84
[2020-07-21] MEDS: ENOXAPARIN 30 MG/0.3 ML SYRINGE SUB-Q (08:55)
[2020-07-21] MEDS: DOCUSATE SODIUM 100 MG CAPSULE PO (08:55)
[2020-07-21] MEDS: CYANOCOBALAMIN 1,000 MCG TABLET 2000 MCG PO (08:56)
[2020-07-21] MEDS: CHOLECALCIFEROL 1,000 UNITS TABLET 5000 UNITS PO (08:56)
[2020-07-21] MEDS: ASCORBIC ACID 250 MG TABLET PO (08:56)
[2020-07-21] MEDS: FAMOTIDINE 20 MG TABLET PO (08:56)
[2020-07-21] MEDS: amLODIPine BESYLATE 5 MG TABLET 10 MG BY MOUTH (08:57)
[2020-07-21] MEDS: polyethylene glycoL 3350 17 GM POWD.PACK PO (08:58)
[2020-07-21 11:40] LABS: Glucose Point of Care 281 (65-105)
[2020-07-21] MEDS: INSULIN ASPART (*BKC) 100 UNITS/ML SUB-Q ×2 (11:57→17:19)
[2020-07-21] MEDS: oxyCODONE HCL (*CRX) 5 MG TAB IR PO (13:09)
[2020-07-21 14:35] VITALS: BP 117/48; PULSE 86; RESP 18; TEMP 36.4; O2SAT 96
--- NOTE | 2020-07-21 15:12 | PC.NURSE ---
On 07/21/20, the student, [Florinda Antunez ], provided care and completed [facility] documentation on this patient. I have reviewed the student's documentation and agree with the findings.
--- NOTE | 2020-07-21 15:24 | PM.DS ---
DS: Admitting Diagnosis Admitting Diagnosis Admitting Diagnosis: Fall, hip pain DS: Discharge Diagnosis Discharge Diagnosis (1) Closed subcapital fracture of neck of right femur: Code(s): S72.011A - Unspecified intracapsular fracture of right femur, initial encounter for closed fracture Status: Acute Assessment and Plan: S/p fall at home. Dr. Fields has been consulted and completed Cemented bipolar hemiarthroplasty on 07/18/20. POD #3. Care coordination found placement at local SNF where she will be discharged to continue with PT/OT. Will continue pain control. Patient is stable at this time (2) H/O mechanical aortic valve replacement: Code(s): Z95.2 - Presence of prosthetic heart valve Status: Chronic Assessment and Plan: Cardiology has been consulted and appreciate recommendations. INR 1.1 today. Warfarin resumed with decreased dose Lovenox per Ortho rec. Cardiology had been consulted due to her history mechanical valve and stated Since the aortic valve prosthesis has been in place for a long time I do not feel strongly that this patient has to be bridged with heparin. After her surgery her INR was subtherapeutic and she was restarted on her oral warfarin with Lovenox 30 mg subcu daily for DVT prophylaxis. Cardiology evaluated her again on 07/19/2020 after surgery and may no adjustments to her anticoagulation at that time with her subtherapeutic INR, history of mechanical valve. Discussed with ortho and they would like INRs checked daily until INR is within range for a mechanical valve which is 2.5-3.5. She will continue on her home warfarin with subcu Lovenox until INR is within therapeutic range. Instructed patient to follow-up with cardiology as an outpatient for further evaluation and monitoring postop Ortho also has the patient on PO Keflex post op and they will prescribe how much longer they would like her to remain on that antibiotic. (3) Abnormal urinalysis: Code(s): R82.90 - Unspecified abnormal findings in urine Status: Acute Assessment and Plan: UA suggestive of possible UTI, although UCx negative. Patient asymptomatic, although foul smelling urine noted by family. normal WBC count. Received one dose rocephin on 07/17; this has since been d/c given culture results (4) Type 2 diabetes mellitus without complication, without long-term current use of insulin: Code(s): E11.9 - Type 2 diabetes mellitus without complications Status: Chronic Assessment and Plan: A1c 5.9. Will continue Accu-Cheks upon discharge and continue her metformin. Hypoglycemic protocol will be continued at [facility]. (5) Essential (primary) hypertension: Code(s): I10 - Essential (primary) hypertension Status: Acute Assessment and Plan: BP 167/65, elevated. repeat this afternoon within normal range 117/48. Continue with amlodipine. Holding Lisinopril at this time. Told to check BP regularly and restart if BP elevated. (6) Hypercholesterolemia: Code(s): E78.00 - Pure hypercholesterolemia, unspecified Status: Acute Assessment and Plan: Continue atorvastatin (7) Dementia: Code(s): F03.90 - Unspecified dementia without behavioral disturbance Status: Chronic Assessment and Plan: Appears to be at baseline Continue with Namenda (8) Anemia: Code(s): D64.9 - Anemia, unspecified Status: Acute Assessment and Plan: Stable, chronic anemia most likely due to underlying CKD. Hemoglobin ranges between 9 and 10 as per prior labs. Hemoglobin today 8.3, hematocrit 25%. Stable since after surgery No signs of acute bleeding at this time. Starting anticoagula
--- NOTE | 2020-07-21 17:14 | PM.PNORT ---
Progress Note: A&P Additional Plan Patient is now postoperative day 3. Following cemented bipolar hemiarthroplasty of her right hip. Her right hip incision has been dry and intact. She is using the walker to move inside the room bed to chair weight-bearing as tolerated on the right. She states that is a little bit sore with weight-bearing. She has no swelling in the leg today. She is alert and conversant. I think she is fairly well oriented and her nurse tells me she has not been confused. She had another 7.5 mg of Coumadin yesterday her INR this morning remains 1.2. She is taking renal dose Lovenox 30 mg Q 24 hours for DVT prophylaxis while we wait for her Coumadin to take affect again. Zehra she is also on aspirin baby aspirin daily. She continues on the 7.5 mg Coumadin each night. Her creatinine clearance is 26 today her hemoglobin is 8.3 and platelets [id number]. Discharge planning is in affect and she is going to be transferred to the [facility] rehabilitation when she is ready to transfer from here. Subjective Subjective Date/Time Seen: 07/21/20 17:14 Objective Data Vital Signs Vital Signs: Vital Signs - 24 hr 07/20/20 20:00 07/20/20 22:00 07/21/20 00:00 Temperature 36.3 C L Pulse Rate 85 87 90 Respiratory Rate 16 Blood Pressure 140/57 L Pulse Oximetry 96 07/21/20 04:00 07/21/20 06:00 07/21/20 08:00 Temperature 36.1 C L Pulse Rate 75 81 84 Respiratory Rate 16 Blood Pressure 167/65 H Pulse Oximetry 96 07/21/20 14:35 Temperature 36.4 C Pulse Rate 86 Respiratory Rate 18 Blood Pressure 117/48 L Pulse Oximetry 96 Intake/Output Intake/Output: Intake & Output 07/18/20 07/19/20 07/20/20 07/21/20 23:59 23:59 23:59 23:59 Intake Total 1050 1140 560 Output Total 600 875 250 Balance 450 265 310 Meds/Results Medications: Active Medications Generic Name Dose Route Start Last Admin Trade Name Freq PRN Reason Stop Dose Admin Acetaminophen 1,000 mg 07/18/20 18:00 07/21/20 12:04 Acetaminophen 500 Mg Tablet PO 1,000 mg Q6HR FREDIS Administration Al Hydrox/Mg Hydrox/Simethicone 30 ml 07/18/20 15:09 Mag Hydrox/Al Hydrox/Simeth 30 Ml Udc PO Q6H PRN Indigestion Amlodipine Besylate 10 mg 07/17/20 09:00 07/21/20 08:57 Amlodipine Besylate 5 Mg Tablet BY MOUTH 10 mg DAILY FREDIS Administration Ascorbic Acid 250 mg 07/17/20 09:00 07/21/20 08:56 Ascorbic Acid 250 Mg Tablet PO 250 mg DAILY FREDIS Administration Aspirin 81 mg 07/18/20 18:00 07/20/20 17:12 Aspirin 81 Mg Enteric Tablet PO 81 mg QPM FREDIS Administration Atorvastatin Calcium 80 mg 07/16/20 20:00 07/20/20 17:11 Atorvastatin 40 Mg Tablet PO 80 mg QPM FREDIS Administration Cephalexin HCl 250 mg 07/19/20 22:00 07/21/20 13:09 Cephalexin 250 Mg Capsule PO 250 mg Q8HR FREDIS Administration Cyanocobalamin 2,000 mcg 07/17/20 09:00 07/21/20 08:56 Cyanocobalamin 1,000 Mcg Tablet PO 2,000 mcg DAILY FREDIS Administration Dextrose 12.5 gm 07/19/20 12:50 Dextrose 50% 25 Gm/50 Ml Syringe IV PUSH PRN PRN Hypoglycemia Protocol Docusate Sodium 100 mg 07/20/20 21:00 07/21/20 08:55 Docusate Sodium 100 Mg Capsule PO 100 mg Q12HR FREDIS Administration Enoxaparin Sodium 30 mg 07/19/20 09:00 07/21/20 08:55 Enoxaparin 30 Mg/0.3 Ml Syringe SUB-Q 30 mg DAILY FREDIS Administration Famotidine 20 mg 07/18/20 21:00 07/21/20 08:56 Famotidine 20 Mg Tablet PO 20 mg Q12HR FREDIS Administration Galantamine Hydrobromide 8 mg 07/17/20 09:00 07/21/20 08:55 Galantamine Er 8 Mg Cap BY MOUTH 8 mg DAILY FREDIS Administration Glucagon 1 mg 07/19/20 12:50 Glucagon For Inj 1 Mg Vial IM PRN PRN Hypoglycemia Protocol Glucose 15 gm 07/19/20 12:50 Glucose Oral Gel 15 Gm Of Glucse In 37.5 Gm Tube PO PRN PRN Hypoglycemia Protocol Hydroxyzine Pamoate 50 mg 07/18/20 15:09 Hydroxyzine Pamoate 25 Mg Capsu
[2020-07-21] MEDS: ATORVASTATIN 40 MG TABLET 80 MG PO (17:20)
[2020-07-21] MEDS: WARFARIN (*PBKC) 7.5 MG TABLET PO (17:20)
[2020-07-21] MEDS: ASPIRIN 81 MG ENTERIC TABLET PO (17:20)
[2020-07-21] MEDS: MEMANTINE HCL XR 28 MG CAP PO (17:21)
[2020-07-21 17:47] LABS: Glucose Point of Care 227 (65-105)
== END 2020-07-21 19:25 | DRG 522 ==
LOC: ANHED 08:59 → ANH2MED 11:57
PROVIDERS: Nurse Practitioner; Orthopaedic Surgery; Physician Assistant; Physician Assistant Surgical; Admitting Provider Family Medicine; Emergency Provider General Practice; PCP Family Medicine; Visit Provider Physician Assistant
PROC: 0SRR019 Replacement of Right Hip Joint, Femoral Surface with Metal Synthetic Substitute, Cemented, Open Approach (ICD-10-PCS; CPT 27125; principal; 2020-07-18 09:30)
DX: S72.011A Unspecified intracapsular fracture of right femur, initial encounter for closed fracture (principal); I69.354 Hemiplegia and hemiparesis following cerebral infarction affecting left non-dominant side; I48.20 Chronic atrial fibrillation, unspecified; Z20.822 Contact with and (suspected) exposure to COVID-19; E78.00 Pure hypercholesterolemia, unspecified; D63.1 Anemia in chronic kidney disease; F03.90 Unspecified dementia, unspecified severity, without behavioral disturbance, psychotic disturbance, mood disturbance, and anxiety; R82.90 Unspecified abnormal findings in urine; I12.9 Hypertensive chronic kidney disease with stage 1 through stage 4 chronic kidney disease, or unspecified chronic kidney disease; E11.22 Type 2 diabetes mellitus with diabetic chronic kidney disease; N18.30 Chronic kidney disease, stage 3 unspecified; I25.10 Atherosclerotic heart disease of native coronary artery without angina pectoris; E55.9 Vitamin D deficiency, unspecified; Z95.2 Presence of prosthetic heart valve; Z90.49 Acquired absence of other specified parts of digestive tract; Z95.5 Presence of coronary angioplasty implant and graft; Z79.01 Long term (current) use of anticoagulants; W19.XXXA Unspecified fall, initial encounter; Z66 Do not resuscitate; L89.151 Pressure ulcer of sacral region, stage 1
CPT/HCPCS: 36415; 70450; 71045; 73501; 73502; 80048; 80053; 81001; 82948; 83036; 83735; 85025; 85055; 85610; 85730; 86850; 86900; 86901; 87086; 87088; 88307; 88311; 93005; 94667; 94668; 96365; 96366; 96375; 97110; 97161; 97165; 97530; 97535; 99285; A9270; C1713; C1776; C9803; J0131; J0171; J0330; J0690; J0696; J1650; J1815; J1885; J2270; J2405; J2704; J2795; J3010; J3370; J3480; J7120; U0003; U0005

== ENCOUNTER 2020-08-11 09:04 | Outpatient (RCR) | payer OTHER, MEDICARE, SELFPAY ==
[2020-08-11 09:30] LABS: Hematocrit 27.7 % (37.0-47.0); Hemoglobin 8.7 g/dL (12.0-15.0)
[2020-08-11 11:07] VITALS: BP 139/69; PULSE 94; RESP 14; TEMP 37.1; O2SAT 96
[2020-08-11 11:22] VITALS: BP 137/63; PULSE 91; RESP 14; TEMP 36.9; O2SAT 97
[2020-08-11 12:22] VITALS: BP 140/76; PULSE 91; RESP 14; TEMP 37.1; O2SAT 98
[2020-08-11 13:22] VITALS: BP 169/79; PULSE 95; RESP 16; TEMP 37.2; O2SAT 98
[2020-08-11 14:22] VITALS: BP 170/80; PULSE 93; RESP 14; TEMP 37.3; O2SAT 98
[2020-08-11 14:45] VITALS: BP 166/71; PULSE 97; RESP 14; TEMP 37.4; O2SAT 96
== END 2020-11-09 23:59 | disposition home or self-care (01) ==
LOC: ANHCPCTRAN 09:04
PROVIDERS: PCP Family Medicine; Visit Provider Family Medicine
DX: K92.2 Gastrointestinal hemorrhage, unspecified (principal); D64.9 Anemia, unspecified; K21.9 Gastro-esophageal reflux disease without esophagitis
CPT/HCPCS: 36415; 36430; 85014; 85018; 86850; 86900; 86901; 86923; P9016

== ENCOUNTER 2020-10-19 11:54 | Outpatient (NON) | payer MEDICARE, OTHER, SELFPAY ==
[2020-10-19 12:40] LABS: Add Urine Microscopic? YES; Appearance Urine Turbid (Clear); Bacteria Urine 2+ /hpf; Bilirubin Urine Negative (Negative); Blood Urine 3+ (Negative); Color Urine Yellow (Yellow); Glucose Urine UA Negative (Negative); Ketones Urine Negative (Negative); Leukocyte Esterase Ur 2+ LEU/UL (Negative); Mucus Urine Rare /lpf; Nitrate Urine Negative (Negative); Protein Urine 2+ mg/dL (Negative); RBC Urine >75 /hpf (0-2); Specific Grav Ur 1.018 (1.001-1.035); Urobilinogen Urine Negative mg/dL (<2.0); WBC Clumps Urine Present /HPF; WBC Urine >75 /hpf
== END 2020-10-19 11:55 | disposition home or self-care (01) ==
PROVIDERS: PCP Family Medicine; Visit Provider Family Medicine
DX: R82.998 Other abnormal findings in urine (principal)
CPT/HCPCS: 81001; 87086; 87088

== ENCOUNTER 2020-11-17 07:24 | Outpatient (RCR) | payer MEDICARE, OTHER, SELFPAY ==
[2020-09-22 12:23] VITALS: BMI 19.2
== END 2020-12-21 23:59 | disposition home or self-care (01) ==
LOC: ANHWOC 07:24
PROVIDERS: PCP Family Medicine; Visit Provider Family Medicine
DX: L89.153 Pressure ulcer of sacral region, stage 3 (principal)
CPT/HCPCS: 99212; G0463

== ENCOUNTER 2020-12-09 08:29 | Inpatient (IN) | payer MEDICARE, OTHER, SELFPAY ==
[2020-12-09] VITALS (12 sets, daily range): BP systolic 125–202; BP diastolic 64–85; PULSE 76–135; RESP 12–30; TEMP 36.4–36.7; O2SAT 93–98; BMI 15.6
--- NOTE | 2020-12-09 | ECHO_ITS ---
Patient Info Name: Sadie Winston Age: 85 years : 1935 Gender: Female Ht: 63 in Wt: 88 lbs BSA: 1.32 m2 HR: 88 bpm BP: 126 / 65 mmHg Heart Rhythm: Sinus Rhythm Technical Quality: Good Exam Date: 12/09/2020 2:20 PM Exam Location: [facility] Patient Status: Outpatient Admit Date: 12/09/2020 Staff Ordering Physician: Sera Tillman DO Radio Engineering Teacher: CARMELO Attending Provider: Sera Tillman DO Referring Physician: Primo CALVERT; Exam Type: CA echo doppler color flow Study Info Indications I50.9 - Heart failure, unspecified R06.00 - Dyspnea, unspecified Complete two-dimensional, color flow and Doppler transthoracic echocardiogram is performed. Summary 1. Complete two-dimensional, color flow and Doppler transthoracic echocardiogram is performed. 2. There is moderate concentric increased left ventricular wall thickness. 3. Left ventricular systolic function is normal, estimated at 60-65%. 4. Left atrial chamber dimension is severely enlarged. 5. There is mild aortic valve sclerosis. 6. There is mild aortic valve stenosis with a peak velocity of 232 cm/s, mean gradient of 10 mmHg, and aortic valve area of 1.6 cm2. 7. The mitral valve leaflets are thickened and there is also thickening and sclerosis of the chordal support apparatus. 8. The mitral valve annulus is severely calcified. 9. There is trace mitral valve regurgitation. 10. There is moderate mitral valve stenosis. 11. Moderate pulmonary hypertension, estimated pulmonary arterial systolic pressure is 60 mmHg. 12. Compared to examination from 1 year ago there is no significant difference. Left Ventricle Left ventricular chamber dimension is normal. Left ventricular systolic function is normal, estimated at 60-65%. There is moderate concentric increased left ventricular wall thickness. The left ventricular diastolic function is grade I diastolic dysfunction. Right Ventricle Right ventricular chamber dimension is normal. Left Atria Left atrial chamber dimension is severely enlarged. Right Atria Right atrial chamber dimension is mildly enlarged. Aortic Valve The aortic valve is probable trileaflet. There is mild aortic valve sclerosis. There is mild aortic valve stenosis with a peak velocity of 232 cm/s, mean gradient of 10 mmHg, and aortic valve area of 1.6 cm2. There is no aortic valve regurgitation. Pulmonic Valve The pulmonic valve is not well visualized. Mitral Valve The mitral valve has thickened leaflets. There is moderate mitral valve stenosis. There is trace mitral valve regurgitation. The mitral valve annulus is severely calcified. The mitral valve leaflets are thickened and there is also thickening and sclerosis of the chordal support apparatus. Tricuspid Valve The tricuspid valve leaflets are normal. There is moderate tricuspid valve regurgitation. Moderate pulmonary hypertension, estimated pulmonary arterial systolic pressure is 60 mmHg. Pericardium/Pleural The pericardium appears normal. Aorta The aortic root size at the sinus of Valsalva is normal. Left Ventricular Outflow Tract Name Value Normal LVOT 2D LVOT Diameter 1.7 cm LVOT Doppler ---
--- NOTE | ~2020-12-09 | XR_ITS ---
EXAMINATION: XR chest 1V portable INDICATION: Cough and weakness TECHNIQUE: Portable AP chest at 0847 hours COMPARISON: 07/16/2020 FINDINGS: The lungs are hyperinflated. There is diffuse opacification of the right hemithorax. A mild interstitial pattern is present. More focal airspace opacity is seen in the right lung base. Cardiom egaly is noted. There is no pneumothorax. Median sternotomy wires are consistent with prior cardiac s urgery. IMPRESSION: 1. Diffuse opacification of the right hemithorax, likely layering pleural effusion. 2. Cardiomegaly with likely mild pulmonary edema. 3. Right basilar airspace opacity, consistent with atelectasis versus pneumonia. Reviewed, dictated and finalized at location A. IMPRESSION: 1. Diffuse opacification of the right hemithorax, likely layering pleural effus ion. 2. Cardiomegaly with likely mild pulmonary edema. 3. Right basilar airspace opacity, consistent with atelectasis versus pneumonia .
--- NOTE | 2020-12-09 08:34 | ECG_ITS ---
Measurements Intervals [place] Rate: 135 P: NM: 0 QRS: -26 QRSD: 93 T: 105 QT: 293 QTc: 440 Interpretive Statements SINUS OR ECTOPIC ATRIAL TACHYCARDIA BORDERLINE R WAVE PROGRESSION, ANTERIOR LEADS NONSPECIFIC ST & T-WAVE ABNORMALITY- HIGH LATERAL LEADS BASELINE WANDER- V4-V6 ABNORMAL ECG Electronically Signed On 12-09-2020 8:54:52 CDT by Delbert Nair D.O.
--- NOTE | 2020-12-09 08:49 | ED.GENADULT ---
HPI - General Adult General Chief complaint: Altered Mental Status Stated complaint: DIFFICULTY BREATHING Time Seen by Provider: 12/09/20 08:33 Source: RN notes reviewed History of Present Illness HPI narrative: Patient presents emergency department from home for shortness of breath. Patient was noted be short of breath this morning and EMS was called patient was noted to have an oxygen saturation in the 70s on room air the patient does not normally wear oxygen patient currently is awake and alert x2 in the room denies any complaints of chest pain patient does have a significant cardiac history as well as history of suprapubic tube. Patient's daughter states the patient does have a significant cardiac history and is followed by Dr. Landeros Related Data Home Medications Medication Instructions Recorded Confirmed aspirin 81 mg tablet,delayed 81 mg PO QPM 05/29/19 11/01/20 release calcium carb 300 mg-D3 800 1 tablet PO DAILY 05/29/19 11/01/20 unit-mag ox 25 mg-[employer] 0.5 mg-abel-Zn tablet cholecalciferol (vitamin D3) 125 125 mcg PO DAILY 05/29/19 11/01/20 mcg (5,000 unit) capsule pyridoxine (vitamin B6) 100 mg 100 mg PO QPM 05/29/19 11/01/20 tablet zinc 50 mg tablet 50 mg PO DAILY 05/29/19 11/01/20 warfarin 7 mg PO 2XW 07/16/20 11/01/20 collagenase clostridium histo. 250 1 applic TOPICAL DAILY 08/18/20 11/01/20 unit/gram topical ointment omega 2-ljm-chd-fish oil 60 mg-90 1 cap PO DAILY 08/18/20 11/01/20 mg-500 mg capsule nystatin 100,000 unit/gram topical 1 applic TOPICAL DAILY g 09/20/20 11/01/20 powder warfarin 5 mg tablet 5 mg PO [id number] 09/20/20 11/01/20 Allergies Allergy/AdvReac Type Severity Reaction Status Date / Time Penicillins Allergy Unknown Rash Verified 12/09/20 08:50 pravastatin Allergy Unknown Vomiting Verified 12/09/20 08:50 Sulfa (Sulfonamide Allergy Unknown Vomiting Verified 12/09/20 08:50 Antibiotics) pantoprazole [From Protonix] AdvReac Vomiting Verified 12/09/20 08:50 Review of Systems Review of Systems: Gen.: Denies fevers or chills ENT: Denies congestion Respiratory: See HPI CV: Denies chest pain or palpitations GI: Denies abdominal pain nausea, emesis or diarrhea d reports suprapubic catheter Musculoskeletal: Denies back pain or muscle pain Neuro: Denies numbness, tingling, reports weakness Skin: Denies rash Except as documented, all other systems reviewed and negative PMFSH Past Medical History Medical History Atrial fibrillation CKD (chronic kidney disease) stage 3, GFR 30-59 ml/min CVA (cerebral vascular accident) 10/2019 - l sided weakness Dementia 02/12/2013 Dementia, unspecified, without behavioral disturbance Diarrhea in adult patient 06/25/2018 Dyslipidemia Edema of both lower legs due to peripheral venous insufficiency 07/21/2018 Elevated lipids Essential (primary) hypertension Gastric ulcer History of gastric ulcer Hypercholesterolemia Low back pain without sciatica Positive colorectal cancer screening using Cologuard test Pressure ulcer of sacral region, stage 1 Second degree AV block, Mobitz type I Suprapubic catheter Tinea cruris Type 2 diabetes mellitus without complication, without long-term current use of insulin Vitamin D deficiency Surgical History Surgical History Aortic valve replaced (~07/17/95) 07/17/1995 History of cholecystectomy (~06/17/02) 06/17/2002 History of coronary artery stent placement History of right coronary artery stent placement (~02/16/06) 02/16/2006 History of right hip replacement (~07/18/20) History of suprapubic catheter 02/2020 Family History Family History Father Acute myocardial infarction Diabetes mellitus Sibling Acute myocardial infarction Social History Social History (Reviewed 11/01/20 @ 14:09 by Jm Witt
--- NOTE | 2020-12-09 09:06 | PC.NURSE ---
Patient's closed Sweet system changed at this time to collect UA sample for testing.
[2020-12-09 09:27] LABS: Hematocrit 25.9 % (37.0-47.0); Mean Corpuscular HGB Conc 30.9 g/dl (32-36); Mean Corpuscular Hemoglobin 28.2 pg (26-34); Mean Corpuscular Volume 91.2 fl (80-100); Mean Platelet Volume 10.1 fl (7.4-10.4); Platelet Count Result 272 k/mm3 (150-375); Red Blood Count 2.84 M/mm3 (4.2-5.4); Red Cell Distribution Width 15.8 % (11.5-14.5); White Blood Count 15.1 K/mm3 (4.5-10.0)
[2020-12-09 09:38] LABS: Add Urine Microscopic? YES; Appearance Urine Cloudy (Clear); Bacteria Urine Trace /hpf; Bilirubin Urine Negative (Negative); Blood Urine 1+ (Negative); Color Urine Yellow (Yellow); Glucose Urine UA Negative (Negative); Ketones Urine Negative (Negative); Leukocyte Esterase Ur 3+ LEU/UL (Negative); Mucus Urine Rare /lpf; Nitrate Urine Negative (Negative); Protein Urine 3+ mg/dL (Negative); Specific Grav Ur 1.019 (1.001-1.035); Urobilinogen Urine Negative mg/dL (<2.0); WBC Clumps Urine Present /HPF; WBC Urine >75 /hpf
[2020-12-09 09:40] LABS: INR 2.3; Prothrombin Time 24.6 Seconds (11.1-14.7)
[2020-12-09 09:41] LABS: Partial Thromboplastin Time 40.1 SECONDS (22.3-36.8)
[2020-12-09 09:43] LABS: Lactic Acid Reflex 1.1 mmol/L (0.7-2.1)
[2020-12-09 09:43] LABS: Anion Gap 7 mmol/L (8-16); Blood Urea Nitrogen 21 mg/dL (7-17); Calcium 9.3 mg/dL (8.4-10.2); Carbon Dioxide 27 mmol/L (22-30); Chloride 99 mmol/L (98-107); Estimated CRCL calculation 47 ml/min; Estimated Glomerular Filt Rate > 60; Glucose 193 mg/dL (65-110); Sodium 133 mmol/L (137-145)
[2020-12-09 09:55] LABS: NT Pro B Type Natriuretic Pept 7840 pg/mL (5-100); Troponin I 0.013 ng/mL (0.000-0.034)
[2020-12-09 09:57] LABS: Band Neutrophils Percent 2 % (0-6); Lymphocytes Absolute Manual 0.45 K/mm3 (1.1-4.5); Monocytes Absolute Manual 0.15 K/mm3 (0.1-0.90); Monocytes Percent Manual 1 % (3-9); Neutrophils Absolute Manual 14.49 K/mm3 (1.7-7.2); Neutrophils Percent Manual 94 % (46-73); Platelet Estimate Adequate (Adequate); Total Cells Counted 100
[2020-12-09 09:58] LABS: Hypochromasia 1+ (NORMAL)
[2020-12-09] MEDS: FUROSEMIDE INJ 40 MG/4 ML VIAL 20 MG IV PUSH (10:36)
--- NOTE | 2020-12-09 13:12 | PM.IMHP ---
H&P: HPI History of Present Illness Date/Time: 12/09/20 13:12 Patient is a 85-year-old female past medical history of aortic stenosis status post aortic valve replacement, AFib, dementia, hypertension, suprapubic catheter presents the ED with complaints of weakness and shortness of breath. patient lives with her daughter who found her to be hypoxic with pulse oximeter showing 70% on room air. Patient is not on any home oxygen. Because of this she came to the hospital by EMS. in the ED she was found to have leukocytosis WBC 11668 as well as urine suggestive of infection so she was started on Levaquin antibiotic. she was found to be tachycardic consistent with her AFib in RVR possibly for secondary to infection, she was also found to be fluid overloaded and was given diuretics by the ED. her troponin peaked at 0.035, BNP 7840. patient admitted to IMU for further management of her UTI and fluid overload. Chief Complaint: hypoxia and dyspnea Review of Systems Review of Systems: All systems reviewed & are unremarkable except as noted in HPI and below PMFSH Past Medical History Medical History Atrial fibrillation CKD (chronic kidney disease) stage 3, GFR 30-59 ml/min CVA (cerebral vascular accident) 10/2019 - l sided weakness Dementia 02/12/2013 Dementia, unspecified, without behavioral disturbance Diarrhea in adult patient 06/25/2018 Dyslipidemia Edema of both lower legs due to peripheral venous insufficiency 07/21/2018 Elevated lipids Essential (primary) hypertension Gastric ulcer History of gastric ulcer Hypercholesterolemia Low back pain without sciatica Positive colorectal cancer screening using Cologuard test Pressure ulcer of sacral region, stage 1 Second degree AV block, Mobitz type I Suprapubic catheter Tinea cruris Type 2 diabetes mellitus without complication, without long-term current use of insulin Vitamin D deficiency Surgical History Surgical History Aortic valve replaced (~07/17/95) 07/17/1995 History of cholecystectomy (~06/17/02) 06/17/2002 History of coronary artery stent placement History of right coronary artery stent placement (~02/16/06) 02/16/2006 History of right hip replacement (~07/18/20) History of suprapubic catheter 02/2020 Family History Family History Father Acute myocardial infarction Diabetes mellitus Sibling Acute myocardial infarction Social History Social History Social History: The patient tells me that she lives with her daughter and that she is . 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 She tells me she has 2 children she tells me that the daughter that is the power document review attorney is a when she lives with. She tells me she is a DNR. She tells me that she did smoke in the past was long time ago. No alcohol marijuana or illicit drugs Smoking status: Never smoker Second hand tobacco smoke exposure: No Alcohol intake: never Substance use: never Substance use type: does not use Gender identity (if verbalized by the patient): Female Spiritual care concerns: No Agree to blood products: Yes Meds Home Medications and Allergies Home Medications Medication Instructions Recorded Confirmed Type aspirin 81 mg tablet,delayed 81 mg PO QPM 05/29/19 12/09/20 History release calcium carb 300 mg-D3 800 1 tablet PO DAILY 05/29/19 12/09/20 History unit-mag ox 25 mg-copy manager 0.5 mg-abel-Zn tablet cholecalciferol (vitamin D3) 125 125 mcg PO DAILY 05/29/19 12/09/20 History mcg (5,000 unit) capsule pyridoxine (vitamin B6) 100 mg 100 mg PO QPM 05/29/19 12/09/20 History tablet zinc 50 mg tablet 50 mg PO DAILY 05/29/19 12/09/20 History collagenase clostridium histo.
[2020-12-09 14:00] LABS: Troponin I 0.035 ng/mL (0.000-0.034)
--- NOTE | 2020-12-09 14:30 | ADMGEN ---
This patient, Sadie Winston, was admitted to IMU Room 200-01 at 1200. Patient/family oriented to hospital policies and general routines including ID bracelet, bed and alarms, visiting hours, pain management, procedures, bathroom and other care routines, personal items, smoking policy, room service/diet, and visiting hours. Information on how to activate the Rapid Response Team has been discussed. Patient/Family are encouraged to report perceived risks to care and to ask questions if they do not understand what they are told or what they should do.
[2020-12-09] MEDS: oxyCODONE HCL (*CRX) 5 MG TAB IR PO (16:55)
[2020-12-09] MEDS: GALANTAMINE HYDROBROMIDE 4 MG TABLET 8 MG PO (16:56)
[2020-12-09] MEDS: FUROSEMIDE INJ 40 MG/4 ML VIAL IV PUSH (16:56)
[2020-12-09] MEDS: ATORVASTATIN 40 MG TABLET 80 MG PO (16:57)
[2020-12-09] MEDS: MEMANTINE HCL XR 28 MG CAP PO (16:57)
[2020-12-09] MEDS: PYRIDOXINE HCL 50 MG TABLET 100 MG PO (16:57)
[2020-12-09] MEDS: ASPIRIN 81 MG ENTERIC TABLET PO (16:58)
[2020-12-09 17:34] LABS: Troponin I 0.027 ng/mL (0.000-0.034)
[2020-12-09] MEDS: GABAPENTIN 100 MG CAPSULE 200 MG PO (21:33)
[2020-12-10] VITALS (15 sets, daily range): BP systolic 127–151; BP diastolic 62–77; PULSE 73–106; RESP 12–18; TEMP 36.4–36.9; O2SAT 93–100; BMI 15.6
[2020-12-10 05:13] LABS: Basophils Percent Auto 0.1 % (0.2-1.2); Eosinophils Percent Auto 0.1 % (0-4.4); Hematocrit 22.1 % (37.0-47.0); Immature Granulocyte Absolute 0.03 K/mm3 (0.00-0.031); Immature Granulocyte Percent A 0.4 % (0-0.5); Lymphocytes Absolute Auto 0.44 K/mm3 (0.9-3.2); Lymphocytes Percent Auto 5.5 % (18.3-44.2); Mean Corpuscular HGB Conc 31.2 g/dl (32-36); Mean Corpuscular Hemoglobin 28.9 pg (26-34); Mean Corpuscular Volume 92.5 fl (80-100); Mean Platelet Volume 10.3 fl (7.4-10.4); Monocytes Absolute Auto 0.6 K/mm3 (0.1-0.6); Monocytes Percent Auto 7.4 % (2.6-8.5); Neutrophils Absolute Auto 6.9 K/mm3 (1.3-6.7); Neutrophils Percent Auto 86.5 % (45.5-73.1); Platelet Count Result 216 k/mm3 (150-375); Red Blood Count 2.39 M/mm3 (4.2-5.4); Red Cell Distribution Width 15.5 % (11.5-14.5); White Blood Count 7.9 K/mm3 (4.5-10.0)
[2020-12-10 05:23] LABS: INR 2.7; Prothrombin Time 27.9 Seconds (11.1-14.7)
[2020-12-10 05:25] LABS: Alanine Aminotransferase 46 U/L (4-35); Albumin Level 2.5 g/dL (3.5-5.1); Alkaline Phosphatase 81 U/L (38-126); Anion Gap 4 mmol/L (8-16); Aspartate Amino Transferase 49 U/L (14-36); Bilirubin,Total 0.6 mg/dL (0.2-1.3); Blood Urea Nitrogen 21 mg/dL (7-17); Calcium 8.1 mg/dL (8.4-10.2); Carbon Dioxide 32 mmol/L (22-30); Chloride 97 mmol/L (98-107); Estimated CRCL calculation 26 ml/min; Estimated Glomerular Filt Rate 60; Glucose 167 mg/dL (65-110); Potassium 3.4 mmol/L (3.4-5.0); Sodium 133 mmol/L (137-145)
[2020-12-10 05:41] LABS: Hemoglobin 6.9 g/dL (12.0-15.0)
[2020-12-10 05:44] LABS: Hypochromasia 2+ (NORMAL); Platelet Estimate Adequate (Adequate)
--- NOTE | 2020-12-10 08:12 | PM.IMPN ---
Progress Note: A&P Assessment and Plan (1) Iron deficiency anemia: Qualifiers: Iron deficiency anemia type: inadequate dietary iron intake Qualified Code(s): D50.8 - Other iron deficiency anemias Code(s): D50.9 - Iron deficiency anemia, unspecified Status: Acute Assessment and Plan: patient has chronic iron-deficiency anemia, on home iron supplementation. hemoglobin 6.9, transfusing 1 unit after talking to daughter. No signs of bleeding, no role for colonoscopy as per goals of care. Etiology of anemia is secondary to malnutrition from her dementia (2) Elevated troponin: Code(s): R77.8 - Other specified abnormalities of plasma proteins Status: Acute Assessment and Plan: no active chest pain, downtrended. Not ACS. transient elevation likely secondary to RVR (3) Acute respiratory failure with hypoxia: Code(s): J96.01 - Acute respiratory failure with hypoxia Status: Acute Assessment and Plan: on 2 L oxygen, continue weaning as tolerated. May be secondary to anemia or fluid overload (4) Acute UTI: Code(s): N39.0 - Urinary tract infection, site not specified Status: Acute Assessment and Plan: continue Levaquin antibiotic day 2 (5) Pressure ulcer of coccygeal region: Qualifiers: Pressure injury stage: unspecified pressure injury stage Qualified Code(s): L89.159 - Pressure ulcer of sacral region, unspecified stage Code(s): L89.159 - Pressure ulcer of sacral region, unspecified stage Status: Acute Assessment and Plan: continue local wound care (6) Atrial fibrillation: Qualifiers: Atrial fibrillation type: longstanding persistent Qualified Code(s): I48.11 - Longstanding persistent atrial fibrillation Code(s): I48.91 - Unspecified atrial fibrillation Status: Acute Assessment and Plan: RVR resolved, continue home medication (7) H/O aortic valve replacement: Code(s): Z95.2 - Presence of prosthetic heart valve Status: Chronic Assessment and Plan: continue monitoring INR, holding warfarin, watch closely while on Levaquin (8) Dementia: Code(s): F03.90 - Unspecified dementia without behavioral disturbance Status: Chronic Assessment and Plan: long standing dementia, continue home medications Additional Plan diet: Heart healthy code status: Do not resuscitate, no aggressive measures however family does want blood transfusions disposition: Patient may move to [facility] with tele, 1 unit blood transfusion ordered, hopefully home with in 1-2 days daughter updated Time Spent With Patient Time with patient: 25 - 35 minutes Subjective Date/time seen: 12/10/20 08:12 Patient examined. patient's hemoglobin was 6.9, discussed with daughter who states patient had blood transfusion 3 months ago with good improvement. She has known iron deficiency on iron supplementation at home. patient is on warfarin at home with her no signs of bleeding. Family does not want any aggressive evaluations so no colonoscopy. Hypoxia may be related to anemia, will further evaluate continue diuresis and weaning off oxygen. Echocardiogram plan for today. Daughter updated. Patient denies any fevers, chills, nausea, vomiting, diarrhea, chest pain. No problems overnight. Review of Systems Review of Systems: All systems reviewed & are unremarkable except as noted in HPI and below Exam Narrative: - GENERAL: Frail, elderly female, Breathing comfortably on 2 L oxygen by nasal pain - EYES: EOMI. Anicteric. - HENT: Moist mucous membranes. - LUNGS: Clear to auscultation bilaterally, no wheezing, rhonchi, or rales. - CARDIOVASCULAR: regular rate, irregular rhythm, mechanical valve murmur - ABDOMEN: Soft, non-tender and non-distended. No palpable masses. - EXTREMITIES: trace edema. Peripheral pulses 2+. Non-tender. - NEUROLOGIC: No focal neurological deficits.
[2020-12-10] MEDS: COLLAGENASE OINT 30 GM TUBE 1 APPLIC TOPICAL (08:48)
[2020-12-10] MEDS: FERROUS SULFATE 324 MG TABLET PO (08:49)
[2020-12-10] MEDS: amLODIPine BESYLATE 5 MG TABLET 10 MG PO (08:49)
[2020-12-10] MEDS: metFORMIN HCL XR 500 MG TAB.SR.24H 1000 MG PO (08:49)
[2020-12-10] MEDS: VITAMIN B COMPLEX CAPSULE 1 CAP PO (08:49)
[2020-12-10] MEDS: CHOLECALCIFEROL 1,000 UNITS TABLET 5000 UNITS PO (08:49)
[2020-12-10] MEDS: GALANTAMINE HYDROBROMIDE 4 MG TABLET 8 MG PO ×2 (08:49→17:58)
[2020-12-10] MEDS: FUROSEMIDE INJ 40 MG/4 ML VIAL IV PUSH ×2 (08:50→17:58)
[2020-12-10] MEDS: ZINC SULFATE 220 MG CAPSULE 50 MG PO (08:50)
[2020-12-10] MEDS: TOLNAFTATE 1% POWDER 45 GM BTL 1 APPLIC TOPICAL (08:50)
[2020-12-10] MEDS: lisinopriL 20 MG TABLET PO (08:50)
[2020-12-10 09:10] LABS: Glucose Point of Care 156 mg/dl (65-105)
[2020-12-10] MEDS: SODIUM CHLORIDE 0.9% IV 250 ML 30 ML IV CONT (12:42)
[2020-12-10] MEDS: TUBING, BLOOD PLUM PUMP TUBING 1 EACH XX (12:43)
[2020-12-10] MEDS: polyethylene glycoL 3350 17 GM POWD.PACK PO (12:44)
[2020-12-10] MEDS: ASPIRIN 81 MG ENTERIC TABLET PO (17:58)
[2020-12-10] MEDS: ATORVASTATIN 40 MG TABLET 80 MG PO (17:58)
[2020-12-10] MEDS: MEMANTINE HCL XR 28 MG CAP PO (17:59)
[2020-12-10] MEDS: PYRIDOXINE HCL 50 MG TABLET 100 MG PO (17:59)
[2020-12-10] MEDS: GABAPENTIN 100 MG CAPSULE 200 MG PO (19:53)
[2020-12-10 22:58] LABS: Glucose Point of Care 235 mg/dl (65-105)
[2020-12-11] VITALS (9 sets, daily range): BP systolic 131–160; BP diastolic 57–86; PULSE 75–111; RESP 18–24; TEMP 36.3–37.2; O2SAT 94–100
[2020-12-11 06:15] LABS: Basophils Percent Auto 0.1 % (0.2-1.2); Eosinophils Absolute Auto 0.1 K/mm3 (0-0.3); Eosinophils Percent Auto 0.8 % (0-4.4); Hematocrit 27.4 % (37.0-47.0); Hemoglobin 8.8 g/dL (12.0-15.0); Immature Granulocyte Absolute 0.02 K/mm3 (0.00-0.031); Immature Granulocyte Percent A 0.3 % (0-0.5); Lymphocytes Absolute Auto 0.55 K/mm3 (0.9-3.2); Lymphocytes Percent Auto 7.6 % (18.3-44.2); Mean Corpuscular HGB Conc 32.1 g/dl (32-36); Mean Corpuscular Hemoglobin 28.6 pg (26-34); Mean Platelet Volume 10.2 fl (7.4-10.4); Monocytes Absolute Auto 0.5 K/mm3 (0.1-0.6); Monocytes Percent Auto 7.4 % (2.6-8.5); Neutrophils Absolute Auto 6.1 K/mm3 (1.3-6.7); Neutrophils Percent Auto 83.8 % (45.5-73.1); Platelet Count Result 245 k/mm3 (150-375); Red Blood Count 3.08 M/mm3 (4.2-5.4); Red Cell Distribution Width 15.1 % (11.5-14.5); White Blood Count 7.3 K/mm3 (4.5-10.0)
[2020-12-11 06:23] LABS: INR 2.3; Prothrombin Time 24.3 Seconds (11.1-14.7)
[2020-12-11 06:33] LABS: Anion Gap 6 mmol/L (8-16); Blood Urea Nitrogen 22 mg/dL (7-17); Calcium 8.3 mg/dL (8.4-10.2); Carbon Dioxide 33 mmol/L (22-30); Chloride 94 mmol/L (98-107); Estimated CRCL calculation 35 ml/min; Estimated Glomerular Filt Rate > 60; Glucose 176 mg/dL (65-110); Sodium 133 mmol/L (137-145)
[2020-12-11 07:48] LABS: Glucose Point of Care 195 mg/dl (65-105)
[2020-12-11] MEDS: oxyCODONE HCL (*CRX) 5 MG TAB IR PO (09:15)
[2020-12-11] MEDS: lisinopriL 20 MG TABLET PO (09:16)
[2020-12-11] MEDS: amLODIPine BESYLATE 5 MG TABLET 10 MG PO (09:16)
[2020-12-11] MEDS: metFORMIN HCL XR 500 MG TAB.SR.24H 1000 MG PO (09:16)
[2020-12-11] MEDS: VITAMIN B COMPLEX CAPSULE 1 CAP PO (09:16)
[2020-12-11] MEDS: TOLNAFTATE 1% POWDER 45 GM BTL 1 APPLIC TOPICAL (09:17)
[2020-12-11] MEDS: polyethylene glycoL 3350 17 GM POWD.PACK PO (09:17)
[2020-12-11] MEDS: GALANTAMINE HYDROBROMIDE 4 MG TABLET 8 MG PO ×2 (09:18→17:06)
[2020-12-11] MEDS: CHOLECALCIFEROL 1,000 UNITS TABLET 5000 UNITS PO (09:18)
[2020-12-11] MEDS: FUROSEMIDE INJ 40 MG/4 ML VIAL IV PUSH (09:18)
[2020-12-11] MEDS: FERROUS SULFATE 324 MG TABLET PO (09:19)
[2020-12-11] MEDS: COLLAGENASE OINT 30 GM TUBE 1 APPLIC TOPICAL (09:19)
[2020-12-11] MEDS: POTASSIUM CHLORIDE 20 MEQ TABLET 40 MEQ PO (09:44)
--- NOTE | 2020-12-11 11:58 | PM.DS ---
DS: Admitting Diagnosis Admitting Diagnosis Acute hypoxic respiratory failure secondary to anemia and AFib with RVR DS: Discharge Diagnosis Discharge Diagnosis (1) Iron deficiency anemia: Qualifiers: Iron deficiency anemia type: inadequate dietary iron intake Qualified Code(s): D50.8 - Other iron deficiency anemias Code(s): D50.9 - Iron deficiency anemia, unspecified Status: Acute Assessment and Plan: Hemoglobin dropped to 6.9, status post 1 unit packed red blood cells transfusion with good improvement of hemoglobin to 8.8 and been able to wean off oxygen. Anemia is likely etiology for her dyspnea. She has known iron deficiency anemia which she takes iron supplementation for. She has had history of anemia requiring blood transfusions last transfusion prior to this admission was 3 months ago. (2) CHF exacerbation: Qualifiers: Heart failure type: unspecified Qualified Code(s): I50.9 - Heart failure, unspecified Code(s): I50.9 - Heart failure, unspecified Status: Acute Assessment and Plan: Echocardiogram shows normal ejection fraction 60-65%, moderate pulmonary hypertension. Echocardiogram was read as no significant difference from prior exam 1 year ago. Patient had signs symptoms of fluid overload unclear if this may be more foot diastolic heart failure or pulmonary hypertension related. However improved with diuresis. (3) Elevated troponin: Code(s): R77.8 - Other specified abnormalities of plasma proteins Status: Acute Assessment and Plan: Likely secondary to RVR, no chest pain. (4) Acute UTI: Code(s): N39.0 - Urinary tract infection, site not specified Status: Acute Assessment and Plan: Completed 3 days of Levaquin (q48hr dosing) for Klebsiella UTI. (5) Acute respiratory failure with hypoxia: Code(s): J96.01 - Acute respiratory failure with hypoxia Status: Acute Assessment and Plan: Likely secondary to anemia and fluid overload, improved wean to room air with diuresis and blood transfusion DS: Summary Hospital Course Reason for hospitalization: Dyspnea Hospital Course: Patient is an 85-year-old female with past medical history of aortic stenosis status post aortic valve replacement, AFib, dementia, hypertension, suprapubic catheter presenting to the ED with complaints of weakness and shortness of breath. She is found to be hypoxic at home with pulse oximeter showing 70% on room air. She is not on any home oxygen therapy and so daughter brought her to the hospital by EMS. She was found to have a leukocytosis and Klebsiella UTI. She was treated with IV Levaquin completing 3 days for simple cystitis. Leukocytosis normalized and patient appeared to come back to baseline. Of note her hemoglobin dropped to 6.9 which she received 1 unit packed red blood cells with good improvement to hemoglobin 8.8. She has known iron deficient anemia will continue her home iron supplementation, last blood transfusion was 3 months ago, she may need blood transfusions every once in a while. On initial presentation she was in RVR likely secondary to her fluid overload, RVR improved as we treated her hypoxia. She was diuresed with IV Lasix with good urine output. With IV diuresis and 1 unit blood transfusion she was at wean off of oxygen and back to baseline. Echocardiogram was done showing normal ejection fraction and some moderate pulmonary hypertension, patient may have some right-sided heart failure leading to the fluid overload. Patient's vitals stable, labs stable, patient is stable for discharge. Patient will follow-up with PCP in 1 week. She completed her antibiotic course, diuresed appropriately, and is now asymptomatic. No new prescriptions. I discussed with daughter who understands and agrees with plan. Status at Discharge Cognitive/behavioral status at discharge: Dementia Functional status at discharge: wheelchair bound Overall s
[2020-12-11 13:30] LABS: Glucose Point of Care 400 mg/dl (65-105)
[2020-12-11 13:46] LABS: Glucose Point of Care 388 mg/dl (65-105)
[2020-12-11] MEDS: INSULIN ASPART (*BKC) 100 UNITS/ML 15 UNITS SUB-Q (13:57)
[2020-12-11 15:18] LABS: Glucose Point of Care 253 mg/dl (65-105)
[2020-12-11 16:20] LABS: Glucose Point of Care 144 mg/dl (65-105)
--- NOTE | 2020-12-11 16:40 | PM.IMPN ---
Progress Note: A&P Assessment and Plan (1) Iron deficiency anemia: Qualifiers: Iron deficiency anemia type: inadequate dietary iron intake Qualified Code(s): D50.8 - Other iron deficiency anemias Code(s): D50.9 - Iron deficiency anemia, unspecified Status: Acute Assessment and Plan: Hemoglobin dropped to 6.9, status post 1 unit packed red blood cells transfusion with good improvement of hemoglobin to 8.8 and been able to wean off oxygen. Anemia is likely etiology for her dyspnea. She has known iron deficiency anemia which she takes iron supplementation for. She has had history of anemia requiring blood transfusions last transfusion prior to this admission was 3 months ago. (2) CHF exacerbation: Qualifiers: Heart failure type: unspecified Qualified Code(s): I50.9 - Heart failure, unspecified Code(s): I50.9 - Heart failure, unspecified Status: Acute Assessment and Plan: Echocardiogram shows normal ejection fraction 60-65%, moderate pulmonary hypertension. Echocardiogram was read as no significant difference from prior exam 1 year ago. Patient had signs symptoms of fluid overload unclear if this may be more diastolic heart failure or pulmonary hypertension related. However improved with diuresis. (3) Elevated troponin: Code(s): R77.8 - Other specified abnormalities of plasma proteins Status: Acute Assessment and Plan: Likely secondary to RVR, no chest pain. (4) Acute respiratory failure with hypoxia: Code(s): J96.01 - Acute respiratory failure with hypoxia Status: Acute Assessment and Plan: Likely secondary to anemia and fluid overload, improved wean to room air with diuresis and blood transfusion (5) Acute UTI: Code(s): N39.0 - Urinary tract infection, site not specified Status: Acute Assessment and Plan: Completed 3 days of Levaquin (q48hr dosing) for Klebsiella UTI. Additional Plan Diet: diabetic DVTppx: on warfarin Code status: DNR Disposition: home tomorrow, watch blood sugars tonight Time Spent With Patient Time with patient: 25 - 35 minutes Subjective Date/time seen: 12/11/20 16:40 Patient examined. She has no new complaints. She feels well. She denies fever, chills, N/V/D, chest pain, abdominal pain. She has been weaned off O2 today and was planning on going home. Around lunchtime she had her accucheck done after her meal and had a blood glucose reading of 400 which came down with insulin 15U over the next couple of hours. Patient lives at home with daughter who is her caregiver. Daughter was worried about the blood sugar because at home she never goes above 200, so this is very abnormal as per the daughter. Patient is just on metformin at home, no other medications. Daughter feels uncomfortable taking her home today and is worried she will have to bring her back to the ER. We discussed watching her one more night and making sure there are no more problems with her blood sugars. Review of Systems Review of Systems: All systems reviewed & are unremarkable except as noted in HPI and below Exam Narrative: - GENERAL: Frail, elderly female, breathing comfortably on room air in a very good mood - EYES: EOMI. Anicteric. - HENT: Moist mucous membranes. - LUNGS: Clear to auscultation bilaterally, no wheezing, rhonchi, or rales. - CARDIOVASCULAR: regular rate, irregular rhythm, mechanical valve murmur - ABDOMEN: Soft, non-tender and non-distended. No palpable masses. - EXTREMITIES: trace edema. Peripheral pulses 2+. Non-tender. - NEUROLOGIC: No focal neurological deficits. CN II-XII grossly intact. - PSYCHIATRIC: Awake, Alert. Appropriate mood and affect. - SKIN: Warm, no rashes. Sacral decubitus chronic Objective Data Vital Signs Vital Signs: Vital Signs - 24 hr 12/10/20 19:00 12/10/20 20:00 12/10/20 20:20 Temperature 36.9 C 36.7 C Pulse Rate 97 101 H Respiratory Rate 16 18 Blood Pressure 148/6
[2020-12-11] MEDS: PYRIDOXINE HCL 50 MG TABLET 100 MG PO (17:06)
[2020-12-11] MEDS: ASPIRIN 81 MG ENTERIC TABLET PO (17:06)
[2020-12-11] MEDS: MEMANTINE HCL XR 28 MG CAP PO (17:06)
[2020-12-11] MEDS: ATORVASTATIN 40 MG TABLET 80 MG PO (17:06)
[2020-12-11 18:26] LABS: Glucose Point of Care 93 mg/dl (65-105)
[2020-12-11] MEDS: GABAPENTIN 100 MG CAPSULE 200 MG PO (21:49)
[2020-12-11 22:33] LABS: Glucose Point of Care 223 mg/dl (65-105)
[2020-12-12] VITALS: BP 158/74; PULSE 97; RESP 16; TEMP 36.9; O2SAT 95
[2020-12-12 04:00] VITALS: BP 157/75; PULSE 91; RESP 18; TEMP 36.7; O2SAT 96
[2020-12-12 06:23] LABS: INR 1.7; Prothrombin Time 19.8 Seconds (11.1-14.7)
[2020-12-12 07:48] LABS: Glucose Point of Care 182 mg/dl (65-105)
[2020-12-12 09:15] VITALS: O2SAT 93
[2020-12-12 09:30] VITALS: BP 161/81; PULSE 92; RESP 20; TEMP 36.4; O2SAT 95
[2020-12-12] MEDS: amLODIPine BESYLATE 5 MG TABLET 10 MG PO (09:36)
[2020-12-12] MEDS: polyethylene glycoL 3350 17 GM POWD.PACK PO (09:36)
[2020-12-12] MEDS: GALANTAMINE HYDROBROMIDE 4 MG TABLET 8 MG PO (09:36)
[2020-12-12] MEDS: FERROUS SULFATE 324 MG TABLET PO (09:36)
[2020-12-12] MEDS: ZINC SULFATE 220 MG CAPSULE PO (09:36)
[2020-12-12] MEDS: lisinopriL 20 MG TABLET PO (09:36)
[2020-12-12] MEDS: metFORMIN HCL XR 500 MG TAB.SR.24H 1000 MG PO (09:36)
[2020-12-12] MEDS: CHOLECALCIFEROL 1,000 UNITS TABLET 5000 UNITS PO (09:36)
[2020-12-12] MEDS: COLLAGENASE OINT 30 GM TUBE 1 APPLIC TOPICAL (09:37)
[2020-12-12] MEDS: VITAMIN B COMPLEX CAPSULE 1 CAP PO (09:37)
[2020-12-12] MEDS: TOLNAFTATE 1% POWDER 45 GM BTL 1 APPLIC TOPICAL (09:37)
[2020-12-12 12:28] LABS: Glucose Point of Care 267 mg/dl (65-105)
[2020-12-12] MEDS: INSULIN ASPART (*BKC) 100 UNITS/ML SUB-Q (12:55)
[2020-12-12 13:00] VITALS: BP 155/71; PULSE 101; RESP 22; TEMP 36.2; O2SAT 97
== END 2020-12-12 16:30 | disposition home health service (06) | DRG 189 ==
LOC: ANHED 08:44 → ANHIMU 11:17 → ANH2MED 12-10 18:52
PROVIDERS: Admitting Provider Student in an Organized Health Care Education/Training Program; Emergency Provider Emergency Medicine; PCP Family Medicine; Visit Provider Student in an Organized Health Care Education/Training Program
DX: J96.01 Acute respiratory failure with hypoxia (principal); L89.153 Pressure ulcer of sacral region, stage 3; N39.0 Urinary tract infection, site not specified; I48.11 Longstanding persistent atrial fibrillation; I13.0 Hypertensive heart and chronic kidney disease with heart failure and stage 1 through stage 4 chronic kidney disease, or unspecified chronic kidney disease; I27.20 Pulmonary hypertension, unspecified; I50.9 Heart failure, unspecified; B96.1 Klebsiella pneumoniae [K. pneumoniae] as the cause of diseases classified elsewhere; F03.90 Unspecified dementia, unspecified severity, without behavioral disturbance, psychotic disturbance, mood disturbance, and anxiety; Z99.81 Dependence on supplemental oxygen; Z66 Do not resuscitate; R77.8 Other specified abnormalities of plasma proteins; D50.8 Other iron deficiency anemias; E11.22 Type 2 diabetes mellitus with diabetic chronic kidney disease; N18.30 Chronic kidney disease, stage 3 unspecified; E78.5 Hyperlipidemia, unspecified; Z79.01 Long term (current) use of anticoagulants; Z79.82 Long term (current) use of aspirin; Z79.899 Other long term (current) drug therapy; Z95.2 Presence of prosthetic heart valve; Z97.8 Presence of other specified devices; Z99.3 Dependence on wheelchair
CPT/HCPCS: 36415; 36430; 71045; 80048; 80053; 81001; 82948; 83605; 83880; 84484; 85025; 85610; 85730; 86850; 86900; 86901; 86920; 87040; 87077; 87086; 87088; 87186; 93005; 93306; 96374; 96375; 96376; 99291; A9270; G0378; J1815; J1940; J1956; J7050; P9016

== ENCOUNTER 2020-12-15 15:49 | Outpatient (NON) | payer MEDICARE, OTHER, SELFPAY ==
[2020-12-15 16:33] LABS: Add Urine Microscopic? YES; Appearance Urine Cloudy (Clear); Bilirubin Urine Negative (Negative); Blood Urine Negative (Negative); Color Urine Yellow (Yellow); Glucose Urine UA 1+ mg/dL (Negative); Ketones Urine Negative (Negative); Leukocyte Esterase Ur 1+ LEU/UL (NEGATIVE); Mucus Urine Rare /lpf; Nitrate Urine Negative (Negative); Protein Urine 2+ mg/dL (Negative); Specific Grav Ur 1.021 (1.001-1.035); Urobilinogen Urine Negative mg/dL (<2.0)
== END 2020-12-15 15:50 | disposition home or self-care (01) ==
PROVIDERS: PCP Family Medicine; Visit Provider Family Medicine
DX: Z48.00 Encounter for change or removal of nonsurgical wound dressing (principal); L89.153 Pressure ulcer of sacral region, stage 3; Z46.6 Encounter for fitting and adjustment of urinary device; Z43.5 Encounter for attention to cystostomy
CPT/HCPCS: 81001; 87086

== ENCOUNTER 2020-12-17 11:19 | Outpatient (NON) | payer MEDICARE, OTHER, SELFPAY ==
[2020-12-17 12:04] LABS: Anion Gap 4 mmol/L (8-16); Blood Urea Nitrogen 27 mg/dL (7-17); Calcium 9.1 mg/dL (8.4-10.2); Carbon Dioxide 33 mmol/L (22-30); Chloride 99 mmol/L (98-107); Estimated Glomerular Filt Rate 53; Glucose 193 mg/dL (65-110); Potassium 4.3 mmol/L (3.4-5.0); Sodium 136 mmol/L (137-145)
== END 2020-12-17 11:20 | disposition home or self-care (01) ==
PROVIDERS: PCP Family Medicine; Visit Provider Specialist
DX: Z48.00 Encounter for change or removal of nonsurgical wound dressing (principal); L89.153 Pressure ulcer of sacral region, stage 3; Z46.6 Encounter for fitting and adjustment of urinary device; Z43.5 Encounter for attention to cystostomy
CPT/HCPCS: 80048

== ENCOUNTER 2021-01-05 12:52 | Outpatient (RCR) | payer MEDICARE, OTHER, SELFPAY | END 2021-02-07 09:47 | disposition home or self-care (01) | LOC: ANHWOC 12:52 | PROVIDERS: PCP Family Medicine; Visit Provider Family Medicine | DX: L89.159 Pressure ulcer of sacral region, unspecified stage (principal) | CPT/HCPCS: 99212; G0463 ==

== ENCOUNTER 2021-01-25 09:25 | Inpatient (IN) | payer MEDICARE, OTHER, SELFPAY ==
[2021-01-25] VITALS (10 sets, daily range): BP systolic 107–150; BP diastolic 57–72; PULSE 72–119; RESP 16–28; TEMP 36.1–38.6; O2SAT 85–100
--- NOTE | ~2021-01-25 | XR_ITS ---
EXAMINATION: XR chest 1V portable DATE: 01/25/2021 09:53 INDICATION: Fever and weakness. TECHNIQUE: A single frontal view of the chest was obtained. COMPARISON: Chest single view 12/09/2020 FINDINGS: There is a moderate-sized right pleural effusion. There are airspace opacities in all right lung zones with a lower lung predominance. There are mild airspace opacities in left upper and lower lung zones. No pneumothorax. Cardiomegaly is noted. There are changes of heart valve replacement. IMPRESSION: 1. Stable moderate-sized right pleural effusion. 2. Airspace opacities in right lung and left upper and lower lung zones with interval improvement on the right, consistent with atelectasis/scarring versus pneumonia. 3. Cardiomegaly. Reviewed, dictated and finalized at location A. IMPRESSION: 1. Stable moderate-sized right pleural effusion. 2. Airspace opacities in right lung and left upper and lower lung zones with in terval improvement on the right, consistent with atelectasis/scarring versus pn eumonia. 3. Cardiomegaly.
--- NOTE | ~2021-01-25 | CT_ITS ---
EXAMINATION: CT diagnostic chest wo con EXAM DATE: 01/26/2021 10:43 INDICATION: Hypoxia, pleural effusion. TECHNIQUE: Spiral CT of the chest without contrast. Axial, coronal and sagittal images of the chest were reviewed. Coronal maximum intensity pixel images of chest reviewed. The dose-length product ( DLP) for this examination was 203.78 mGy-cm. The exposure was tailored according to patient size (au to mA exposure control), and iterative reconstruction (ASIR) was used as additional dose reduction te chnique. There is no prior study for comparison. FINDINGS: Ascending aortic aneurysm at 5.4 cm. The main, central pulmonary arteries are dilated whic h can indicate elevated pulmonary arterial pressure, pulmonary arterial hypertension. There is moder ate to large right-sided pleural effusion. Completely collapsed right lower lobe, compressive atelect asis. Small to moderate left pleural effusion with subsegmental atelectasis. Several small regions of groundglass airspace disease, nonspecific pneumonitis or edema. Tracheobronc hial tree is patent. There is no mediastinal, hilar or axillary lymphadenopathy. There is no pneu mothorax. There is cardiomegaly. Dense mitral annular calcifications. Sternotomy wires and aortic v alve replacement. Dense coronary arterial sclerosis versus stents. Aneurysmal upper abdominal aorta up to 3.4 cm versus caliber above this at 2.3 cm. There is diffuse generalized body wall edema, anas arca. There is thoracic spondylosis without osteoblastic or osteolytic lesions identified. IMPRESSION: 1. There is moderate to large right-sided pleural effusion. Adjacent right lower lobe atelectasis. 2. Small to moderate left pleural effusion. 3. Ascending aortic 5.4 cm aneurysm. 4. Cardiomegaly. Pulmonary arterial hypertension. 5. Small regions of nonspecific pneumonitis or edema. Reviewed, dictated and finalized at location B. IMPRESSION: 1. There is moderate to large right-sided pleural effusion. Adjacent right low er lobe atelectasis. 2. Small to moderate left pleural effusion. 3. Ascending aortic 5.4 cm aneurysm. 4. Cardiomegaly. Pulmonary arterial hypertension. 5. Small regions of nonspecific pneumonitis or edema.
--- NOTE | ~2021-01-25 | CT_ITS ---
EXAMINATION: CT abdomen pelvis wo con DATE: 01/27/2021 09:01 INDICATION: Bacteremia. Recent suprapubic catheter placement. TECHNIQUE: Computed tomography (CT) of the abdomen and pelvis was performed without intravenous contr ast. The dose-length product was 211.97 mGy-cm. Automated exposure control and iterative reconstructi on technique were employed. COMPARISON: CT dated 10/24/2007. FINDINGS: There is a partially visualized ascending thoracic aortic aneurysm measuring 5.4 cm. There are moderate bilateral pleural effusions with underlying compressive atelectasis. There is a subsolid 6 mm right middle lobe nodule. Cardiomegaly. Extensive atherosclerosis. There is an upper abdominal aortic aneurysm measuring 3.3 cm. There are bilateral renal arterial calcifications. There is a proba ble stone in the left renal pelvis. No significant hydronephrosis. Large amount of retained fecal mat erial throughout the colon and rectum. There is diffuse subcutaneous body wall edema. There is mild d iffuse mesenteric edema. No free air or free fluid. Severe lumbar spondylosis. There is an L1 burst f racture, likely chronic. IMPRESSION: 1. Anasarca characterized by bilateral pleural effusions, diffuse subcutaneous edema and mesenteric e cristina. 2: Bilateral lower lobe compressive atelectasis. Cannot exclude superimposed pneumonia. 3: Subsolid 6 mm right middle lobe nodule, most likely benign infectious/inflammatory, although follo w-up CT chest in 6 months recommended. 4: Ascending thoracic aortic aneurysm partially visualized measuring 5.4 cm. Upper abdominal aortic a neurysm measuring 3.3 cm. Reviewed, dictated and finalized at location A. IMPRESSION: 1. Anasarca characterized by bilateral pleural effusions, diffuse subcutaneous edema and mesenteric edema. 2: Bilateral lower lobe compressive atelectasis. Cannot exclude superimposed pn eumonia. 3: Subsolid 6 mm right middle lobe nodule, most likely benign infectious/inflam matory, although follow-up CT chest in 6 months recommended. 4: Ascending thoracic aortic aneurysm partially visualized measuring 5.4 cm. Up per abdominal aortic aneurysm measuring 3.3 cm.
--- NOTE | ~2021-01-25 | US_ITS ---
EXAMINATION: US abdomen limited EXAM DATE: 01/27/2021 09:13 INDICATION: Elevated liver function tests. TECHNIQUE: Multiple grayscale and Doppler images of the abdomen right upper quadrant were obtained (b y a technologist who performed the scan) and subsequently reviewed. Correlation is made to CT abdomen pelvis. FINDINGS: The pancreatic head and body are normal in appearance. The pancreatic tail is not visualized. The l iver has normal echogenicity and contour. There are no focal liver lesions identified. There is no evidence of intrahepatic biliary duct dilation. Portal venous flow was seen in the hepatopedal, nor mal direction and has normal Doppler waveform. No right-sided hydronephrosis. Common bile duct measures 3 mm, which is normal. The gallbladder fossa is unremarkable. IMPRESSION: 1. Unremarkable abdominal ultrasound exam. Reviewed, dictated and finalized at location B.
--- NOTE | 2021-01-25 09:39 | ECG_ITS ---
Measurements Intervals [place] Rate: 119 P: 70 WI: 162 QRS: -31 QRSD: 90 T: 119 QT: 302 QTc: 426 Interpretive Statements SINUS TACHYCARDIA LEFT ATRIAL ENLARGEMENT LEFT AXIS DEVIATION DELAYED PRECORDIAL R/S TRANSITION BORDERLINE ST-T WAVE ABNORMALITY- HIGH LATERAL LEADS BASELINE WANDER- I ABNORMAL ECG Electronically Signed On 01-25-2021 10:17:08 CDT by Delbert Nair D.O.
[2021-01-25 10:02] LABS: Basophils Percent Auto 0.2 % (0.2-1.2); Eosinophils Percent Auto 0.1 % (0-4.4); Hematocrit 26.6 % (37.0-47.0); Hemoglobin 8.4 g/dL (12.0-15.0); Immature Granulocyte Absolute 0.09 K/mm3 (0.00-0.031); Immature Granulocyte Percent A 0.5 % (0-0.5); Lymphocytes Absolute Auto 0.19 K/mm3 (0.9-3.2); Lymphocytes Percent Auto 1.1 % (18.3-44.2); Mean Corpuscular HGB Conc 31.6 g/dl (32-36); Mean Corpuscular Hemoglobin 29.7 pg (26-34); Mean Platelet Volume 9.5 fl (7.4-10.4); Monocytes Absolute Auto 0.8 K/mm3 (0.1-0.6); Monocytes Percent Auto 4.9 % (2.6-8.5); Neutrophils Absolute Auto 15.6 K/mm3 (1.3-6.7); Neutrophils Percent Auto 93.2 % (45.5-73.1); Platelet Count Result 293 k/mm3 (150-375); Red Blood Count 2.83 M/mm3 (4.2-5.4); Red Cell Distribution Width 17.6 % (11.5-14.5); White Blood Count 16.7 K/mm3 (4.5-10.0)
[2021-01-25] MEDS: SODIUM CHLORIDE 0.9% IV 500 ML 999 ML IV CONT (10:04)
[2021-01-25 10:13] LABS: Alanine Aminotransferase 77 U/L (4-35); Albumin Level 3.4 g/dL (3.5-5.1); Alkaline Phosphatase 121 U/L (38-126); Anion Gap 7 mmol/L (8-16); Aspartate Amino Transferase 98 U/L (14-36); Bilirubin,Total 0.7 mg/dL (0.2-1.3); Blood Urea Nitrogen 33 mg/dL (7-17); Calcium 9.1 mg/dL (8.4-10.2); Carbon Dioxide 35 mmol/L (22-30); Chloride 97 mmol/L (98-107); Estimated CRCL calculation 21 ml/min; Estimated Glomerular Filt Rate 39; Glucose 162 mg/dL (65-110); Sodium 139 mmol/L (137-145)
[2021-01-25 10:21] LABS: Add Urine Microscopic? YES; Appearance Urine Cloudy (Clear); Bilirubin Urine Negative (Negative); Blood Urine 2+ (Negative); Color Urine Yellow (Yellow); Glucose Urine UA Negative (Negative); Ketones Urine Trace mg/dL (Negative); Leukocyte Esterase Ur 3+ LEU/UL (Negative); Mucus Urine Rare /lpf; Nitrate Urine Positive (Negative); Protein Urine 1+ mg/dL (Negative); RBC Urine 21-50 /hpf (0-2); Specific Grav Ur 1.015 (1.001-1.035); Squamous Epithelial Cell Urine Rare /hpf (Few); Urobilinogen Urine Negative mg/dL (<2.0); WBC Clumps Urine Present /HPF; WBC Urine >75 /hpf
[2021-01-25 10:43] LABS: Lactic Acid Reflex 0.8 mmol/L (0.7-2.1)
[2021-01-25 10:44] LABS: INR 3.2; Prothrombin Time 31.7 Seconds (11.1-14.7)
[2021-01-25 11:19] LABS: NT Pro B Type Natriuretic Pept 6370 pg/mL (5-100)
--- NOTE | 2021-01-25 11:28 | ED.GENADULT ---
HPI - General Adult General Chief complaint: Weakness Stated complaint: ams, weakness Time Seen by Provider: 01/25/21 09:54 History of Present Illness HPI narrative: Patient presents with weakness. Patient has a history of dementia CHF chronic indwelling Sweet catheter with home health evaluations. Patient lives at home lives with family reports yesterday she was at her baseline mental state was walking around and partaking in her usual routine. When family woke up this morning and checked on her they noted she was hypoxic to the high 70s appeared weak and confused so they called EMS and brought her in for evaluation. Family reports she use had UTIs and CSF exacerbations that have caused her symptoms they were concerned she may have something similar. Family has not noted cough or fevers recently they have not noted any nausea vomiting or diarrhea. Related Data Home Medications Medication Instructions Recorded Confirmed aspirin 81 mg tablet,delayed 81 mg PO QPM 05/29/19 12/09/20 release calcium carb 300 mg-D3 800 1 tablet PO DAILY 05/29/19 12/09/20 unit-mag ox 25 mg-endoscopy specialty technician 0.5 mg-abel-Zn tablet cholecalciferol (vitamin D3) 125 125 mcg PO DAILY 05/29/19 12/09/20 mcg (5,000 unit) capsule pyridoxine (vitamin B6) 100 mg 100 mg PO QPM 05/29/19 12/09/20 tablet zinc 50 mg tablet 50 mg PO DAILY 05/29/19 12/09/20 omega 5-qde-rzo-fish oil 60 mg-90 1 cap PO DAILY 08/18/20 12/09/20 mg-500 mg capsule nystatin 100,000 unit/gram topical 1 applic TOPICAL DAILY g 09/20/20 12/09/20 powder ferrous sulfate 325 mg PO DAILY 12/09/20 12/09/20 warfarin 3 mg PO DAILY 12/09/20 12/09/20 warfarin 6 mg PO DAILY 12/09/20 12/09/20 famotidine 20 mg PO BID 01/25/21 furosemide [Lasix] 40 mg PO BID 01/25/21 lactobacillus combination no.8 cell 01/25/21 [Adult Probiotic] Allergies Allergy/AdvReac Type Severity Reaction Status Date / Time Penicillins Allergy Unknown Rash Verified 12/09/20 08:50 pravastatin Allergy Unknown Vomiting Verified 12/09/20 08:50 Sulfa (Sulfonamide Allergy Unknown Vomiting Verified 12/09/20 08:50 Antibiotics) pantoprazole [From Protonix] AdvReac Vomiting Verified 12/09/20 08:50 Review of Systems Review of Systems: ROS unobtainable: Yes unobtainable due to mental status PMFSH Past Medical History Medical History Atrial fibrillation CKD (chronic kidney disease) stage 3, GFR 30-59 ml/min CVA (cerebral vascular accident) 10/2019 - l sided weakness Dementia 02/12/2013 Dementia, unspecified, without behavioral disturbance Diarrhea in adult patient 06/25/2018 Dyslipidemia Edema of both lower legs due to peripheral venous insufficiency 07/21/2018 Elevated lipids Essential (primary) hypertension Gastric ulcer History of gastric ulcer Hypercholesterolemia Low back pain without sciatica Positive colorectal cancer screening using Cologuard test Pressure ulcer of sacral region, stage 1 Second degree AV block, Mobitz type I Suprapubic catheter Tinea cruris Type 2 diabetes mellitus without complication, without long-term current use of insulin Vitamin D deficiency Surgical History Surgical History Aortic valve replaced (~07/17/95) 07/17/1995 History of cholecystectomy (~06/17/02) 06/17/2002 History of coronary artery stent placement History of right coronary artery stent placement (~02/16/06) 02/16/2006 History of right hip replacement (~07/18/20) History of suprapubic catheter 02/2020 Family History Family History Father Acute myocardial infarction Diabetes mellitus Sibling Acute myocardial infarction Social History Social History Social History: The patient tells me that she lives with her daughter and that she is . She stated she worked a little bit before she got
[2021-01-25] MEDS: metroNIDAZOLE 500 MG/ISO 100ML 500 MG/100 ML BAG 100 MG IVPB ×2 (12:29→23:18)
--- NOTE | 2021-01-25 13:20 | PC.NURSE ---
1309-REPORT TO TOR IBRAHIM FOR 319. CONTACT PHONE NUMBER FOR DAUGHTER, MANDEEP, . DAUGHTER STATES SUPRAPUBIC CATHETER WAS PLACED THREE WEEKS AGO.
[2021-01-25] MEDS: SODIUM CHLORIDE 0.9% IV 1,000 ML 125 ML IV CONT (13:47)
[2021-01-25] MEDS: SILVERGEL (ELTA) 45 ML 1 APPLIC TOPICAL (16:00)
--- NOTE | 2021-01-25 18:00 | PM.IMHP ---
H&P: HPI History of Present Illness Date/Time: 01/25/21 18:00 Chief Complaint: Weakness. Narrative: This is an 85-year-old female with history of dementia, stroke, mechanical aortic valve replacement on warfarin, chronic kidney disease, hypertension, diabetes, and several other comorbidities who presented to the emergency department earlier today via EMS from home for evaluation of weakness. The patient is pleasantly confused and due to her underlying dementia she is not an accurate historian and as such a majority of the following is obtained via a review of her electronic medical records as well as history obtained from her daughter. She reportedly was in her usual state of health yesterday however when they checked on her this morning she appeared weak, confused, and she was reportedly hypoxic with an SpO2 in the 70s. On arrival to the emergency department her pulse was 119, blood pressure 150/71, pulse ox was 85% on room air, and her temperature was 101.4?. Chest x-ray showed a stable moderate size right pleural effusion with airspace opacities in the right lung and left upper and lower lung zones consistent with atelectasis/scarring versus pneumonia. Her urinalysis was positive for nitrates, leukocyte esterase, with many white blood cells and white blood cell clumps though she does have an indwelling suprapubic catheter. She has not complained to her family members about feeling poorly and they have not noticed any cough, fever, vomiting, or diarrhea. She has no sick contacts. Family members deny concerns for aspiration. Review of Systems Review of Systems: A review of systems was conducted but limited given the patient's pretty significant short-term memory loss. She denied headache, chest pain, shortness of breath, cough, sinus congestion, rhinorrhea, otalgia, odynophagia, nausea, vomiting, and diarrhea. She also denied abdominal and lower back pain. Except as documented all other systems were reviewed and are negative. [facility] Past Medical History Medical History Atrial fibrillation Cerebrovascular accident (10/2019) Left-sided weakness. Chronic anemia Chronic anticoagulation Chronic kidney disease, stage 3 Baseline creatinine ranges between 1.0 and 1.30. Dementia (~02/2013) Diastolic congestive heart failure Diverticulitis Dyslipidemia Essential (primary) hypertension Gastric ulcer Hyperlipidemia Second degree AV block, Mobitz type I Suprapubic catheter Type 2 diabetes mellitus without complication, without long-term current use of insulin Vitamin D deficiency Surgical History Surgical History (Updated 01/25/21 @ 15:47 by Evelia Butt PA-C) History of aortic valve replacement (2001) Carbomedics aortic valve. History of appendectomy History of bilateral cataract extraction History of cholecystectomy (06/10/02) History of right coronary artery stent placement (02/16/06) History of right hip replacement (07/18/20) History of suprapubic catheter (02/2020) History of tubal ligation Family History Family History (Updated 01/25/21 @ 15:45 by Evelia Butt PA-C) Father Acute myocardial infarction Diabetes mellitus Hypertension Sibling Acute myocardial infarction Hypertension Mother Arthritis Social History Social History (Updated 01/26/21 @ 00:00 by Evelia Butt PA-C) Social History: The patient lives in [place] with her family. She is and has 2 children. No alcohol, tobacco, or illicit substance use. She is listed as a do not resuscitate. Meds Home Medications and Allergies Home Medications Medication Instructions Recorded Confirmed Type aspirin 81 mg tablet,delayed 81 mg PO QPM 05/29/19 01/25/21 History release calcium carb 300 mg-D3 800 1 tablet PO DAILY 05/29/19 01/25/21 History unit-mag ox 25 mg-helicopter dispatcher 0.5 mg-abel-Zn tablet cholecalciferol (vitamin D3) 125 125 mcg PO DAILY 05/29/19 01/25/21 History mcg
[2021-01-26] VITALS (12 sets, daily range): BP systolic 138–169; BP diastolic 65–94; PULSE 91–119; RESP 17–20; TEMP 36.5–37.6; O2SAT 91–96; BMI 18.9
[2021-01-26] MEDS: SODIUM CHLORIDE 0.9% IV 1,000 ML 125 ML IV CONT (06:27)
[2021-01-26 06:48] LABS: Hematocrit 21.8 % (37.0-47.0); Mean Corpuscular HGB Conc 32.1 g/dl (32-36); Mean Corpuscular Hemoglobin 29.4 pg (26-34); Mean Corpuscular Volume 91.6 fl (80-100); Platelet Count Result 274 k/mm3 (150-375); Red Blood Count 2.38 M/mm3 (4.2-5.4); Red Cell Distribution Width 17.4 % (11.5-14.5); White Blood Count 14.8 K/mm3 (4.5-10.0)
[2021-01-26 07:03] LABS: Alanine Aminotransferase 55 U/L (4-35); Alkaline Phosphatase 97 U/L (38-126); Anion Gap 2 mmol/L (8-16); Aspartate Amino Transferase 83 U/L (14-36); Bilirubin,Total 0.5 mg/dL (0.2-1.3); Blood Urea Nitrogen 33 mg/dL (7-17); Calcium 8.6 mg/dL (8.4-10.2); Carbon Dioxide 34 mmol/L (22-30); Chloride 99 mmol/L (98-107); Estimated CRCL calculation 23 ml/min; Estimated Glomerular Filt Rate 43; Glucose 240 mg/dL (65-110); Magnesium 1.8 mg/dL (1.6-2.3); Potassium 4.2 mmol/L (3.4-5.0); Sodium 135 mmol/L (137-145)
[2021-01-26 07:20] LABS: INR 2.9; Prothrombin Time 29.3 Seconds (11.1-14.7)
[2021-01-26] MEDS: CHOLECALCIFEROL 1,000 UNITS TABLET 5000 UNITS PO (10:00)
[2021-01-26] MEDS: THERAPEUTIC MULTIVITAMINS/MINERALS TAB (*BKC) 1 TABLET PO (10:03)
[2021-01-26] MEDS: amLODIPine BESYLATE 5 MG TABLET 10 MG PO (10:03)
[2021-01-26] MEDS: OMEGA 3 POLYUNSAT FATTY ACIDS 1 GM CAP PO (10:04)
[2021-01-26] MEDS: CYANOCOBALAMIN 1,000 MCG TABLET 1000 MCG PO (10:04)
[2021-01-26] MEDS: GALANTAMINE HYDROBROMIDE 4 MG TABLET 8 MG PO ×2 (10:04→17:43)
[2021-01-26] MEDS: ACIDOPHILUS/BULGARICUS CHEWABLE TABLET 2 TABLET BY MOUTH (10:04)
[2021-01-26] MEDS: ZINC SULFATE 220 MG CAPSULE PO (10:04)
[2021-01-26] MEDS: FERROUS SULFATE 324 MG TABLET PO (10:05)
[2021-01-26] MEDS: SILVERGEL (ELTA) 45 ML 1 APPLIC TOPICAL (10:05)
[2021-01-26] MEDS: GABAPENTIN 300 MG CAPSULE PO ×2 (10:05→17:43)
[2021-01-26] MEDS: FAMOTIDINE 20 MG TABLET PO ×2 (10:05→17:42)
[2021-01-26 12:15] LABS: Ammonia < 9 umol/L (9-30)
[2021-01-26 13:00] LABS: Glucose Point of Care 176 mg/dl (65-105)
[2021-01-26 16:56] LABS: SARS-CoV-2 RNA PCR Negative
[2021-01-26 17:37] LABS: Glucose Point of Care 209 mg/dl (65-105)
[2021-01-26] MEDS: lisinopriL 20 MG TABLET PO (17:43)
[2021-01-26] MEDS: ASPIRIN 81 MG ENTERIC TABLET PO (17:44)
[2021-01-26] MEDS: WARFARIN (*PBKC) 3 MG TABLET 6 MG PO (17:44)
[2021-01-26] MEDS: MEMANTINE HCL XR 28 MG CAP PO (17:57)
[2021-01-26] MEDS: ATORVASTATIN 40 MG TABLET 80 MG PO (17:57)
[2021-01-26] MEDS: PYRIDOXINE HCL 50 MG TABLET 100 MG PO (17:57)
[2021-01-26] MEDS: INSULIN ASPART (*BKC) 100 UNITS/ML SUB-Q (17:58)
--- NOTE | 2021-01-26 18:24 | PM.IMPN ---
Progress Note: A&P Assessment and Plan (1) Pleural effusion: Code(s): J90 - Pleural effusion, not elsewhere classified Status: Acute Assessment and Plan: CT of the chest showed [id number] right pleural effusion and small to moderate left -BNP elevated, CHF could be a component -she has not had much urine output and her creatinine was a little elevated on admission -may consider thoracentesis since she is hypoxic. I am going to consult pulmonology. This is risky because she has a mechanical heart valve and is on warfarin -continue ceftriaxone and azithromycin -check TSH -echo from December showed an EF of 60% -consider Lasix but she has not had much urine output and looks somewhat dry on labs -will await recommendations from pulmonology (2) Acute respiratory failure with hypoxia: Code(s): J96.01 - Acute respiratory failure with hypoxia Status: Acute Assessment and Plan: As above, continue oxygen (3) Sepsis: Code(s): A41.9 - Sepsis, unspecified organism Status: Acute Assessment and Plan: Patient meets sepsis criteria on admission with fever, tachycardia, and leukocytosis in the setting of a complicated urinary tract infection. -COVID-19 negative - Lactic acid levels within normal limits. -Blood pressures have been stable. -urine culture pending -blood culture no growth to date (4) Complicated urinary tract infection: Code(s): N39.0 - Urinary tract infection, site not specified Status: Acute Assessment and Plan: She has been started on ceftriaxone, pending urine culture. -she has a suprapubic catheter. I will have this flushed and will do a bladder scan to ensure she is not retaining (5) Elevated LFTs: Code(s): R79.89 - Other specified abnormal findings of blood chemistry Status: Acute Assessment and Plan: Records reviewed it looks like she chronically has a mild elevation in her AST and ALT and she has had slight improvement today -will order right upper quadrant ultrasound since I do not see any images of her liver since 2001 -monitor (6) Chronic anemia: Code(s): D64.9 - Anemia, unspecified Status: Acute Assessment and Plan: Hemoglobin 7.0 today and because of her tachycardia 1 unit of blood was given -will repeat a H&H 1 hour after blood has been transfused (7) Chronic anticoagulation: Code(s): Z79.01 - longterm (current) use of anticoagulants Status: Chronic Assessment and Plan: INR is therapeutic at 2.9 - Continue warfarin and monitor. -has mechanical aortic valve (8) Chronic kidney disease, stage 3: Code(s): N18.30 - Chronic kidney disease, stage 3 unspecified Status: Acute Assessment and Plan: Improved (9) Abnormal chest x-ray: Code(s): R93.89 - Abnormal findings on diagnostic imaging of other specified body structures Status: Acute Assessment and Plan: As above (10) Pressure ulcer: Code(s): L89.90 - Pressure ulcer of unspecified site, unspecified stage Status: Acute Assessment and Plan: 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 -appreciate wound care's recommendations (11) Ascending aortic aneurysm: Code(s): I71.2 - Thoracic aortic aneurysm, without rupture Status: Acute Assessment and Plan: Noted on imaging -will speak to family about this -will need to follow up with routine monitoring. I am unsure if she is a surgical candidate but will have her follow-up (12) Sinus tachycardia: Code(s): R00.0 - Tachycardia, unspecified Status: Acute Assessment and Plan: Noted on EKG and telemetry -could be due to lung disease, anemia and infection -she has absolutely no chest pain -BNP elevated and actually slightly lower than her last admission -hopefully this improves with treatment and blood -consider cardiology
[2021-01-26 19:28] LABS: Hematocrit 29.1 % (37.0-47.0); Hemoglobin 9.3 g/dL (12.0-15.0)
[2021-01-26 22:41] LABS: Glucose Point of Care 161 mg/dl (65-105)
[2021-01-27] VITALS (10 sets, daily range): BP systolic 149–163; BP diastolic 64–99; PULSE 81–128; RESP 17–20; TEMP 36.2–37.1; O2SAT 91–98
[2021-01-27 07:12] LABS: Basophils Percent Auto 0.1 % (0.2-1.2); Eosinophils Percent Auto 0.1 % (0-4.4); Hematocrit 27.9 % (37.0-47.0); Hemoglobin 8.7 g/dL (12.0-15.0); Immature Granulocyte Absolute 0.04 K/mm3 (0.00-0.031); Immature Granulocyte Percent A 0.4 % (0-0.5); Lymphocytes Absolute Auto 0.45 K/mm3 (0.9-3.2); Lymphocytes Percent Auto 4.1 % (18.3-44.2); Mean Corpuscular HGB Conc 31.2 g/dl (32-36); Mean Corpuscular Hemoglobin 29.4 pg (26-34); Mean Corpuscular Volume 94.3 fl (80-100); Mean Platelet Volume 10.3 fl (7.4-10.4); Monocytes Absolute Auto 0.6 K/mm3 (0.1-0.6); Monocytes Percent Auto 5.1 % (2.6-8.5); Neutrophils Absolute Auto 9.8 K/mm3 (1.3-6.7); Neutrophils Percent Auto 90.2 % (45.5-73.1); Platelet Count Result 274 k/mm3 (150-375); Red Blood Count 2.96 M/mm3 (4.2-5.4); Red Cell Distribution Width 17.9 % (11.5-14.5); White Blood Count 10.9 K/mm3 (4.5-10.0)
[2021-01-27 07:26] LABS: INR 2.3; Prothrombin Time 24.8 Seconds (11.1-14.7)
[2021-01-27 07:47] LABS: Alanine Aminotransferase 50 U/L (4-35); Alkaline Phosphatase 91 U/L (38-126); Anion Gap 6 mmol/L (8-16); Aspartate Amino Transferase 54 U/L (14-36); Bilirubin,Total 0.7 mg/dL (0.2-1.3); Blood Urea Nitrogen 28 mg/dL (7-17); CRP 17.2 mg/dL (<1.0); Calcium 8.7 mg/dL (8.4-10.2); Carbon Dioxide 31 mmol/L (22-30); Chloride 100 mmol/L (98-107); Estimated CRCL calculation 31 ml/min; Estimated Glomerular Filt Rate 60; Glucose 201 mg/dL (65-110); Potassium 3.4 mmol/L (3.4-5.0); Sodium 137 mmol/L (137-145)
[2021-01-27 08:25] LABS: Atypical Lymphocytes Present; Hypochromasia 1+ (NORMAL); Microcytosis 2+ (NORMAL)
[2021-01-27 08:36] LABS: Glucose Point of Care 176 mg/dl (65-105)
[2021-01-27] MEDS: SILVERGEL (ELTA) 45 ML 1 APPLIC TOPICAL (09:18)
[2021-01-27 11:53] LABS: Glucose Point of Care 211 mg/dl (65-105)
[2021-01-27] MEDS: INSULIN ASPART (*BKC) 100 UNITS/ML SUB-Q (12:41)
--- NOTE | 2021-01-27 15:39 | WPDURCON ---
Assessment and Plan Assessment and plan (1) Complicated urinary tract infection: Code(s): N39.0 - Urinary tract infection, site not specified Status: Acute Assessment and Plan: Patient is likely to have only colonization from her chronic SP tube, if she is asymptomatic, I would not recommend treatment at this time. She appears to have asymptomatic bacteruria. (2) Neurogenic bladder: Code(s): N31.9 - Neuromuscular dysfunction of bladder, unspecified Status: Acute Assessment and Plan: Her SP tube was exchanged today at the bedside without difficulty, clear yellow urine noted on return. She tolerated it well. It was replaced with a 16fr straight catheter and secured with a stat schuyler on her left high, it is draining to gravity. She should continue to have monthly catheter changes at home with home health. I would not recommend treating her for a UTI unless she becomes symptomatic. Urology Consult Note HPI Date Seen: 01/27/21 Requesting Physician: Alisa Bruner PA-C Primary Care Provider: Devaughn Witt MD Consult Narrative Narrative: Sadie Winston is a 85 year old female who presented to the ER on 01/25/2021 with weakness and hypoxia at home in the 70's on her SP02. She was brought by ambulance. She is well known to our practice and had an SP tube placed by Dr. Carrillo for neurogenic bladder on 03/01/2020, which is managed by home health monthly. She has no family at the bedside and is alert but not oriented. She has a normal WBC of 10.9, creatinine of 0.[address]/US of abdomen are urologically normal. Her urine culture grew staph and her preliminary blood cultures are negative. She denies any symptoms of a UTI or gross hematuria. She is unsure when her most recent SP tube was changed. Review of Systems Review of Systems: ROS unobtainable: Yes unobtainable due to mental status PMFSH Past Medical History Medical History Atrial fibrillation Cerebrovascular accident (10/2019) Left-sided weakness. Chronic anemia Chronic anticoagulation Chronic kidney disease, stage 3 Baseline creatinine ranges between 1.0 and 1.30. Dementia (~02/2013) Diastolic congestive heart failure Diverticulitis Dyslipidemia Essential (primary) hypertension Gastric ulcer Hyperlipidemia Second degree AV block, Mobitz type I Suprapubic catheter Type 2 diabetes mellitus without complication, without long-term current use of insulin Vitamin D deficiency Surgical History Surgical History History of aortic valve replacement (2001) Carbomedics aortic valve. History of appendectomy History of bilateral cataract extraction History of cholecystectomy (06/10/02) History of right coronary artery stent placement (02/16/06) History of right hip replacement (07/18/20) History of suprapubic catheter (02/2020) History of tubal ligation Family History Family History Father Acute myocardial infarction Diabetes mellitus Hypertension Sibling Acute myocardial infarction Hypertension Mother Arthritis Social History Social History Social History: The patient lives in [place] with her family. She is and has 2 children. No alcohol, tobacco, or illicit substance use. She is listed as a do not resuscitate. Spiritual care concerns: No Meds Home Medications and Allergies Home Medications Medication Instructions Recorded Confirmed Type aspirin 81 mg tablet,delayed 81 mg PO QPM 05/29/19 01/25/21 History release calcium carb 300 mg-D3 800 1 tablet PO DAILY 05/29/19 01/25/21 History unit-mag ox 25 mg-helicopter specialist 0.5 mg-abel-Zn tablet cholecalciferol (vitamin D3) 125 125 mcg PO DAILY 05/29/19 01/25/21 History mcg (5,000 unit) capsule pyridoxine (vitamin B6) 10
--- NOTE | 2021-01-27 16:06 | PM.IMPN ---
Progress Note: A&P Assessment and Plan (1) Complicated urinary tract infection: Code(s): N39.0 - Urinary tract infection, site not specified Status: Acute Assessment and Plan: Pt UA is growing staph aureus -Vancomycin started, await sensitivities -Urology consulted to change the suprapubic catheter -Pt appears clinically improved today and her HR has improved -CT scan reviewed. No signs of abscess (2) Bacteremia: Code(s): R78.81 - Bacteremia Status: Acute Assessment and Plan: Pt has gram negative bacilli growing in both bottles -unclear source at this time. CT chest not showing PNA but abdominal CT shows RML nodule could be infectious and cannot exclude PNA -UA growing S. Aureus -Will await identification -Continue ceftriaxone but increase to 2 grams -Will consult infectious disease (3) Pleural effusion: Code(s): J90 - Pleural effusion, not elsewhere classified Status: Acute Assessment and Plan: CT of the chest showed [id number] right pleural effusion and small to moderate left -BNP elevated, CHF could be a component -Pt with anasarca but not having a lot of UOP, caution use of lasix -Pts breathing and HR improved from yesterday. I spoke with pulmonology about the case and since she is improving, will hold off on thoracentesis. There is some risk in the thoracentesis because she is on warfarin for a mechanical valve. Pulm states that if she improves more, may consider trying lasix -TSH normal -echo from December showed an EF of 60% (4) Acute respiratory failure with hypoxia: Code(s): J96.01 - Acute respiratory failure with hypoxia Status: Acute Assessment and Plan: There is question on her oxygen documentation. But I believe that she has been on oxygen throughout her stay but it has been recorded that she has been on room air. I have called the nurse and they are weaning her off oxygen now and she is doing well so far. I have asked her if the patient becomes hypoxic if she will document this and let us know. (5) Sepsis: Code(s): A41.9 - Sepsis, unspecified organism Status: Acute Assessment and Plan: Patient meets sepsis criteria on admission with fever, tachycardia, and leukocytosis in the setting of a complicated urinary tract infection. septicemia -COVID-19 negative - Lactic acid levels within normal limits. -blood pressures have improved -urine culture as above -blood cultures do show growth as above (6) Elevated LFTs: Code(s): R79.89 - Other specified abnormal findings of blood chemistry Status: Acute Assessment and Plan: Records reviewed it looks like she chronically has a mild elevation in her AST and ALT and she has had slight improvement today -right upper quadrant ultrasound without abnormalities (7) Chronic anemia: Code(s): D64.9 - Anemia, unspecified Status: Acute Assessment and Plan: Hemoglobin 7.0 yesterday and because of her tachycardia 1 unit of blood was given -hemoglobin stable 8.7 today -monitor (8) Chronic anticoagulation: Code(s): Z79.01 - care home (current) use of anticoagulants Status: Chronic Assessment and Plan: INR is therapeutic at 2.3. If she drops any lower than this may consider heparin - Continue warfarin and monitor. -has mechanical aortic valve (9) Chronic kidney disease, stage 3: Code(s): N18.30 - Chronic kidney disease, stage 3 unspecified Status: Acute Assessment and Plan: Improved (10) Abnormal chest x-ray: Code(s): R93.89 - Abnormal findings on diagnostic imaging of other specified body structures Status: Acute Assessment and Plan: As above (11) Pressure ulcer: Code(s): L89.90 - Pressure ulcer of unspecified site, unspecified stage Status: Acute Assessment and Plan: Patient has a chronic sacral ulcer f
[2021-01-27 17:05] LABS: Glucose Point of Care 148 mg/dl (65-105)
[2021-01-27] MEDS: TOLNAFTATE 1% POWDER 45 GM BTL 1 APPLIC TOPICAL (17:47)
[2021-01-27] MEDS: GABAPENTIN 300 MG CAPSULE PO (17:48)
[2021-01-27] MEDS: PYRIDOXINE HCL 50 MG TABLET 100 MG PO (17:49)
[2021-01-27] MEDS: GALANTAMINE HYDROBROMIDE 4 MG TABLET 8 MG PO (17:49)
[2021-01-27] MEDS: ATORVASTATIN 40 MG TABLET 80 MG PO (17:49)
[2021-01-27] MEDS: lisinopriL 20 MG TABLET PO (17:50)
[2021-01-27] MEDS: FAMOTIDINE 20 MG TABLET PO (17:50)
[2021-01-27] MEDS: ASPIRIN 81 MG ENTERIC TABLET PO (17:50)
[2021-01-27] MEDS: WARFARIN (*PBKC) 3 MG TABLET PO (17:50)
[2021-01-27] MEDS: MEMANTINE HCL XR 28 MG CAP PO (17:51)
[2021-01-27 22:23] LABS: Glucose Point of Care 327 mg/dl (65-105)
[2021-01-28] VITALS (8 sets, daily range): BP systolic 134–148; BP diastolic 66–75; PULSE 83–107; RESP 18–20; TEMP 36.3–36.9; O2SAT 90–97
[2021-01-28 06:14] LABS: Basophils Percent Auto 0.1 % (0.2-1.2); Eosinophils Absolute Auto 0.1 K/mm3 (0-0.3); Eosinophils Percent Auto 0.9 % (0-4.4); Hemoglobin 8.4 g/dL (12.0-15.0); Immature Granulocyte Absolute 0.02 K/mm3 (0.00-0.031); Immature Granulocyte Percent A 0.3 % (0-0.5); Lymphocytes Absolute Auto 0.48 K/mm3 (0.9-3.2); Lymphocytes Percent Auto 6.5 % (18.3-44.2); Mean Corpuscular HGB Conc 32.3 g/dl (32-36); Mean Corpuscular Hemoglobin 29.2 pg (26-34); Mean Corpuscular Volume 90.3 fl (80-100); Mean Platelet Volume 9.5 fl (7.4-10.4); Monocytes Absolute Auto 0.5 K/mm3 (0.1-0.6); Monocytes Percent Auto 7.1 % (2.6-8.5); Neutrophils Absolute Auto 6.3 K/mm3 (1.3-6.7); Neutrophils Percent Auto 85.1 % (45.5-73.1); Platelet Count Result 275 k/mm3 (150-375); Red Blood Count 2.88 M/mm3 (4.2-5.4); Red Cell Distribution Width 17.4 % (11.5-14.5); White Blood Count 7.4 K/mm3 (4.5-10.0)
[2021-01-28 06:31] LABS: Alanine Aminotransferase 53 U/L (4-35); Albumin Level 2.7 g/dL (3.5-5.1); Alkaline Phosphatase 103 U/L (38-126); Anion Gap 4 mmol/L (8-16); Aspartate Amino Transferase 76 U/L (14-36); Bilirubin,Total 0.4 mg/dL (0.2-1.3); Blood Urea Nitrogen 26 mg/dL (7-17); Calcium 8.5 mg/dL (8.4-10.2); Carbon Dioxide 33 mmol/L (22-30); Chloride 101 mmol/L (98-107); Estimated CRCL calculation 28 ml/min; Estimated Glomerular Filt Rate 53; Glucose 252 mg/dL (65-110); Potassium 3.2 mmol/L (3.4-5.0); Sodium 138 mmol/L (137-145)
[2021-01-28] MEDS: INSULIN ASPART (*BKC) 100 UNITS/ML SUB-Q ×3 (08:30→17:21)
[2021-01-28] MEDS: FERROUS SULFATE 324 MG TABLET PO (08:30)
[2021-01-28] MEDS: THERAPEUTIC MULTIVITAMINS/MINERALS TAB (*BKC) 1 TABLET PO (08:30)
[2021-01-28] MEDS: CHOLECALCIFEROL 1,000 UNITS TABLET 5000 UNITS PO (08:30)
[2021-01-28] MEDS: GABAPENTIN 300 MG CAPSULE PO ×2 (08:30→17:15)
[2021-01-28] MEDS: amLODIPine BESYLATE 5 MG TABLET 10 MG PO (08:30)
[2021-01-28] MEDS: FAMOTIDINE 20 MG TABLET PO ×2 (08:30→17:17)
[2021-01-28] MEDS: GALANTAMINE HYDROBROMIDE 4 MG TABLET 8 MG PO ×2 (08:30→17:17)
[2021-01-28] MEDS: SILVERGEL (ELTA) 45 ML 1 APPLIC TOPICAL (08:34)
[2021-01-28] MEDS: TOLNAFTATE 1% POWDER 45 GM BTL 1 APPLIC TOPICAL (08:35)
--- NOTE | 2021-01-28 08:58 | PM.IMPN ---
Progress Note: A&P Assessment and Plan (1) Complicated urinary tract infection: Code(s): N39.0 - Urinary tract infection, site not specified Status: Acute Assessment and Plan: MRSA in urine -Urology consulted to change the suprapubic catheter -CT scan reviewed. No signs of abscess (2) Bacteremia: Code(s): R78.81 - Bacteremia Status: Acute Assessment and Plan: Pt has gram negative bacilli growing in both bottles (3) Pleural effusion: Code(s): J90 - Pleural effusion, not elsewhere classified Status: Acute Assessment and Plan: CT of the chest showed [id number] right pleural effusion and small to moderate left -BNP elevated, CHF could be a component -TSH normal -echo from December showed an EF of 60% (4) Sepsis: Code(s): A41.9 - Sepsis, unspecified organism Status: Acute Assessment and Plan: Patient meets sepsis criteria on admission with fever, tachycardia, and leukocytosis in the setting of a complicated urinary tract infection. septicemia -COVID-19 negative - Lactic acid levels within normal limits. -blood pressures have improved -urine culture as above -blood cultures do show growth as above (5) Elevated LFTs: Code(s): R79.89 - Other specified abnormal findings of blood chemistry Status: Acute (6) Chronic anemia: Code(s): D64.9 - Anemia, unspecified Status: Acute (7) Chronic anticoagulation: Code(s): Z79.01 - nursing home (current) use of anticoagulants Status: Chronic Assessment and Plan: -has mechanical aortic valve (8) Chronic kidney disease, stage 3: Code(s): N18.30 - Chronic kidney disease, stage 3 unspecified Status: Acute Assessment and Plan: Improved (9) Abnormal chest x-ray: Code(s): R93.89 - Abnormal findings on diagnostic imaging of other specified body structures Status: Acute Assessment and Plan: As above (10) Pressure ulcer: Code(s): L89.90 - Pressure ulcer of unspecified site, unspecified stage Status: Acute Assessment and Plan: 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 -appreciate wound care's recommendations Additional Plan 85yo lady with chronic SP tube presenting from EMS from home due to weakness. Noted to have MRSA UTI sensitive to vanc & tetracycline and levaquin. Catheter exchanged by urology at bedside, and patient on Vanc right now. Also found to have Gram negative vineet bacteremia. CTX to cover for this, and ID consulted yesterday. Hemodynamically stable. Lactate negative. Unclear etiology or port of entry. Of note, patient has artificial aortic valve for which she is on coumadin, and INR 2.3. She also noted to have documented anasarca, bilateral pleural effusions, and ascites. Echo showing preserved EF & G1 Diastolic dysfunction. Liver US unremarkable. Some mild proteinuria, but certainly not nephrotic range, and no RAJESH. Albumin noted to be low. Unclear etiology - though entirely possible it's related to malnutrition. Time Spent With Patient Time with patient: less than 15 minutes Subjective Date/time seen: 01/28/21 08:58 no acute complaints resting comfortably in bed AO2-3 Review of Systems Review of Systems: All systems reviewed & are unremarkable except as noted in HPI and below Exam Const: General: no acute distress Neck: Neck: no JVD Resp: Effort & Inspection: normal respiratory effort Auscultation: clear to auscultation bilaterally Cardio: Rate: regular rate Rhythm: regular rhythm GI: GI Palp: Yes Soft to palpation and No Tenderness to palpation present (GI) Objective Data Vital Signs Vital Signs: Vital Signs - 24 hr 01/27/21 11:37 01/27/21 12:00 01/27/21 14:30 Temperature Pulse Rate 98 81 Respiratory Rate Blood Pressure Pulse Oximetry 96 01/27/21 15:30 01/27/21 16:00 01/27/21 20:00 Temper
--- NOTE | 2021-01-28 10:12 | P.CDI_ITS ---
CDI Query Clarification Request -UTI has been documented -Chronic indwelling suprapubic catheter has been documented Please clarify if the UTI is: * Related to/due to chronic indwelling suprapubic catheter * Not related to/due to chronic indwelling suprapubic catheter * Unable to determine
--- NOTE | 2021-01-28 10:12 | WPDCDIQUERY2 ---
CDI Query Clarification Request -UTI has been documented -Chronic indwelling suprapubic catheter has been documented Please clarify if the UTI is: Related to/due to chronic indwelling suprapubic catheter Not related to/due to chronic indwelling suprapubic catheter Unable to determine
[2021-01-28] MEDS: POTASSIUM CHLORIDE 20 MEQ TABLET 40 MEQ PO (11:51)
[2021-01-28 13:48] LABS: Glucose Point of Care 421 mg/dl (65-105)
--- NOTE | 2021-01-28 14:20 | WPDINFPN2 ---
Progress Note: A&P Assessment and Plan (1) Bacteremia: Code(s): R78.81 - Bacteremia Status: Acute Assessment and Plan: Gram negative bacteremia, urine source likely REC Nitrofurantoin for the MRSA, Ctx for the GNR, adjust based on further micro. Subjective Date/time seen: 01/28/21 14:20 Objective Data Vital Signs Vital Signs: Vital Signs - 24 hr 01/27/21 14:30 01/27/21 15:30 01/27/21 16:00 Temperature 36.6 C Pulse Rate 81 100 Respiratory Rate 18 Blood Pressure 163/99 H Pulse Oximetry 96 96 01/27/21 20:00 01/27/21 22:00 01/28/21 00:00 Temperature 37.1 C Pulse Rate 102 H 104 H 85 Respiratory Rate 17 17 Blood Pressure 161/64 H Pulse Oximetry 91 91 01/28/21 04:00 01/28/21 05:43 01/28/21 08:00 Temperature 36.8 C Pulse Rate 85 88 Respiratory Rate 18 Blood Pressure 146/66 H Pulse Oximetry 90 92 01/28/21 14:00 Temperature 36.9 C Pulse Rate 102 H Respiratory Rate 20 Blood Pressure 148/69 H Pulse Oximetry 97 Intake/Output Intake/Output: Intake & Output 01/25/21 01/26/21 01/27/21 01/28/21 23:59 23:59 23:59 23:59 Intake Total 2280 1730 640 460 Output Total 200 950 775 500 Balance 2080 780 -135 -40 Meds/Results Medications: Active Medications Generic Name Dose Route Start Last Admin Trade Name Freq PRN Reason Stop Dose Admin Hydrocodone Bitart/Acetaminophen 1 tab 01/26/21 00:42 Hydrocodone/Acetaminophen (*Crx) 5-325 Mg Tablet PO BID PRN Pain Rated 4-6 Amlodipine Besylate 10 mg 01/26/21 09:00 01/28/21 08:30 Amlodipine Besylate 5 Mg Tablet PO 10 mg DAILY FREDIS Administration Aspirin 81 mg 01/26/21 18:00 01/27/21 17:50 Aspirin 81 Mg Enteric Tablet PO 81 mg QPM FREDIS Administration Atorvastatin Calcium 80 mg 01/26/21 18:00 01/27/21 17:49 Atorvastatin 40 Mg Tablet PO 80 mg QPM FREDIS Administration Calcium Carbonate 500 mg 01/26/21 09:00 01/26/21 10:04 Calcium/Vitamin D 500 Mg Tablet PO 500 mg QAM FREDIS Administration Cyanocobalamin 1,000 mcg 01/26/21 09:00 01/26/21 10:04 Cyanocobalamin 1,000 Mcg Tablet PO 1,000 mcg QAM FREDIS Administration Dextrose 12.5 gm 01/26/21 08:53 Dextrose 50% 25 Gm/50 Ml Syringe IV PUSH PRN PRN Hypoglycemia Protocol Famotidine 20 mg 01/26/21 09:00 01/28/21 08:30 Famotidine 20 Mg Tablet PO 20 mg BID FREDIS Administration Ferrous Sulfate 324 mg 01/26/21 08:00 01/28/21 08:30 Ferrous Sulfate 324 Mg Tablet PO 324 mg DAILY@0800 FREDIS Administration Fish Oil 1 gm 01/26/21 09:00 01/26/21 10:04 [place] 3 Polyunsat Fatty Acids 1 Gm Cap PO 1 gm QAM FREDIS Administration Gabapentin 300 mg 01/26/21 09:00 01/28/21 08:30 Gabapentin 300 Mg Capsule PO 300 mg BID FREDIS Administration Galantamine Hydrobromide 8 mg 01/26/21 09:00 01/28/21 08:30 Galantamine Hydrobromide 4 Mg Tablet PO 02/25/21 08:59 8 mg BID FREDIS Administration Glucagon 1 mg 01/26/21 08:53 Glucagon For Inj 1 Mg Vial IM PRN PRN Hypoglycemia Protocol Glucose 15 gm 01/26/21 08:53 Glucose Oral Gel 15 Gm Of Glucse In 37.5 Gm Tube PO PRN PRN Hypoglycemia Protocol Dextrose 1,000 mls @ 100 mls/hr 01/26/21 08:53 Dextrose 5% 1,000 Ml IVPB PRN PRN Hypoglycemia Protocol Vancomycin HCl 750 mg in 250 mls @ 250 mls/hr 01/27/21 08:00 01/27/21 09:21 Vancomycin 750 Mg/D5w 250 Ml IVPB 250 mls/hr Q36H FREDIS Administration Insulin Aspart 2 - 5 units 01/26/21 12:00 01/28/21 13:07 Insulin Aspart (*Bkc) 100 Units/Ml SUB-Q 5 units TIDWM FREDIS Administration Protocol Lactobacillus Acidophilus 2 tablet 01/26/21 09:00 01/26/21 10:04 Acidophilus/Bulgaricus Chewable Tablet BY MOUTH 2 tablet DAILY FREDIS Administration Lisinopril 20 mg 01/26/21 17:00 01/27/21 17:50 Lisinopril 20 Mg Tablet PO 20 mg DAILY@1700 FREDIS Administration Memantine 28 mg 01/26/21 18:00
[2021-01-28 16:43] LABS: Glucose Point of Care 283 mg/dl (65-105)
[2021-01-28] MEDS: MEMANTINE HCL XR 28 MG CAP PO (17:16)
[2021-01-28] MEDS: WARFARIN (*PBKC) 3 MG TABLET 6 MG PO (17:16)
[2021-01-28] MEDS: lisinopriL 20 MG TABLET PO (17:16)
[2021-01-28] MEDS: ASPIRIN 81 MG ENTERIC TABLET PO (17:16)
[2021-01-28] MEDS: ATORVASTATIN 40 MG TABLET 80 MG PO (17:18)
[2021-01-28] MEDS: PYRIDOXINE HCL 50 MG TABLET 100 MG PO (17:18)
[2021-01-28] MEDS: NITROFURANTOIN MONOHYD MACROCR 100 MG CAP PO (20:51)
[2021-01-28 22:06] LABS: Glucose Point of Care 284 mg/dl (65-105)
[2021-01-29] VITALS (7 sets, daily range): BP systolic 133–179; BP diastolic 71–86; PULSE 89–112; RESP 14–18; TEMP 36.6–37; O2SAT 92–96
[2021-01-29 06:43] LABS: Basophils Percent Auto 0.2 % (0.2-1.2); Eosinophils Absolute Auto 0.1 K/mm3 (0-0.3); Eosinophils Percent Auto 1.1 % (0-4.4); Hematocrit 26.9 % (37.0-47.0); Hemoglobin 8.5 g/dL (12.0-15.0); Immature Granulocyte Absolute 0.03 K/mm3 (0.00-0.031); Immature Granulocyte Percent A 0.4 % (0-0.5); Lymphocytes Absolute Auto 0.53 K/mm3 (0.9-3.2); Lymphocytes Percent Auto 6.4 % (18.3-44.2); Mean Corpuscular HGB Conc 31.6 g/dl (32-36); Mean Corpuscular Volume 91.8 fl (80-100); Mean Platelet Volume 9.5 fl (7.4-10.4); Monocytes Absolute Auto 0.7 K/mm3 (0.1-0.6); Monocytes Percent Auto 8.2 % (2.6-8.5); Neutrophils Percent Auto 83.7 % (45.5-73.1); Platelet Count Result 282 k/mm3 (150-375); Red Blood Count 2.93 M/mm3 (4.2-5.4); Red Cell Distribution Width 17.1 % (11.5-14.5); White Blood Count 8.3 K/mm3 (4.5-10.0)
[2021-01-29 06:48] LABS: Alanine Aminotransferase 68 U/L (4-35); Albumin Level 2.8 g/dL (3.5-5.1); Alkaline Phosphatase 114 U/L (38-126); Anion Gap 5 mmol/L (8-16); Aspartate Amino Transferase 98 U/L (14-36); Bilirubin,Total 0.5 mg/dL (0.2-1.3); Blood Urea Nitrogen 21 mg/dL (7-17); Calcium 8.4 mg/dL (8.4-10.2); Carbon Dioxide 31 mmol/L (22-30); Chloride 100 mmol/L (98-107); Estimated CRCL calculation 31 ml/min; Estimated Glomerular Filt Rate 60; Glucose 221 mg/dL (65-110); Magnesium 1.7 mg/dL (1.6-2.3); Phosphorus 2.8 mg/dL (2.5-4.5); Potassium 3.7 mmol/L (3.4-5.0); Sodium 136 mmol/L (137-145)
[2021-01-29 08:33] LABS: Glucose Point of Care 202 mg/dl (65-105)
--- NOTE | 2021-01-29 08:53 | PM.IMPN ---
Progress Note: A&P Assessment and Plan (1) Complicated urinary tract infection: Code(s): N39.0 - Urinary tract infection, site not specified Status: Acute Assessment and Plan: MRSA in urine -Urology consulted to change the suprapubic catheter -CT scan reviewed. No signs of abscess (2) Bacteremia: Code(s): R78.81 - Bacteremia Status: Acute Assessment and Plan: Pt has gram negative bacilli growing in both bottles (3) Pleural effusion: Code(s): J90 - Pleural effusion, not elsewhere classified Status: Acute Assessment and Plan: CT of the chest showed [id number] right pleural effusion and small to moderate left -BNP elevated, CHF could be a component -TSH normal -echo from December showed an EF of 60% (4) Sepsis: Code(s): A41.9 - Sepsis, unspecified organism Status: Acute Assessment and Plan: Patient meets sepsis criteria on admission with fever, tachycardia, and leukocytosis in the setting of a complicated urinary tract infection. septicemia -COVID-19 negative - Lactic acid levels within normal limits. -blood pressures have improved -urine culture as above -blood cultures do show growth as above (5) Elevated LFTs: Code(s): R79.89 - Other specified abnormal findings of blood chemistry Status: Acute (6) Chronic anemia: Code(s): D64.9 - Anemia, unspecified Status: Acute (7) Chronic anticoagulation: Code(s): Z79.01 - skilled nursing (current) use of anticoagulants Status: Chronic Assessment and Plan: -has mechanical aortic valve (8) Chronic kidney disease, stage 3: Code(s): N18.30 - Chronic kidney disease, stage 3 unspecified Status: Acute Assessment and Plan: Improved (9) Abnormal chest x-ray: Code(s): R93.89 - Abnormal findings on diagnostic imaging of other specified body structures Status: Acute Assessment and Plan: As above (10) Pressure ulcer: Code(s): L89.90 - Pressure ulcer of unspecified site, unspecified stage Status: Acute Assessment and Plan: 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 -appreciate wound care's recommendations Additional Plan 85yo lady with chronic SP tube presenting from EMS from home due to weakness. Noted to have MRSA UTI sensitive to vanc & tetracycline and levaquin. Catheter exchanged by urology at bedside, and patient on Vanc right now. Seen buy ID, recommend converting from vanc to nitrofurantoin, which we will do today. Also found to have Gram negative vineet bacteremia. CTX to cover for this, ID consulted. Hemodynamically stable. Lactate negative. Unclear etiology or port of entry. No susceptibilities or speciation yet. Of note, patient has artificial aortic valve for which she is on coumadin, and INR 2.3. She also noted to have documented anasarca, bilateral pleural effusions, and ascites. Echo showing preserved EF & G1 Diastolic dysfunction. Liver US unremarkable. Some mild proteinuria, but certainly not nephrotic range, and no RAJESH. Albumin noted to be low. Unclear etiology - though entirely possible it's related to malnutrition. Spoke in detail with daughter 9pm, discussed CT findings, namely aneursyms in thoracic and abdominal aorta. given >1cm growth in about 1.5yrs in thoracic aorta, may be worth at least evaluation by vascular surgeon, however given multiple comorbidities, patient high risk for complication during procedure, and furthermore according to daughter patient probably not interested in this anyway given DNR status. Daughter is POA. Will discuss this with patient and family, ongoing discussion. Notified them priority UTI & bacteremia at this time. Time Spent With Patient Time with patient: less than 15 minutes Subjective Date/time seen: 01/29/21 08:53 AO 2-3, no acute complaints Review of Systems Review of Systems: All systems rev
[2021-01-29] MEDS: INSULIN ASPART (*BKC) 100 UNITS/ML SUB-Q ×3 (09:45→17:42)
[2021-01-29] MEDS: FERROUS SULFATE 324 MG TABLET PO (09:45)
[2021-01-29] MEDS: GALANTAMINE HYDROBROMIDE 4 MG TABLET 8 MG PO ×2 (09:46→17:41)
[2021-01-29] MEDS: FAMOTIDINE 20 MG TABLET PO ×2 (09:46→17:40)
[2021-01-29] MEDS: THERAPEUTIC MULTIVITAMINS/MINERALS TAB (*BKC) 1 TABLET PO (09:46)
[2021-01-29] MEDS: CHOLECALCIFEROL 1,000 UNITS TABLET 5000 UNITS PO (09:46)
[2021-01-29] MEDS: amLODIPine BESYLATE 5 MG TABLET 10 MG PO (09:46)
[2021-01-29] MEDS: GABAPENTIN 300 MG CAPSULE PO ×2 (09:47→17:40)
[2021-01-29] MEDS: NITROFURANTOIN MONOHYD MACROCR 100 MG CAP PO ×2 (09:47→20:20)
[2021-01-29] MEDS: TOLNAFTATE 1% POWDER 45 GM BTL 1 APPLIC TOPICAL (09:47)
[2021-01-29] MEDS: SILVERGEL (ELTA) 45 ML 1 APPLIC TOPICAL (09:47)
[2021-01-29 12:21] LABS: Glucose Point of Care 266 mg/dl (65-105)
[2021-01-29 17:24] LABS: Glucose Point of Care 269 mg/dl (65-105)
[2021-01-29] MEDS: MEMANTINE HCL XR 28 MG CAP PO (17:40)
[2021-01-29] MEDS: ASPIRIN 81 MG ENTERIC TABLET PO (17:40)
[2021-01-29] MEDS: WARFARIN (*PBKC) 3 MG TABLET PO (17:41)
[2021-01-29] MEDS: PYRIDOXINE HCL 50 MG TABLET 100 MG PO (17:41)
[2021-01-29] MEDS: ATORVASTATIN 40 MG TABLET 80 MG PO (17:41)
[2021-01-29] MEDS: lisinopriL 20 MG TABLET PO (17:42)
[2021-01-29] MEDS: HYDROcodone/acetaminophen (*CRX) 5-325 MG TABLET 1 TAB PO (18:22)
[2021-01-29] MEDS: SODIUM CHLORIDE 0.9% IV 1,000 ML 100 ML IV CONT (18:22)
[2021-01-29 20:39] LABS: Glucose Point of Care 318 mg/dl (65-105)
[2021-01-29] MEDS: INSULIN ASPART (*BKC) 100 UNITS/ML 6 UNITS SUB-Q (21:05)
[2021-01-29] MEDS: INSULIN GLARGINE (*BKC) 100 UNITS/ML 10 UNITS SUB-Q (21:05)
[2021-01-30] VITALS (10 sets, daily range): BP systolic 127–165; BP diastolic 63–85; PULSE 68–113; RESP 16–18; TEMP 36.4–37.2; O2SAT 94–98
[2021-01-30] MEDS: SODIUM CHLORIDE 0.9% IV 1,000 ML 100 ML IV CONT ×2 (04:33→17:54)
[2021-01-30 07:05] LABS: Basophils Percent Auto 0.2 % (0.2-1.2); Eosinophils Absolute Auto 0.2 K/mm3 (0-0.3); Eosinophils Percent Auto 1.9 % (0-4.4); Hematocrit 28.4 % (37.0-47.0); Hemoglobin 9.1 g/dL (12.0-15.0); Immature Granulocyte Absolute 0.06 K/mm3 (0.00-0.031); Immature Granulocyte Percent A 0.5 % (0-0.5); Lymphocytes Absolute Auto 0.35 K/mm3 (0.9-3.2); Lymphocytes Percent Auto 2.9 % (18.3-44.2); Mean Corpuscular Hemoglobin 28.8 pg (26-34); Mean Corpuscular Volume 89.9 fl (80-100); Mean Platelet Volume 9.1 fl (7.4-10.4); Monocytes Absolute Auto 0.7 K/mm3 (0.1-0.6); Monocytes Percent Auto 5.9 % (2.6-8.5); Neutrophils Absolute Auto 10.8 K/mm3 (1.3-6.7); Neutrophils Percent Auto 88.6 % (45.5-73.1); Platelet Count Result 306 k/mm3 (150-375); Red Blood Count 3.16 M/mm3 (4.2-5.4); White Blood Count 12.1 K/mm3 (4.5-10.0)
[2021-01-30 07:35] LABS: Alanine Aminotransferase 73 U/L (4-35); Alkaline Phosphatase 118 U/L (38-126); Anion Gap 2 mmol/L (8-16); Aspartate Amino Transferase 88 U/L (14-36); Bilirubin,Total 0.5 mg/dL (0.2-1.3); Blood Urea Nitrogen 19 mg/dL (7-17); Calcium 8.5 mg/dL (8.4-10.2); Carbon Dioxide 32 mmol/L (22-30); Chloride 102 mmol/L (98-107); Estimated CRCL calculation 31 ml/min; Estimated Glomerular Filt Rate 60; Glucose 154 mg/dL (65-110); Magnesium 1.9 mg/dL (1.6-2.3); Phosphorus 3.1 mg/dL (2.5-4.5); Potassium 3.5 mmol/L (3.4-5.0); Sodium 136 mmol/L (137-145)
[2021-01-30 08:09] LABS: Vancomycin Trough 7.2 ug/mL (10.0-20.0)
[2021-01-30 08:35] LABS: Glucose Point of Care 138 mg/dl (65-105)
[2021-01-30] MEDS: FERROUS SULFATE 324 MG TABLET PO (08:43)
[2021-01-30] MEDS: THERAPEUTIC MULTIVITAMINS/MINERALS TAB (*BKC) 1 TABLET PO (08:44)
[2021-01-30] MEDS: CHOLECALCIFEROL 1,000 UNITS TABLET 5000 UNITS PO (08:44)
[2021-01-30] MEDS: NITROFURANTOIN MONOHYD MACROCR 100 MG CAP PO ×2 (08:44→20:36)
[2021-01-30] MEDS: amLODIPine BESYLATE 5 MG TABLET 10 MG PO (08:44)
[2021-01-30] MEDS: GALANTAMINE HYDROBROMIDE 4 MG TABLET 8 MG PO ×2 (08:44→18:04)
[2021-01-30] MEDS: FAMOTIDINE 20 MG TABLET PO ×2 (08:45→18:04)
[2021-01-30] MEDS: TOLNAFTATE 1% POWDER 45 GM BTL 1 APPLIC TOPICAL (08:45)
[2021-01-30] MEDS: SILVERGEL (ELTA) 45 ML 1 APPLIC TOPICAL (08:45)
[2021-01-30] MEDS: GABAPENTIN 300 MG CAPSULE PO ×2 (08:45→18:05)
--- NOTE | 2021-01-30 08:48 | PM.IMPN ---
Progress Note: A&P Assessment and Plan (1) Complicated urinary tract infection: Code(s): N39.0 - Urinary tract infection, site not specified Status: Acute Assessment and Plan: MRSA in urine -Urology consulted to change the suprapubic catheter -CT scan reviewed. No signs of abscess (2) Bacteremia: Code(s): R78.81 - Bacteremia Status: Acute Assessment and Plan: Pt has gram negative bacilli growing in both bottles (3) Pleural effusion: Code(s): J90 - Pleural effusion, not elsewhere classified Status: Acute Assessment and Plan: CT of the chest showed [id number] right pleural effusion and small to moderate left -BNP elevated, CHF could be a component -TSH normal -echo from December showed an EF of 60% (4) Sepsis: Code(s): A41.9 - Sepsis, unspecified organism Status: Acute Assessment and Plan: Patient meets sepsis criteria on admission with fever, tachycardia, and leukocytosis in the setting of a complicated urinary tract infection. septicemia -COVID-19 negative - Lactic acid levels within normal limits. -blood pressures have improved -urine culture as above -blood cultures do show growth as above (5) Elevated LFTs: Code(s): R79.89 - Other specified abnormal findings of blood chemistry Status: Acute (6) Chronic anemia: Code(s): D64.9 - Anemia, unspecified Status: Acute (7) Chronic anticoagulation: Code(s): Z79.01 - care home (current) use of anticoagulants Status: Chronic Assessment and Plan: -has mechanical aortic valve (8) Chronic kidney disease, stage 3: Code(s): N18.30 - Chronic kidney disease, stage 3 unspecified Status: Acute Assessment and Plan: Improved (9) Abnormal chest x-ray: Code(s): R93.89 - Abnormal findings on diagnostic imaging of other specified body structures Status: Acute Assessment and Plan: As above (10) Pressure ulcer: Code(s): L89.90 - Pressure ulcer of unspecified site, unspecified stage Status: Acute Assessment and Plan: 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 -appreciate wound care's recommendations Additional Plan 85yo lady with chronic SP tube presenting from EMS from home due to weakness. Noted to have MRSA UTI sensitive to vanc & tetracycline and levaquin. Catheter exchanged by urology at bedside, and patient on Vanc right now. Seen buy ID, recommend converting from vanc to nitrofurantoin, which we will do today. 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 Of note, patient has artificial aortic valve for which she is on coumadin, and INR 2.3. She also noted to have documented anasarca, bilateral pleural effusions, and ascites. Echo showing preserved EF & G1 Diastolic dysfunction. Liver US unremarkable. Some mild proteinuria, but certainly not nephrotic range, and no RAJESH. Albumin noted to be low. Unclear etiology - though entirely possible it's related to malnutrition. Spoke in detail with daughter 924pm, discussed CT findings, namely aneursyms in thoracic and abdominal aorta. given >1cm growth in about 1.5yrs in thoracic aorta, may be worth at least evaluation by vascular surgeon, however given multiple comorbidities, patient high risk for complication during procedure. Discussed case with her directly, and she AOx3 and pretty adamantly opposed to any such procedure. Will discuss with daughter. Subjective Date/time seen: 01/30/21 08:48 no acute complaints resting comfortably Review of Systems Review of Systems: All systems reviewed & are unremarkable except as noted in HPI and below Exam Const: General: no acute distress Neck: Neck: no JVD Resp: Effort & Inspection: normal respiratory effort Auscultation: clear to auscultation bilaterally Cardio: Rate: regular rate Rhythm: regular rh
[2021-01-30 11:42] LABS: Legionella pneumophila Ag Ur Not Detected (Not Detected)
[2021-01-30] MEDS: INSULIN ASPART (*BKC) 100 UNITS/ML SUB-Q ×2 (11:50→18:03)
[2021-01-30] MEDS: HYDROcodone/acetaminophen (*CRX) 5-325 MG TABLET 1 TAB PO (11:51)
[2021-01-30 12:11] LABS: Glucose Point of Care 222 mg/dl (65-105)
[2021-01-30 12:22] LABS: Pneumococcal Antigen Urine Not Detected (Not Detected)
[2021-01-30 12:56] LABS: INR 3.4
--- NOTE | 2021-01-30 13:30 | PCOTNOTE ---
Attempted to see Pt for occupational therapy tx however, pt was eating lunch at the time. This pt was the last one for the therapist on this date. Will continue per poc duration/frequency tomorrow.
[2021-01-30] MEDS: MEMANTINE HCL XR 28 MG CAP PO (18:05)
[2021-01-30] MEDS: lisinopriL 20 MG TABLET PO (18:06)
[2021-01-30] MEDS: ATORVASTATIN 40 MG TABLET 80 MG PO (18:06)
[2021-01-30] MEDS: ASPIRIN 81 MG ENTERIC TABLET PO (18:06)
[2021-01-30] MEDS: PYRIDOXINE HCL 50 MG TABLET 100 MG PO (18:06)
[2021-01-30 19:03] LABS: Glucose Point of Care 302 mg/dl (65-105)
[2021-01-30 21:05] LABS: Glucose Point of Care 336 mg/dl (65-105)
[2021-01-30] MEDS: INSULIN GLARGINE (*BKC) 100 UNITS/ML 14 UNITS SUB-Q (22:25)
[2021-01-30] MEDS: INSULIN ASPART (*BKC) 100 UNITS/ML 6 UNITS SUB-Q (22:28)
[2021-01-31] VITALS (8 sets, daily range): BP systolic 144–160; BP diastolic 61–96; PULSE 86–115; RESP 18–22; TEMP 36.7–37; O2SAT 94–97
[2021-01-31] MEDS: SODIUM CHLORIDE 0.9% IV 1,000 ML 100 ML IV CONT ×2 (06:24→17:20)
[2021-01-31 06:39] LABS: Basophils Percent Auto 0.2 % (0.2-1.2); Eosinophils Absolute Auto 0.3 K/mm3 (0-0.3); Eosinophils Percent Auto 2.5 % (0-4.4); Hematocrit 30.3 % (37.0-47.0); Hemoglobin 9.3 g/dL (12.0-15.0); Immature Granulocyte Absolute 0.07 K/mm3 (0.00-0.031); Immature Granulocyte Percent A 0.7 % (0-0.5); Lymphocytes Absolute Auto 0.36 K/mm3 (0.9-3.2); Lymphocytes Percent Auto 3.4 % (18.3-44.2); Mean Corpuscular HGB Conc 30.7 g/dl (32-36); Mean Corpuscular Hemoglobin 29.2 pg (26-34); Mean Corpuscular Volume 95.3 fl (80-100); Mean Platelet Volume 9.4 fl (7.4-10.4); Monocytes Absolute Auto 0.7 K/mm3 (0.1-0.6); Monocytes Percent Auto 6.6 % (2.6-8.5); Neutrophils Absolute Auto 9.1 K/mm3 (1.3-6.7); Neutrophils Percent Auto 86.6 % (45.5-73.1); Platelet Count Result 298 k/mm3 (150-375); Red Blood Count 3.18 M/mm3 (4.2-5.4); Red Cell Distribution Width 17.2 % (11.5-14.5); White Blood Count 10.6 K/mm3 (4.5-10.0)
[2021-01-31 06:48] LABS: INR 3.1; Prothrombin Time 30.8 Seconds (11.1-14.7)
[2021-01-31 06:50] LABS: Alanine Aminotransferase 90 U/L (4-35); Albumin Level 3.1 g/dL (3.5-5.1); Alkaline Phosphatase 121 U/L (38-126); Anion Gap 7 mmol/L (8-16); Aspartate Amino Transferase 118 U/L (14-36); Bilirubin,Total 0.6 mg/dL (0.2-1.3); Blood Urea Nitrogen 17 mg/dL (7-17); Calcium 8.5 mg/dL (8.4-10.2); Carbon Dioxide 28 mmol/L (22-30); Chloride 105 mmol/L (98-107); Estimated CRCL calculation 35 ml/min; Estimated Glomerular Filt Rate > 60; Glucose 123 mg/dL (65-110); Magnesium 1.9 mg/dL (1.6-2.3); Phosphorus 3.2 mg/dL (2.5-4.5); Potassium 3.4 mmol/L (3.4-5.0); Sodium 140 mmol/L (137-145)
[2021-01-31] MEDS: SILVERGEL (ELTA) 45 ML 1 APPLIC TOPICAL (08:39)
[2021-01-31] MEDS: TOLNAFTATE 1% POWDER 45 GM BTL 1 APPLIC TOPICAL (08:39)
[2021-01-31] MEDS: amLODIPine BESYLATE 5 MG TABLET 10 MG PO (08:40)
[2021-01-31] MEDS: FAMOTIDINE 20 MG TABLET PO ×2 (08:40→17:24)
[2021-01-31] MEDS: GABAPENTIN 300 MG CAPSULE PO ×2 (08:40→17:23)
[2021-01-31] MEDS: GALANTAMINE HYDROBROMIDE 4 MG TABLET 8 MG PO ×2 (08:41→17:24)
[2021-01-31] MEDS: CHOLECALCIFEROL 1,000 UNITS TABLET 5000 UNITS PO (08:41)
[2021-01-31] MEDS: FERROUS SULFATE 324 MG TABLET PO (08:42)
[2021-01-31] MEDS: THERAPEUTIC MULTIVITAMINS/MINERALS TAB (*BKC) 1 TABLET PO (08:43)
[2021-01-31 08:59] LABS: Glucose Point of Care 103 mg/dl (65-105)
[2021-01-31] MEDS: NITROFURANTOIN MONOHYD MACROCR 100 MG CAP PO ×2 (09:20→20:16)
--- NOTE | 2021-01-31 11:51 | WPDINFPN2 ---
Progress Note: A&P Assessment and Plan (1) Bacteremia: Code(s): R78.81 - Bacteremia Status: Acute Assessment and Plan: 1. Actinomyces bacteremia with infection, odontogenic source. Facial/cervical infection not evident clinically, nor elsewhere. 2. MRSA in urine of ? significance 3. Multiple antibiotic allergies REC Given the preceding, Ctx appropriate, and give through 02/10/21. Then oral cefdinir x 14 days additional. Stop nitrofurantoin after 7 days Rx. Call if other Qs, sign off. Subjective Date/time seen: 01/31/21 11:51 Interval history: offers no complaints Exam Narrative: afebrile Const: General: no acute distress HENMT: Mouth: Yes moist mucous membranes Other: teeth appear in good repair, oprpharynx normal. Neck no masses nor asymmetry Eyes: General: appearance normal, both eyes and all related structures EOM: EOMs intact bilaterally Neck: Neck: supple Lymphatic: lymphadenopathy not noted Resp: Effort & Inspection: normal respiratory effort Auscultation: clear to auscultation bilaterally Cardio: Rate: regular rate Rhythm: regular rhythm Heart sounds: no murmurs GI: Inspection: non-distended GI Palp: Yes Soft to palpation and No Tenderness to palpation present (GI) Objective Data Vital Signs Vital Signs: Vital Signs - 24 hr 01/30/21 12:00 01/30/21 15:43 01/30/21 16:00 Temperature 37.2 C Pulse Rate 113 H 99 90 Respiratory Rate 16 Blood Pressure 127/63 Pulse Oximetry 97 01/30/21 20:00 01/30/21 21:37 01/31/21 00:00 Temperature 36.8 C Pulse Rate 68 95 97 Respiratory Rate 16 17 Blood Pressure 153/80 H Pulse Oximetry 98 98 01/31/21 04:00 01/31/21 05:36 01/31/21 08:00 Temperature 36.8 C Pulse Rate 115 H 97 86 Respiratory Rate 20 Blood Pressure 155/88 H Pulse Oximetry 94 Intake/Output Intake/Output: Intake & Output 01/28/21 01/29/21 01/30/21 01/31/21 23:59 23:59 23:59 23:59 Intake Total 1430 1670 3640 1200 Output Total 1250 1300 950 600 Balance 861 504 8664 600 Meds/Results Medications: Active Medications Generic Name Dose Route Start Last Admin Trade Name Freq PRN Reason Stop Dose Admin Hydrocodone Bitart/Acetaminophen 1 tab 01/26/21 00:42 01/30/21 11:51 Hydrocodone/Acetaminophen (*Crx) 5-325 Mg Tablet PO 1 tab BID PRN Administration Pain Rated 4-6 Amlodipine Besylate 10 mg 01/26/21 09:00 01/31/21 08:40 Amlodipine Besylate 5 Mg Tablet PO 10 mg DAILY RFEDIS Administration Aspirin 81 mg 01/26/21 18:00 01/30/21 18:06 Aspirin 81 Mg Enteric Tablet PO 81 mg QPM FREDIS Administration Atorvastatin Calcium 80 mg 01/26/21 18:00 01/30/21 18:06 Atorvastatin 40 Mg Tablet PO 80 mg QPM FREDIS Administration Calcium Carbonate 500 mg 01/26/21 09:00 01/26/21 10:04 Calcium/Vitamin D 500 Mg Tablet PO 500 mg QAM FREDIS Administration Cyanocobalamin 1,000 mcg 01/26/21 09:00 01/26/21 10:04 Cyanocobalamin 1,000 Mcg Tablet PO 1,000 mcg QAM FREDIS Administration Dextrose 12.5 gm 01/29/21 20:55 Dextrose 50% 25 Gm/50 Ml Syringe IV PUSH PRN PRN Hypoglycemia Protocol Famotidine 20 mg 01/26/21 09:00 01/31/21 08:40 Famotidine 20 Mg Tablet PO 20 mg BID FREDIS Administration Ferrous Sulfate 324 mg 01/26/21 08:00 01/31/21 08:42 Ferrous Sulfate 324 Mg Tablet PO 324 mg DAILY@0800 FREDIS Administration Fish Oil 1 gm 01/26/21 09:00 01/26/21 10:04 [place] 3 Polyunsat Fatty Acids 1 Gm Cap PO 1 gm QAM FREDIS Administration Gabapentin 300 mg 01/26/21 09:00 01/31/21 08:40 Gabapentin 300 Mg Capsule PO 300 mg BID FREDIS Administration Galantamine Hydrobromide 8 mg 01/26/21 09:00 01/31/21 08:41 Galantamine Hydrobromide 4 Mg Tablet PO 02/25/21 08:59 8 mg BID FREDIS Administration Glucagon 1 mg 01/29/21 20:55 Glucagon For Inj 1 Mg Vial IM PRN PRN Hypoglycemia Protocol Glucose 15 gm 01/29/21 20:55 Glucose Oral Gel 15
--- NOTE | 2021-01-31 12:00 | PM.IMPN ---
Progress Note: A&P Assessment and Plan (1) Complicated urinary tract infection: Code(s): N39.0 - Urinary tract infection, site not specified Status: Acute Assessment and Plan: MRSA in urine -Urology consulted to change the suprapubic catheter -CT scan reviewed. No signs of abscess - MRSA UTI sensitive to vanc & tetracycline and levaquin. Catheter exchanged by urology at bedside, pt seen by ID continue on ceftriaxone. 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 (2) Bacteremia: Code(s): R78.81 - Bacteremia Status: Acute Assessment and Plan: Pt has gram negative bacilli growing in both bottles (3) Pleural effusion: Code(s): J90 - Pleural effusion, not elsewhere classified Status: Acute Assessment and Plan: CT of the chest showed [id number] right pleural effusion and small to moderate left -BNP elevated, CHF could be a component -TSH normal -echo from December showed an EF of 60% (4) Sepsis: Code(s): A41.9 - Sepsis, unspecified organism Status: Acute Assessment and Plan: Patient meets sepsis criteria on admission with fever, tachycardia, and leukocytosis in the setting of a complicated urinary tract infection. septicemia -COVID-19 negative (5) Elevated LFTs: Code(s): R79.89 - Other specified abnormal findings of blood chemistry Status: Acute (6) Chronic anemia: Code(s): D64.9 - Anemia, unspecified Status: Acute (7) Chronic anticoagulation: Code(s): Z79.01 - continuous churn buttermaker (current) use of anticoagulants Status: Chronic Assessment and Plan: -has mechanical aortic valve hold Coumadin today (8) Chronic kidney disease, stage 3: Code(s): N18.30 - Chronic kidney disease, stage 3 unspecified Status: Acute Assessment and Plan: Improved (9) Abnormal chest x-ray: Code(s): R93.89 - Abnormal findings on diagnostic imaging of other specified body structures Status: Acute Assessment and Plan: As above (10) Pressure ulcer: Code(s): L89.90 - Pressure ulcer of unspecified site, unspecified stage Status: Acute Assessment and Plan: 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 -appreciate wound care's recommendations Additional Plan Other notes_ She also noted to have documented anasarca, bilateral pleural effusions, and ascites. Echo showing preserved EF & G1 Diastolic dysfunction. Liver US unremarkable. Some mild proteinuria, but certainly not nephrotic range, and no RAJESH. thoracic and abdominal aorta. given >1cm growth in about 1.5yrs in thoracic aorta Subjective Date/time seen: 01/31/21 12:00 Interval history: Pleasant lady nil complaints here for uti, chronic SP catheter infection. PT seen by ID see recommendations. Review of Systems Review of Systems: All systems reviewed & are unremarkable except as noted in HPI and below Exam Narrative: General:Pt resting comfortably in the chair pleasant lady Neck: supple Neuro: Alert and oriented x2. Neuro nil focal Resp: clear lung jenkins Abd: Soft, NT, Suprapubic catheter in place. PT has serrato. Extremities: No swelling, erythema, or pain to palpation. Objective Data Vital Signs Vital Signs: Vital Signs - 24 hr 01/30/21 15:43 01/30/21 16:00 01/30/21 20:00 Temperature 37.2 C Pulse Rate 99 90 68 Respiratory Rate 16 16 Blood Pressure 127/63 Pulse Oximetry 97 98 01/30/21 21:37 01/31/21 00:00 01/31/21 04:00 Temperature 36.8 C Pulse Rate 95 97 115 H Respiratory Rate 17 Blood Pressure 153/80 H Pulse Oximetry 98 01/31/21 05:36 01/31/21 08:00 Temperature 36.8 C Pulse Rate 97 86 Respiratory Rate 20 Blood Pressure 155/88 H Pulse Oximetry 94 Intake/Output Intake/Output: Intake & O
[2021-01-31 12:28] LABS: Glucose Point of Care 146 mg/dl (65-105)
--- NOTE | 2021-01-31 12:28 | PCNFU ---
Nutrition Follow-Up Complete: Increased protein needs related to wound as evidenced by stage IV sacral pressure ulcer. Goal: Patient to meet estimated nutritional needs. Patient is progressing towards goal. We will continue current goal. Pt current nutrition is Regular with Clifford and Ensure Clear BID. Last recorded weight is 52.9 kg, up from 45.45 kg on admit. Bowel Motility:+BM reported 01/31 Labs Reviewed:Glu 123,ALb 3.1,Hct 30.3,Hgb 9.3 Meds Noted:MVI, NS, Vit D, Lantus,Norvasc, Pepcid, Razadyne,Neurontin. Additional Notes: Patient seen today for nutrition follow up. She is tolerating a regular diet, 60-65% of meals. Skin: stage IV sacrum. Protein Modular of Clifford BID has been ordered, providing an additional 90 kcals and 2.5 gms protein. Diet supplement of Ensure Clear as ordered for an additional 240 kcals and 8 gms protein. Agree with diet orders. Monitor: patient's labs, medications, weight, and oral intake every 5 days.
[2021-01-31 17:16] LABS: Glucose Point of Care 285 mg/dl (65-105)
[2021-01-31] MEDS: PYRIDOXINE HCL 50 MG TABLET 100 MG PO (17:23)
[2021-01-31] MEDS: ASPIRIN 81 MG ENTERIC TABLET PO (17:23)
[2021-01-31] MEDS: ATORVASTATIN 40 MG TABLET 80 MG PO (17:23)
[2021-01-31] MEDS: MEMANTINE HCL XR 28 MG CAP PO (17:23)
[2021-01-31] MEDS: lisinopriL 20 MG TABLET PO (17:24)
[2021-01-31] MEDS: INSULIN ASPART (*BKC) 100 UNITS/ML SUB-Q (17:25)
[2021-01-31] MEDS: INSULIN GLARGINE (*BKC) 100 UNITS/ML 14 UNITS SUB-Q (20:16)
[2021-01-31 22:18] LABS: Glucose Point of Care 335 mg/dl (65-105)
[2021-01-31 22:18] LABS: Glucose Point of Care 369 mg/dl (65-105)
[2021-01-31] MEDS: INSULIN ASPART (*BKC) 100 UNITS/ML 6 UNITS SUB-Q (22:43)
[2021-02-01] VITALS (8 sets, daily range): BP systolic 127–159; BP diastolic 54–85; PULSE 85–109; RESP 16–18; TEMP 36.4–36.7; O2SAT 96–97
[2021-02-01] MEDS: SODIUM CHLORIDE 0.9% IV 1,000 ML 100 ML IV CONT ×2 (04:53→15:58)
[2021-02-01 06:43] LABS: Hematocrit 30.6 % (37.0-47.0); Hemoglobin 9.6 g/dL (12.0-15.0); Mean Corpuscular HGB Conc 31.4 g/dl (32-36); Mean Corpuscular Hemoglobin 29.1 pg (26-34); Mean Corpuscular Volume 92.7 fl (80-100); Mean Platelet Volume 9.3 fl (7.4-10.4); Platelet Count Result 300 k/mm3 (150-375); Red Cell Distribution Width 16.9 % (11.5-14.5); White Blood Count 10.6 K/mm3 (4.5-10.0)
[2021-02-01 07:05] LABS: INR 2.4; Prothrombin Time 25.6 Seconds (11.1-14.7)
[2021-02-01 07:29] LABS: Anion Gap 6 mmol/L (8-16); Blood Urea Nitrogen 18 mg/dL (7-17); Calcium 8.4 mg/dL (8.4-10.2); Carbon Dioxide 25 mmol/L (22-30); Chloride 109 mmol/L (98-107); Estimated CRCL calculation 40 ml/min; Estimated Glomerular Filt Rate > 60; Glucose 141 mg/dL (65-110); Potassium 3.3 mmol/L (3.4-5.0); Sodium 140 mmol/L (137-145)
[2021-02-01 07:50] LABS: Glucose Point of Care 114 mg/dl (65-105)
[2021-02-01] MEDS: NITROFURANTOIN MONOHYD MACROCR 100 MG CAP PO ×2 (08:33→20:38)
[2021-02-01] MEDS: FERROUS SULFATE 324 MG TABLET PO (08:33)
[2021-02-01] MEDS: amLODIPine BESYLATE 5 MG TABLET 10 MG PO (08:33)
[2021-02-01] MEDS: FAMOTIDINE 20 MG TABLET PO ×2 (08:33→17:08)
[2021-02-01] MEDS: GABAPENTIN 300 MG CAPSULE PO ×2 (08:33→17:08)
[2021-02-01] MEDS: THERAPEUTIC MULTIVITAMINS/MINERALS TAB (*BKC) 1 TABLET PO (08:33)
[2021-02-01] MEDS: GALANTAMINE HYDROBROMIDE 4 MG TABLET 8 MG PO ×2 (08:33→17:08)
[2021-02-01] MEDS: CHOLECALCIFEROL 1,000 UNITS TABLET 5000 UNITS PO (08:34)
[2021-02-01] MEDS: SILVERGEL (ELTA) 45 ML 1 APPLIC TOPICAL (08:34)
[2021-02-01] MEDS: TOLNAFTATE 1% POWDER 45 GM BTL 1 APPLIC TOPICAL (08:34)
[2021-02-01 11:46] LABS: Glucose Point of Care 254 mg/dl (65-105)
[2021-02-01] MEDS: INSULIN ASPART (*BKC) 100 UNITS/ML SUB-Q ×2 (12:03→17:13)
--- NOTE | 2021-02-01 13:19 | PM.IMPN ---
Progress Note: A&P Assessment and Plan (1) Complicated urinary tract infection: Code(s): N39.0 - Urinary tract infection, site not specified Status: Acute Assessment and Plan: MRSA in urine -Urology consulted to change the suprapubic catheter -CT scan reviewed. No signs of abscess - MRSA UTI sensitive to vanc & tetracycline and levaquin. Catheter exchanged by urology at bedside, pt seen by ID continue on ceftriaxone. 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 02/01 patient 85-year-old female with Actinomyces bacteremia with infection, odontogenic source. MRSA in urine, patient seen by Dr. gatica recommending continue ceftriaxone until 02/10/2021 thereafter switch over to Cefdinir for 10 days, patient remains clinically stable denies any complaint of dysuria frequency of urination fever or chills, will continue present management, will continue to monitor, will have a PT OT evaluate the patient and further recommendation to follow. patient complains of sore throat will keep patient Chloraseptic lozenges. (2) Bacteremia: Code(s): R78.81 - Bacteremia Status: Acute Assessment and Plan: Pt has gram negative bacilli growing in both bottles (3) Pleural effusion: Code(s): J90 - Pleural effusion, not elsewhere classified Status: Acute Assessment and Plan: CT of the chest showed [id number] right pleural effusion and small to moderate left -BNP elevated, CHF could be a component -TSH normal -echo from December showed an EF of 60% (4) Sepsis: Code(s): A41.9 - Sepsis, unspecified organism Status: Acute Assessment and Plan: Patient meets sepsis criteria on admission with fever, tachycardia, and leukocytosis in the setting of a complicated urinary tract infection. septicemia -COVID-19 negative (5) Elevated LFTs: Code(s): R79.89 - Other specified abnormal findings of blood chemistry Status: Acute (6) Chronic anemia: Code(s): D64.9 - Anemia, unspecified Status: Acute (7) Chronic anticoagulation: Code(s): Z79.01 - intermediate teacher (current) use of anticoagulants Status: Chronic Assessment and Plan: -has mechanical aortic valve hold Coumadin today (8) Chronic kidney disease, stage 3: Code(s): N18.30 - Chronic kidney disease, stage 3 unspecified Status: Acute Assessment and Plan: Improved (9) Abnormal chest x-ray: Code(s): R93.89 - Abnormal findings on diagnostic imaging of other specified body structures Status: Acute Assessment and Plan: As above (10) Pressure ulcer: Code(s): L89.90 - Pressure ulcer of unspecified site, unspecified stage Status: Acute Assessment and Plan: 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 -appreciate wound care's recommendations Additional Plan Other notes_ She also noted to have documented anasarca, bilateral pleural effusions, and ascites. Echo showing preserved EF & G1 Diastolic dysfunction. Liver US unremarkable. Some mild proteinuria, but certainly not nephrotic range, and no RAJESH. thoracic and abdominal aorta. given >1cm growth in about 1.5yrs in thoracic aorta Subjective Date/time seen: 02/01/21 13:19 Interval history: Pleasant lady nil complaints here for uti, chronic SP catheter infection. PT seen by ID see recommendations. 02/01 patient 85-year-old female with Actinomyces bacteremia with infection, odontogenic source. MRSA in urine, patient seen by Dr. gatica recommending continue ceftriaxone until 02/10/2021 thereafter switch over to Cefdinir for 10 days, patient remains clinically stable denies any complaint of dysuria frequency of urination fever or chills, will continue present management, will continue to monitor, will have a PT OT evaluate the
--- NOTE | 2021-02-01 15:09 | PC.NURSE ---
On 02/01/21, the student, [Claudine Ta ], provided care and completed [facility] documentation on this patient. I have reviewed the student's documentation and agree with the findings.
[2021-02-01 16:10] LABS: Glucose Point of Care 369 mg/dl (65-105)
[2021-02-01] MEDS: lisinopriL 20 MG TABLET PO (17:09)
[2021-02-01] MEDS: WARFARIN (*PBKC) 3 MG TABLET PO (17:10)
[2021-02-01] MEDS: ASPIRIN 81 MG ENTERIC TABLET PO (17:10)
[2021-02-01] MEDS: ATORVASTATIN 40 MG TABLET 80 MG PO (17:11)
[2021-02-01] MEDS: MEMANTINE HCL XR 28 MG CAP PO (17:12)
[2021-02-01] MEDS: PYRIDOXINE HCL 50 MG TABLET 100 MG PO (17:12)
[2021-02-01 17:51] LABS: Glucose Point of Care 397 mg/dl (65-105)
[2021-02-01] MEDS: INSULIN GLARGINE (*BKC) 100 UNITS/ML 14 UNITS SUB-Q (20:38)
[2021-02-01 22:02] LABS: Glucose Point of Care 399 mg/dl (65-105)
[2021-02-01] MEDS: INSULIN ASPART (*BKC) 100 UNITS/ML 12 UNITS SUB-Q (23:40)
[2021-02-02 06:00] VITALS: BP 126/41; PULSE 77; RESP 16; O2SAT 92
--- NOTE | 2021-02-02 06:15 | PC.NURSE ---
CYCLING INSTRUCTOR and I went in to turn patient and obtain vitals, pt appeared to be sleeping heavily, drool running out of her mouth, sweaty forehead, O2 sat obtained reads 77% on 1LNC, O2 increased to 6L and sats are 94%, pt does open her eyes to her name being called but does not verbally respond, rapid response called, blood sugar WNL, Keisha LIVINGSTON came to bedside to evaluate. Daughter Martha notified of change of condition and is coming.
--- NOTE | 2021-02-02 06:31 | PC.NURSE ---
BARTENDER CAM ATTEMPTED TO CALL FAMILY WITH CONDITION CHANGE, NO ANSWER, LEFT MESSAGE
--- NOTE | 2021-02-02 06:45 | PM.EVENT ---
Event Note Event Note Event Note: Rapid response was called to the patient's room after she became unresponsive upon arrival patient had been placed on 5 L of oxygen by nasal cannula and she responded to painful stimuli as time progressed patient progressively became more obtunded and unresponsive and her saturation began to drop as well as her heart rate family was called for update a message was left on the phone patient is a DNR seem to be comfortable comfort care measures as needed.
[2021-02-02 06:47] LABS: Glucose Point of Care 206 mg/dl (65-105)
--- NOTE | 2021-02-02 07:45 | PM.DDS ---
Discharge Summary Date and Time Date of : 02/02/21 Time of : 07:32 Probable Cause of Probable Cause of : Sepsis Summary Hospital Course: patient 85-year-old female with Actinomyces bacteremia with infection, odontogenic source. MRSA in urine, patient seen by Dr. gatica recommending continue ceftriaxone until 02/10/2021 thereafter switch over to Cefdinir for 10 days, patient remains clinically stable denies any complaint of dysuria frequency of urination fever or chills, will continue present management, will continue to monitor, will have a PT OT evaluate the patient and further recommendation to follow. patient complains of sore throat will keep patient Chloraseptic lozenges. Patient on 02/02/2021 at 07:32 Additional Data Confirmation of as documented by pronouncing clinician: Pupillary Reflex, Palpable Pulses, Response to Stimuli, Heart Tones and Breath Sounds Family: contacted Name of Provider Notified: Young Perez MD Was code activated?: No Provider Requests Autopsy: No Family Requests Autopsy: No Creative Specialist Notified: Yes Advance directives: Yes Hospice patient?: No
--- NOTE | 2021-02-02 12:22 | PC.NURSE ---
Pt passed shortly after shift started. Son came in to bedside to visit patient and took her belongings, including her glasses home.
--- NOTE | 2021-02-03 06:22 | P.CDI_ITS ---
CDI Query Clarification Request -Sepsis has been documentd -Urine culture grew MRSA - complicated UTI has been documented -Chronic indwelling supra pubic catheter has been documented Please clarify if UTI is: * Due to/ associated with chronic indwelling suprapubic catheter * Not due to /associated with chronic indwelling suprapubic catheter * Unable to determine <Kalina Martinez RN - Last Filed: 02/03/21 06:26> Clarified Diagnosis (1) Acute UTI: Code(s): N39.0 - Urinary tract infection, site not specified <Kalina Martinez RN - Last Filed: 02/03/21 06:26> Status: Acute <Kalina Martinez RN - Last Filed: 02/03/21 06:26> Assessment and Plan: Patient with UTI most likely 2/2 chronic indwelling suprapubic catheter <Young Perez MD - Last Filed: 02/21/21 18:15>
--- NOTE | 2021-02-03 13:18 | CONS_ITS ---
DATE OF CONSULTATION: 01/28/2021 HISTORY OF PRESENT ILLNESS: 85-year-old female asked to see for bacteremia. She cannot provide any history due to dementia. She has a chronic suprapubic catheter according to the record, which was changed here yesterday. She was brought to the hospital 3 days ago with less than 1 day of confusion, generalized weakness, hypoxemia, fever, tachycardia. Here she has been treated and consultation requested with positive blood cultures. No other surgical interventions and no events here in the hospital. ALLERGIES: PENICILLIN CAUSED RASH. SULFA CAUSED VOMITING, TOLERATING CEPHALOSPORIN. HABITS: No tobacco, alcohol, or illicit drugs. PRESENT MEDICATIONS: No immunosuppressants. PAST MEDICAL HISTORY: In addition to the above, BTL, right hip arthroplasty, coronary stents, cholecystectomy, cataracts, appendectomy, aortic valve replacement 2001. Type 2 diabetes mellitus, second-degree AV block, hyperlipidemia, PUD, hypertension, hyperlipidemia, previous diverticulitis, stage 3 renal insufficiency, stroke in October 2019, AF, chronic anemia. FAMILY HISTORY: Not pertinent to her present illness. SOCIAL HISTORY: She is . Two children. Lives with family members. No family at the bedside currently. REVIEW OF SYSTEMS: Not obtainable from the patient. 14-point review attempted. PHYSICAL EXAMINATION: GENERAL: This is a cachectic female who appears much older than her actual age. No respiratory distress. VITAL SIGNS: 148/69, 20, 102, currently afebrile. On arrival here, she had a temperature of 38.6. SKIN: Ecchymoses. Warm and dry. EENT: The conjunctivae are normal. She would not cooperate for exam of the mouth in full, but dry mucous membranes. NECK: No meningismus. LUNGS: Clear to auscultation on tidal respirations, clear to percussion. CARDIAC: Tachycardic, regular. No murmurs. ABDOMEN: Nontender, soft. No organomegaly. She has a suprapubic catheter without drainage. Urine in the catheter collection device is without blood or sediment, it is clear yellow. EXTREMITIES: Muscle wasting. No clubbing, cyanosis, or edema. LABORATORY DATA: Blood cultures, gram-negative rods. No further identification after 3 days incubation. Urine with MRSA. Previous urine culture 12/09/2020, Klebsiella pneumoniae. White blood cell count 7.4, hemoglobin 8.4, and platelets are 275. Her white blood cell count on arrival was 16.7. She has mild hypokalemia. CO2 is 33, BUN 26, creatinine 1.0, down from 1.3. Glucose 252, hemoglobin A1c 09/20/2020, 6.4%. Transaminases twice normal and declining from 3 times. CRP 17.2, albumin low 2.7. Urinalysis, multiple abnormalities, which are reviewed. RADIOLOGY: Abdominal ultrasound normal. Abdomen pelvic CT and chest CT as well as chest x-ray taken together showed no lung parenchymal disease except for atelectasis. Other findings noted, ascending thoracic aortic aneurysm, mesenteric edema, PAH. ASSESSMENT: 1. Gram-negative bacteremia, suspect true infection, not contaminant. Considerations include urine or pulmonary, less likely lower GI. I doubt primary bloodstream infection such as endocarditis or infection of her aneurysm. 2. Methicillin-resistant Staphylococcus aureus in the urine of questionable significance. 3. Chronic suprapubic catheter. 4. Dementia. RECOMMENDATIONS: 1. Continue ceftriaxone and adjust based upon further microbiology information. 2. Change vancomycin to nitrofurantoin to complete a 7-day course. 3. Anticipate at least 5 days of IV therapy. 4. Thank you for asking me to see her. BENJAMIN BALDWIN M.D. COMMISSIONED SALES ASSOCIATE :2
== END 2021-02-02 07:32 | disposition expired | DRG 871 ==
LOC: ANHED 12:05 → ANH3MEDSUR 13:29
PROVIDERS: Family Medicine; Internal Medicine; Physician Assistant; Admitting Provider Internal Medicine; Emergency Provider Emergency Medicine; PCP Family Medicine; Visit Provider Physician Assistant
DX: A41.89 Other specified sepsis (principal); L89.154 Pressure ulcer of sacral region, stage 4; N39.0 Urinary tract infection, site not specified; I13.0 Hypertensive heart and chronic kidney disease with heart failure and stage 1 through stage 4 chronic kidney disease, or unspecified chronic kidney disease; I50.32 Chronic diastolic (congestive) heart failure; B95.62 Methicillin resistant Staphylococcus aureus infection as the cause of diseases classified elsewhere; Z97.8 Presence of other specified devices; Z20.822 Contact with and (suspected) exposure to COVID-19; R79.89 Other specified abnormal findings of blood chemistry; D64.9 Anemia, unspecified; E11.22 Type 2 diabetes mellitus with diabetic chronic kidney disease; N18.30 Chronic kidney disease, stage 3 unspecified; F03.90 Unspecified dementia, unspecified severity, without behavioral disturbance, psychotic disturbance, mood disturbance, and anxiety; R93.89 Abnormal findings on diagnostic imaging of other specified body structures; I71.2 Thoracic aortic aneurysm, without rupture; N31.9 Neuromuscular dysfunction of bladder, unspecified; E78.5 Hyperlipidemia, unspecified; Z66 Do not resuscitate; R40.4 Transient alteration of awareness; Z79.01 Long term (current) use of anticoagulants; Z79.82 Long term (current) use of aspirin; Z79.84 Long term (current) use of oral hypoglycemic drugs; Z79.899 Other long term (current) drug therapy; Z88.0 Allergy status to penicillin; Z88.2 Allergy status to sulfonamides; Z88.8 Allergy status to other drugs, medicaments and biological substances; Z95.2 Presence of prosthetic heart valve; Z95.5 Presence of coronary angioplasty implant and graft; Z98.42 Cataract extraction status, left eye; Z98.41 Cataract extraction status, right eye
CPT/HCPCS: 36415; 36430; 71045; 71250; 74176; 76705; 80048; 80053; 80076; 80202; 81001; 82140; 82948; 83605; 83735; 83880; 84100; 84443; 85014; 85018; 85025; 85027; 85610; 85730; 86140; 86850; 86900; 86901; 86920; 87040; 87077; 87086; 87088; 87186; 87449; 87899; 93005; 96361; 96365; 96375; 97110; 97116; 97161; 97165; 97530; 97535; 99285; A9270; C9803; G0378; J0131; J0456; J0696; J1815; J1956; J2270; J3370; J7030; J7040; P9016; U0003; U0005